=== PATIENT | female | born 1945 | race Caucasian/White ===

== ENCOUNTER 2020-03-05 13:18 | Inpatient (IN) | payer MEDICARE, OTHER ==
[~2020-03-05] VITALS: Ht 170.2 cm; Wt 129.7 kg
[~2020-03-05 13:18] MED LIST: ASPIR 8181 MG PO; CITALOPRAM HBR40 MG PO; JANUVIA100 MG PO; LEVOXYL75 MCG PO; LIPITOR80 MG PO; METOPROLOL TART25 MG PO; NITROFURANTOIN100 MG PO; OXYBUTYNIN CHLO15 MG PO; PRILOSEC20 MG PO; PRINIVIL5 MG PO
[2020-03-05] MEDS ORDERED: AZITHROMYCIN 500MG/NS 250 ML 250 ML IV ONE (14:00)
[2020-03-05] MEDS ORDERED: CEFEPIME 2 GM/NS 0.9% 100 ML 100 ML IV ONE (14:00)
--- OUTSIDE RECORDS SUMMARY | 2020-03-05 14:06 | XMS REPORT | Continuity of Care Document ---
Author Author [facility] Organization [facility] Address [facility] [place] [address] Phone Unavailable Care Team Providers Care Social Insurance Specialist Name Role Phone Simeon PONCE, Pearl Quinn PCP Eddie PONCE, Ted Romano Attphys Payers Payer Name Policy Type Policy Number Effective Date Expiration Date rohit [facility]// [id number] xxxxxxxxxxx 2008 00:00:00 Neto Menon Problems Condition Name Condition Details Condition Category Status Onset Date Resolution Date Last Treatment Date Treating Clinician Comments Source Ventricular tachycardia Ventricular tachycardia Disease Active 2017-10-15 00:00:[address] Severe sepsis Severe sepsis Disease Active 2016-12-07 00:00:00 Neto Menon Allergies, Adverse Reactions, Alerts Allergy Name Allergy Type Status Severity Reaction(s) Onset Date Inacti ve Date Treating Clinician Comments Source Penicillin G Propensity to adverse reactions to drug Active Hives 2016-12-07 00:00:00 Neto loving Sulfa (Sulfonamide Antibiotics) Propensity to adverse reactions to drug Active Hives, Swelling 2016-12-07 00:00:00 Neto Menon Social History Social Habit Start Date Stop Date Quantity Comments Source Sex Assigned At [place] [facility] Alcohol intake 2017-12-05 00:00:00 2017-12-05 00:00:00 Current non-drinker of alcohol (finding) Neto Menon Smoking Status Start Date Stop Date Source Never smoker Neto loving Medications Ordered Medication Name Filled Medication Name Start Date Stop Da te Current Medication? Ordering Clinician Indication Dosage Frequency Signature (SIG) Comments Components Source omeprazole (PriLOSEC) 20 MG capsule 2017-12-05 20:37:51 Yes 20mg QD Take 20 mg by mouth daily. Neto Menon aspirin (ECOTRIN) 81 MG enteric coated tablet 2017-12-05 20:37:5 1 Yes 81mg QD Take 81 mg by mouth nightly. Neto Menon amIODarone (PACERONE) 100 MG tablet 2017-12-05 20:37:51 Yes 100mg QD Take 100 mg by mouth daily. Neto bonilla rivaroxaban (XARELTO) 15 mg tablet 2017-12-05 20:37:51 Yes 15mg QD Take 15 mg by mouth daily. Neto Menon acetaminophen (TYLENOL) 325 MG tablet 2017-12-05 20:37:51 Y es 325mg Q6H Take 325 mg by mouth every 6 (six) hours as needed for fever. Neto Menon levothyroxine (SYNTHROID, LEVOXYL) 75 mcg tablet 2017-11-18 00:00:00 Yes 1{tbl} QD Take 1 tablet by mouth daily before breakfast. Neto Menon phenytoin (DILANTIN) 100 MG ER capsule 2017-11-17 00:00:00 Yes 2{capsule} Q.5D Take 2 capsules by mouth 2 (two) times a day. Neto Menon furosemide (LASIX) 20 mg tablet 2017-11-13 00:00:00 Yes 2{tbl} QD Take 2 tablets by mouth daily. Neto Bryant t potassium chloride (KLOR-CON) 10 MEQ CR tablet 2017-11-13 00:00: 00 Yes 1{tbl} QD Take 1 tablet by mouth nightly. Neto Menon metOLazone (ZAROXOLYN) 5 MG tablet 2017-09-18 00:00:00 Y es 1{tbl} Q.[id number] Take 1 tablet by mouth 3 (three) times a week. Saturdayday saturday Neto Menon atorvastatin (LIPITOR) 80 MG tablet 2017-08-26 00:00:00 Yes 1{tbl} QD Take 1 tablet by mouth nightly. Neto Menon metoprolol tartrate (LOPRESSOR) 25 mg tablet 2017-08-26 00:00:00 Yes 2{tbl} QD Take 2 tablets by mouth daily. Neto Menon losartan (COZAAR) 25 MG tablet 2017-03-26 00:00:00 Yes 25mg QD Take 25 mg by mouth daily. Neto Menon sitaGLIPtin (JANUVIA) 100 MG tablet 2017-02-27 00:00:00 Yes 100mg QD Take 100 mg by mouth daily. Neto bonilla multivitamin (THERAGRAN) tablet 2013-12-10 00:00:00 Yes 1{tbl} QD Take 1 tablet by mouth daily. Neto Menon Vital Signs Vital Name Observation Time Observation Value Comments Source Heart rate 2020-03-03 17:30:00 83 /min Neto Menon Respiratory rate 2020-03-03 17:30:00 24 /min Heber Menon Oxygen saturation in Arterial blood by Pulse oximetry 03-03 17:30:00 95 /min Neto Menon Body temperature 2020-03-03 16:40:00 37.17 Briana Heber Menon Systolic blood pressure 2020-03-03 15:00:00 124 mm[Hg] Neto Menon Diastolic blood pressure 2020-03-03 15:00:00 62 mm[Hg] Neto Menon Procedures Procedure Date / Time Performed Performing Clinician [facility] e US DUPLEX VENOUS UPPER EXTREMITY RIGHT 2020-03-03 15:40:00 Moni Grover CBC WITH PLATELET AND DIFFERENTIAL 2020-03-03 15:36:00 Moni Levi COMPREHENSIVE METABOLIC PANEL 2020-03-03 15:36:00 Moni Levi ESTIMATED GFR 2020-03-03 15:36:00 Moni Levi Met kaur MANUAL DIFFERENTIAL 2020-03-03 15:36:00 Moni Levi XR CHEST 1 VW PORTABLE 2020-03-03 15:34:13 Moni Levi ECG 12-LEAD 2020-03-03 15:07:03 Moni Levi Met kaur ECG ED PRELIMINARY INTERPRETATION 2020-03-03 15:01:44 Juan Levi Plan of Care Planned Activity Planned Date Details Comments Source Future Scheduled Test 2020-03-05 00:00:00 INFLUENZA VACCINE [code = INFLUENZA VACCINE] Neto Menon Future Scheduled Test 1993 00:00:00 COLONOSCOPY SCREEN ING [code = COLONOSCOPY SCREENING] Neto Menon Future Scheduled Test 1993 00:00:00 SHINGLES VACCINES (#1) [code = SHINGLES VACCINES (#1)] Neto Menon Future Scheduled Test 1953 00:00:00 DIABETIC FOOT EXAM [code = DIABETIC FOOT EXAM] Neto Menon Future Scheduled Test 1943 00:00:00 DIABETIC RETINAL E YE EXAM [code = DIABETIC RETINAL EYE EXAM] Neto Menon Encounters Start Date/Time End Date/Time Encounter Type Admission Type [facility] Care Department Encounter ID Source 2020-03-03 00:00:00 2020-03-03 00:00:00 Emergency EDDIE, MONI [facility] [id number] Neto Menon Results Test Description Test Time Test Comments Results Result Comments Source ECG 12 lead 2020-03-03 16:54:43 Test Item Ventricular rate (test code = 253) 78 Atrial rate (test code = 255) 78 CO interval (test code = 266) 164 QRSD interval (test code = 260) 90 QT interval (test code = 264) 448 QTC interval (test code = 265) 510 P axis 1 (test code = 267) 97 QRS axis 1 (test code = 268) 18 T wave axis (test code = 270) 10 EKG impression (test code = 273) Normal sinus rhythm-C annot rule out Anterior infarct , age undetermined-Prolonged QT-Abnormal ECG-In automated comparison with ECG of 05-DEC-2017 19:43,-Sinus rhythm has replaced Junctional rhythm-Nonsp ecific T wave abnormality, improved in Lateral leads-QT has lengthened- Neto MenonUs duplex venous upper [id number] 16:48:07 There is no evidence of DVT in the right upper extremity and left internal jugular vein. Neto MenonCBC with platelet and [id number] 16:44:52* Test Item Value Reference Range Interpretation Comments WBC (test code = 23506-0) 5.53 4.50- 11.00 k/uL RBC (test code = 40266-0) 3.81 m/uL 4.2-5.5 L HGB (test code = 718-7) 10.1 g/dL 12-16 L HCT (test code = 4544-3) 35.0 % 37-47 L MCV (test code = 787-2) 91.9 fL 82-100 MCH (test code = 785-6) 26.5 pg 27-34 L MCHC (test code = 786-4) 28.9 g/dL 31-37 L RDW - SD (test code = 97918-8) 102.2 fL 37-55 H MPV (test code = 76018-4) SEE COMMENT 8.8-13.2 No report Platelet count (test code = 94828-3) 150 150- 400 k/uL Nucleated RBC (test code = 19353-3) 0.00 /100 WBC Neutrophils (test code = 30881-7) 41.0 % 39-69 Lymphocytes (test code = 87448-3) 52.0 % 25-45 H Monocytes (test code = 34891-9) 2.0 % 0-10 Eosinophils (test code = 47607-9) 5.0 % 0-5 Basophils (test code = 48459-0) 0.0 % 0-1 Lab Interpretation (test code = 93789-3) Abnormal [place] [facility] [id number] 16:44:52* Test Item Value Reference Range Interpretation Comments Manual differential (test code = 74761-2) PERFORMED Neutrophils (test code = 11857-6) 41.0 % 39-69 Lymphocytes (test code = 61078-0) 52.0 % 25-45 H Monocytes (test code = 41305-9) 2.0 % 0-10 Eosinophils (test code = 64073-6) 5.0 % 0-5 Basophils (test code = 13438-2) 0.0 % 0-1 Metamyelocytes (test code = 740-1) 0 % Promyelocytes (test code = 783-1) 0 % Platelet slide review (test code = 28363-4) Abhijit adequate Anisocytosis (test code = 702-1) Moderate Tear drop cells (test code = 7791-7) Occasional Ovalocytes (test code = 774-0) occasional Elliptocytes (test code = 50530-2) Occasional Lab Interpretation (test code = 15059-5) Abnormal [place] [facility] [id number] 15:56:33* Test Item Value Reference Range Interpretation Comments Sodium (test code = 2951-2) 140 135- 148 mEq/L Potassium (test code = 2823-3) 3.1 3.5- 5.0 mEq/L L Chloride (test code = 5-0) 100 98- 112 mEq/L CO2 (test code = 2027-9) 34 24- 31 mEq/L H Anion gap (test code = 13186-4) 6@ANIO 7- 15 mEq/L L BUN (test code = 3094-0) 9 mg/dL 8-23 Creatinine (test code = 2160-0) 0.70 mg/dL 0.5-0.9 Glucose (test code = 2345-7) 121 mg/dL 65-99 H Calcium (test code = 23428-0) 8.2 mg/dL 8.8-10.2 L Protein (test code = 2885-2) 6.4 g/dL 6.3-8.3 -[place] 4.6- 7.0 g/dL1 week 4.4-7.6 g/dL7 months-1year 5.1-7.3 g/dL1-2 years 5.6-7.5 g/dL>3 years 6.0-8.0 g/oV43-033 6.3-8.3 g/dL Albumin (test code = 1751-7) 2.3 g/dL 3.5-5 L A/G ratio (test code = 1759-0) 0.6 0.7-3.8 L Alkaline phosphatase (test code = 6768-6) 108 U/L 35-104 H AST (test code = 1920-8) 45 U/L 10-35 H ALT (test code = 1742-6) 23 U/L 5-50 Total bilirubin (test code = 1974-) 0.9 mg/dL 0-1.2 Lab Interpretation (test code = 03124-7) Abnormal [place] [facility] [id number] 15:56:33* Test Item Value Reference Range Interpretation Comments Estimated GFR (test code = 5488) 84 mL/min/1.73 m2 Catergory Units InterpretationG1 >=90 Normal or highG2 60-89 Mildly otvpuxifpW7r 45-59 Mildly to moderately pujwytmmxA0t 30-44 Moderately to severely decreasedG4 15-29 Severely decreasedG5 <15 Kidney failureThe eGFR was calculated using the Chronic Kidney Disease Epidemiology Collaboration (CKD-EPI) equation. Interpretation is based on recommendations of the National Kidney Foundation-Kidney Disease Outcomes Quality Initiative (NKF-KDOQI) published in 2014. Neto MenonXR Chest 1 Vw [id number] 15:37:15Hm Interface, Radiology Results 03/03/2020 3:40 PM CDTEXAMINATION: XR CHEST 1 VW PORTABLECLINICAL HISTORY: reported low O2 sat by EMS but normalCOMPARISON: Prior chest radiographs, most recently dated 12/05/2018IMPRESSION:Technique: Single portable chest radiograph. Patient is partially rotated on the exam. Lines/tube: NoneCardiomediastinum: Postsurgical changes mediastinum. Unchanged b orderline cardiomegaly with aortic calcifications.Lungs: Patient is rotated on t his study. Subsegmental atelectatic changes are seen within the right lung base. No definitive consolidative airspace opacity on this portable technique. No liliam dence of pulmonary edema. No pleural effusion. No pneumothorax.Bones: Midline st ernotomy wires are present. The regional osseous structures appear stable. [facility] [place] [place] [id number] [facility] [place] [place] [facility] [place] Preliminary Interpretation - Not an Order 2020-03-03 15:01:44Moni Levi MD 03/03/2020 6:03 PME ED Preliminary Interpretation - Not an OrderPerformed by: Moni Levi MDAuthorized by: Moni Levi MD ECG reviewed by ED Physician in the absence of a highway maintenance worker: yes (read at 1507) Interpretation: Interpretation: normal Rate: ECG rate: 78 ECG rate assessment: normal Rhythm: Rhythm: sinus rhythm Ectopy: Ectopy: none QRS: QRS axis: Normal QRS intervals: NormalConduction: Conduction: normal ST segments: ST segments: NormalT waves: T waves: normal Other findings: Other findings: prolonged qTc interval Neto Menon
--- OUTSIDE RECORDS SUMMARY | 2020-03-05 14:06 | XMS REPORT | Clinical Summary ---
Author Author [facility] Organization [facility] Address Unknown Phone Unavailable Care Team Providers Care Cigar Sorter Name Role Phone Cheyenne Hendrix MD PCP Allergies Comments Active Allergy Reactions Severity Noted Date Penicillin G Hives Medium 12/07/2016 Sulfa (Sulfonamide Hives, High 12/07/2016 Antibiotics) Swelling Medications End Date Status Medication Sig Dispensed Refills Start Date Active atorvastatin (LIPITOR) 80 Take 1 tablet 0 /2 /201 MG tablet by mouth 8 nightly. Active furosemide (LASIX) 20 mg Take 2 0 11/13 tablet tablets by 8 mouth daily. Active levothyroxine (SYNTHROID, Take 1 tablet 0 11/03 LEVOXYL) 75 mcg tablet by mouth 8 daily before breakfast. Active losartan (COZAAR) 25 MG Take 25 mg by 0 tablet mouth daily. 7 Active metOLazone (ZAROXOLYN) 5 Take 1 tablet 0 09/18201 MG tablet by mouth 3 8 (three) times a week. Saturday Active metoprolol tartrate Take 2 0 (LOPRESSOR) 25 mg tablet tablets by 8 mouth daily. Active multivitamin (THERAGRAN) Take 1 tablet 0 12/10 tablet by mouth 4 daily. Active omeprazole (PriLOSEC) 20 Take 20 mg by 0 MG capsule mouth daily. Active phenytoin (DILANTIN) 100 Take 2 0 11/17 / MG ER capsule capsules by 8 mouth 2 (two) times a day. Active potassium chloride Take 1 tablet 0 (KLOR-CON) 10 MEQ CR by mouth 8 tablet nightly. Active sitaGLIPtin (JANUVIA) 100 Take 100 mg 0 / MG tablet by mouth 7 daily. Active aspirin (ECOTRIN) 81 MG Take 81 mg by 0 enteric coated tablet mouth nightly. Active amIODarone (PACERONE) 100 Take 100 mg 0 MG tablet by mouth daily. Active rivaroxaban (XARELTO) 15 Take 15 mg by 0 mg tablet mouth daily. Active acetaminophen (TYLENOL) Take 325 mg 0 325 MG tablet by mouth every 6 (six) hours as needed for fever. Active Problems Problem Noted Date Ventricular tachycardia 10/15/2017 Severe sepsis 12/07/2016 Encounters Care Team Description Date Type Specialty Juan Antonio Levi MD Swelling of right upper extremity (Prima ry Dx); Hypokalemia 03/03/2020 Emergency Emergency Medicine after 03/05/2019 Social History Date Tobacco Use Types Packs/Day Years Used Never Smoker Smokeless Tobacco: Never Used Drinks/Week oz/Week Comments Alcohol Use No Sex Assigned at Date Recorded Not on file Industry Job Start Date Occupation Not on file Not on file Not on file Travel End Travel History Travel Start No recent travel history available. Last Filed Vital Signs Reading Time Taken Comments Vital Sign 124/62 03/03/2020 3:00 PM CDT Blood Pressure 83 03/03/2020 5:30 PM CDT Pulse 37.2 C (98.9 F) 03/03/2020 4:40 PM CDT Temperature 24 03/03/2020 5:30 PM CDT Respiratory Rate 95% 03/03/2020 5:30 PM CDT Oxygen Saturation - - Inhaled Oxygen Concentration - - Weight - - Height - - Body Mass Index Plan of Treatment Health Maintenance Due Date Last Done Comments DIABETIC RETINAL EYE EXAM 1943 DIABETIC FOOT EXAM 1953 COLONOSCOPY SCREENING 1993 SHINGLES VACCINES (#1) 1993 INFLUENZA VACCINE 03/05/2020 03/26/2017, 06/08/2016, 04/19/2014, Additional history exists 65+ PNEUMOCOCCAL VACCINE Completed 06/14/2014, 04/05/2010, 08/05/2006 Procedures Comments Procedure Name Priority Date/Time Associated Diag nosis US DUPLEX VENOUS UPPER STAT 03/03/2020 EXTREMITY RIGHT 3:40 PM CDT MANUAL DIFFERENTIAL STAT 03/03/2020 3:36 PM CDT ESTIMATED GFR STAT 03/03/2020 3:36 PM CDT COMPREHENSIVE METABOLIC STAT 03/03/2020 PANEL 3:36 PM CDT CBC WITH PLATELET AND STAT 03/03/2020 DIFFERENTIAL 3:36 PM CDT XR CHEST 1 VW PORTABLE STAT 03/03/2020 3:34 PM CDT ECG 12-LEAD Routine 03/03/2020 3:07 PM CDT ECG ED PRELIMINARY Routine 03/03/2020 INTERPRETATION 3:01 PM CDT after 03/05/2019 Results * Us duplex venous upper extremity (03/03/2020 3:40 PM CDT) Specimen Narrative Performed At [facility] There is no evidence of DVT in the r ight upper extremity and left internal jugular vein. Performing Organization Address City/State/[facility] Cent[facility] Ph one Number [facility] [address] [place] [address], * Estimated GFR (03/03/2020 3:36 PM CDT) Pathologist [facility] Estimated GFR 84 mL/min/1.73 m2 [place] Comment: [facility] Interpretation G1 >=90 Normal or high G2 60-89 Mildly decreased G3a 45-59 Mildly to moderately decreased G3b 30-44 Moderately to severely decreased G4 15-29 Severely decreased G5 <15 Kidney failure The eGFR was calculated using the Chronic Kidney Disease Epidemiology Collaboration (CKD-EPI) equation. Interpretation is based on recommendations of the National Kidney Foundation-Kidney Disease Outcomes Quality Initiative (NKF-KDOQI) published in 2014. Specimen Performing Organization Address City/State/Zipcode [place] [address] [place], [place] [address] PATHOLOGY AND GENOMIC MEDICINE [facility] [address] [place] [address] [facility] * Manual differential (03/03/2020 3:36 PM CDT) Manual PERFORMED [place] differential [facility] Neutrophils 41.0 39.0 - 69.0 % [facility] Lymphocytes 52.0 (H) 25.0 - 45.0 % [facility] Monocytes 2.0 0.0 - 10.0 % [facility] Eosinophils 5.0 0.0 - 5.0 % [facility] Basophils 0.0 0.0 - 1.0 % [facility] Metamyelocytes 0 % [facility] Promyelocytes 0 % [facility] Platelet slide Abhijit adequate [place] review [facility] Anisocytosis Moderate [facility] Tear drop cells Occasional [facility] Ovalocytes occasional [facility] Elliptocytes Occasional [facility] Specimen Performing Organization Address City/State/Zipcode Ph one Number [facility] [place] [address] [place], [place] [address] PATHOLOGY AND GENOMIC MEDICINE [facility] [address] [place] [address] [facility] * CBC with platelet and differential (03/03/2020 3:36 PM CDT) WBC 5.53 4.50 - 11.00 k/uL [facility] RBC 3.81 (L) 4.20 - 5.50 m/uL [facility] HGB 10.1 (L) 12.0 - 16.0 g/dL [facility] HCT 35.0 (L) 37.0 - 47.0 % [facility] MCV 91.9 82.0 - 100.0 fL [facility] MCH 26.5 (L) 27.0 - 34.0 pg [facility] MCHC 28.9 (L) 31.0 - 37.0 g/dL [facility] RDW - SD 102.2 (H) 37.0 - 55.0 fL [facility] MPV SEE COMMENTComment: No report 8.8 - 13.2 fL [facility] Platelet count 150 150 - 400 k/uL [facility] Nucleated RBC 0.00 /100 WBC [facility] Neutrophils 41.0 39.0 - 69.0 % [facility] Lymphocytes 52.0 (H) 25.0 - 45.0 % [facility] Monocytes 2.0 0.0 - 10.0 % [facility] Eosinophils 5.0 0.0 - 5.0 % [facility] Basophils 0.0 0.0 - 1.0 % [facility] Specimen Blood Performing Organization Address City/State/[facility] Ph [place] [facility] [place] [address] [place] [address] PATHOLOGY AND GENOMIC MEDICINE [facility] [address] [place] [address] [facility] * Comprehensive metabolic panel (03/03/2020 3:36 PM CDT) Sodium 140 135 - 148 mEq/L [facility] Potassium 3.1 (L) 3.5 - 5.0 mEq/L [facility] Chloride 100 98 - 112 mEq/L [facility] CO2 34 (H) 24 - 31 mEq/L [facility] Anion gap 6@ANIO (L) 7 - 15 mEq/L [facility] BUN 9 8 - 23 mg/dL [facility] Creatinine 0.70 0.50 - 0.90 mg/dL [facility] Glucose 121 (H) 65 - 99 mg/dL [facility] Calcium 8.2 (L) 8.8 - 10.2 mg/dL [facility] Protein 6.4 6.3 - 8.3 g/dL [place] Comment: [facility] [place] 4.6-7.0 g/dL 1 week 4.4-7.6 g/dL 7 months-1year 5.1-7.3 g/dL 1-2 years 5.6-7.5 g/dL >3 years 6.0-8.0 g/dL 18-150 6.3-8.3 g/dL Albumin 2.3 (L) 3.5 - 5.0 g/dL [facility] A/G ratio 0.6 (L) 0.7 - 3.8 [facility] Alkaline 108 (H) 35 - 104 U/L [place] phosphatase [facility] AST 45 (H) 10 - 35 U/L [facility] ALT 23 5 - 50 U/L [facility] Total bilirubin 0.9 0.0 - 1.2 mg/dL [facility] Specimen Blood Performing Organization Address City/State/Zipcode [place] [address] [address] [place], [place] [address] PATHOLOGY AND GENOMIC MEDICINE [place] YAZDANISM CLEAR [address] [place] [address] [facility] * XR Chest 1 Vw Portable (03/03/2020 3:34 PM CDT) Specimen Narrative Performed At EXAMINATION: XR CHEST 1 VW PORTABLE [facility] CLINICAL HISTORY: reported low O2 sat by EMS but normal COMPARISON: Prior chest radiographs, mo st recently dated 12/05/2018 IMPRESSION: Technique: Single portable chest radiog raph. Patient is partially rotated on the exam. Lines/tube: None Cardiomediastinum: Postsurgical changes mediastinum. Unchanged borderline cardiomegaly with aortic calcifications . Lungs: Patient is rotated on this study . Subsegmental atelectatic changes are seen within the right lung base. No def initive consolidative airspace opacity on this portable technique. No evidence of pulmonary edema. No pleural effusion. No pneumothorax. Bones: Midline sternotomy wires are pre sent. The regional osseous structures appear stable. [facility]-[id number] Procedure Note Hm Interface, Radiology Results Incoming - 03/03/2020 3:40 PM CDT EXAMINATION: XR CHEST 1 VW PORTABLE CLINICAL HISTORY: reported low O2 sat by EMS but normal COMPARISON: Prior chest radiographs, most recently dated 12/05/2018 IMPRESSION: Technique: Single portable chest radiograph. Patient is partially rotated on the exam. Lines/tube: None Cardiomediastinum: Postsurgical changes mediastinum. Unchanged borderline cardiomegaly with aortic calcifications. Lungs: Patient is rotated on this study. Subsegmental atelectatic changes are seen within the right lung base. No definitive consolidative airspace opacity on this portable technique. No evidence of pulmonary edema. No pleural effusion. No pneumothorax. Bones: Midline sternotomy wires are present. The regional osseous structures appear stable. [id number] Performing Organization Address City/[facility]/Zipcode Ph one Number [facility] [address] [facility] [place] [address] * ECG 12 lead (03/03/2020 3:07 PM CDT) Ventricular 78 [facility] rate Atrial rate 78 [facility] [place] interval 164 [facility] QRSD interval 90 [facility] QT interval 448 [facility] QTC interval 510 [facility] P axis 1 97 [facility] QRS axis 1 18 [facility] T wave axis 10 [facility] EKG impression Normal sinus rhythm-Cannot [facility] rule out Anterior infarct , age undetermined-Prolonged QT-Abnormal ECG-In automated comparison with ECG of 05-DEC-2017 19:43,-Sinus rhythm has replaced Junctional rhythm-Nonspecific T wave abnormality, improved in Lateral leads-QT has lengthened- Specimen Narrative Performed At This result has an attachment that is n ot available. Performing Organization Address City/State/Zipcode Ph one Number [facility] [address] [place] [address] * ECG ED Preliminary Interpretation - Not an Order (03/03/2020 3:01 PM CDT) Narrative Performed At Juan Antonio Levi MD 03/03/2020 6:03 PM ECG ED Preliminary Interpretation - Not an Order Performed by: Juan Antonio Levi MD Authorized by: Juan Antonio Levi MD ECG reviewed by ED Physician in the abs ence of a supervisor building maintenance: yes (read at 1507) Interpretation: Interpretation: normal Rate: ECG rate: 78 ECG rate assessment: normal Rhythm: Rhythm: sinus rhythm Ectopy: Ectopy: none QRS: QRS axis: Normal QRS intervals: Normal Conduction: Conduction: normal ST segments: ST segments: Normal T waves: T waves: normal Other findings: Other findings: prolonged qTc interva l after 03/05/2019 Additional Health Concerns Resolved Time Infection Noted Time r/o Coronavirus COVID-19 (Suspected) 03/03/2020 2:5 4 PM CDT Insurance Type Payer Benefit Subscriber ID Effective Phone Address Plan / Dates Group O [employer] xxxxxxxxxxx 2008- P ADVANTAGE resent [facility] Advance Directives For more information, please contact: [phone] 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
[2020-03-05 14:12] LABS: BASOPHILS # (AUTO) 0.1 (0.0-0.1); BASOPHILS % 1.1 % (0.0-1.0); EOSINOPHILS # (AUTO) 0.1 (0.0-0.4); EOSINOPHILS % 2.1 % (0.0-6.0); HEMATOCRIT 33.4 % (34.2-44.1); HEMOGLOBIN 9.9 g/dL (12.0-16.0); LYMPHOCYTES # (AUTO) 2.2 (1.0-3.2); MEAN CORPUSCULAR HEMOGLOBIN 25.8 pg (28-32); MEAN CORPUSCULAR HGB CONC 29.6 g/dL (31-35); MEAN CORPUSCULAR VOLUME 87.2 fL (81-99); MONOCYTES # (AUTO) 0.4 (0.2-0.8); NEUTROPHILS # (AUTO) 2.4 (2.1-6.9); NEUTROPHILS % 46.6 % (38.7-80.0); PLATELET COUNT 200 x10e3/uL (140-360); RED BLOOD COUNT 3.83 x10e6/uL (3.6-5.1)
[2020-03-05 14:19] LABS: INR 1.31
[2020-03-05 14:20] LABS: CLARITY,URINE SL CLOUDY (CLEAR); COLOR,URINE YELLOW (YELLOW); PARTIAL THROMBOPLASTIN TIME 37.7 seconds (23.8-35.5)
[2020-03-05 14:21] LABS: BILIRUBIN,URINE SMALL (NEGATIVE); KETONES,URINE TRACE (NEGATIVE); LEUKOCYTE ESTERASE ,URINE TRACE (NEGATIVE); NITRITE,URINE NEGATIVE (NEGATIVE); PROTEIN,URINE DIPSTICK TRACE (NEGATIVE); URINE UROBILINOGEN 1 mg/dL (0.2 - 1)
--- NOTE | 2020-03-05 14:32 | NUR ---
SPOKE WITH DAUGHTER ON PHONE, OBTAINED MEDICAL HISTORY. SHE IS ON HER WAY WITH PHONE AN MED LIST
[2020-03-05 14:34] LABS: ALANINE AMINOTRANSFERASE 24 IU/L (0-55); ALBUMIN/GLOBULIN RATIO 0.5 (0.8-2.0); ALKALINE PHOSPHATASE 103 IU/L (40-150); ANION GAP 11.8 mmol/L (8-16); BLOOD UREA NITROGEN 8 mg/dL (7-26); BUN/CREATININE RATIO 12 (6-25); CALCIUM 7.6 mg/dL (8.4-10.2); CARBON DIOXIDE 31 mmol/L (22-29); CHLORIDE 101 mmol/L (98-107); CREATINE KINASE 12 IU/L (29-168); CREATININE, SERUM 0.68 mg/dL (0.57-1.11); EST GLOMERULAR FILTRATION RATE > 60 ML/MIN (60-); GLUCOSE 123 mg/dL (74-118); MAGNESIUM 1.4 MG/DL (1.3-2.1); POTASSIUM 3.8 mmol/L (3.5-5.1); SODIUM 140 mmol/L (136-145)
--- NOTE | 2020-03-05 14:38 | NUR ---
DAUGHTER DROPPED OFF HER MOMS PHONE AND MEDICATION LIST ANDER GALLEGOS [phone]
[2020-03-05 14:40] LABS: BACTERIA,URINE FEW /HPF; EPITHELIAL CELLS,URINE FEW /LPF; RBC,URINE 0-5 /HPF (0-5)
[2020-03-05] MEDS ORDERED: CEPHALEXIN500 MG PO (14:52)
[2020-03-05] MEDS ORDERED: JANUVIA100 MG PO (14:54)
[2020-03-05] MEDS ORDERED: LOSARTAN POTASS25 MG PO (14:58)
--- NOTE | 2020-03-05 15:16 | Diagnostic Imaging Report ---
EXAMINATION: CHEST SINGLE (PORTABLE) INDICATION: Shortness of breath and cough. COMPARISON: 02/09/2014. FINDINGS: TUBES and LINES: None. LUNGS: Low lung volumes with bronchovascular crowding. There is prominent interstitial lung markings and opacification of the right lung base. There is elevation of the right hemidiaphragm. PLEURA: There is probable small right pleural effusion. HEART AND MEDIASTINUM: The heart is mildly enlarged. The mediastinal contour is otherwise within normal limits with atherosclerotic calcification of the thoracic aorta. BONES AND SOFT TISSUES: No acute osseous lesion. Soft tissues are unremarkable. UPPER ABDOMEN: No free air under the diaphragm. IMPRESSION: Prominent interstitial lung markings which likely reflects interstitial pulmonary edema in the presence of cardiomegaly. Right basilar opacification which likely represent atelectasis and/or pneumonia in the proper clinical setting. Signed by: Tamara Abdalla MD on 03/05/2020 3:12 PM
[2020-03-05] MEDS ORDERED: PHENYTOIN SODI200 MG PO (15:21)
[2020-03-05] MEDS ORDERED: FUROSEMIDE INJ 10 MG/ML 4 ML VIAL IV ONE (15:30)
[2020-03-05] MEDS ORDERED: ONDANSETRON HCL INJ 2MG/ML 2ML 2 MG/ML VIAL IV PRN (15:30)
[2020-03-05] MEDS ORDERED: FAMOTIDINE 20 MG/2 ML VIAL IV SCH (15:30)
--- NOTE | 2020-03-05 15:39 | Emergency Department Note ---
History of Present Illnes History of Present Illness Chief Complaint: General Medicine Complaints History of Present Illness This is a 74 year old female with swelling all over, chronic but worse in last few days. PT HAS NO COMPLAINTS. DAUGHTER CALLED [phone] BECAUSE SHE STATED ON PHONE, "I WANT TO KNOW WHY HER ARMS ARE SWOLLEN ALL THE WAY DOWN TO HER FINGER TIPS AND IT'S MAKING HER HAVE A TIA." PT AAOX4. NO S/S OF CVA. VSS. PT WAS AT [facility] YESTERDAY AND LEFT AMA BECAUSE THEY WANTED HER TO TAKE OF A COVID TEST. 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 Any updates have been documented here. Past Medical History Recent Fever: No Clinical Suspicion of Infectio: No New/Unexplained Change in Ment: No Past Medical History: Hypertension, Diabetes, Hypothyroidism Other Medical History: BREAST CANCER X2 H/O SDH AND THEN SEIZURES BED-BOUND FOR OVER A YEAR, WEARS A DIAPER BUT ONLY GETS CHANGED ~1X/DAY Past Surgical History: Hysterectomy Other Surgery: BILATERAL SHOULDER SURGERY BYPASS Social History Smoking Cessation: Never Smoker Counseling Performed: No Alcohol Use: None Any Illegal Drug Use: No TB Exposure/Symptoms: No Physically hurt or threatened: No Family History Family history of heart diseas: No Other Last Tetanus: UNKNOWN Any Pre-Existing Lines (PICC,: No Review of Systems Review of Systems Constitutional: Reports as per HPI, Reports weakness EENTM: Reports no symptoms Cardiovascular: Reports edema Respiratory: Reports as per HPI, Reports cough Gastrointestinal: Reports no symptoms Genitourinary: Reports no symptoms Musculoskeletal: Reports no symptoms Integumentary: Reports no symptoms Neurological: Reports no symptoms Psychological: Reports no symptoms Endocrine: Reports no symptoms Hematological/Lymphatic: Reports no symptoms Physical Exam Related Data Allergies: Coded Allergies: Penicillins (Unverified Allergy, Severe, "SHORT OF BREATH, LIPS PURPLE AND SWELLING, RASH", 03/05/20) Sulfa (Sulfonamide Antibiotics) (Verified Allergy, Unknown, 03/05/20) Triage Vital Signs Vital Signs Date Time Temp Pulse Resp B/P (MAP) Pulse Ox O2 Delivery O2 Flow Rate FiO2 03/05/20 13:21 97.5 79 18 141/69 98 Nasal Cannula 2.0 Vital signs reviewed: Yes Physical Exam CONSTITUTIONAL Constitutional: Present morbidly obese HENT HENT: Present normocephalic, Present atraumatic, Present oropharynx clear/moist, Present nose normal HENT L/R: Present left ext ear normal, Present right ext ear normal EYES Eyes: Reports PERRL, Reports conjunctivae normal NECK Neck: Present ROM normal PULMONARY Pulmonary: Present effort normal, Present other (BIBASILAR RALES) CARDIOVASCULAR Cardiovascular: Present regular rhythm, Present heart sounds normal, Present LLE edema, Present RLE edema, Present other (ALSO WITH BILATERAL UPPER EXTREMITY EDEMA) GASTROINTESTINAL Abdominal: Present soft, Present nontender, Present bowel sounds normal GENITOURINARY Genitourinary: Present exam deferred SKIN Skin: Present other (EXTENSIVE MACERATION/DENUDED SKIN ON BILAT BUTTOCKS AND PRESSURE ULCER STAGE 3 ON SACRUM/COCCYX) MUSCULOSKELETAL Musculoskeletal: Present ROM normal NEUROLOGICAL Neurological: Present alert, Present oriented x 3, Present weakness (GENERALIZED 4/5) PSYCHOLOGICAL Psychological: Present mood/affect normal, Present judgement normal Results Laboratory Result Diagram: 03/05/20 1354 03/05/20 1354 Laboratory Laboratory Tests Test 03/05/20 13:54 White Blood Count 5.24 x10e3/uL (4.8-10.8) Red Blood Count 3.83 x10e6/uL (3.6-5.1) Hemoglobin 9.9 g/dL (12.0-16.0) Hematocrit 33.4 % (34.2-44.1) Mean Corpuscular Volume 87.2 fL (81-99) Mean Corpuscular Hemoglobin 25.8 pg (28-32) Mean Corpuscular Hemoglobin Concent 29.6 g/dL (31-35) Red Cell Distribution Width 31.0 % (11.7-14.4) Platelet Count 200 x10e3/uL (140-360) Neutrophils (%) (Auto) 46.6 % (38.7-80.0) Lymphocytes (%) (Auto) 42.0 % (18.0-39.1) Monocytes (%) (Auto) 8.0 % (4.4-11.3) Eosinophils (%) (Auto) 2.1 % (0.0-6.0) Basophils (%) (Auto) 1.1 % (0.0-1.0) Neutrophils # (Auto) 2.4 (2.1-6.9) Lymphocytes # (Auto) 2.2 (1.0-3.2) Monocytes # (Auto) 0.4 (0.2-0.8) Eosinophils # (Auto) 0.1 (0.0-0.4) Basophils # (Auto) 0.1 (0.0-0.1) Absolute Immature Granulocyte (auto 0.01 x10e3/uL (0-0.1) Prothrombin Time 17.0 seconds (11.9-14.5) Prothromb Time International Ratio 1.31 Activated Partial Thromboplast Time 37.7 seconds (23.8-35.5) Urine Color Yellow (YELLOW) Urine Clarity Sl cloudy (CLEAR) Urine pH 5.5 (5 - 7) Urine Specific [place] 1.025 (1.010-1.025) Urine Protein Trace (NEGATIVE) Urine Glucose (UA) Negative (NEGATIVE) Urine Ketones Trace (NEGATIVE) Urine Blood Trace (NEGATIVE) Urine Nitrite Negative (NEGATIVE) Urine Bilirubin Small (NEGATIVE) Urine Urobilinogen 1 mg/dL (0.2 - 1) Urine Leukocyte Esterase Trace (NEGATIVE) Urine RBC 0-5 /HPF (0-5) Urine WBC 11-20 /HPF (0-5) Urine Epithelial Cells Few /LPF (NONE) Urine Bacteria Few /HPF (NONE) Sodium Level 140 mmol/L (136-145) Potassium Level 3.8 mmol/L (3.5-5.1) Chloride Level 101 mmol/L (98-107) Carbon Dioxide Level 31 mmol/L (22-29) Anion Gap 11.8 mmol/L (8-16) Blood Urea Nitrogen 8 mg/dL (7-26) Creatinine 0.68 mg/dL (0.57-1.11) Estimat Glomerular Filtration Rate > 60 ML/MIN (60-) BUN/Creatinine Ratio 12 (6-25) Glucose Level 123 mg/dL (74-118) Calcium Level 7.6 mg/dL (8.4-10.2) Magnesium Level 1.4 MG/DL (1.3-2.1) Total Bilirubin 0.9 mg/dL (0.2-1.2) Aspartate Amino Transf (AST/SGOT) 47 IU/L (5-34) Alanine Aminotransferase (ALT/SGPT) 24 IU/L (0-55) Alkaline Phosphatase 103 IU/L (40-150) Creatine Kinase 12 IU/L (29-168) Creatine Kinase MB 0.30 ng/mL (0-5.0) Troponin I 0.007 ng/mL (0-0.300) B-Type Natriuretic Peptide 276.5 pg/mL (0-100) Total Protein 6.2 g/dL (6.5-8.1) Albumin 2.0 g/dL (3.5-5.0) Globulin 4.2 g/dL (2.3-3.5) Albumin/Globulin Ratio 0.5 (0.8-2.0) Lab results reviewed: Yes Imaging Impressions CXR (PORTABLE) IMPRESSION: Prominent interstitial lung markings which likely reflects interstitial pulmonary edema in the presence of cardiomegaly. Right basilar opacification which likely represent atelectasis and/or pneumonia in the proper clinical setting. Signed by: Tamara Abdalla MD on 03/05/2020 3:12 PM Procedures 12 Lead ECG Interpretation ECG Interpretation : ECG: ECG 1 Correctional Manager: Interpreted by ED physician Date: Mar 05, 2020 Time: 13:27 Rhythm: sinus rhythm Rate: normal (72) QRS axis: normal ST segments normal: Yes T waves normal: Yes Clinical Impression: abnormal ECG (POOR RWP) Critical Care Time Total Critical Care Time (min): 30 Critical care time exclusive o: separately billable procedures Critcal care necessary due to: cardiac failure Critcal care time spent by me: discussion w primary provider, evaluation patient response to tx, obtaining hx from patient/surrogate, order/perform tx or interventions, pulse oximetry, re-evaluation of patient condition Assessment & Plan Medical Decision Making MDM ANASARCA IN GENERALLY/CHRONICALLY-ILL APPEARING OBESE FEMALE - CHECK CBC, CHEM'S, ECG, CARDIACS, BNP, UA, BLOOD CX'S, CXR - R/O RENAL INSUFF, CHF, HYP OALBUMINEMIA, ELECTROLYTE ABNL, UTI Reassessment Reassessment ADMIT TO DR ANGEL (MELANIE PT) Assessment & Plan Final Impression: (1) Anasarca (2) CHF (congestive heart failure) (3) Hypoalbuminemia (4) UTI (urinary tract infection) (5) Decubitus skin ulcer Depart Disposition: ADMITTED Last Vital Signs Date Time Temp Pulse Resp B/P (MAP) Pulse Ox O2 Delivery O2 Flow Rate FiO2 03/05/20 15:00 62 18 116/61 97 Nasal Cannula 2.0 03/05/20 13:21 97.5 Home Meds Reported Medications Phenytoin Sodium Extended (PHENYTOIN SODIUM EXTENDED) 200 Mg Capsule, 200 MG PO BID 03/05/20 Losartan Potassium (LOSARTAN POTASSIUM) 25 Mg Tablet, 25 MG PO DAILY 03/05/20 Sitagliptin Phosphate (JANUVIA) 100 Mg Tablet, 100 MG PO DAILY, #30 TAB 03/05/20 Cephalexin (CEPHALEXIN) 500 Mg Capsule, 500 MG PO DAILY, CAP 03/05/20 Aspirin (ASPIR 81) 81 Mg Tablet.dr, 81 MG PO RDAILY 02/09/14 Metoprolol Tartrate (METOPROLOL TARTRATE) 25 Mg Tablet, 25 MG PO BID 02/09/14 Atorvastatin Calcium (LIPITOR) 80 Mg Tablet, 80 MG PO RDAILY 02/09/14 Omeprazole (PRILOSEC) 20 Mg Capsule.dr, 40 MG PO RDAILY 02/09/14 Levothyroxine Sodium (LEVOXYL) 75 Mcg Tablet, 75 MCG PO RDAILY 02/09/14 Discontinued Reported Medications Lisinopril (PRINIVIL) 5 Mg Tablet, 5 MG PO RDAILY 02/09/14 Nitrofurantoin Macrocrystal (NITROFURANTOIN) 100 Mg Capsule, 100 MG PO BID 02/09/14 Oxybutynin Chloride (OXYBUTYNIN CHLORIDE ER) 15 Mg Tab.er.24, 15 MG PO BID 02/09/14 Sitagliptin Phosphate (JANUVIA) 100 Mg Tablet, 100 MG PO RDAILY 02/09/14 Citalopram Hydrobromide (CITALOPRAM HBR) 40 Mg Tablet, 40 MG PO RDAILY 02/09/14 Medications in the ED Cefepime HCl 100 ml @ 200 mls/hr ONCE ONCE IV Last administered on 03/05/20at 15:16; Admin Dose 200 MLS/HR; Start 03/05/20 at 14:00; Stop 03/05/20 at 14:29; Status DC Azithromycin 250 ml @ 200 mls/hr NOW ONCE IV ; Start 03/05/20 at 14:00; Stop 03/05/20 at 15:14; Status DC Famotidine 20 mg Q12H IV ; Start 03/05/20 at 15:30; Stop 04/04/20 at 15:29 Ondansetron HCl 4 mg Q4H PRN IV NAUSEA AND VOMITING; Start 03/05/20 at 15:30; Stop 04/04/20 at 15:29; Status UNV Furosemide 40 mg ONCE ONCE IV ; Start 03/05/20 at 15:30; Stop 03/05/20 at 15:31 WENDY MAJOR MD Mar 05, 2020 15:39
--- OUTSIDE RECORDS SUMMARY | 2020-03-05 15:40 | XMS REPORT | Continuity of Care Document ---
Author Author [facility] t Organization [facility] Address [address] [place] [address] Phone Unavailable Care Team Providers Care Data Librarian Name Role Phone Simeon PONCE, Pearl Quinn PCP Juan MAJOR Attphys Unavailable Amita PONCE, Ted Romano Attphys Payers Payer Name Policy Type Policy Number Effective Date Expiration Date Desire rohit [facility]xxxxxxxxxxx1//[id number] xxxxxxxxxxx 2008 00:00:00 Neto Menon Problems Condition Name Condition Details Condition Category Status Onset Date Resolution Date Last Treatment Date Treating Clinician Comments Source Ventricular tachycardia Ventricular tachycardia Disease Active 2017-10-15 00:00:00 Neto soto Severe sepsis Severe sepsis Disease Active 2016-12-07 [...] MG tablet 2017-09-18 00:00:00 Y es 1{tbl} [id number] Take 1 tablet by mouth 3 (three) [...] Procedure Date / Time Performed Performing Clinician [facility] e US DUPLEX VENOUS UPPER EXTREMITY RIGHT 2020-03-03 15:40:00 Moni Grover CBC WITH PLATELET AND DIFFERENTIAL 2020-03-03 15:36:00 Moni Morgan COMPREHENSIVE METABOLIC PANEL 2020-03-03 15:36:00 Moni Morgan ESTIMATED GFR 2020-03-03 15:36:00 Moni Morgan Met kaur MANUAL DIFFERENTIAL 2020-03-03 15:36:00 Moni Morgan XR CHEST 1 VW PORTABLE 2020-03-03 15:34:13 Moni Morgan ECG 12-LEAD 2020-03-03 15:07:03 Moni Morgan Met kaur ECG ED PRELIMINARY INTERPRETATION 2020-03-03 15:01:44 Juan Morgan Plan of Care Planned Activity Planned Date Details Comments Source Future Scheduled Test 2020-03-05 00:00:00 INFLUENZA VACCINE [code = INFLUENZA VACCINE] Neto Menon Future Scheduled Test 1993 00:00:00 COLONOSCOPY SCREEN ING [code = COLONOSCOPY SCREENING] [place] Future Scheduled Test 1993 00:00:00 SHINGLES VACCINES (#1) [code = SHINGLES VACCINES (#1)] [place] Future Scheduled Test 1953 00:00:00 DIABETIC FOOT EXAM [code = DIABETIC FOOT EXAM] [place] Future Scheduled Test 1943 00:00:00 DIABETIC RETINAL E YE EXAM [code = DIABETIC RETINAL EYE EXAM] [place] Encounters Start Date/Time End Date/Time Encounter Type Admission Type Attendi [facility] Care Department Encounter ID Source 2020-03-03 00:00:00 2020-03-03 00:00:00 Emergency [facility] [id number] [place] Results Test Description Test Time Test Comments Results Result Comments Source CHEST SINGLE (PORTABLE) 2020-03-05 14:59:00 [place] [id number] Patient Name: CORDELL GRIMM MR #: [id number] : 1945 Age/Sex: 74/F Req #: [id number] Adm Physician: Ordered by: WENDY MAJOR MD Report #: [id number] Location: ER Room/Bed: Procedure: [id number] DX/CHEST SINGLE (PORTABLE) Exam Date: 03/05/20 Exam Time: 1420 REPORT STATUS: Signed EXAMINATION: CHEST SINGLE (PORTABLE) INDICATION: Shortness of breath and cough. COMPARISON: 02/09/2014. FINDINGS: TUBES and LINES: None. LUNGS: Low lung volumes with bronchovascular crowding. There is prominent interstitial l esteban markings and opacification of the right lung base. There is elevation of the right hemidiaphragm. PLEURA: There is probable small right pleural effusion. HEART AND MEDIASTINUM: The heart is mildly enlarged. The mediastinal contour is otherwise within normal limits with atherosclerotic calcification of the thoracic aorta. BONES AND SOFT TISSUES: No acute osseous lesion. Soft tissues are unremarkable. UPPER ABDOMEN: No free air under the diaphragm. IMPRESSION: Prominent interstitial lung markings which likely reflects interstitial pulmonary edema in the presence of cardiomegaly. Right basilar opacification which likely represent atelectasis and/or pneumonia in the proper clinical setting. Signed by: Arjun Roman MD on 03/05/2020 3:12 PM Dictated By: ARJUN ROMAN MD 11 Transcribed By: KEV on 03/05/201511 COPY TO: WENDY MAJOR MD ECG 12 lead 2020-03-03 16:54:43 Test Item Ventricular rate (test code = 253) 78 Atrial rate (test code = 255) 78 WA interval (test code = 266) 164 QRSD [...] improved in Lateral leads-QT has lengthened- Neto Levine duplex venous upper [id number] 16:48:07 There is no evidence of DVT in the right upper extremity and left internal jugular vein. Neto MenonCBC with platelet and [id number] 16:44:52* Test Item Value Reference Range Interpretation Comments WBC (test code = 43173-8) 5.53 4.50- 11.00 k/uL RBC (test code = 12761-6) 3.81 m/uL 4.2-5.5 L HGB (test code = 718-7) 10.1 g/dL 12-16 L HCT (test code = 4544-3) 35.0 % 37-47 L MCV (test code = 787-2) 91.9 fL 82-100 MCH (test code = 785-6) 26.5 pg 27-34 L MCHC (test code = 786-4) 28.9 g/dL 31-37 L RDW - SD (test code = 87498-6) 102.2 fL 37-55 H MPV (test code = 43320-9) SEE COMMENT 8.8-13.2 No report Platelet count (test code = 46156-2) 150 150- 400 k/uL Nucleated RBC (test code = 69714-5) 0.00 /100 WBC Neutrophils (test code = 13061-2) 41.0 % 39-69 Lymphocytes (test code = 01889-5) 52.0 % 25-45 H Monocytes (test code = 88988-1) 2.0 % 0-10 Eosinophils (test code = 14085-8) 5.0 % 0-5 Basophils (test code = 01642-1) 0.0 % 0-1 Lab Interpretation (test code = 52704-5) Abnormal [place] [facility] [id number] 16:44:52* Test Item Value Reference Range Interpretation Comments Manual differential (test code = 39205-1) PERFORMED Neutrophils (test code = 93043-5) 41.0 % 39-69 Lymphocytes (test code = 92702-6) 52.0 % 25-45 H Monocytes (test code = 35980-3) 2.0 % 0-10 Eosinophils (test code = 15482-0) 5.0 % 0-5 Basophils (test code = 71326-5) 0.0 % 0-1 Metamyelocytes (test code = 740-1) 0 % Promyelocytes (test code = 783-1) 0 % Platelet slide review (test code = 20998-3) Abhijit adequate Anisocytosis (test code = 702-1) Moderate Tear drop cells (test code = 7791-7) Occasional Ovalocytes (test code = 774-0) occasional Elliptocytes (test code = 55862-3) Occasional Lab Interpretation (test code = 06785-4) Abnormal [place] [facility] [id number] 15:56:33* Test Item Value Reference Range Interpretation Comments Sodium (test code = 2951-2) 140 135- 148 mEq/L Potassium (test code = 2823-3) 3.1 3.5- 5.0 mEq/L L Chloride (test code = 5-0) 100 98- 112 mEq/L CO2 (test code = 2027-9) 34 24- 31 mEq/L H Anion gap (test code = 68406-4) 6@ANIO 7- 15 mEq/L L BUN (test code = 3094-0) 9 mg/dL 8-23 Creatinine (test code = 2160-0) 0.70 mg/dL 0.5-0.9 Glucose (test code = 2345-7) 121 mg/dL 65-99 H Calcium (test code = 37640-9) 8.2 mg/dL 8.8-10.2 L Protein (test code = 2885-2) 6.4 g/dL 6.3-8.3 - 4.6- 7.0 g/dL1 week 4.4-7.6 g/dL7 months-1year 5.1-7.3 g/dL1-2 years 5.6-7.5 g/dL>3 years 6.0-8.0 g/hI86-031 6.3-8.3 g/dL Albumin (test code = 1751-7) 2.3 g/dL 3.5-5 L A/G ratio (test code = 1759-0) 0.6 0.7-3.8 L Alkaline phosphatase (test code = 6768-6) 108 U/L 35-104 H AST (test code = 1920-8) 45 U/L 10-35 H ALT (test code = 1742-6) 23 U/L 5-50 Total bilirubin (test code = 1974-) 0.9 mg/dL 0-1.2 Lab Interpretation (test code = 16300-2) Abnormal [place] [facility] [id number] 15:56:33* Test Item Value Reference Range Interpretation Comments Estimated GFR (test code = 5488) 84 mL/min/1.73 m2 Catergory Units InterpretationG1 >=90 Normal or highG2 60-89 Mildly hdtaaiiwcZ0p 45-59 Mildly to moderately akysucoyjU2t 30-44 Moderately to severely decreasedG4 15-29 Severely decreasedG5 <15 Kidney failureThe eGFR was calculated using the Chronic Kidney Disease Epidemiology Collaboration (CKD-EPI) equation. Interpretation is based on recommendations of the National Kidney Foundation-Kidney Disease Outcomes Quality Initiative (NKF-KDOQI) published in 2014. Neto MenonXR Chest 1 Vw [id number] 15:37:15Hm Interface, Radiology Results 03/03/2020 3:40 PM [...] present. The regional osseous structures appear stable. [facility] [id number] [facility] ED Preliminary Interpretation - Not an Order 2020-03-03 15:01:44Moni Morgan MD 03/03/2020 6:03 PME ED Preliminary Interpretation - Not an OrderPerformed by: Moni Morgan MDAuthorized by: Moni Morgan MD ECG reviewed by ED Physician in the absence of a passenger agent: yes (read at 1507) Interpretation: Interpretation: normal Rate: ECG rate: 78 ECG rate assessment: normal Rhythm: Rhythm: sinus rhythm Ectopy: Ectopy: none QRS: QRS axis: Normal QRS intervals: NormalConduction: Conduction: normal ST segments: ST segments: NormalT waves: T waves: normal Other findings: Other findings: prolonged qTc interval Neto Menon
--- OUTSIDE RECORDS SUMMARY | 2020-03-05 15:40 | XMS REPORT | Clinical Summary ---
Author Author [facility] Organization [facility] Address Unknown Phone Unavailable Care Team Providers Care Assistant Chief Train Dispatcher Name Role Phone Cheyenne Hendrix MD PCP [...] left internal jugular vein. Performing Organization Address City/State/[facility] [[email or web address] Ph one Number HM SYNGO [address] [place] [address], * Estimated GFR (03/03/2020 3:36 PM CDT) Pathologist [facility] Estimated GFR 84 mL/min/1.73 m2 [place] Comment: [facility] Interpretation G1 >=90 Normal or high G2 [...] City/State/Zipcode [place] [address] [place], [place] [address] PATHOLOGY AND GENOMIC MEDICINE [facility] [address] [place] [address] [facility] * Manual differential (03/03/2020 3:36 PM CDT) Manual PERFORMED [place] differential [facility] Neutrophils 41.0 39.0 - 69.0 % [facility] Lymphocytes 52.0 (H) 25.0 - 45.0 % [facility] Monocytes 2.0 0.0 - 10.0 % [facility] Eosinophils 5.0 0.0 - 5.0 % [facility] Basophils 0.0 0.0 - 1.0 % [facility] Metamyelocytes 0 % [facility] Promyelocytes 0 % [facility] Platelet slide Abhijit adequate [place] review [facility] Anisocytosis Moderate [facility] Tear drop cells Occasional [facility] Ovalocytes occasional [facility] Elliptocytes Occasional [facility] Specimen Performing Organization Address City/State/Zipcode Ph one Number [facility] [place] [address] [address] [place], [place] [address] PATHOLOGY AND GENOMIC MEDICINE [facility] [address] [place] [address] [facility] * CBC with platelet and differential (03/03/2020 3:36 PM CDT) WBC 5.53 4.50 - 11.00 k/uL [facility] RBC 3.81 (L) 4.20 - 5.50 m/uL [facility] HGB 10.1 (L) 12.0 - 16.0 g/dL [facility] HCT 35.0 (L) 37.0 - 47.0 % [facility] MCV 91.9 82.0 - 100.0 fL [facility] MCH 26.5 (L) 27.0 - 34.0 pg [facility] MCHC 28.9 (L) 31.0 - 37.0 g/dL [facility] RDW - SD 102.2 (H) 37.0 - 55.0 fL [facility] MPV SEE COMMENTComment: No report 8.8 - 13.2 fL [facility] Platelet count 150 150 - 400 k/uL [facility] Nucleated RBC 0.00 /100 WBC [facility] Neutrophils 41.0 39.0 - 69.0 % [facility] Lymphocytes 52.0 (H) 25.0 - 45.0 % [facility] Monocytes 2.0 0.0 - 10.0 % [facility] Eosinophils 5.0 0.0 - 5.0 % [facility] Basophils 0.0 0.0 - 1.0 % [facility] Specimen Blood Performing Organization Address City/State/[facility] [[email or web address] Number [place] [address] [place] [place], [place] [address] PATHOLOGY AND GENOMIC MEDICINE [facility] [address] [place] [address] [facility] * Comprehensive metabolic panel (03/03/2020 3:36 PM CDT) Sodium 140 135 - 148 mEq/L [facility] Potassium 3.1 (L) 3.5 - 5.0 mEq/L [facility] Chloride 100 98 - 112 mEq/L [facility] CO2 34 (H) 24 - 31 mEq/L [facility] Anion gap 6@ANIO (L) 7 - 15 mEq/L [facility] BUN 9 8 - 23 mg/dL [facility] Creatinine 0.70 0.50 - 0.90 mg/dL [facility] Glucose 121 (H) 65 - 99 mg/dL [facility] Calcium 8.2 (L) 8.8 - 10.2 mg/dL [facility] Protein 6.4 6.3 - 8.3 g/dL [place] Comment: [facility] [place] 4.6-7.0 g/dL 1 week 4.4-7.6 g/dL 7 months-1year 5.1-7.3 g/dL 1-2 years 5.6-7.5 g/dL >3 years 6.0-8.0 g/dL 18-150 6.3-8.3 g/dL Albumin 2.3 (L) 3.5 - 5.0 g/dL [facility] A/G ratio 0.6 (L) 0.7 - 3.8 [facility] Alkaline 108 (H) 35 - 104 U/L [place] phosphatase [facility] AST 45 (H) 10 - 35 U/L [facility] ALT 23 5 - 50 U/L [facility] Total bilirubin 0.9 0.0 - 1.2 mg/dL [facility] Specimen Blood Performing Organization Address City/State/Zipcode [place] [address] [address] [place], [place] [address] PATHOLOGY AND GENOMIC MEDICINE [place] [facility] [address] [place] [address] [facility] * XR Chest 1 Vw Portable (03/03/2020 [...] sent. The regional osseous structures appear stable. [facility]-[id number] Procedure Note Hm Interface, Radiology Results Incoming [...] present. The regional osseous structures appear stable. [facility][id number] Performing Organization Address City/[facility]/Zipcode Ph one Number [facility] [address] [facility] [place] [address] * ECG 12 lead (03/03/2020 3:07 PM CDT) Ventricular 78 [facility] rate Atrial rate 78 [facility] CA interval 164 [facility] QRSD interval 90 [facility] QT interval 448 [facility] QTC interval 510 [facility] P axis 1 97 [facility] MUSE QRS axis 1 18 [facility] MUSE T wave axis 10 [facility] MUSE EKG impression Normal sinus rhythm-Cannot [facility] MUSE rule out Anterior infarct , age undetermined-Prolonged QT-Abnormal ECG-In automated comparison with ECG of 05-DEC-2017 19:43,-Sinus rhythm has replaced Junctional rhythm-Nonspecific T wave abnormality, improved in Lateral leads-QT has lengthened- Specimen Narrative Performed At This result has an attachment that is n ot available. Performing Organization Address City/State/Zipcode Ph one Number [facility] MUSE [address] [place] [address] * ECG ED Preliminary Interpretation - Not an Order (03/03/2020 3:01 PM CDT) Narrative Performed At Juan Antonio Levi MD 03/03/2020 6:03 PM ECG ED Preliminary Interpretation - Not an Order Performed by: Juan Antonio Levi MD Authorized by: Juan Antonio Levi MD ECG reviewed by ED Physician in the abs ence of a metallurgical analyst: yes (read at 1507) Interpretation: Interpretation: normal [...] ADVANTAGE [employer] xxxxxxxxxxx 2008- P ADVANTAGE resent [facility] Advance Directives For more information, please contact: [phone] 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
--- NOTE | 2020-03-05 15:48 | NUR ---
PATIENT PLACED ON HOSPITAL BED
--- NOTE | 2020-03-05 16:13 | NUR ---
DR. ANGEL AT BEDSIDE EVALUATING PATIENT
[2020-03-05 16:24] LABS: MONOCYTES % (MANUAL) 9 % (3.4-9.0)
[2020-03-05 16:25] LABS: LYMPHOCYTES % (MANUAL) 40 % (19-48); NEUTROPHILS % (MANUAL) 49 % (40-74)
[2020-03-05 16:26] LABS: PLATELET ESTIMATE ADEQUATE; PLATELET MORPHOLOGY COMMENT NORMAL
[2020-03-05 16:51] VITALS: BP 126/49
--- NOTE | 2020-03-05 17:03 | NUR ---
received pt from er, pt in bed, pt given dinner tray.
[2020-03-05 17:45] VITALS: BP 126/49
[2020-03-05 17:47] VITALS: BP 126/49
--- NOTE | 2020-03-05 18:00 | NUR ---
heel protectors placed to pt bilateral heels
--- NOTE | 2020-03-05 20:13 | NUR ---
Nutrition Screen Note RD Recommendation for Physician: - Rec adding cardiac diet restriction Plan of Care: RD following, monitoring for tolerance and adequacy Nutrition reason for involvement: Nutrition risk trigger MST Primary Diagnose(s): anasarca, CHF PMH: HTN, DM, hypothyroidism, acid reflux Ht: 67in Wt: 284# BMI: 44.5kg/m2 IBW: 135lb +/- 10% RD Assessment: Chart reviewed. Labs and meds reviewed. 74yo obese female, who was admitted for anasarca and CHF. Visited pt in the room. 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 Pt is very picky with her foods. Discussed menu selection and will communicate food preferences with kitchen. No GI related complains. No chewing or swallowing difficulty reported. Pt has gained some weight from fluids retention. Pt lost her denture but refused diet texture modification. Will continue to follow. Current Diet: ADA 1800 Malnutrition Evaluation The patient does not meet criteria for a specified degree of malnutrition at this time. Will re-evaluate at follow-up as appropriate. Diet Education Needs Assessment: Diet education not indicated. Nutrition Care Level: low Signed: Elvia Rodgers, MS, RD, LD
--- NOTE | 2020-03-05 20:35 | NUR ---
SPOKE TO DR ANGEL ABOUT STAT ECHO. SAID IT WOULD BE OKAY TO DO IT IN THE MORNING. NOTIFIED STRESS ANALYST
[2020-03-05 20:50] VITALS: BP 100/45
[2020-03-05 20:51] VITALS: BP 100/45
[2020-03-06] VITALS (9 sets, daily range): BP systolic 102–117; BP diastolic 43–53
--- NOTE | 2020-03-06 00:31 | History and Physical ---
PRIMARY CARE DOCTOR: Dr. Cheyenne Hendrix CHIEF COMPLAINT: Arm swelling. HISTORY OF PRESENT ILLNESS: This is a 74-year-old woman, who is no longer ambulatory. Apparently, her hospital bed is broken at home, so the daughter could only change her diaper once a day. Last seen her primary care doctor last month via ambulance. Apparently 2 days ago, the patient was sent over to a different emergency room for right arm swelling and was told that she did not have a blood clot and was sent back home. Now, the patient is complaining of left arm swelling. Denies chest pain, shortness of breath. No nausea, vomiting. No diarrhea. No fever. No cough. PAST MEDICAL AND SURGICAL HISTORY: 1. Breast cancer. 2. Uterine cancer. 3. Coronary artery disease, status post CABG. 4. Craniotomy for subdural hematoma, now with seizure disorder. 5. Previous hysterectomy. 6. Diabetes. MEDICATIONS: Please see medication reconciliation form. ALLERGIES: TO PENICILLIN AND SULFA. SOCIAL HISTORY: Does not smoke. FAMILY HISTORY: No diabetes. REVIEW OF SYSTEMS: A 10-point review of systems obtained and nothing else is significant other than what is stated in the HPI. PHYSICAL EXAMINATION: VITAL SIGNS: Temperature 98.4, pulse 63, respiratory rate 20, blood pressure 100/45. GENERAL: No acute distress. SKIN: No rash. HEENT: Anicteric. Oropharynx is clear. LUNGS: Clear anteriorly. HEART: Regular rate and rhythm. Normal S1, S2. GI: Abdomen is soft, obese. NEUROLOGIC: Alert and oriented x3. Cranial nerves 2 through 12 grossly intact. PSYCHIATRIC: No hallucinations. MUSCULOSKELETAL: Unable to assess due to morbid obesity. LABORATORY DATA: Laboratory mccurdy, white count is 5, hemoglobin 10, platelet count 200. INR 1.3, PTT 38, creatinine 0.7, sugar 123. Albumin is 2.0. Urine shows trace protein. Chest x-ray, likely interstitial pulmonary edema. ASSESSMENT AND PLAN: 1. Anasarca, likely due to hypoalbuminemia. We will diurese with IV Lasix. We will rule out congestive heart failure with echocardiogram. 2. Morbid obesity. 3. Mildly elevated PT and PTT. We will repeat in the morning, given the fact that I am not suspecting any sepsis, possibly this could be due to nutritional deficits. 4. Diabetes. We will continue her Januvia and put her on sliding scale. 5. Seizure disorder. We will continue her Dilantin and check a level. 6. Hypothyroidism. We will check TSH and continue her levothyroxine. 7. Anemia. We will check iron studies. 8. Gastrointestinal deep venous thrombosis prophylaxis. We will consider Lovenox if her hemoglobin is stable, especially given morbid obesity. Yiching MD GELA Veras/RANULFO /[id number] cc: [facility]
[2020-03-06] MEDS: ACETAMINOPHEN 325 MG TAB PO PRN (04:32)
[2020-03-06] MEDS: LEVOTHYROXINE SODIUM 75 MCG TAB PO SCH (06:04)
[2020-03-06] MEDS: ATORVASTATIN 40 MG TAB PO SCH (06:04)
[2020-03-06] MEDS: OMEPRAZOLE 20 MG CAP PO SCH (06:04)
[2020-03-06] MEDS: ASPIRIN 81 MG CHEW TAB PO SCH (06:04)
[2020-03-06 06:28] LABS: BASOPHILS # (AUTO) 0.1 (0.0-0.1); BASOPHILS % 1.2 % (0.0-1.0); EOSINOPHILS # (AUTO) 0.2 (0.0-0.4); HEMATOCRIT 31.3 % (34.2-44.1); HEMOGLOBIN 9.3 g/dL (12.0-16.0); LYMPHOCYTES # (AUTO) 3.6 (1.0-3.2); LYMPHOCYTES % 52.6 % (18.0-39.1); MEAN CORPUSCULAR HEMOGLOBIN 25.7 pg (28-32); MEAN CORPUSCULAR HGB CONC 29.7 g/dL (31-35); MEAN CORPUSCULAR VOLUME 86.5 fL (81-99); MONOCYTES # (AUTO) 0.5 (0.2-0.8); MONOCYTES % 7.4 % (4.4-11.3); NEUTROPHILS # (AUTO) 2.4 (2.1-6.9); NEUTROPHILS % 35.4 % (38.7-80.0); RED BLOOD COUNT 3.62 x10e6/uL (3.6-5.1); RED CELL DISTRIBUTION WIDTH 31.1 % (11.7-14.4)
[2020-03-06 06:55] LABS: ALANINE AMINOTRANSFERASE 21 IU/L (0-55); ALBUMIN 1.8 g/dL (3.5-5.0); ALBUMIN/GLOBULIN RATIO 0.5 (0.8-2.0); ALKALINE PHOSPHATASE 91 IU/L (40-150); ANION GAP 9.4 mmol/L (8-16); BLOOD UREA NITROGEN 9 mg/dL (7-26); BUN/CREATININE RATIO 13 (6-25); CALCIUM 7.4 mg/dL (8.4-10.2); CARBON DIOXIDE 31 mmol/L (22-29); CHLORIDE 101 mmol/L (98-107); CHOL/HDL RATIO 2.8 (3.0-3.6); CHOLESTEROL 67 MD/DL (0-199); CREATININE, SERUM 0.72 mg/dL (0.57-1.11); EST GLOMERULAR FILTRATION RATE > 60 ML/MIN (60-); GLUCOSE 100 mg/dL (74-118); HDL CHOLESTEROL 24 MG/DL (40-60); LDL CHOLESTEROL 30 MG/DL (60-130); POTASSIUM 3.4 mmol/L (3.5-5.1); SODIUM 138 mmol/L (136-145); TRIGLYCERIDES 66 MG/DL (0-149)
[2020-03-06 06:56] LABS: INR 1.3; PARTIAL THROMBOPLASTIN TIME 36.8 seconds (23.8-35.5); PROTHROMBIN TIME 16.9 seconds (11.9-14.5)
[2020-03-06 07:13] LABS: MAGNESIUM 1.4 MG/DL (1.3-2.1)
[2020-03-06] MEDS: INSULIN LISPRO 100 UNIT/1 ML 3ML VIAL SQ SCH ×4 (07:30→20:15)
[2020-03-06 07:35] LABS: CREATINE KINASE MB 0.4 ng/mL (0-5.0)
[2020-03-06 07:43] LABS: PHENYTOIN (DILANTIN) 3.18 ug/mL (10-20); THYROID STIMULATING HORMONE 6.324 uIU/mL (0.350-4.940)
[2020-03-06] MEDS: PHENYTOIN SODIUM EXT REL 100 MG CAP PO SCH ×2 (07:58→16:38)
[2020-03-06] MEDS ORDERED: SITAGLIPTIN 100 MG TAB PO SCH (09:00)
[2020-03-06] MEDS ORDERED: LOSARTAN POTASSIUM 25 MG TAB PO SCH (09:00)
[2020-03-06] MEDS ORDERED: METOPROLOL TARTRATE 25 MG TAB PO SCH (09:00)
[2020-03-06] MEDS ORDERED: FUROSEMIDE INJ 10 MG/ML 4 ML VIAL IV SCH (09:00)
[2020-03-06 09:34] LABS: PLATELET COUNT 114 x10e3/uL (140-360)
[2020-03-06] MEDS ORDERED: POTASSIUM CHLORIDE 20 MEQ TAB CR PO STA (10:54)
[2020-03-06] MEDS ORDERED: MAGNESIUM SULFATE 2GM/50ML 50 ML IV ONE (11:00)
[2020-03-06] MEDS ORDERED: PHYTONADIONE 10 MG/ML AMP PO ONE (11:30)
[2020-03-06] MEDS ORDERED: SODIUM CHLORIDE 0.9% 250ML 250 ML ONE (11:50)
[2020-03-06] MEDS ORDERED: PHYTONADIONE 10 MG/ML AMP SC ONE (13:00)
--- NOTE | 2020-03-06 18:50 | NUR ---
Report given to oncoming nurse of patient's status. Resting in bed. No s/s of acute distress noted. Side rails upx2, call light within reach, bed alarm on.
--- NOTE | 2020-03-06 19:00 | NUR ---
Resumed care of patient. Patient awake and sitting up in bed, respirations even and unlabored on room air, no s/s of distress at this time. Bed locked and in lowest position, side rails upx3, alarm on, call light placed within reach. Patient instructed to call for assistance if needed, verbalized understanding. All safety measures in place. Addendum: 03/07/20 at 0546 by Jaelyn Justice RN Correction: Patient has been on 2L NC, not room air.
[2020-03-06] MEDS: FUROSEMIDE INJ 10 MG/ML 4 ML VIAL IV SCH (21:21)
--- NOTE | 2020-03-06 22:45 | Progress Note ---
DATE: 03/06/2020 SUBJECTIVE: Still complaining on swelling. OBJECTIVE: VITAL SIGNS: Temperature 98.4, pulse 73, respiratory rate 20, blood pressure 108/47. GENERAL: No acute distress. SKIN: Dry. LUNGS: Clear. HEART: Regular rate and rhythm. Normal S1, S2. GI: Abdomen is soft, obese. NEUROLOGIC: Alert and oriented x3. PSYCHIATRIC: No hallucination. LABORATORY: White count 6.77, hemoglobin 9.3, platelet count 114, creatinine 0.7. ASSESSMENT/PLAN: 1. Anasarca, likely due to hypoalbuminemia. We will increase IV Lasix to 40 mg twice a day. Echocardiogram is pending. We will need to consider liver disease. 2. Morbid obesity. 3. Mildly elevated PT and PTT. This possibly could be due to nutritional deficits. We will give a dose of oral vitamin K, then repeat in the morning. 4. Thrombocytopenia. We will monitor. 5. Diabetes. We will decrease her Januvia and continue sliding scale. 6. Seizure disorder. Continue her Dilantin. Dilantin level is on the low side. 7. Hypothyroidism. We will continue her on levothyroxine. TSH is acceptable. 8. Chronic anemia. 9. GI and DVT prophylaxes. No chemical DVT prophylaxis due to thrombocytopenia. MD GELA Bob/AGUSTINL /[id number]
[2020-03-07] VITALS (7 sets, daily range): BP systolic 97–122; BP diastolic 43–54
[2020-03-07 06:14] LABS: PARTIAL THROMBOPLASTIN TIME 37.7 seconds (23.8-35.5)
[2020-03-07 06:15] LABS: BASOPHILS # (AUTO) 0.1 (0.0-0.1); BASOPHILS % 1.4 % (0.0-1.0); EOSINOPHILS # (AUTO) 0.3 (0.0-0.4); EOSINOPHILS % 4.1 % (0.0-6.0); HEMATOCRIT 32.8 % (34.2-44.1); HEMOGLOBIN 9.8 g/dL (12.0-16.0); LYMPHOCYTES # (AUTO) 3.4 (1.0-3.2); LYMPHOCYTES % 51.1 % (18.0-39.1); MEAN CORPUSCULAR HEMOGLOBIN 25.8 pg (28-32); MEAN CORPUSCULAR HGB CONC 29.9 g/dL (31-35); MEAN CORPUSCULAR VOLUME 86.3 fL (81-99); MONOCYTES # (AUTO) 0.5 (0.2-0.8); MONOCYTES % 7.8 % (4.4-11.3); NEUTROPHILS # (AUTO) 2.3 (2.1-6.9); NEUTROPHILS % 35.4 % (38.7-80.0); PLATELET COUNT 116 x10e3/uL (140-360); RED CELL DISTRIBUTION WIDTH 30.7 % (11.7-14.4)
[2020-03-07] MEDS: OMEPRAZOLE 20 MG CAP PO SCH (06:15)
[2020-03-07] MEDS: ASPIRIN 81 MG CHEW TAB PO SCH (06:15)
[2020-03-07] MEDS: LEVOTHYROXINE SODIUM 75 MCG TAB PO SCH (06:15)
[2020-03-07] MEDS: ATORVASTATIN 40 MG TAB PO SCH (06:15)
--- NOTE | 2020-03-07 06:16 | NUR ---
Patient awake and sitting up in bed, no s/s of distress at this time. All safety measures in place.
[2020-03-07 06:24] LABS: ANION GAP 10.4 mmol/L (8-16); BLOOD UREA NITROGEN 10 mg/dL (7-26); BUN/CREATININE RATIO 14 (6-25); CALCIUM 7.5 mg/dL (8.4-10.2); CARBON DIOXIDE 33 mmol/L (22-29); CHLORIDE 99 mmol/L (98-107); CREATININE, SERUM 0.73 mg/dL (0.57-1.11); EST GLOMERULAR FILTRATION RATE > 60 ML/MIN (60-); GLUCOSE 87 mg/dL (74-118); MAGNESIUM 1.5 MG/DL (1.3-2.1); POTASSIUM 3.4 mmol/L (3.5-5.1); SODIUM 139 mmol/L (136-145)
--- NOTE | 2020-03-07 07:00 | NUR ---
BEDSIDE SHIFT REPORT RECEIVED FROM THE TAPE COATER RN. EDUCATED PT ABOUT FALL PRECAUTIONS. PT VERBALIZED UNDERSTANDING. BED IS LOW AND LOCKED. SIDE RAILS X2. CALL LIGHT WITH IN EASY REACH. BED ALARM IS ON. ALL SAFETY MEASURES IN PLACE. PT DENIES NEEDS AT THIS TIME.
[2020-03-07 07:10] LABS: INR 1.22; PROTHROMBIN TIME 16.1 seconds (11.9-14.5)
[2020-03-07] MEDS: INSULIN LISPRO 100 UNIT/1 ML 3ML VIAL SQ SCH ×4 (07:23→20:50)
[2020-03-07] MEDS: FUROSEMIDE INJ 10 MG/ML 4 ML VIAL IV SCH ×2 (08:50→08:53)
[2020-03-07] MEDS: SITAGLIPTIN 100 MG TAB PO SCH (08:53)
[2020-03-07] MEDS: PHENYTOIN SODIUM EXT REL 100 MG CAP PO SCH ×2 (08:53→16:59)
--- NOTE | 2020-03-07 09:25 | NUR ---
PAGED DR. ANGEL AND REPORTED THE K LEVEL 3.4.
[2020-03-07] MEDS ORDERED: POTASSIUM CHLORIDE 10MEQ EA PO ONE (10:20)
[2020-03-07] MEDS ORDERED: MAGNESIUM SULFATE 2GM/50ML 50 ML IV ONE (11:30)
[2020-03-07 11:43] LABS: ANISOCYTOSIS MARKED; EOSINOPHILS % (MANUAL) 4 % (0-7); HYPOCHROMASIA MODERATE; LYMPHOCYTES % (MANUAL) 30 % (19-48); MONOCYTES % (MANUAL) 8 % (3.4-9.0); NEUTROPHILS % (MANUAL) 58 % (40-74)
[2020-03-07 11:44] LABS: ELLIPTOCYTE, RBC SLIGHT; MICROCYTOSIS SLIGHT; OVALOCYTES FEW; TEAR DROP CELLS FEW
[2020-03-07 11:45] LABS: PLATELET ESTIMATE SLIGHTLY DECREASED; PLATELET MORPHOLOGY COMMENT FEW LARGE; RBC MORPHOLOGY COMMENT ABNORMAL
[2020-03-07] MEDS ORDERED: SODIUM CHLORIDE 0.9% 250ML 0 ML ONE (11:48)
--- NOTE | 2020-03-07 11:48 | NUR ---
SPOKE WITH DAUGHTER ADRIEL, GOT HER CORRECT ADDRESS, SHE STATES WOULD LIKE FOR HER TO GO TO [facility] IF ABLE, WAITING ON WOUND CARE AND PHYSICAL THERAPY TO SEE PT TO BE ABLE TO START SNF REFERRAL WILL COMPLETE PASRR AND RTF TO PUT WITH PACKET AND FAX WHEN GT UPDATED NOTES TO BE ABLE TO SEND.
--- NOTE | 2020-03-07 14:05 | NUR ---
WOUND CARE CONSULT FOR 74 YO FEMALE HX OF ANASARCA,CHF,DECUBITUS JOHN 14 ON MODERATE PUP STATUS AND INTERVENTIONS AND ALTERNATING PRESSURE MATTRESS LABS: WBC-6.55 HGB_3.80 GLUCOSE-87 SKIN ASSESSMENT COMPLETE PATIENT PRESENTS WITH BILATERAL GLUTEAL MOISTURE IRRITATION WHICH PREDISPOSED PT TO PRESSURE INSULT BILATERAL GLUTEAL AREAS RED MEASURES 4CM X18CM X0.1CM LEFT HEEL HAS HEALING STAGE 2 ULCERATION 1CM X1CM X0.1CM RECOMMENDATIONS: NURSING TO CONTINUE TO MAINTAIN MODERATE PUP STATUS AND INTERVENTIONS AND ALTERNATING PRESSURE MATTRESS NURSING TO CONTINUE TO ASSIST PATIENT OUT OF BED FOR MEALS AND MUCH TOLERATED NURSING TO CONTINUE TO ASSIST PATIENT NEEDED WITH MEALS AND NUTRITIONAL SUPPLEMENTS TO ENSURE PROPER REQUIREMENTS FOR HEALING NURSING TO CONTINUE TO OFFLOAD FEET AND HEELS NEEDED WITH PILLOW SUSPENSION WHEN IN BED NURSING TO CLEAN BILATERAL GLUTEAL AREAS WITH SALINE DAILY AND AND APPLY VENELEX OINTMENT AND ALLEVYN FOAM DRESSING Addendum: 03/07/20 at 1412 by Tre Wilkinson RN Amended: Links added.
[2020-03-07] MEDS: ACETAMINOPHEN 325 MG TAB PO PRN (15:20)
--- NOTE | 2020-03-07 19:00 | NUR ---
BEDSIDE SHIFT REPORT GIVEN TO THE ELEVATOR CONSTRUCTOR RN. PT DENIED FURTHER NEEDS.
--- NOTE | 2020-03-07 20:07 | NUR ---
Spoke with Dr. Newell regarding blood pressure 97/49, pwe Dr. Newell OK to go ahead and give scheduled IV Lasix.
--- NOTE | 2020-03-07 22:44 | Progress Note ---
DATE: 03/07/2020 SUBJECTIVE: Arm swelling better. OBJECTIVE: VITAL SIGNS: Temperature 98.0, pulse 78, respiratory rate 18, and blood pressure 108/51. GENERAL: No acute distress. SKIN: No rash. LUNGS: Clear anteriorly. HEART: Regular rate and rhythm. Normal S1 and S2. GI: Abdomen is soft and obese. NEUROLOGIC: Alert and oriented x3. PSYCHIATRIC: No hallucinations. LABORATORY DATA: Laboratory mccurdy, white count 6.6, hemoglobin 9.8, and platelet count 116. Creatinine 0.7, potassium 3.4, magnesium 1.5. ASSESSMENT AND PLAN: 1. Anasarca, likely due to hypoalbuminemia. We will continue IV Lasix 40 mg twice a day. Echocardiogram shows normal EF. Her arm swelling is better. 2. Morbid obesity. 3. Mildly elevated PT and PTT. This is likely due to nutritional deficits. It is better after she has received vitamin K. 4. Mild thrombocytopenia, stable. 5. Seizure disorder. Continue Dilantin. 6. Hypokalemia. We will replete. 7. Chronic anemia. 8. Gastrointestinal and deep venous thrombosis prophylaxis. No chemical deep venous thrombosis prophylaxis due to thrombocytopenia. 9. Disposition. We will try to see if the insurance will approve for SNF for both wound care and also physical therapy. If we do not do so, continue her current home care. Her wound will continue to get worse. Hopefully, if we can achieve some bed transfer or bed mobility. This will also help with her little. I have updated her daughter, Lucero over the phone in details. MD GELA Bob/RANULFO /[id number]
[2020-03-08] VITALS (8 sets, daily range): BP systolic 98–109; BP diastolic 42–66
[2020-03-08 05:23] LABS: BASOPHILS % 0.6 % (0.0-1.0); EOSINOPHILS # (AUTO) 0.2 (0.0-0.4); EOSINOPHILS % 3.3 % (0.0-6.0); HEMATOCRIT 31.6 % (34.2-44.1); HEMOGLOBIN 9.5 g/dL (12.0-16.0); LYMPHOCYTES # (AUTO) 3.6 (1.0-3.2); LYMPHOCYTES % 57.1 % (18.0-39.1); MEAN CORPUSCULAR HEMOGLOBIN 25.7 pg (28-32); MEAN CORPUSCULAR HGB CONC 30.1 g/dL (31-35); MEAN CORPUSCULAR VOLUME 85.6 fL (81-99); MONOCYTES # (AUTO) 0.4 (0.2-0.8); MONOCYTES % 6.9 % (4.4-11.3); NEUTROPHILS # (AUTO) 2.1 (2.1-6.9); NEUTROPHILS % 32.1 % (38.7-80.0); PLATELET COUNT 159 x10e3/uL (140-360); RED BLOOD COUNT 3.69 x10e6/uL (3.6-5.1)
[2020-03-08] MEDS: LEVOTHYROXINE SODIUM 75 MCG TAB PO SCH (05:34)
[2020-03-08] MEDS: ATORVASTATIN 40 MG TAB PO SCH (05:34)
[2020-03-08] MEDS: OMEPRAZOLE 20 MG CAP PO SCH (05:34)
[2020-03-08] MEDS: ASPIRIN 81 MG CHEW TAB PO SCH (05:34)
[2020-03-08 05:59] LABS: ANION GAP 9.4 mmol/L (8-16); BLOOD UREA NITROGEN 9 mg/dL (7-26); BUN/CREATININE RATIO 13 (6-25); CALCIUM 7.1 mg/dL (8.4-10.2); CARBON DIOXIDE 35 mmol/L (22-29); CHLORIDE 98 mmol/L (98-107); CREATININE, SERUM 0.67 mg/dL (0.57-1.11); EST GLOMERULAR FILTRATION RATE > 60 ML/MIN (60-); GLUCOSE 105 mg/dL (74-118); MAGNESIUM 1.6 MG/DL (1.3-2.1); POTASSIUM 3.4 mmol/L (3.5-5.1); SODIUM 139 mmol/L (136-145)
--- NOTE | 2020-03-08 07:00 | NUR ---
RECEIVED BEDSIDE SHIFT REPORT FROM BRI ORDOÑEZ. PT DENIES NEEDS AT THIS TIME.
[2020-03-08 07:09] LABS: EOSINOPHILS % (MANUAL) 5 % (0-7); LYMPHOCYTES % (MANUAL) 47 % (19-48); MONOCYTES % (MANUAL) 4 % (3.4-9.0); NEUTROPHILS % (MANUAL) 44 % (40-74); RBC MORPHOLOGY COMMENT ABNORMAL
[2020-03-08 07:10] LABS: HYPOCHROMASIA MODERATE; MICROCYTOSIS SLIGHT; OVALOCYTES FEW
[2020-03-08 07:11] LABS: ANISOCYTOSIS MODERATE; ELLIPTOCYTE, RBC SLIGHT
[2020-03-08 07:12] LABS: PLATELET ESTIMATE ADEQUATE; PLATELET MORPHOLOGY COMMENT NORMAL; TEAR DROP CELLS FEW
[2020-03-08] MEDS: INSULIN LISPRO 100 UNIT/1 ML 3ML VIAL SQ SCH ×4 (07:30→20:50)
--- NOTE | 2020-03-08 09:08 | NUR ---
FAXED PT AND WOUND CARE PRIOR TO LEAVING LAST NIGHT, AND FAXING MD NOTE TODAY TO SEE IF CAN GET APPROVAL FOR SNF.
[2020-03-08] MEDS: FUROSEMIDE INJ 10 MG/ML 4 ML VIAL IV SCH ×2 (09:13→21:00)
[2020-03-08] MEDS: PHENYTOIN SODIUM EXT REL 100 MG CAP PO SCH ×2 (09:13→17:23)
[2020-03-08] MEDS: SITAGLIPTIN 100 MG TAB PO SCH (09:14)
[2020-03-08] MEDS: BALSAM PERU/CASTOR OIL 60 GM OINT...G. TP SCH (09:14)
[2020-03-08] MEDS ORDERED: POTASSIUM CHLORIDE 20 MEQ TAB CR PO ONE (10:30)
[2020-03-08] MEDS ORDERED: VANCOMYCIN 1GM/NS 250 ML 250 ML IV ONE (10:30)
[2020-03-08] MEDS ORDERED: MAGNESIUM SULFATE 2GM/50ML 50 ML IV ONE (10:30)
--- NOTE | 2020-03-08 19:25 | NUR ---
BEDSIDE SHIFT REPORT RECEIVED FROM DAY RN. O2 AT 2L PER N/C ON. PT HAD SMALL NOSE BLEED. PT TAKING O2 ON AND OFF BUT O2 SAT WNL. RESPIRATIONS ARE EVEN AND UNLABORED. ISLAS TO GRAVITY DRAINING CLEAR [place] URINE. TELE ON. EJ RT NECK RT PIV PATENT WITH HEALTHY SITE. PT C/O OF HEADACHE TYLENOL GIVEN ORDERED. CALL LIGHT WITHIN REACH. BED LOCKED AND IN LOW POSITION.
--- NOTE | 2020-03-08 20:24 | Progress Note ---
DATE: 03/08/2020 SUBJECTIVE: Arm swelling much better. OBJECTIVE: VITAL SIGNS: Temperature 98.6, pulse 88, respiratory rate 18, and blood pressure 106/50. GENERAL: No acute distress. SKIN: No rash. LUNGS: Clear. HEART: Regular rate and rhythm. Normal S1 and S2. GI: Abdomen is soft and obese. NEUROLOGIC: Alert and oriented x3. PSYCHIATRIC: No hallucination. LABORATORY DATA: Laboratory mccurdy, white count 6, hemoglobin 9.5, and platelet count 159. Creatinine 0.67. ASSESSMENT AND PLAN: 1. Anasarca, likely due to hypoalbuminemia. We will continue to diurese with IV Lasix every 12 hours. Her swelling is getting better. 2. Morbid obesity. 3. Likely Enterococcal urinary tract infection. We will start IV vancomycin. 4. Mild thrombocytopenia, resolved. 5. Seizure disorder. Continue Dilantin. 6. Gastrointestinal and deep venous thrombosis prophylaxis. We will start Lovenox since thrombocytopenia has improved. 7. Disposition. Hopefully SNF in the morning if approved by the insurance company. MD GELA Bob/RANULFO /[id number]
[2020-03-08] MEDS: ENOXAPARIN SOD INJ 40 MG/0.4 ML SYR SC SCH (20:52)
[2020-03-08] MEDS: ACETAMINOPHEN 325 MG TAB PO PRN (20:58)
[2020-03-08] MEDS: VANCOMYCIN 1GM/NS 250 ML 250 ML IV SCH (23:45)
[2020-03-09] VITALS (7 sets, daily range): BP systolic 100–127; BP diastolic 37–56
[2020-03-09] MEDS: LEVOTHYROXINE SODIUM 75 MCG TAB PO SCH (05:20)
[2020-03-09] MEDS: ASPIRIN 81 MG CHEW TAB PO SCH (06:11)
[2020-03-09] MEDS: OMEPRAZOLE 20 MG CAP PO SCH (06:11)
[2020-03-09] MEDS: ATORVASTATIN 40 MG TAB PO SCH (06:11)
--- NOTE | 2020-03-09 07:01 | NUR ---
WALKING ROUNDS COMPLETED WITH PM NURSE. RECEIVED CHANGE OF SHIFT REPORT. PT IN STABLE CONDITION.
[2020-03-09] MEDS: INSULIN LISPRO 100 UNIT/1 ML 3ML VIAL SQ SCH ×4 (07:30→21:25)
[2020-03-09] MEDS: PHENYTOIN SODIUM EXT REL 100 MG CAP PO SCH ×2 (09:41→18:08)
[2020-03-09] MEDS: SITAGLIPTIN 100 MG TAB PO SCH (09:42)
[2020-03-09] MEDS: FUROSEMIDE INJ 10 MG/ML 4 ML VIAL IV SCH (09:44)
[2020-03-09] MEDS: BALSAM PERU/CASTOR OIL 60 GM OINT...G. TP SCH (12:05)
[2020-03-09] MEDS: VANCOMYCIN 1GM/NS 250 ML 250 ML IV SCH ×2 (12:05→23:17)
--- NOTE | 2020-03-09 12:30 | NUR ---
skein bleacher visited the pt and initiated relationship of support . pt expressed minesh and accptence , skein bleacher provided pastoral conversation , hope building through scripture and prayer chaplain Randy
[2020-03-09] MEDS: ENOXAPARIN SOD INJ 40 MG/0.4 ML SYR SC SCH (18:08)
--- NOTE | 2020-03-09 20:23 | NUR ---
SPOKE VIA PHONE TO Brett CARRIZALES / URSZULA WITH [facility]. PATIENT WILL DC TOMORROW. URSZULA SAID DR ANGEL WAS INFORMED THAT PATIENT WOULD NOT DC UNTIL TOMORROW 03/10/20. THERE WAS A PAPER WORK ISSUE AT THE TRANSFERRING FACILITY.
--- NOTE | 2020-03-09 20:24 | NUR ---
NOTIFIED PRICING MANAGER THAT THERE'S NO BED AVAILABLE AT [facility] PER MD ORDER. PRICING MANAGER SPOKE TO COMPUTER FORENSICS EXAMINER. MD AWARE PATIENT WILL STAY UNTIL BED IS AVAILABLE FOR TRANSFERRING
--- NOTE | 2020-03-09 23:00 | Progress Note ---
DATE: 03/09/2020 SUBJECTIVE: No new complaints. Sitting up in a chair. OBJECTIVE: VITAL SIGNS: Temperature 98.7, pulse 86, respiratory rate 16, and blood pressure 100/38. GENERAL: No acute distress. SKIN: No rash. LUNGS: Clear. HEART: Regular rate and rhythm. Normal S1 and S2. GI: Abdomen is soft and obese. NEUROLOGIC: Alert and oriented x3. PSYCHIATRIC: No hallucination. LABORATORY DATA: Laboratory mccurdy, no new labs today. ASSESSMENT AND PLAN: 1. Anasarca, likely due to hypoalbuminemia. The patient diuresed well. We will change IV Lasix to p.o. Lasix. 2. Morbid obesity. 3. Likely Enterococcal urinary tract infection. We will continue IV vancomycin. 4. Seizure disorder. We will continue Dilantin. 5. Gastrointestinal and deep venous thrombosis prophylaxis. Continue Lovenox. 6. Disposition, still waiting for SNF approval. MD GELA Bob/RANULFO /[id number]
[2020-03-10] VITALS: BP 107/47
[2020-03-10 04:00] VITALS: BP 108/45
[2020-03-10] MEDS: ATORVASTATIN 40 MG TAB PO SCH (06:29)
[2020-03-10] MEDS: ASPIRIN 81 MG CHEW TAB PO SCH (06:29)
[2020-03-10] MEDS: LEVOTHYROXINE SODIUM 75 MCG TAB PO SCH (06:29)
[2020-03-10] MEDS: OMEPRAZOLE 20 MG CAP PO SCH (06:29)
--- NOTE | 2020-03-10 07:05 | NUR ---
BEDSIDE SHIFT REPORT RECEIVED FROM PM NURSE. PT IN STABLE CONDITION.
[2020-03-10] MEDS: INSULIN LISPRO 100 UNIT/1 ML 3ML VIAL SQ SCH ×3 (07:30→16:30)
[2020-03-10 08:06] VITALS: BP 108/45
[2020-03-10 08:08] VITALS: BP 130/50
[2020-03-10] MEDS ORDERED: FUROSEMIDE 40 MG TAB PO SCH (09:00)
--- NOTE | 2020-03-10 11:26 | NUR ---
RETIREMENT FACILITY DISCHARGE INFORMATION PATIENT HAS BEEN ACCEPTED TO: NAME: [facility] [id number] ACCEPTING BINGO WORKER:FROILAN [facility] ACCEPTING MD: JIMENEZ ROOM: 134 NURSE CALL REPORT TO: [phone] IMM SIGNED AND OBTAINED (if applicable): IMM THE FOLLOWING DOCUMENTS MUST ACCOMPANY PATIENT FOR TRANSFER: COPIED CHART: PACKET
--- NOTE | 2020-03-10 11:29 | NUR ---
EDUCATED ABOUT IMM, SIGNED, FILED IN CHART, WITH COPY LEFT WITH FAMILY AT BEDSIDE
[2020-03-10 12:02] VITALS: BP 119/50
[2020-03-10] MEDS: SITAGLIPTIN 100 MG TAB PO SCH (12:06)
[2020-03-10] MEDS: PHENYTOIN SODIUM EXT REL 100 MG CAP PO SCH (12:06)
[2020-03-10] MEDS: VANCOMYCIN 1GM/NS 250 ML 250 ML IV SCH (12:06)
[2020-03-10] MEDS: BALSAM PERU/CASTOR OIL 60 GM OINT...G. TP SCH (12:06)
[2020-03-10 16:19] VITALS: BP 95/51
--- NOTE | 2020-03-10 17:06 | NUR ---
EMS AT BEDSIDE TRANSPORTING PT TO SNF. PT IN STABLE CONDITION.
--- NOTE | 2020-03-10 22:42 | Discharge Summary ---
PRIMARY CARE PHYSICIAN: Dr. Cheyenne Hendrix at [facility]. FINAL DISCHARGE DIAGNOSES: 1. Anasarca, likely due to hypoalbuminemia. 2. Morbid obesity. 3. Enterococcus urinary tract infection. 4. Seizure disorder. 5. Diabetes. 6. Coronary artery disease. 7. Uterine and breast cancer. CONSULTANTS: None. PROCEDURES: None. HISTORY: Per HPI. HOSPITAL COURSE: This is a 74-year-old female, who presented to the ER with generalized edema. She was started on aggressive IV Lasix. Echocardiogram ruled out congestive heart failure. She was debilitated and had been bedbound for a while. She was on aggressive IV Lasix diuresis, she was then switched to p.o. Lasix. Urine showed Enterococcal UTI. She was started on IV vancomycin per sensitivity. She is now afebrile, vital signs stable, will discharge to [facility] for physical therapy and to complete her IV antibiotics. PHYSICAL EXAMINATION: VITAL SIGNS: Temperature 98.2, pulse is 91, respirations 20, blood pressure 119/50, and pulse ox is 94% on room air. GENERAL: No acute distress. HEENT: Normocephalic and atraumatic. CARDIOVASCULAR: Regular rate and rhythm. LUNGS: Clear to auscultation. GI: Soft and nontender, obese. NEUROLOGIC: Alert, awake, and oriented x3. PSYCH: Calm. CONDITION AT DISCHARGE: Improved and stable. DISCHARGE MEDICATIONS: Please see medication reconciliation list. FOLLOWUP: Follow up with PCP in 1 to 2 weeks. Total discharge time is 31 minutes. Dictated by REBECCA Salomon Max Newell MD MY/MODL /[id number]
== END 2020-03-10 17:06 | DRG 843 ==
LOC: ER 14:03 → ERHOLD 15:18 → MED/SURG3 16:42 → MED/SURG2 03-06 13:11
PROVIDERS: ADMIT Internal Medicine; ATTEND Internal Medicine
DX: E88.09 Other disorders of plasma-protein metabolism, not elsewhere classified (principal); L89.153 Pressure ulcer of sacral region, stage 3; N39.0 Urinary tract infection, site not specified; Z68.41 Body mass index [BMI] 40.0-44.9, adult; E66.01 Morbid (severe) obesity due to excess calories; E11.9 Type 2 diabetes mellitus without complications; G40.909 Epilepsy, unspecified, not intractable, without status epilepticus; E03.9 Hypothyroidism, unspecified; D64.9 Anemia, unspecified; Z85.3 Personal history of malignant neoplasm of breast; Z85.42 Personal history of malignant neoplasm of other parts of uterus; I25.10 Atherosclerotic heart disease of native coronary artery without angina pectoris; Z95.1 Presence of aortocoronary bypass graft; Z88.0 Allergy status to penicillin; Z88.2 Allergy status to sulfonamides; D69.6 Thrombocytopenia, unspecified; B95.2 Enterococcus as the cause of diseases classified elsewhere; I10 Essential (primary) hypertension; R53.81 Other malaise; Z74.01 Bed confinement status; Z79.82 Long term (current) use of aspirin; Z79.84 Long term (current) use of oral hypoglycemic drugs; Z11.59 Encounter for screening for other viral diseases
CPT/HCPCS: 36415; 51700; 71045; 80048; 80053; 80061; 80185; 81001; 82550; 82553; 82948; 83036; 83540; 83735; 83880; 84443; 84466; 84484; 85025; 85610; 85730; 87040; 87086; 87186; 93005; 93306; 96372; 97139; 99284; J0456; J1650; J1940; J3370; J3430; J3475; J7050; U0002

== ENCOUNTER 2020-04-15 17:37 | Inpatient (IN) | payer MEDICARE, OTHER ==
[~2020-04-15] VITALS: Ht 170.2 cm; Wt 127.3 kg
[~2020-04-15 17:37] MED LIST changes: +CEPHALEXIN500 MG PO; +LOSARTAN POTASS25 MG PO; +PHENYTOIN SODI200 MG PO
--- OUTSIDE RECORDS SUMMARY | 2020-04-15 19:37 | XMS REPORT | Continuity of Care Document ---
Author Author [facility] t Organization [facility] Address [address] [place] [address] Phone Unavailable Care Team Providers Care Decorator Inspector Name Role Phone NONSTAFF PCP Unavailable Juan MAJOR Attphys Unavailable Amita PONCE, Ted Romano Attphys Payers Payer Name Policy Type Policy Number Effective Date Expiration Date [facility] [id number] 2008 00:0 0:00 [facility] [id number] xxxxxxxxxxx 2008 00:00:00 Neto Menon Problems Condition Name Condition Details Condition Category Status Onset Date Resolution Date Last Treatment Date Treating Clinician Comments Source Ventricular tachycardia Ventricular tachycardia Disease Active 2017-10-15 00:00:[address] Severe sepsis Severe sepsis Disease Active 2016-12-07 00:00:00 [place] [facility] Generalized edema Problem Active [facility] Congestive heart failure Problem Active [facility] Hypoalbuminemia Problem Active [facility] Urinary tract infection Problem Active [facility] Pressure injury of skin Problem Active [facility] Allergies, Adverse Reactions, Alerts Allergy Name Allergy Type Status Severity Reaction(s) Onset Date Inacti ve Date Treating Clinician Comments Source Penicillin Allergy to substance Active Severe "SHORT OF BREATH, LIPS PURPLE AND SWELLING, RASH" 2020-03-05 00:00:00 [facility] Sulfa (Sulfonamide Antibiotics) Allergy to substance Active 2020-03-05 00:00:00 [facility] Penicillin G Propensity to adverse reactions to drug Active Hives 2016-12-07 00:00:00 Neto loving Sulfa (Sulfonamide Antibiotics) Propensity to adverse reactions to drug Active Hives, Swelling 2016-12-07 00:00:00 Neto Menon Social History Social Habit Start Date Stop Date Quantity Comments Source Sex Assigned [place] [facility] Alcohol intake 2017-12-05 00:00:00 2017-12-05 00:00:00 Current [...] Take 2 tablets by mouth daily. Neto loving potassium chloride (KLOR-CON) 10 MEQ CR tablet 2017-11-13 00:00: 00 Yes 1{tbl} QD Take 1 tablet by mouth nightly. Neto Menon metOLazone (ZAROXOLYN) 5 MG tablet 2017-09-18 00:00:00 Y es 1{tbl} [id number] Take 1 tablet by mouth 3 (three) times a week. Saturday Neto Menon atorvastatin (LIPITOR) 80 MG tablet [...] 1 tablet by mouth daily. Neto Menon Aspirin (Aspir 81) 81 Mg TABLET. Aspirin (Aspir 81) 81 Mg TABLET. Yes 81 Rt Daily [facility] Atorvastatin Calcium (Lipitor) 80 Mg TABLET Atorvastat in Calcium (Lipitor) 80 Mg TABLET Yes 80 Rt Daily [facility] Cephalexin Cephalexin Yes 500 Daily [facility] Levothyroxine Sodium (Levoxyl) 75 Mcg TABLET Levothyro xine Sodium (Levoxyl) 75 Mcg TABLET Yes 75 Rt Daily [facility] Losartan Potassium Losartan Potassium Yes 25 Da becca [facility] Metoprolol Tartrate Metoprolol Tartrate Yes 25 Twice A Day [facility] Omeprazole (Prilosec) 20 Mg CAPSULE. Omeprazole (Prilosec) 20 Mg CAPSULE. Yes 40 Rt Daily [facility] Phenytoin Sodium Extended Phenytoin Sodium Extended Yes 200 Twice A Day [facility] Sitagliptin Phosphate (Januvia) 100 Mg TABLET Sitaglip tin Phosphate (Januvia) 100 Mg TABLET Yes 100 Daily [facility] Citalopram Hydrobromide (Citalopram Hbr) 40 Mg TABLET Citalopram Hydrobromide (Citalopram Hbr) 40 Mg TABLET 2020-03-05 00:00:00 No 40 Rt Daily [facility] Lisinopril (Prinivil) 5 Mg TABLET Lisinopril (Prinivil) 5 Mg TAB LET 2020-03-05 00:00:00 No 5 Rt Daily [facility] Nitrofurantoin Macrocrystal (Nitrofurantoin) 100 Mg CA PSULE Nitrofurantoin Macrocrystal (Nitrofurantoin) 100 Mg CAPSULE 2020-03-05 00:00:00 No 100 Twice A Day [facility] Oxybutynin Chloride (Oxybutynin Chloride Er) 15 Mg TAB .ER.24 Oxybutynin Chloride (Oxybutynin Chloride Er) 15 Mg TAB.ER.24 2020-03-05 00:00:00 No 15 Twice A Day [facility] Sitagliptin Phosphate (Januvia) 100 Mg TABLET Sitaglip tin Phosphate (Januvia) 100 Mg TABLET 2020-03-05 00:00:00 No 100 Rt Daily [facility] Vital Signs Vital Name Observation Time Observation Value Comments Source Body Temperature 2020-03-10 16:19:00 98.1 [degF] [facility] Weight 2020-03-10 00:26:00 286.01 [lb_av] [facility] BMI (Body Mass Index) 2020-03-10 00:26:00 44.8 kg/m2 [facility] Heart rate 2020-03-03 17:30:00 83 /min Neto Menon Respiratory rate 2020-03-03 17:30:00 24 /min Heber Menon Oxygen saturation in Arterial blood by Pulse oximetry 03-03 17:30:00 95 /min Neto Menon Body temperature 2020-03-03 16:40:00 37.17 Briana Hous celeste Menon Systolic blood pressure 2020-03-03 15:00:00 124 mm[Hg] Neto Menon Diastolic blood pressure 2020-03-03 15:00:00 62 mm[Hg] Neto Menon Procedures Procedure Date / Time Performed Performing Clinician Sourprudence e US DUPLEX VENOUS UPPER EXTREMITY RIGHT [...] Date Details Comments Source Future Scheduled Test 2020-05-05 00:00:00 INFLUENZA VACCINE [code = INFLUENZA VACCINE] [...] End Date/Time Encounter Type Admission Type Attendi [facility] Care Department Encounter ID Source 2020-03-05 15:18:00 2020-03-05 14:03:00 Admitted Inpatient [address] [facility] [place] [place] [id number] [facility] 2020-03-03 00:00:00 2020-03-03 00:00:00 Emergency [facility] Richard [id number] [place] [employer] Results Test Description Test Time Test Comments Results Result Comments Source Capillary blood glucose measurement by glucometer (mas s/volume) 2020-03-10 11:45:00 Test Item Bedside Glucose (test code = 80555-7) 116 70-120 Meter ID: [id number] CenterBlood leukocytes automated count (number/volume)2020-03-08 05:14:00* Test Item Value Reference Range Interpretation Comments White Blood Count (test code = 6690-2) 6.38 4.8-10.8 [facility] erythrocytes automated count (number/volume)2020-03-08 05:14:00* Test Item Value Reference Range Interpretation Comments Red Blood Count (test code = 789-8) 3.69 3.6-5.1 [facility] hemoglobin measurement (moles/volume)2020-03-08 05:14:00* Test Item Value Reference Range Interpretation Comments Hemoglobin (test code = 60418-9) 9.5 12.0-16.0 [facility] CenterAutomated blood hematocrit (volume fraction)2020-03-08 05:14:00* Test Item Value Reference Range Interpretation Comments Hematocrit (test code = 4544-3) 31.6 34.2-44.1 [facility] CenterAutom[facility] erythrocyte mean corpuscular xukkun5679-92-63 05:14:00* Test Item Value Reference Range Interpretation Comments Mean Corpuscular Volume (test code = 787-2) 85.6 81-99 [facility] CenterAutom[facility] erythrocyte mean corpuscular hemoglobin (mass per erythrocyte)2020-03-08 05:14:00* Test Item Value Reference Range Interpretation Comments Mean Corpuscular Hemoglobin (test code = 785-6) 25.7 28-32 [facility] CenterAutom[facility] erythrocyte mean corpuscular hemoglobin concentration measurement (mass/volume)2020-03-08 05:14:00* Test Item Value Reference Range Interpretation Comments Mean Corpuscular Hemoglobin Concent (test code = 786-4) 30.1 31-35 [facility] CenterRDW YqwYl-Mou6056-01-04 05:14:00* Test Item Value Reference Range Interpretation Comments Red Cell Distribution Width (test code = 26434-2) 31.0 11.7 -14.4 [facility] CenterAutom[facility] blood platelet count (count/volume)2020-03-08 05:14:00* Test Item Value Reference Range Interpretation Comments Platelet Count (test code = 777-3) 159 140-360 [facility] CenterAutom[facility] blood segmented neutrophil count as percentage of total wlbegyvqqk0291-22-71 05:14:00* Test Item Value Reference Range Interpretation Comments Neutrophils (%) (Auto) (test code = 78573-0) 32.1 38.7-80.0 [facility] CenterAutom[facility] blood lymphocyte count as percentage ot total gazocxfdqz7590-08-22 05:14:00* Test Item Value Reference Range Interpretation Comments Lymphocytes (%) (Auto) (test code = 736-9) 57.1 18.0-39.1 [facility] CenterAutom[facility] blood monocyte count as percentage of total hrogvggyzh1176-90-25 05:14:00* Test Item Value Reference Range Interpretation Comments Monocytes (%) (Auto) (test code = 5905-5) 6.9 4.4-11.3 [facility] CenterAutom[facility] blood eosinophil count as percentage of total rutrdwtzcm7350-47-03 05:14:00* Test Item Value Reference Range Interpretation Comments Eosinophils (%) (Auto) (test code = 713-8) 3.3 0.0-6.0 [facility] CenterAutom[facility] blood basophil count as percentage of total gnuzxgdlgw3338-57-39 05:14:00* Test Item Value Reference Range Interpretation Comments Basophils (%) (Auto) (test code = 706-2) 0.6 0.0-1.0 [facility] CenterFluoroscopic procedure less than one hour hnjawkks4703-94-04 05:14:00* Test Item Value Reference Range Interpretation Comments IM GRANULOCYTES % (test code = IM GRANULOCYTES %) 0.0 0.0- 1.0 [facility] CenterAutom[facility] blood neutrophil count 2020-03-08 05:14:00* Test Item Value Reference Range Interpretation Comments Neutrophils # (Auto) (test code = 751-8) 2.1 2.1-6.9 [facility] lymphocytes count (number/volume) 2020-03-08 05:14:00* Test Item Value Reference Range Interpretation Comments Lymphocytes # (Auto) (test code = 89660-2) 3.6 1.0-3.2 [facility] monocytes automated count (number/volume)2020-03-08 05:14:00* Test Item Value Reference Range Interpretation Comments Monocytes # (Auto) (test code = 742-7) 0.4 0.2-0.8 [facility] CenterAut[facility]ed blood eosinophil count 2020-03-08 05:14:00* Test Item Value Reference Range Interpretation Comments Eosinophils # (Auto) (test code = 711-2) 0.2 0.0-0.4 [facility] CenterAutat[facility] health [facility]villeed blood basophil count (count/volume)2020-03-08 05:14:00* Test Item Value Reference Range Interpretation Comments Basophils # (Auto) (test code = 704-7) 0.0 0.0-0.1 [facility] CenterFluoroscopic procedure less than one hour keytiapi9340-28-52 05:14:00* Test Item Value Reference Range Interpretation Comments Absolute Immature Granulocyte (auto (louis t code = Absolute Immature Granulocyte (auto) 0 0-0.1 [facility] CenterFluoroscopic procedure less than one hour hoowxcfe6471-71-24 05:14:00* Test Item Value Reference Range Interpretation Comments Differential Total Cells Counted (test code = Differen tial Total Cells Counted) 100 [facility] blood neutrophils/100 leukocytes 2020-03-08 05:14:00* Test Item Value Reference Range Interpretation Comments Neutrophils % (Manual) (test code = 82274-1) 44 40-74 [facility] blood lymphocytes/100 leukocytes 2020-03-08 05:14:00* Test Item Value Reference Range Interpretation Comments Lymphocytes % (Manual) (test code = 737-7) 47 19-48 [facility] monocytes[facility]100 leukocytes 2020-03-08 05:14:00* Test Item Value Reference Range Interpretation Comments Monocytes % (Manual) (test code = 744-3) 4 3.4-9.0 [facility] blood eosinophil count as percentage of total ucelzvedzn0474-35-79 05:14:00* Test Item Value Reference Range Interpretation Comments Eosinophils % (Manual) (test code = 714-6) 5 0-7 [facility] count by estimate (number/volume)2020-03-08 05:14:00* Test Item Value Reference Range Interpretation Comments Platelet Estimate (test code = 08977-7) ADEQUATE [facility] CenterPlatelet jmpittjlpo7122-65-41 05:14:00* Test Item Value Reference Range Interpretation Comments Platelet Morphology Comment (test code = 60964-2) NORMAL [facility] hypochromia detection by light moswwksmqs1342-44-87 05:14:00* Test Item Value Reference Range Interpretation Comments Hypochromasia (test code = 728-6) MODERATE [facility] anisocytosis detection by light owjcdhxfey7609-65-02 05:14:00* Test Item Value Reference Range Interpretation Comments Anisocytosis (test code = 702-1) MODERATE [facility] microcytes detection by light bojniuadxx1958-05-89 05:14:00* Test Item Value Reference Range Interpretation Comments Microcytosis (test code = 741-9) SLIGHT [facility] dacrocytes detection by light akeloqcqrk1295-63-25 05:14:00* Test Item Value Reference Range Interpretation Comments Tear Drop Cells (test code = 7791-7) FEW [facility] ovalocytes detection by light atmzaptnbw0898-99-40 05:14:00* Test Item Value Reference Range Interpretation Comments Ovalocytes (test code = 774-0) FEW [facility] CenterElliptocyte kdeubsjkm5896-14-20 05:14:00 * Test Item Value Reference Range Interpretation Comments Elliptocytes (test code = 21520-5) SLIGHT [facility] CenterRBC odxibdpzwj7515-95-18 05:14:00* Test Item Value Reference Range Interpretation Comments Red Cell Morphology Comment (test code = 6742-1) ABNORMAL [facility] sodium measurement (moles/volume)2020-03-08 05:14:00* Test Item Value Reference Range Interpretation Comments Sodium Level (test code = 2951-2) 139 136-145 [facility] or plasma potassium measurement (moles/volume)2020-03-08 05:14:00* Test Item Value Reference Range Interpretation Comments Potassium Level (test code = 2823-3) 3.4 3.5-5.1 [facility] or plasma chloride measurement (moles/volume)2020-03-08 05:14:00* Test Item Value Reference Range Interpretation Comments Chloride Level (test code = 2075-0) 98 98-107 [facility]rum or plasma carbon dioxide, total measurement (moles/volume)2020-03-08 05:14:00* Test Item Value Reference Range Interpretation Comments Carbon Dioxide Level (test code = 2028-9) 35 22-29 [facility]rum or plasma anion nrs0646-36-20 05:14:00* Test Item Value Reference Range Interpretation Comments Anion Gap (test code = 39742-2) 9.4 8-16 [facility] or plasma urea nitrogen measurement (mass/volume)2020-03-08 05:14:00* Test Item Value Reference Range Interpretation Comments Blood Urea Nitrogen (test code = 3094-0) 9 7-26 [facility] or plasma creatinine measurement (mass/volume)2020-03-08 05:14:00* Test Item Value Reference Range Interpretation Comments Creatinine (test code = 2160-0) 0.67 0.57-1.11 [facility] or plasma urea nitrogen/creatinine mass qndvd6615-49-57 05:14:00* Test Item Value Reference Range Interpretation Comments BUN/Creatinine Ratio (test code = 3097-3) 13 6-25 [facility] CenterEstimated glomerular filtration rate (GFR) jsvquqmbqjmsq2668-33-09 05:14:00* Test Item Value Reference Range Interpretation Comments Estimat Glomerular Filtration Rate (test code = 499438724) > 60 >60 Ranges were taken from the National Kidney Disease Education Program and the [facility] literature.Reference ranges:60 or greater: Lpsunf17-56 ( for 3 consecutive months): Chronic kidney disease 15 or less: Kidney failureKnapp Medical CenterGlucose ewrezkiyvox6542-42-16 05:14:00* Test Item Value Reference Range Interpretation Comments Glucose Level (test code = CUP1992) 105 74-118 [facility]ere[facility] or plasma calcium measurement (mass/volume)2020-03-08 05:14:00* Test Item Value Reference Range Interpretation Comments Calcium Level (test code = 04299-0) 7.1 8.4-10.2 [facility] or plasma magnesium measurement (mass/volume)2020-03-08 05:14:00* Test Item Value Reference Range Interpretation Comments Magnesium Level (test code = 92514-3) 1.6 1.3-2.1 [facility] CenterProthrombin time (PT) in platelet poor plasma by coagulation pwnlc9125-45-32 05:20:00* Test Item Value Reference Range Interpretation Comments Prothrombin Time (test code = 5902-2) 16.1 11.9-14.5 [facility] CenterINR in Platelet poor plasma by Coagulation uprdz1387-23-29 05:20:00* Test Item Value Reference Range Interpretation Comments Prothromb Time International Ratio (test code = 6301-6) 1.22 Oral Anticoagulant Therapy INR Values:1. Low Intensity Therapy 1.5 - 2.02 . Moderate Intensity Therapy 2.0 - 3.03. High Intensity Therapy(1) 2.5 - 3. 54. High Intensity Therapy(2) 3.0 - 4.05. Panic Value INR > 5.0 [facility] CenterActivated partial thromboplastin time (aPTT) in platelet poor plasma by coagulation ksets4340-92-79 05:20:00* Test Item Value Reference Range Interpretation Comments Activated Partial Thromboplast Time (test code = 04112-9) 37.7 23.8-35.5 [facility] CenterFluoroscopic procedure less than one hour bqckcchb9890-48-64 05:40:00* Test Item Value Reference Range Interpretation Comments Hemoglobin A1c Percent (test code = Hemoglobin A1c Percent) 4.9 4.0-7.0 [facility] or plasma iron measurement (mass/volume)2020-03-06 05:40:00* Test Item Value Reference Range Interpretation Comments Iron Level (test code = 2498-4) 150 50-170 [facility] Centererum or plasma iron binding capacity measurement (mass/volume)2020-03-06 05:40:00* Test Item Value Reference Range Interpretation Comments Total Iron Binding Capacity (test code = 2500-7) 155 261-4 78 [facility] Centererum or plasma iron saturation measurement (mass fraction)2020-03-06 05:40:00* Test Item Value Reference Range Interpretation Comments Percent Iron Saturation (test code = 2502-3) 97 15-50 [facility] Cent[facility]rum or plasma transferrin measurement (mass/volume)2020-03-06 05:40:00* Test Item Value Reference Range Interpretation Comments Transferrin (test code = 3034-6) 111 180-382 [facility] Cent[facility] or plasma total bilirubin measurement (mass/volume)2020-03-06 05:40:00* Test Item Value Reference Range Interpretation Comments Total Bilirubin (test code = 1975-2) 0.9 0.2-1.2 [facility] CenterFluoroscopic procedure less than one hour ojgohlqh0753-67-98 05:40:00* Test Item Value Reference Range Interpretation Comments Aspartate Amino Transf (AST/SGOT) (test code = Aspartate Amino Transf (AST/SGOT)) 43 5-34 [facility] Cent[facility]rum or plasma alanine aminotransferase measurement (enzymatic activity/volume)2020-03-06 05:40:00* Test Item Value Reference Range Interpretation Comments Alanine Aminotransferase (ALT/SGPT) (test code = 1742-6) 21 0-55 [facility] Cent[facility] or plasma protein measurement (mass/volume)2020-03-06 05:40:00* Test Item Value Reference Range Interpretation Comments Total Protein (test code = 2885-2) 5.6 6.5-8.1 [facility] or plasma albumin measurement (mass/volume)2020-03-06 05:40:00* Test Item Value Reference Range Interpretation Comments Albumin (test code = 1751-7) 1.8 3.5-5.0 [facility] CenterPlasma globulin measurement (mass/volume) 2020-03-06 05:40:00* Test Item Value Reference Range Interpretation Comments Globulin (test code = 07641-9) 3.8 2.3-3.5 [facility] or plasma albumin/globulin mass cdvov9342-74-92 05:40:00* Test Item Value Reference Range Interpretation Comments Albumin/Globulin Ratio (test code = 1759-0) 0.5 0.8-2.0 [facility] Cent[facility] or plasma alkaline phosphatase measurement (enzymatic activity/volume)2020-03-06 05:40:00* Test Item Value Reference Range Interpretation Comments Alkaline Phosphatase (test code = 6768-6) 91 40-150 [facility] Centererum or plasma triglyceride measurement (mass/volume)2020-03-06 05:40:00* Test Item Value Reference Range Interpretation Comments Triglycerides Level (test code = 2571-8) 66 0-149 [facility] Centere[facility] or plasma cholesterol measurement (mass/volume)2020-03-06 05:40:00* Test Item Value Reference Range Interpretation Comments Cholesterol Level (test code = 2093-3) 67 0-199 Less than 200 mg/dL Low Ogrw412 - 239 mg/dL Borderline Oujk396 m g/dl and greater High Risk [facility]rum or plasma cholesterol in LDL measurement (mass/volume) 2020-03-06 05:40:00* Test Item Value Reference Range Interpretation Comments LDL Cholesterol (test code = 2089-1) 30 60-130 [facility] Cent[facility]rum or plasma cholesterol in HDL measurement (mass/volume)2020-03-06 05:40:00* Test Item Value Reference Range Interpretation Comments HDL Cholesterol (test code = 2085-9) 24 40-60 [facility] Centererum or plasma total cholesterol/cholesterol in HDL mass uaocs2794-37-07 05:40:00* Test Item Value Reference Range Interpretation Comments Cholesterol/HDL Ratio (test code = 9830-1) 2.8 3.0-3.6 [facility] or plasma creatine kinase measurement (enzymatic activity/volume)2020-03-06 05:40:00* Test Item Value Reference Range Interpretation Comments Creatine Kinase (test code = 2157-6) 12 29-168 [facility] Centere[facility] or plasma creatine kinase MB measurement (mass/volume)2020-03-06 05:40:00* Test Item Value Reference Range Interpretation Comments Creatine Kinase MB (test code = 44906-9) 0.40 0-5.0 [facility] CenterTroponin I measurement by highly sensitive enzyme ywrslaxadrr5368-80-05 05:40:00* Test Item Value Reference Range Interpretation Comments Troponin I (test code = 64820-5) 0.014 0-0.300 [facility] Cent[facility] or plasma thyrotropin measurement by detection limit <= 0.005 miu/l (units/volume)2020-03-06 05:40:00* Test Item Value Reference Range Interpretation Comments Thyroid Stimulating Hormone (TSH) (test code = 63961-5) 6.324 0.350-4.940 [facility] Centererum or plasma phenytoin measurement (mass/volume)2020-03-06 05:40:00* Test Item Value Reference Range Interpretation Comments Phenytoin (Dilantin) Level (test code = 3968-5) 3.18 10-20 [facility] CenterCHEST SINGLE (PORTABLE)2020-03-05 14:59:00 [facility] [address] [place] [address] Patient Name: CORDELL GRIMM MR #: [id number] : 1945 Age/Sex: 74/F Req #: [id number] Adm Physician: Ordered by: WENDY MAJOR MD Report #: [id number] Location: ER Room/Bed: Procedure: [id number] DX/CHEST SINGLE (PORTABLE) Exam Date: 03/05/20 Exam Time: 1420 REPORT STATUS: Signed EXAMINATION: CHEST SINGLE (PORTABLE) INDICATION: Shortness of breath and cough. COMPARISON: 02/09/2014. FINDINGS: TUBES and LINES: None. LUNGS: Low lung volumes with bronchovascular crowding. There is prominent in terstitial lung markings and opacification of the right lung base. There is el evation of the right hemidiaphragm. PLEURA: There is probable small right pleural effusion. HEART AND MEDIASTINUM: The heart is mildly enlarged. The mediastinal contour is otherwise within normal limits with atherosclerotic jamari cification of the thoracic aorta. BONES AND SOFT TISSUES: No acute osseo us lesion. Soft tissues are unremarkable. UPPER ABDOMEN: No free air und er the diaphragm. IMPRESSION: Prominent interstitial lung marking s which likely reflects interstitial pulmonary edema in the presence of cardio megaly. Right basilar opacification which likely represent atelectasis and/or pneumonia in the proper clinical setting. Signed by: Arjun Roman MD on 03/05/2020 3:12 PM Dictated By: ARJUN ROMAN MD 1512 Transcribed By: KEV on 03/05/20 1512 COPY TO: WENDY MAJOR MD Blood lymphocytes variant count (number/volume)2020-03-05 13:54:00* Test Item Value Reference Range Interpretation Comments Reactive Lymphocytes (test code = 90307-2) 2 [facility] CenterUrine color tzfffkpxxcikb5507-57-65 13:54:00* Test Item Value Reference Range Interpretation Comments Urine Color (test code = 5778-6) YELLOW YELLOW [facility] CenterUrine [id number] 13:54:00* Test Item Value Reference Range Interpretation Comments Urine Clarity (test code = 40633-8) SL CLOUDY CLEAR [facility] Urine by Test strip 2020-03-05 13:54:00* Test Item Value Reference Range Interpretation Comments Urine Specific Paradox (test code = 5811-5) 1.025 1.010-1.02 5 [facility] by automated test [id number] 13:54:00* Test Item Value Reference Range Interpretation Comments Urine pH (test code = 97558-4) 5.5 5-7 [facility] leukocyte esterase detection by gylydant4467-03-04 13:54:00* Test Item Value Reference Range Interpretation Comments Urine Leukocyte Esterase (test code = 5799-2) TRACE NEGATIVE [facility] nitrite llemnhbxh9124-40-17 13:54:00* Test Item Value Reference Range Interpretation Comments Urine Nitrite (test code = 62444-1) NEGATIVE NEGATIVE [facility] protein measurement by test strip (mass/volume)2020-03-05 13:54:00* Test Item Value Reference Range Interpretation Comments Urine Protein (test code = 5804-0) TRACE NEGATIVE [facility] glucose gndbdqrsl3738-35-04 13:54:00* Test Item Value Reference Range Interpretation Comments Urine Glucose (UA) (test code = 2349-9) NEGATIVE NEGATIVE [facility] ketones detection by automated test vuwjn8748-88-24 13:54:00* Test Item Value Reference Range Interpretation Comments Urine Ketones (test code = 51744-9) TRACE NEGATIVE [facility] urobilinogen measurement by test strip (mass/volume)2020-03-05 13:54:00* Test Item Value Reference Range Interpretation Comments Urine Urobilinogen (test code = 18307-6) 1 0.2-1 [facility] total bilirubin measurement (mass/volume)2020-03-05 13:54:00* Test Item Value Reference Range Interpretation Comments Urine Bilirubin (test code = 1978-6) SMALL NEGATIVE [facility] erythrocytes zewvjpwkb0222-83-93 13:54:00* Test Item Value Reference Range Interpretation Comments Urine Blood (test code = 31010-3) TRACE NEGATIVE [facility] CenterAutomated urine sediment leukocyte count by microscopy (number/high power field)2020-03-05 13:54:00* Test Item Value Reference Range Interpretation Comments Urine WBC (test code = 5821-4) 11-20 0-5 [facility] CenterErythrocytes detection in urine sediment by light zfyfsqaksc0671-03-51 13:54:00* Test Item Value Reference Range Interpretation Comments Urine RBC (test code = 21961-8) 0-5 0-5 [facility] CenterBacteria detection in urine sediment by light dwljxoyikr4720-04-47 13:54:00* Test Item Value Reference Range Interpretation Comments Urine Bacteria (test code = 49754-8) FEW NONE [facility] CenterEpithelial cells detection in urine sediment by light oyndbbpcqd5507-94-90 13:54:00* Test Item Value Reference Range Interpretation Comments Urine Epithelial Cells (test code = 64086-4) FEW NONE [facility] CenterBNP Hcp-eGhd9558-22-01 13:54:00* Test Item Value Reference Range Interpretation Comments B-Type Natriuretic Peptide (test code = 55024-6) 276.5 0-100 [facility] CenterFluoroscopic procedure less than one hour hdwwrfsk6657-18-30 13:54:00* Test Item Value Reference Range Interpretation Comments Coronavirus (PCR) (test code = Coronavirus (PCR)) NOT DETECTED NOTD ETECTED SARS-COV2/RT-PCRNegative results do not preclude SARS-CoV-2 infection and should not be used as the sole basis for patient management decisions. Negative results must be combined with clinical observations, patient history, and epidemiologi jamari information. A false negative result may occur if a specimen is improperly c ollected, transported or handled.The limit of detection for this assay is 250 co pies/mLThe SARS-CoV-2 test is a rapid, real-time RT-PCR test intended for the qu alitative detection of nucleic acid from SARS-CoV-2 in nasopharyngeal swab speci men collected from individuals suspected of COVID-19 by their healthcare provide r. This test has not been Food and Drug Administration (FDA) cleared or approved and has been authorized by FDA under an Emergency Use Authorization (EUA). This EUA will be effective until the declaration that circumstances exist justifying the authorization of the emergency use of in vitro diagnostic test for detection and or diagnosis of COVID-19 is terminated under section 564(b) of the Act, or the the EUA is revoked under 564(g) of the ACT.Testing performed by [facility], [place] [address]ARRKn[facility] Medical CenterBlood fnfebuj5900-21-51 13:54:00* Test Item Value Reference Range Interpretation Comments Blood Culture (test code = 89245187) NO GROWTH AFTER 5 DAYS, FINAL REPORT [facility] CenterBacterial urine oznapih4901-49-46 13:54:00* Test Item Value Reference Range Interpretation Comments Urine Culture (test code = 630-4) ENTEROCOCCUS FAECIUM [facility] CenterECG 12 fhvy4858-88-14 16:54:43* Test Item Value Reference Range Interpretation Comments Ventricular rate (test code = 253) 78 Atrial rate (test code = 255) 78 [place] interval (test code = 266) 164 QRSD [...] has lengthened- Neto Levine duplex venous upper vwsclahhn6470-93-43 16:48:07 There is no evidence of DVT in the right upper extremity and left internal jugular vein. Neto MethodnathalyCBC with platelet and prnhylkcphur8309-23-88 16:44:52* Test Item Value Reference Range Interpretation Comments WBC (test code = 49467-3) 5.53 4.50- 11.00 k/uL RBC (test code = 99205-6) 3.81 m/uL 4.2-5.5 L HGB (test code = 718-7) 10.1 g/dL 12-16 L HCT (test code = 4544-3) 35.0 % 37-47 L MCV (test code = 787-2) 91.9 fL 82-100 MCH (test code = 785-6) 26.5 pg 27-34 L MCHC (test code = 786-4) 28.9 g/dL 31-37 L RDW - SD (test code = 31855-4) 102.2 fL 37-55 H MPV (test code = 73746-4) SEE COMMENT 8.8-13.2 No report Platelet count (test code = 61987-8) 150 150- 400 k/uL Nucleated RBC (test code = 94531-7) 0.00 /100 WBC Neutrophils (test code = 84417-6) 41.0 % 39-69 Lymphocytes (test code = 40097-6) 52.0 % 25-45 H Monocytes (test code = 10676-7) 2.0 % 0-10 Eosinophils (test code = 81235-8) 5.0 % 0-5 Basophils (test code = 82018-5) 0.0 % 0-1 Lab Interpretation (test code = 05936-5) Abnormal [facility] MethodistManual jdedqaqicqcq2872-64-98 16:44:52* Test Item Value Reference Range Interpretation Comments Manual differential (test code = 89726-2) PERFORMED Neutrophils (test code = 31774-7) 41.0 % 39-69 Lymphocytes (test code = 53458-1) 52.0 % 25-45 H Monocytes (test code = 60656-3) 2.0 % 0-10 Eosinophils (test code = 10094-1) 5.0 % 0-5 Basophils (test code = 77491-8) 0.0 % 0-1 Metamyelocytes (test code = 740-1) 0 % Promyelocytes (test code = 783-1) 0 % Platelet slide review (test code = 79768-7) Abhijit adequate Anisocytosis (test code = 702-1) Moderate Tear drop cells (test code = 7791-7) Occasional Ovalocytes (test code = 774-0) occasional Elliptocytes (test code = 68990-7) Occasional Lab Interpretation (test code = 84407-8) Abnormal [facility] MethodistComprehensive metabolic qlzdt7608-54-14 15:56:33* Test Item Value Reference Range Interpretation Comments Sodium (test code = 2951-2) 140 135- 148 mEq/L Potassium (test code = 2823-3) 3.1 3.5- 5.0 mEq/L L Chloride (test code = 2075-0) 100 98- 112 mEq/L CO2 (test code = 2027-9) 34 24- 31 mEq/L H Anion gap (test code = 47117-5) 6@ANIO 7- 15 mEq/L L BUN (test code = 3094-0) 9 mg/dL 8-23 Creatinine (test code = 2160-0) 0.70 mg/dL 0.5-0.9 Glucose (test code = 2345-7) 121 mg/dL 65-99 H Calcium (test code = 09290-9) 8.2 mg/dL 8.8-10.2 L Protein (test code = 2885-2) 6.4 g/dL 6.3-8.3 -[place] 4.6- 7.0 g/dL1 week 4.4-7.6 g/dL7 months-1year 5.1-7.3 g/dL1-2 years 5.6-7.5 g/dL>3 years 6.0-8.0 g/bQ08-442 6.3-8.3 g/dL Albumin (test code = 1751-7) 2.3 g/dL 3.5-5 L A/G ratio (test code = 1759-0) 0.6 0.7-3.8 L Alkaline phosphatase (test code = 6768-6) 108 U/L 35-104 H AST (test code = 1920-8) 45 U/L 10-35 H ALT (test code = 1742-6) 23 U/L 5-50 Total bilirubin (test code = 1974-2) 0.9 mg/dL 0-1.2 Lab Interpretation (test code = 04475-4) Abnormal [facility] MethodistEstimated TFR0567-80-03 15:56:33* Test Item Value Reference Range Interpretation Comments Estimated GFR (test code = 5488) 84 mL/min/1.73 m2 Catergory Units InterpretationG1 >=90 Normal or highG2 60-89 Mildly bhuawgdisV9h 45-59 Mildly to moderately kibhigydxR6f 30-44 Moderately to severely decreasedG4 15-29 Severely decreasedG5 <15 Kidney failureThe eGFR was calculated using the Chronic Kidney Disease Epidemiology Collaboration (CKD-EPI) equation. Interpretation is based on recommendations of the National Kidney Foundation-Kidney Disease Outcomes Quality Initiative (NKF-KDOQI) published in 2014. Neto MenonXR Chest 1 Vw Hsyghvjd6108-33-40 15:37:15Hm Interface, Radiology Results 03/03/2020 3:40 PM [...] present. The regional osseous structures appear stable. [facility]- [id number] [facility]OK[facility] Preliminary Interpretation - Not an Order 2020-03-03 15:01:44Moni Morgan MD 03/03/2020 6:03 [facility] ED Preliminary Interpretation - Not an OrderPerformed by: Moni Morgan MDAuthorized by: Moni Morgan MD ECG reviewed by ED Physician in the absence of a repairer art objects: yes (read at 1507) Interpretation: Interpretation: normal Rate: ECG rate: 78 ECG rate assessment: normal Rhythm: Rhythm: sinus rhythm Ectopy: Ectopy: none QRS: QRS axis: Normal QRS intervals: NormalConduction: Conduction: normal ST segments: ST segments: NormalT waves: T waves: normal Other findings: Other findings: prolonged qTc interval Neto Menon
--- OUTSIDE RECORDS SUMMARY | 2020-04-15 19:37 | XMS REPORT | Clinical Summary ---
Author Author [facility] Address Unknown Phone Unavailable Care Team Providers Care Dance Professor Name Role Phone Cheyenne Hendrix MD PCP [...] Dx); Hypokalemia 03/03/2020 Emergency Emergency Medicine after 04/15/2019 Social History Date Tobacco Use Types Packs/Day [...] 1993 SHINGLES VACCINES (#1) 1993 INFLUENZA VACCINE 05/05/2020 03/26/2017, 06/08/2016, 04/19/2014, Additional history exists 65+ [...] Routine 03/03/2020 INTERPRETATION 3:01 PM CDT after 04/15/2019 Results * Us duplex venous upper extremity (03/03/2020 3:40 PM CDT) Specimen Narrative Performed At [facility] There is no evidence of DVT in the r ight upper extremity and left internal jugular vein. Performing Organization Address City/State/[facility] Mexicocode Ph one Number [facility] [address] [place] [address], * Estimated GFR (03/03/2020 3:36 PM CDT) Pathologist [facility] Estimated GFR 84 mL/min/1.73 m2 [place] Comment: [facility] Interpretation G1 >=90 Normal or high G2 [...] City/State/[place]code [place] [address] [address] [place], [place] [address] PATHOLOGY AND GENOMIC MEDICINE [facility] [address] [place] [address] [facility] * Manual differential (03/03/2020 3:36 PM CDT) Manual PERFORMED [place] differential [facility] Neutrophils 41.0 39.0 - 69.0 % [facility] Lymphocytes 52.0 (H) 25.0 - 45.0 % [facility] Monocytes 2.0 0.0 - 10.0 % [facility] Eosinophils 5.0 0.0 - 5.0 % [facility] Basophils 0.0 0.0 - 1.0 % [facility] Metamyelocytes 0 % [facility] Promyelocytes 0 % [facility] Platelet slide Abhijit adequate [place] review [facility] Anisocytosis Moderate [facility] Tear drop cells Occasional [facility] Ovalocytes occasional [facility] Elliptocytes Occasional [facility] Specimen Performing Organization Address City/State/Zipcode Ph one Number [facility] [place] [address] [address] [place], [place] [address] PATHOLOGY AND GENOMIC MEDICINE [facility] [address] [place] [address] [facility] * CBC with platelet and differential (03/03/2020 3:36 PM CDT) WBC 5.53 4.50 - 11.00 k/uL [facility] RBC 3.81 (L) 4.20 - 5.50 m/uL [facility] HGB 10.1 (L) 12.0 - 16.0 g/dL [facility] HCT 35.0 (L) 37.0 - 47.0 % [facility] MCV 91.9 82.0 - 100.0 fL [facility] MCH 26.5 (L) 27.0 - 34.0 pg [facility] MCHC 28.9 (L) 31.0 - 37.0 g/dL [facility] RDW - SD 102.2 (H) 37.0 - 55.0 fL [facility] MPV SEE COMMENTComment: No report 8.8 - 13.2 fL [facility] Platelet count 150 150 - 400 k/uL [facility] Nucleated RBC 0.00 /100 WBC [facility] Neutrophils 41.0 39.0 - 69.0 % [facility] Lymphocytes 52.0 (H) 25.0 - 45.0 % [facility] Monocytes 2.0 0.0 - 10.0 % [facility] Eosinophils 5.0 0.0 - 5.0 % [facility] Basophils 0.0 0.0 - 1.0 % [facility] Specimen Blood Performing Organization Address City/State/[facility] Mexicocosc [place] [address] [place] [address] PATHOLOGY AND GENOMIC MEDICINE [facility] [address] [place] [address] [facility] * Comprehensive metabolic panel (03/03/2020 3:36 PM CDT) Sodium 140 135 - 148 mEq/L [facility] Potassium 3.1 (L) 3.5 - 5.0 mEq/L [facility] Chloride 100 98 - 112 mEq/L [facility] CO2 34 (H) 24 - 31 mEq/L [facility] Anion gap 6@ANIO (L) 7 - 15 mEq/L [facility] BUN 9 8 - 23 mg/dL [facility] Creatinine 0.70 0.50 - 0.90 mg/dL [facility] Glucose 121 (H) 65 - 99 mg/dL [facility] Calcium 8.2 (L) 8.8 - 10.2 mg/dL [facility] Protein 6.4 6.3 - 8.3 g/dL [place] Comment: [facility] [place] 4.6-7.0 g/dL 1 week 4.4-7.6 g/dL 7 months-1year 5.1-7.3 g/dL 1-2 years 5.6-7.5 g/dL >3 years 6.0-8.0 g/dL 18-150 6.3-8.3 g/dL Albumin 2.3 (L) 3.5 - 5.0 g/dL [facility] A/G ratio 0.6 (L) 0.7 - 3.8 [facility] Alkaline 108 (H) 35 - 104 U/L [place] phosphatase [facility] AST 45 (H) 10 - 35 U/L [facility] ALT 23 5 - 50 U/L [facility] Total bilirubin 0.9 0.0 - 1.2 mg/dL [facility] Specimen Blood Performing Organization Address City/State/[place]code [place] [address] [address] [place], [place] [address] PATHOLOGY AND GENOMIC MEDICINE [place] [address] [place] [address] [facility] * XR Chest 1 Vw Portable [...] sent. The regional osseous structures appear stable. [id number] Procedure Note Hm Interface, Radiology Results Incoming [...] present. The regional osseous structures appear stable. [id number] Performing Organization Address City/[facility]/Zipcode Ph one Number [facility] [address] [facility] [place] [address] * ECG 12 lead (03/03/2020 3:07 PM CDT) Ventricular 78 [facility] rate Atrial rate 78 [facility] HI interval 164 [facility] QRSD interval 90 [facility] QT interval 448 [facility] QTC interval 510 [facility] P axis 1 97 [facility] QRS axis 1 18 [facility] T wave axis 10 [facility] EKG impression Normal sinus rhythm-Cannot [facility] rule out Anterior infarct , age undetermined-Prolonged QT-Abnormal ECG-In automated comparison with ECG of 05-DEC-2017 19:43,-Sinus rhythm has replaced Junctional rhythm-Nonspecific T wave abnormality, improved in Lateral leads-QT has lengthened- Specimen Narrative Performed At This result has an attachment that is n ot available. Performing Organization Address City/State/Zipcode Ph one Number [facility] [address] [place] [address] * ECG ED Preliminary Interpretation - Not an Order (03/03/2020 3:01 PM CDT) Narrative Performed At Juan Antonio Levi MD 03/03/2020 6:03 PM ECG ED Preliminary Interpretation - Not an Order Performed by: Juan Antonio Levi MD Authorized by: Juan Antonio Levi MD ECG reviewed by ED Physician in the abs ence of a electric freight car operator: yes (read at 1507) Interpretation: Interpretation: normal Rate: ECG rate: 78 ECG rate assessment: normal Rhythm: Rhythm: sinus rhythm Ectopy: Ectopy: none QRS: QRS axis: Normal QRS intervals: Normal Conduction: Conduction: normal ST segments: ST segments: Normal T waves: T waves: normal Other findings: Other findings: prolonged qTc interva l after 04/15/2019 Insurance Type Payer Benefit Subscriber ID Effective Phone Address Plan / Dates Group [facility] ADVANTAGE [facility] xxxxxxxxxxx 2008- P [facility] Direct[facility] For more information, please contact: [phone] 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
--- NOTE | 2020-04-15 19:38 | Emergency Department Note ---
History of Present Illnes History of Present Illness Chief Complaint: Genitourinary History of Present Illness This is a 74 year old female Chief Complaint Comment 74 y/o female presents to ED via EMS for c/o needing more treatment after being discharged from the [facility]. Per Nurse at [facility] pt was treated and given medication for UTI. Pt reports she refused to go home b/c she said that she is concerned that the trmt for UTI was not enough. Pt reports multiple wounds to her buttocks and pain. Pt noted to have orange urine with sediment, and is currently on o2@ 2L/NC. Pt reports she has hospital bed, nebulizer and WC at home. 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 Any updates have been documented here. Past Medical History Recent Fever: No (unknown) Clinical Suspicion of Infectio: Yes New/Unexplained Change in Ment: No Past Medical History: Hypertension, Diabetes, CHF, Hypothyroidism, Seizure Disorder Other Medical History: breast ca, subdural hematoma, decubitus ulcers Past Surgical History: Hysterectomy, CABG Other Surgery: BILATERAL SHOULDER SURGERY BYPASS Social History Physically hurt or threatened: No Other Last Tetanus: UNKNOWN Review of Systems Review of Systems Constitutional: Reports no symptoms EENTM: Reports no symptoms Cardiovascular: Reports no symptoms Respiratory: Reports as per HPI Gastrointestinal: Reports no symptoms Genitourinary: Reports no symptoms Musculoskeletal: Reports no symptoms Integumentary: Reports no symptoms Neurological: Reports no symptoms Psychological: Reports no symptoms Endocrine: Reports no symptoms Hematological/Lymphatic: Reports no symptoms Physical Exam Related Data Allergies: Coded Allergies: Penicillins (Unverified Allergy, Severe, "SHORT OF BREATH, LIPS PURPLE AND SWELLING, RASH", 03/05/20) Sulfa (Sulfonamide Antibiotics) (Verified Allergy, Unknown, 03/05/20) Triage Vital Signs Vital Signs Date Time Temp Pulse Resp B/P (MAP) Pulse Ox O2 Delivery O2 Flow Rate FiO2 04/15/20 18:00 98.4 57 18 109/83 97 Nasal Cannula 2.0 Vital signs reviewed: Yes Physical Exam CONSTITUTIONAL Constitutional: Present well-developed, Present well-nourished HENT HENT: Present normocephalic, Present atraumatic, Present oropharynx clear/moist, Present nose normal HENT L/R: Present left ext ear normal, Present right ext ear normal EYES Eyes: Reports PERRL, Reports conjunctivae normal NECK Neck: Present ROM normal PULMONARY Pulmonary: Present effort normal, Present breath sounds normal CARDIOVASCULAR Cardiovascular: Present regular rhythm, Present heart sounds normal, Present capillary refill normal, Present normal rate GASTROINTESTINAL Abdominal: Present soft, Present nontender, Present bowel sounds normal GENITOURINARY Genitourinary: Present exam deferred, Present other (Catheter in place) SKIN Skin: Present warm, Present dry MUSCULOSKELETAL Musculoskeletal: Present ROM normal NEUROLOGICAL Neurological: Present alert, Present oriented x 3, Present no gross motor or sensory deficits PSYCHOLOGICAL Psychological: Present mood/affect normal, Present judgement normal Assessment & Plan Medical Decision Making MDM 74 year old female presents for complaints that she needs further treatment for going home. She reportedly refused to go home from her rehabilitation facility. She is on Cipro for a urinary tract infection which just started today. She is concerned that she has coated but has had multiple tests the past which were negative. Examination shows a presumably baseline, nontoxic, [id number] female in no acute distress. Vital signs stable, within next limits. Workup is largely unremarkable but does show a urinary tract infection for which she is already being treated. CXR shows worsening fluid collections but clinically no PNA. At this time there is no admission criteria and she'll be discharged home. Doubt emergent process at this time. I discussed results patient as well as expected disease time course and management. They will follow up with their primary care provider or return to the emergency department for new or worsening symptoms. Patient's appropriate for discharge. Part of this note was dictated with [place] and is subject to recognition errors. Reassessment Reassessment time: 19:37 Reassessment NAD Assessment & Plan Final Impression: (1) UTI (urinary tract infection) Depart Disposition: HOME, SELF-CARE Last Vital Signs Date Time Temp Pulse Resp B/P (MAP) Pulse Ox O2 Delivery O2 Flow Rate FiO2 04/15/20 18:00 98.4 57 18 109/83 97 Nasal Cannula 2.0 Home Meds Reported Medications Phenytoin Sodium Extended (PHENYTOIN SODIUM EXTENDED) 200 Mg Capsule, 200 MG PO BID 03/05/20 Losartan Potassium (LOSARTAN POTASSIUM) 25 Mg Tablet, 25 MG PO DAILY 03/05/20 Sitagliptin Phosphate (JANUVIA) 100 Mg Tablet, 100 MG PO DAILY, #30 TAB 03/05/20 Cephalexin (CEPHALEXIN) 500 Mg Capsule, 500 MG PO DAILY, CAP 03/05/20 Aspirin (ASPIR 81) 81 Mg Tablet.dr, 81 MG PO RDAILY 02/09/14 Metoprolol Tartrate (METOPROLOL TARTRATE) 25 Mg Tablet, 25 MG PO BID 02/09/14 Atorvastatin Calcium (LIPITOR) 80 Mg Tablet, 80 MG PO RDAILY 02/09/14 Omeprazole (PRILOSEC) 20 Mg Capsule.dr, 40 MG PO RDAILY 02/09/14 Levothyroxine Sodium (LEVOXYL) 75 Mcg Tablet, 75 MCG PO RDAILY 02/09/14 MARGAUX LAU MD Apr 15, 2020 19:37
[2020-04-15 20:01] LABS: BASOPHILS # (AUTO) 0.1 (0.0-0.1); BASOPHILS % 0.7 % (0.0-1.0); EOSINOPHILS # (AUTO) 0.2 (0.0-0.4); HEMATOCRIT 25.4 % (34.2-44.1); HEMOGLOBIN 7.9 g/dL (12.0-16.0); LYMPHOCYTES # (AUTO) 3.3 (1.0-3.2); MEAN CORPUSCULAR HEMOGLOBIN 27.3 pg (28-32); MEAN CORPUSCULAR HGB CONC 31.1 g/dL (31-35); MEAN CORPUSCULAR VOLUME 87.9 fL (81-99); MONOCYTES # (AUTO) 0.8 (0.2-0.8); MONOCYTES % 9.2 % (4.4-11.3); NEUTROPHILS # (AUTO) 3.8 (2.1-6.9); NEUTROPHILS % 46.9 % (38.7-80.0); PLATELET COUNT 254 x10e3/uL (140-360); RED BLOOD COUNT 2.89 x10e6/uL (3.6-5.1); RED CELL DISTRIBUTION WIDTH 32.7 % (11.7-14.4)
[2020-04-15 20:26] LABS: ALANINE AMINOTRANSFERASE 16 IU/L (0-55); ALBUMIN 2.5 g/dL (3.5-5.0); ALBUMIN/GLOBULIN RATIO 0.6 (0.8-2.0); ALKALINE PHOSPHATASE 115 IU/L (40-150); ANION GAP 14.6 mmol/L (8-16); BLOOD UREA NITROGEN 9 mg/dL (7-26); BUN/CREATININE RATIO 13 (6-25); CALCIUM 7.4 mg/dL (8.4-10.2); CARBON DIOXIDE 28 mmol/L (22-29); CHLORIDE 98 mmol/L (98-107); EST GLOMERULAR FILTRATION RATE > 60 ML/MIN (60-); GLUCOSE 109 mg/dL (74-118); POTASSIUM 4.6 mmol/L (3.5-5.1); SODIUM 136 mmol/L (136-145)
[2020-04-15 20:27] LABS: CLARITY,URINE TURBID (CLEAR); COLOR,URINE YELLOW (YELLOW); LEUKOCYTE ESTERASE ,URINE LARGE (NEGATIVE); NITRITE,URINE POSITIVE (NEGATIVE); PROTEIN,URINE DIPSTICK 2+ (NEGATIVE)
[2020-04-15 20:28] LABS: BILIRUBIN,URINE SMALL (NEGATIVE); KETONES,URINE TRACE (NEGATIVE); URINE UROBILINOGEN 1 mg/dL (0.2 - 1)
--- NOTE | 2020-04-15 20:32 | Diagnostic Imaging Report ---
EXAMINATION: CHEST SINGLE (PORTABLE) INDICATION: Shortness of breath. COMPARISON: Multiple prior chest x-rays including most recent on 03/05/2020 FINDINGS: TUBES and LINES: None. LUNGS: Low lung volumes with bronchovascular crowding. There is redemonstration of prominent interstitial lung markings and opacification of the right lung base, slightly worsened since prior examination. There is now left basilar atelectasis There is elevation of the right hemidiaphragm. PLEURA: There is probable small bilateral pleural effusion. No pneumothorax. HEART AND MEDIASTINUM: The heart is mildly enlarged as before. The mediastinal contour is otherwise within normal limits with atherosclerotic calcification of the thoracic aorta. BONES AND SOFT TISSUES: No acute osseous lesion. Soft tissues are unremarkable. UPPER ABDOMEN: No free air under the diaphragm. IMPRESSION: Cardiomegaly with worsening pulmonary edema and bibasilar atelectasis. Superimposed multifocal pneumonia cannot be excluded. Signed by: Tamara Abdalla MD on 04/15/2020 8:29 PM
[2020-04-15 20:35] LABS: BACTERIA,URINE MANY /HPF; EPITHELIAL CELLS,URINE FEW /LPF
[2020-04-15 21:07] LABS: LYMPHOCYTES % (MANUAL) 21 % (19-48); MONOCYTES % (MANUAL) 6 % (3.4-9.0); NEUTROPHILS % (MANUAL) 60 % (40-74)
[2020-04-15 21:08] LABS: ANISOCYTOSIS SLIGHT; PLATELET ESTIMATE ADEQUATE; PLATELET MORPHOLOGY COMMENT FEW GIANT; RBC MORPHOLOGY COMMENT NORMAL
--- NOTE | 2020-04-15 22:03 | NUR ---
[facility] called at this time. ETA 1 hour.
--- NOTE | 2020-04-15 22:30 | NUR ---
Patient noted to have heart rate at 170 after turning her to apply new bried. Stat EKG performed. ER MD to bedside. Defibrillator paddles applied.
[2020-04-15] MEDS ORDERED: ADENOSINE 6 MG/2 ML VIAL IV ONE ×2 (22:47→22:48)
[2020-04-15] MEDS ORDERED: ADENOSINE 6MG/2ML 3 ML ONE (22:49)
[2020-04-15] MEDS ORDERED: SODIUM CHLORIDE 0.9% 1000ML 1,000 ML ONE (22:53)
--- NOTE | 2020-04-15 22:56 | NUR ---
Nonrebreather applied at 15L at this time
--- NOTE | 2020-04-15 22:56 | NUR ---
Patient converted after administration of 10mg metoprolol IV. EKG performed. ER MD remains at bedside. Will continue to monitor closely.
[2020-04-15] MEDS ORDERED: ADENOSINE 6MG/2ML 1 ML ONE (22:57)
[2020-04-15] MEDS ORDERED: ETOMIDATE 40 MG/ 20ML VIAL IV ONE (22:58)
[2020-04-15] MEDS ORDERED: METOPROLOL TARTRATE INJ 1 MG/ML VIAL ONE (23:00)
--- OUTSIDE RECORDS SUMMARY | 2020-04-15 23:12 | XMS REPORT | Clinical Summary ---
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 Performing Organization Address City/State[facility] Ph one Number [facility] [address] [place] [address], * Estimated GFR (03/03/2020 3:36 PM CDT) Pathologist [facility] Estimated GFR 84 mL/min/1.73 m2 [place] Comment: [facility] Interpretation G1 >=90 Normal or high G2 [...] City/State/Zipcode [place] [address] [address] [place], [place] [address] PATHOLOGY AND GENOMIC MEDICINE [facility] [address] [place] [address] [facility] * Manual differential (03/03/2020 3:36 PM CDT) Manual PERFORMED [place] differential [facility] Neutrophils 41.0 39.0 - 69.0 % Lymphocytes 52.0 (H) 25.0 - 45.0 % Monocytes 2.0 0.0 - 10.0 % Eosinophils 5.0 0.0 - 5.0 % Basophils 0.0 0.0 - 1.0 % Metamyelocytes 0 % Promyelocytes 0 % Platelet slide Abhijit adequate [place] review [facility] Anisocytosis Moderate Tear drop cells Occasional Ovalocytes occasional Elliptocytes Occasional Specimen Performing Organization Address City/State/Zipcode Ph one Number [facility] [place] [address] [address] [place], [place] [address] PATHOLOGY AND GENOMIC MEDICINE [facility] [address] [place] [address] [facility] * CBC with platelet and differential (03/03/2020 3:36 PM CDT) WBC 5.53 4.50 - 11.00 k/uL RBC 3.81 (L) 4.20 - 5.50 m/uL HGB 10.1 (L) 12.0 - 16.0 g/dL HCT 35.0 (L) 37.0 - 47.0 % MCV 91.9 82.0 - 100.0 fL MCH 26.5 (L) 27.0 - 34.0 pg MCHC 28.9 (L) 31.0 - 37.0 g/dL RDW - SD 102.2 (H) 37.0 - 55.0 fL MPV SEE COMMENTComment: No report 8.8 - 13.2 fL Platelet count 150 150 - 400 k/uL Nucleated RBC 0.00 /100 WBC Neutrophils 41.0 39.0 - 69.0 % Lymphocytes 52.0 (H) 25.0 - 45.0 % Monocytes 2.0 0.0 - 10.0 % Eosinophils 5.0 0.0 - 5.0 % Basophils 0.0 0.0 - 1.0 % Specimen Blood Performing Organization Address City/State/[facility] [place] [address] [address] [place] [address] PATHOLOGY AND GENOMIC MEDICINE [facility] [address] [place] [address] [facility] * Comprehensive metabolic panel (03/03/2020 3:36 PM CDT) Sodium 140 135 - 148 mEq/L Potassium 3.1 (L) 3.5 - 5.0 mEq/L Chloride 100 98 - 112 mEq/L CO2 34 (H) 24 - 31 mEq/L Anion gap 6@ANIO (L) 7 - 15 mEq/L BUN 9 8 - 23 mg/dL Creatinine 0.70 0.50 - 0.90 mg/dL Glucose 121 (H) 65 - 99 mg/dL Calcium 8.2 (L) 8.8 - 10.2 mg/dL Protein 6.4 6.3 - 8.3 g/dL [place] Comment: [facility] [place] 4.6-7.0 g/dL 1 week 4.4-7.6 g/dL 7 months-1year 5.1-7.3 g/dL 1-2 years 5.6-7.5 g/dL >3 years 6.0-8.0 g/dL 18-150 6.3-8.3 g/dL Albumin 2.3 (L) 3.5 - 5.0 g/dL A/G ratio 0.6 (L) 0.7 - 3.8 Alkaline 108 (H) 35 - 104 U/L [place] phosphatase [facility] AST 45 (H) 10 - 35 U/L ALT 23 5 - 50 U/L Total bilirubin 0.9 0.0 - 1.2 mg/dL Specimen Blood Performing Organization Address City/State/Zipcode [place] [address] [address] [place], [place] [address] PATHOLOGY AND GENOMIC MEDICINE [place] [employer] [address] [place] [address] [facility] * XR Chest 1 Vw Portable [...] sent. The regional osseous structures appear stable. [facility]-[id number] Procedure Note Hm Interface, Radiology Results Incoming [...] present. The regional osseous structures appear stable. [facility]-[id number] Performing Organization Address City/[facility]/Zipcode Ph one Number [facility] [address] [facility] [place] [address] * ECG 12 lead (03/03/2020 3:07 PM CDT) Ventricular 78 [facility] rate Atrial rate 78 [facility] [place] interval 164 [facility] QRSD interval 90 [facility] QT interval 448 [facility] QTC interval 510 [facility] P axis 1 97 [facility] MUSE QRS axis 1 18 [facility] MUSE T wave axis 10 [facility] MUSE EKG impression Normal sinus rhythm-Cannot [facility] MUSE rule out Anterior infarct , age undetermined-Prolonged QT-Abnormal ECG-In automated comparison with ECG of 05-DEC-2017 19:43,-Sinus rhythm has replaced Junctional rhythm-Nonspecific T wave abnormality, improved in Lateral leads-QT has lengthened- Specimen Narrative Performed At This result has an attachment that is n ot available. Performing Organization Address City/State/Zipcode Ph one Number [facility] MUSE [address] [place] [address] * ECG ED Preliminary Interpretation - Not an Order (03/03/2020 3:01 PM CDT) Narrative Performed At Juan Antonio Levi MD 03/03/2020 6:03 PM ECG ED Preliminary Interpretation - Not an Order Performed by: Juan Antonio Levi MD Authorized by: Juan Antonio Levi MD ECG reviewed by ED Physician in the abs ence of a production leader: yes (read at 1507) Interpretation: Interpretation: normal [...] Effective Phone Address Plan / Dates Group [facility] [employer] [facility] x[employer] 2008- P [facility] Directives For more information, please contact: [phone] Patient Aprn Explanation Type Date Recorded Advance Directives, 12/07/2016 1:22 PM Living Will and Medical Power of Laborer [place] [facility] Date Inactivated Comments Code Status Date Activated 10/24/2017 9:31 PM Full Code 10/15/2017 2:30 AM Code Status decision reached by: Patient
--- OUTSIDE RECORDS SUMMARY | 2020-04-15 23:13 | XMS REPORT | Continuity of Care Document ---
Author Author [facility] t Organization [facility] Address [address] [place] [address] Phone Unavailable Care Team Providers Care Forder Operator Name Role Phone NONSTAFF PCP Unavailable Misael Foreman Attphys Unavailable Juan MAJOR Attphys Unavailable Ted Morgan MD Attphys Payers Payer Name Policy Type Policy Number Effective Date [facility]piration Date [facility] Ad[facility] [id number] 2008 00:0 0:00 [facility] [id number] xxxxxxxxxxx 2008 00:00:00 [place] [employer] Problems Condition Name Condition Details Condition Category Status Onset Date Resolution Date Last Treatment Date Treating Clinician Comments Source Ventricular tachycardia Ventricular tachycardia Disease Active 2017-10-15 00:00:[address] Severe sepsis Severe sepsis Disease Active 2016-12-07 00:00:00 [place] [employer] Generalized edema Problem Active [facility] Congestive heart failure Problem Active [facility] Hypoalbuminemia Problem Active [facility] Urinary tract infection Problem Active [facility] Pressure injury of skin Problem Active [facility] Allergies, Adverse Reactions, Alerts Allergy Name Allergy Type Status Severity Reaction(s) Onset Date Inacti ve Date Treating Clinician Comments Source Penicillin Allergy to substance Active Severe "SHORT OF BREATH, LIPS PURPLE AND SWELLING, RASH" 2020-03-05 00:00:00 [facility] Sulfa (Sulfonamide Antibiotics) Allergy to substance Active 2020-03-05 00:00:00 DANAE Ortez [facility] Penicillin G Propensity to adverse reactions to drug Active Hives 2016-12-07 00:00:00 Neto loving Sulfa (Sulfonamide Antibiotics) Propensity to adverse reactions to drug Active Hives, Swelling 2016-12-07 00:00:00 Neto Menon Social History Social Habit Start Date Stop Date Quantity Comments Source Sex Assigned [place] [employer] Alcohol intake 2017-12-05 00:00:00 2017-12-05 00:00:00 Current [...] MG tablet 2017-09-18 00:00:00 Y es 1{tbl} Q.[id number] Take 1 tablet by mouth 3 (three) [...] 81 Mg TABLET. Yes 81 Rt Daily [facility] Atorvastatin Calcium (Lipitor) 80 Mg TABLET Atorvastat in Calcium (Lipitor) 80 Mg TABLET Yes 80 Rt Daily [facility] Cephalexin Cephalexin Yes 500 Daily [facility] Levothyroxine Sodium (Levoxyl) 75 Mcg TABLET Levothyro xine Sodium (Levoxyl) 75 Mcg TABLET Yes 75 Rt Daily [facility] Losartan Potassium Losartan Potassium Yes 25 Da becca [facility] Metoprolol Tartrate Metoprolol Tartrate Yes 25 Twice A Day [facility] Omeprazole (Prilosec) 20 Mg CAPSULE. Omeprazole (Prilosec) 20 Mg CAPSULE. Yes 40 Rt Daily [facility] Phenytoin Sodium Extended Phenytoin Sodium Extended Yes 200 Twice A Day [facility] Sitagliptin Phosphate (Januvia) 100 Mg TABLET Sitaglip tin Phosphate (Januvia) 100 Mg TABLET Yes 100 Daily [facility] Citalopram Hydrobromide (Citalopram Hbr) 40 Mg TABLET Citalopram Hydrobromide (Citalopram Hbr) 40 Mg TABLET 2020-03-05 00:00:00 No 40 Rt Daily [facility] Lisinopril (Prinivil) 5 Mg TABLET Lisinopril (Prinivil) 5 Mg TAB LET 2020-03-05 00:00:00 No 5 Rt Daily [facility] Nitrofurantoin Macrocrystal (Nitrofurantoin) 100 Mg CA PSULE Nitrofurantoin Macrocrystal (Nitrofurantoin) 100 Mg CAPSULE 2020-03-05 00:00:00 No 100 Twice A Day [facility] Oxybutynin Chloride (Oxybutynin Chloride Er) 15 Mg TAB .ER.24 Oxybutynin Chloride (Oxybutynin Chloride Er) 15 Mg TAB.ER.24 2020-03-05 00:00:00 No 15 Twice A Day [facility] Sitagliptin Phosphate (Januvia) 100 Mg TABLET Sitaglip tin Phosphate (Januvia) 100 Mg TABLET 2020-03-05 00:00:00 No 100 Rt Daily [facility] Vital Signs Vital Name Observation Time Observation Value Comments Source Body Temperature 2020-03-10 16:19:00 98.1 [degF] [facility] Weight 2020-03-10 00:26:00 286.01 [lb_av] [facility] BMI (Body Mass Index) 2020-03-10 00:26:00 44.8 kg/m2 [facility] Heart rate 2020-03-03 17:30:00 83 /min Neto Menon Respiratory rate 2020-03-03 17:30:00 24 /min [facility] celeste Menon Oxygen saturation in Arterial blood by Pulse oximetry 03-03 17:30:00 95 /min Neto Menon Body temperature 2020-03-03 16:40:00 37.17 [place] [employer] Systolic blood pressure 2020-03-03 15:00:00 124 mm[Hg] Neto Menon Diastolic blood pressure 2020-03-03 15:00:00 62 mm[Hg] Neto Menon Procedures Procedure Date / Time Performed Performing Clinician [facility] e US DUPLEX VENOUS UPPER EXTREMITY RIGHT 2020-03-03 15:40:00 Moni Grover CBC WITH PLATELET AND DIFFERENTIAL 2020-03-03 15:36:00 Moni Morgan COMPREHENSIVE METABOLIC PANEL 2020-03-03 15:36:00 Moni Morgan ESTIMATED GFR 2020-03-03 15:36:00 Moni Morgan Met hodist MANUAL DIFFERENTIAL 2020-03-03 15:36:00 Moni Morgan XR CHEST 1 VW PORTABLE 2020-03-03 15:34:13 Moni Morgan ECG 12-LEAD 2020-03-03 15:07:03 Moni Morgan Met hodnathaly ECG ED PRELIMINARY INTERPRETATION 2020-03-03 15:01:44 Juan Morgan Plan of Care Planned Activity Planned Date Details Comments Source Future Scheduled Test 2020-05-05 00:00:00 INFLUENZA VACCINE [code = INFLUENZA VACCINE] [facility] Future Scheduled Test 1993 00:00:00 COLONOSCOPY SCREEN ING [code = COLONOSCOPY SCREENING] [facility] Future Scheduled Test 1993 00:00:00 SHINGLES VACCINES (#1) [code = SHINGLES VACCINES (#1)] Neto Menon Future Scheduled Test 1953 00:00:00 DIABETIC FOOT EXAM [code = DIABETIC FOOT EXAM] [facility] Future Scheduled Test 1943 00:00:00 DIABETIC RETINAL E YE EXAM [code = DIABETIC RETINAL EYE EXAM] Neto Menon Encounters Start Date/Time End Date/Time [facility] ID Source 2020-03-05 15:18:00 2020-03-05 14:03:00 Admitted Inpatient 1 WENDY MAJOR [facility] [id number] [facility] 2020-03-03 00:00:00 2020-03-03 00:00:00 Emergency [facility] Richard [id number] [place] [employer] Results Test Description Test Time Test Comments Results Result Comments Source CHEST SINGLE (PORTABLE) 2020-04-15 20:23:00 [facility] [address], [place] [address] Patient Name: CORDELL GRIMM MR #: [id number] : 1945 Age/Sex: 74/F Req #: [id number] Adm Physician: Ordered by: Margaux Foreman MD Report #: [id number] Location: ER Room/Bed: Procedure: [id number] DX/CHEST SINGLE (PORTABLE) Exam Date: 04/15/20 Exam Time: 185 REPORT STATUS: Signed EXAMINATION: CHEST SINGLE (PORTABLE) INDICATION: Shortness of breath. COMPARISON: Multiple prior chest x-rays including most recent on 03/05/2020 FINDINGS: TUBES and LINES: None. LUNGS: Low lung volumes with bronchovascular crowding. There is redemonstration of prominent interstitial lung markings and opacification of the right lung base, slightly worsened since prior examination. There is now left basilar atelectasis There is elevation of the right hemidiaphragm. PLEURA: There is probable small bilateral pleural effusion. No pneumothorax. HEART AND MEDIASTINUM: The heart is mildly enlarged as before. The mediastinal contour is otherwise within normal limits with atherosclerotic calcification of the thoracic aorta. BONES AND SOFT TISSUES: No acute osseous lesion. Soft tissues are unremarkable. UPPER ABDOMEN: No free air under the diaphragm. IMPRESSION: Cardiomegaly with worsening pulmonary edema and bibasilar atelectasis. Superimposed multifocal pneumonia cannot be excluded. Signed by: Arjun Roman MD on 04/15/2020 8:29 PM Dictated By: ARJUN ROMAN MD 28 Transcribed By: KEV on 04/15/202028 COPY TO: MARGAUX FOREMAN MD Capillary blood glucose measurement by glucometer (mas s/volume) 2020-03-10 11:45:00 Test Item Bedside Glucose (test code = 90627-1) 116 70-120 Meter ID: [id number] Medical CenterBlood leukocytes automated count (number/volume)2020-03-08 05:14:00* Test Item Value Reference Range Interpretation Comments White Blood Count (test code = 6690-2) 6.38 4.8-10.8 [facility] erythrocytes automated count (number/volume)2020-03-08 05:14:00* Test Item Value Reference Range Interpretation Comments Red Blood Count (test code = 789-8) 3.69 3.6-5.1 [facility] Center[facility] hemoglobin measurement (moles/volume)2020-03-08 05:14:00* Test Item Value Reference Range Interpretation Comments Hemoglobin (test code = 50505-0) 9.5 12.0-16.0 [facility] CenterAutomated blood hematocrit (volume fraction)2020-03-08 05:14:00* Test Item Value Reference Range Interpretation Comments Hematocrit (test code = 4544-3) 31.6 34.2-44.1 [facility] CenterAutomated erythrocyte mean corpuscular bkpsmp7344-61-93 05:14:00* Test Item Value Reference Range Interpretation Comments Mean Corpuscular Volume (test code = 787-2) 85.6 81-99 [facility] CenterAutomated erythrocyte mean corpuscular hemoglobin (mass per erythrocyte)2020-03-08 05:14:00* Test Item Value Reference Range Interpretation Comments Mean Corpuscular Hemoglobin (test code = 785-6) 25.7 28-32 [facility] CenterAutomated erythrocyte mean corpuscular hemoglobin concentration measurement (mass/volume)2020-03-08 05:14:00* Test Item Value Reference Range Interpretation Comments Mean Corpuscular Hemoglobin Concent (test code = 786-4) 30.1 31-35 [facility] CenterRDW TwxRm-Zoh5704-31-04 05:14:00* Test Item Value Reference Range Interpretation Comments Red Cell Distribution Width (test code = 33455-3) 31.0 11.7 -14.4 [facility] CenterAutomated blood platelet count (count/volume)2020-03-08 05:14:00* Test Item Value Reference Range Interpretation Comments Platelet Count (test code = 777-3) 159 140-360 [facility] CenterAutomated blood segmented neutrophil count as percentage of total zjtcenoypj7243-09-65 05:14:00* Test Item Value Reference Range Interpretation Comments Neutrophils (%) (Auto) (test code = 20157-1) 32.1 38.7-80.0 [facility] CenterAutomated blood lymphocyte count as percentage ot total hmxqvwbwsp0530-53-42 05:14:00* Test Item Value Reference Range Interpretation Comments Lymphocytes (%) (Auto) (test code = 736-9) 57.1 18.0-39.1 [facility] CenterAutomated blood monocyte count as percentage of total xjbsxzrlqa3074-71-40 05:14:00* Test Item Value Reference Range Interpretation Comments Monocytes (%) (Auto) (test code = 5905-5) 6.9 4.4-11.3 [facility] CenterAutomated blood eosinophil count as percentage of total quedrwhpke4179-46-36 05:14:00* Test Item Value Reference Range Interpretation Comments Eosinophils (%) (Auto) (test code = 713-8) 3.3 0.0-6.0 [facility] CenterAutomated blood basophil count as percentage of total awdkdjyrxn4480-05-39 05:14:00* Test Item Value Reference Range Interpretation Comments Basophils (%) (Auto) (test code = 706-2) 0.6 0.0-1.0 [facility] CenterFluoroscopic procedure less than one hour wjpxqwxy4531-50-76 05:14:00* Test Item Value Reference Range Interpretation Comments IM GRANULOCYTES % (test code = IM GRANULOCYTES %) 0.0 0.0- 1.0 [facility] CenterAutomated blood neutrophil count 2020-03-08 05:14:00* Test Item Value Reference Range Interpretation Comments Neutrophils # (Auto) (test code = 751-8) 2.1 2.1-6.9 [facility] CenterBlood lymphocytes count (number/volume) 2020-03-08 05:14:00* Test Item Value Reference Range Interpretation Comments Lymphocytes # (Auto) (test code = 83394-4) 3.6 1.0-3.2 [facility] monocytes automated count (number/volume)2020-03-08 05:14:00* Test Item Value Reference Range Interpretation Comments Monocytes # (Auto) (test code = 742-7) 0.4 0.2-0.8 [facility] CenterAutecu health duplin hospitaled blood eosinophil count 2020-03-08 05:14:00* Test Item Value Reference Range Interpretation Comments Eosinophils # (Auto) (test code = 711-2) 0.2 0.0-0.4 [facility] CenterAutecu health duplin hospitaled blood basophil count (count/volume)2020-03-08 05:14:00* Test Item Value Reference Range Interpretation Comments Basophils # (Auto) (test code = 704-7) 0.0 0.0-0.1 [facility] CenterFluoroscopic procedure less than one hour pycsgzkq8881-38-84 05:14:00* Test Item Value Reference Range Interpretation Comments Absolute Immature Granulocyte (auto (louis t code = Absolute Immature Granulocyte (auto) 0 0-0.1 [facility] CenterFluoroscopic procedure less than one hour xpkmwuyz8615-71-03 05:14:00* Test Item Value Reference Range Interpretation Comments Differential Total Cells Counted (test code = Differen tial Total Cells Counted) 100 [facility] blood neutrophils/100 leukocytes 2020-03-08 05:14:00* Test Item Value Reference Range Interpretation Comments Neutrophils % (Manual) (test code = 66854-7) 44 40-74 [facility] blood lymphocytes/100 leukocytes 2020-03-08 05:14:00* Test Item Value Reference Range Interpretation Comments Lymphocytes % (Manual) (test code = 737-7) 47 19-48 [facility] blood monocytes/100 leukocytes 2020-03-08 05:14:00* Test Item Value Reference Range Interpretation Comments Monocytes % (Manual) (test code = 744-3) 4 3.4-9.0 [facility] blood eosinophil count as percentage of total zowvpwaotr2346-62-79 05:14:00* Test Item Value Reference Range Interpretation Comments Eosinophils % (Manual) (test code = 714-6) 5 0-7 [facility] count by estimate (number/volume)2020-03-08 05:14:00* Test Item Value Reference Range Interpretation Comments Platelet Estimate (test code = 86109-1) ADEQUATE [facility] CenterPlatelet crgimudjwq2197-07-53 05:14:00* Test Item Value Reference Range Interpretation Comments Platelet Morphology Comment (test code = 37704-5) NORMAL [facility] hypochromia detection by light zfireeilok5837-58-24 05:14:00* Test Item Value Reference Range Interpretation Comments Hypochromasia (test code = 728-6) MODERATE [facility] anisocytosis detection by light yxvaaelrhu7999-26-56 05:14:00* Test Item Value Reference Range Interpretation Comments Anisocytosis (test code = 702-1) MODERATE [facility] microcytes detection by light jkomqnwxib8256-35-33 05:14:00* Test Item Value Reference Range Interpretation Comments Microcytosis (test code = 741-9) SLIGHT [facility] dacrocytes detection by light nvdmwmgynn5569-02-98 05:14:00* Test Item Value Reference Range Interpretation Comments Tear Drop Cells (test code = 7791-7) FEW [facility] ovalocytes detection by light pqlhagedcd3904-51-56 05:14:00* Test Item Value Reference Range Interpretation Comments Ovalocytes (test code = 774-0) FEW [facility] CenterElliptocyte pynrmphxl3629-54-95 05:14:00 * Test Item Value Reference Range Interpretation Comments Elliptocytes (test code = 49443-6) SLIGHT [facility] CenterRBC pvfccwvdyt4136-12-54 05:14:00* Test Item Value Reference Range Interpretation Comments Red Cell Morphology Comment (test code = 6742-1) ABNORMAL [facility] sodium measurement (moles/volume)2020-03-08 05:14:00* Test Item Value Reference Range Interpretation Comments Sodium Level (test code = 2951-2) 139 136-145 [facility] potassium measurement (moles/volume)2020-03-08 05:14:00* Test Item Value Reference Range Interpretation Comments Potassium Level (test code = 2823-3) 3.4 3.5-5.1 [facility] chloride measurement (moles/volume)2020-03-08 05:14:00* Test Item Value Reference Range Interpretation Comments Chloride Level (test code = 2075-0) 98 98-107 [facility] carbon dioxide, total measurement (moles/volume)2020-03-08 05:14:00* Test Item Value Reference Range Interpretation Comments Carbon Dioxide Level (test code = 2028-9) 35 22-29 [facility] anion gsl2755-13-54 05:14:00* Test Item Value Reference Range Interpretation Comments Anion Gap (test code = 28508-5) 9.4 8-16 [facility] urea nitrogen measurement (mass/volume)2020-03-08 05:14:00* Test Item Value Reference Range Interpretation Comments Blood Urea Nitrogen (test code = 3094-0) 9 7-26 [facility] creatinine measurement (mass/volume)2020-03-08 05:14:00* Test Item Value Reference Range Interpretation Comments Creatinine (test code = 2160-0) 0.67 0.57-1.11 [facility] plasma urea nitrogen/creatinine mass bznwo6757-55-82 05:14:00* Test Item Value Reference Range Interpretation Comments BUN/Creatinine Ratio (test code = 3097-3) 13 6-25 [facility] CenterEstimated glomerular filtration rate (GFR) ldmxsmluyftha3525-46-66 05:14:00* Test Item Value Reference Range Interpretation Comments Estimat Glomerular Filtration Rate (test code = 168618889) > 60 >60 Ranges were taken from the National Kidney Disease Education Program and the [facility] Kid[facility] Foundation literature.Reference ranges:60 or greater: Csujpx63-85 ( for 3 consecutive months): Chronic kidney disease 15 or less: Kidney failureMethodist Midlothian Medical CenterGlucose lorrdfxkajd3579-13-36 05:14:00* Test Item Value Reference Range Interpretation Comments Glucose Level (test code = FGR6974) 105 74-118 [facility] calcium measurement (mass/volume)2020-03-08 05:14:00* Test Item Value Reference Range Interpretation Comments Calcium Level (test code = 36858-8) 7.1 8.4-10.2 [facility] magnesium measurement (mass/volume)2020-03-08 05:14:00* Test Item Value Reference Range Interpretation Comments Magnesium Level (test code = 15942-6) 1.6 1.3-2.1 [facility] CenterProthrombin time (PT) in platelet poor plasma by coagulation vmbrw5440-47-23 05:20:00* Test Item Value Reference Range Interpretation Comments Prothrombin Time (test code = 5902-2) 16.1 11.9-14.5 [facility] CenterINR in Platelet poor plasma by Coagulation jeevo9983-85-59 05:20:00* Test Item Value Reference Range Interpretation Comments Prothromb Time International Ratio (test code = 6301-6) 1.22 Oral Anticoagulant Therapy INR Values:1. Low Intensity Therapy 1.5 - 2.02 . Moderate Intensity Therapy 2.0 - 3.03. High Intensity Therapy(1) 2.5 - 3. 54. High Intensity Therapy(2) 3.0 - 4.05. Panic Value INR > 5.0 [facility] CenterActivated partial thromboplastin time (aPTT) in platelet poor plasma by coagulation oidbq2356-62-25 05:20:00* Test Item Value Reference Range Interpretation Comments Activated Partial Thromboplast Time (test code = 42536-5) 37.7 23.8-35.5 [facility] CenterFluoroscopic procedure less than one hour trawqvxw3820-93-02 05:40:00* Test Item Value Reference Range Interpretation Comments Hemoglobin A1c Percent (test code = Hemoglobin A1c Percent) 4.9 4.0-7.0 [facility] iron measurement (mass/volume)2020-03-06 05:40:00* Test Item Value Reference Range Interpretation Comments Iron Level (test code = 2498-4) 150 50-170 [facility] iron binding capacity measurement (mass/volume)2020-03-06 05:40:00* Test Item Value Reference Range Interpretation Comments Total Iron Binding Capacity (test code = 2500-7) 155 261-4 78 [facility] iron saturation measurement (mass fraction)2020-03-06 05:40:00* Test Item Value Reference Range Interpretation Comments Percent Iron Saturation (test code = 2502-3) 97 15-50 [facility] plasma transferrin measurement (mass/volume)2020-03-06 05:40:00* Test Item Value Reference Range Interpretation Comments Transferrin (test code = 3034-6) 111 180-382 [facility] total bilirubin measurement (mass/volume)2020-03-06 05:40:00* Test Item Value Reference Range Interpretation Comments Total Bilirubin (test code = 1975-2) 0.9 0.2-1.2 [facility] CenterFluoroscopic procedure less than one hour dnhoncxk4249-70-65 05:40:00* Test Item Value Reference Range Interpretation Comments Aspartate Amino Transf (AST/SGOT) (test code = Aspartate Amino Transf (AST/SGOT)) 43 5-34 [facility] alanine aminotransferase measurement (enzymatic activity/volume)2020-03-06 05:40:00* Test Item Value Reference Range Interpretation Comments Alanine Aminotransferase (ALT/SGPT) (test code = 1742-6) 21 0-55 [facility] protein measurement (mass/volume)2020-03-06 05:40:00* Test Item Value Reference Range Interpretation Comments Total Protein (test code = 2885-2) 5.6 6.5-8.1 [facility] albumin measurement (mass/volume)2020-03-06 05:40:00* Test Item Value Reference Range Interpretation Comments Albumin (test code = 1751-7) 1.8 3.5-5.0 [facility] CenterPlasma globulin measurement (mass/volume) 2020-03-06 05:40:00* Test Item Value Reference Range Interpretation Comments Globulin (test code = 41605-4) 3.8 2.3-3.5 [facility] albumin/globulin mass jliuq9311-20-05 05:40:00* Test Item Value Reference Range Interpretation Comments Albumin/Globulin Ratio (test code = 1759-0) 0.5 0.8-2.0 [facility] alkaline phosphatase measurement (enzymatic activity/volume)2020-03-06 05:40:00* Test Item Value Reference Range Interpretation Comments Alkaline Phosphatase (test code = 6768-6) 91 40-150 [facility] triglyceride measurement (mass/volume)2020-03-06 05:40:00* Test Item Value Reference Range Interpretation Comments Triglycerides Level (test code = 2571-8) 66 0-149 [facility] cholesterol measurement (mass/volume)2020-03-06 05:40:00* Test Item Value Reference Range Interpretation Comments Cholesterol Level (test code = 2093-3) 67 0-199 Less than 200 mg/dL Low Vgmg163 - 239 mg/dL Borderline Zjxr345 m g/dl and greater High Risk [facility] cholesterol in LDL measurement (mass/volume) 2020-03-06 05:40:00* Test Item Value Reference Range Interpretation Comments LDL Cholesterol (test code = 2089-1) 30 60-130 [facility] cholesterol in HDL measurement (mass/volume)2020-03-06 05:40:00* Test Item Value Reference Range Interpretation Comments HDL Cholesterol (test code = 2085-9) 24 40-60 [facility] total cholesterol/cholesterol in HDL mass ufitx1284-98-43 05:40:00* Test Item Value Reference Range Interpretation Comments Cholesterol/HDL Ratio (test code = 9830-1) 2.8 3.0-3.6 [facility] creatine kinase measurement (enzymatic activity/volume)2020-03-06 05:40:00* Test Item Value Reference Range Interpretation Comments Creatine Kinase (test code = 2157-6) 12 29-168 [facility] creatine kinase MB measurement (mass/volume)2020-03-06 05:40:00* Test Item Value Reference Range Interpretation Comments Creatine Kinase MB (test code = 84356-9) 0.40 0-5.0 [facility] CenterTroponin I measurement by highly sensitive enzyme philuywmjnv6206-91-26 05:40:00* Test Item Value Reference Range Interpretation Comments Troponin I (test code = 63807-9) 0.014 0-0.300 [facility] plasma thyrotropin measurement by detection limit <= 0.005 miu/l (units/volume)2020-03-06 05:40:00* Test Item Value Reference Range Interpretation Comments Thyroid Stimulating Hormone (TSH) (test code = 79467-4) 6.324 0.350-4.940 [facility] or plasma phenytoin measurement (mass/volume)2020-03-06 05:40:00* Test Item Value Reference Range Interpretation Comments Phenytoin (Dilantin) Level (test code = 3968-5) 3.18 10-20 [facility]2020-03-05 14:59:00 [place] [address] Patient Name: CORDELL GRIMM MR #: [id number] : 1945 Age/Sex: 74/F Req #: [id number] Adm Physician: Ordered by: WENDY MAJOR MD Report #: [id number] Location: ER Room/Bed: Procedure: [id number] DX/CHEST SINGLE (PORTABLE) Exam Date: 03/05/20 Exam [...] Interpretation Comments Reactive Lymphocytes (test code = 70456-6) 2 [facility] color mcebevviocopj9551-31-00 13:54:00* Test Item Value Reference Range Interpretation Comments Urine Color (test code = 5778-6) YELLOW YELLOW [facility] [id number] 13:54:00* Test Item Value Reference Range Interpretation Comments Urine Clarity (test code = 09879-2) SL CLOUDY CLEAR [facility] gravity of Urine by Test strip 2020-03-05 13:54:00* Test Item Value Reference Range Interpretation Comments Urine Specific Garr[place] (test code = 5811-5) 1.025 1.010-1.02 5 [facility] pH measurement by automated test [id number] 13:54:00* Test Item Value Reference Range Interpretation Comments Urine pH (test code = 23941-3) 5.5 5-7 [facility] leukocyte esterase detection by pfhhrmdb4843-85-91 13:54:00* Test Item Value Reference Range Interpretation Comments Urine Leukocyte Esterase (test code = 5799-2) TRACE NEGATIVE [facility] nitrite rchowyhze2738-43-45 13:54:00* Test Item Value Reference Range Interpretation Comments Urine Nitrite (test code = 42398-3) NEGATIVE NEGATIVE [facility] protein measurement by test strip (mass/volume)2020-03-05 13:54:00* Test Item Value Reference Range Interpretation Comments Urine Protein (test code = 5804-0) TRACE NEGATIVE [facility] glucose qlbfhvqlz9046-82-66 13:54:00* Test Item Value Reference Range Interpretation Comments Urine Glucose (UA) (test code = 2349-9) NEGATIVE NEGATIVE [facility] ketones detection by automated test [id number] 13:54:00* Test Item Value Reference Range Interpretation Comments Urine Ketones (test code = 85306-4) TRACE NEGATIVE [facility] urobilinogen measurement by test strip (mass/volume)2020-03-05 13:54:00* Test Item Value Reference Range Interpretation Comments Urine Urobilinogen (test code = 02074-5) 1 0.2-1 [facility] total bilirubin measurement (mass/volume)2020-03-05 13:54:00* Test Item Value Reference Range Interpretation Comments Urine Bilirubin (test code = 1978-6) SMALL NEGATIVE [facility] erythrocytes brfwmqzus8270-96-35 13:54:00* Test Item Value Reference Range Interpretation Comments Urine Blood (test code = 64263-1) TRACE NEGATIVE [facility] CenterAutomated urine sediment leukocyte count by microscopy (number/high power field)2020-03-05 13:54:00* Test Item Value Reference Range Interpretation Comments Urine WBC (test code = 5821-4) 11-20 0-5 [facility] CenterErythrocytes detection in urine sediment by light [id number] 13:54:00* Test Item Value Reference Range Interpretation Comments Urine RBC (test code = 62338-1) 0-5 0-5 [facility] CenterBacteria detection in urine sediment by light mvuimpkhfi6310-36-61 13:54:00* Test Item Value Reference Range Interpretation Comments Urine Bacteria (test code = 29014-8) FEW NONE [facility] CenterEpithelial cells detection in urine sediment by light rfubrmwwiu0528-98-13 13:54:00* Test Item Value Reference Range Interpretation Comments Urine Epithelial Cells (test code = 93960-7) FEW NONE [facility] CenterBNP Axx-eWvp8212-36-01 13:54:00* Test Item Value Reference Range Interpretation Comments B-Type Natriuretic Peptide (test code = 42092-5) 276.5 0-100 [facility] CenterFluoroscopic procedure less than one hour scghbjwq8785-01-43 13:54:00* Test Item Value Reference Range Interpretation [...] under 564(g) of the ACT.Testing performed by [facility] [place], [place] [address]JRRMethodist [facility] Medical CenterBlood bwdydnx3656-89-53 13:54:00* Test Item Value Reference Range Interpretation Comments Blood Culture (test code = 01645954) NO GROWTH AFTER 5 DAYS, FINAL REPORT [facility] CenterBacterial urine zlkbtth8801-00-98 13:54:00* Test Item Value Reference Range Interpretation Comments Urine Culture (test code = 630-4) ENTEROCOCCUS FAECIUM [facility] CenterECG 12 [id number] 16:54:43* Test Item Value Reference Range Interpretation Comments Ventricular rate (test code = 253) 78 Atrial rate (test code = 255) 78 TN interval (test code = 266) 164 QRSD [...] has lengthened- Neto Levine duplex venous upper ylfizvnex1370-81-92 16:48:07 There is no evidence of DVT in the right upper extremity and left internal jugular vein. Neto MenonCBC with platelet and tnwijslrkghr2236-66-58 16:44:52* Test Item Value Reference Range Interpretation Comments WBC (test code = 95223-0) 5.53 4.50- 11.00 k/uL RBC (test code = 88724-7) 3.81 m/uL 4.2-5.5 L HGB (test code = 718-7) 10.1 g/dL 12-16 L HCT (test code = 4544-3) 35.0 % 37-47 L MCV (test code = 787-2) 91.9 fL 82-100 MCH (test code = 785-6) 26.5 pg 27-34 L MCHC (test code = 786-4) 28.9 g/dL 31-37 L RDW - SD (test code = 76344-9) 102.2 fL 37-55 H MPV (test code = 81371-9) SEE COMMENT 8.8-13.2 No report Platelet count (test code = 64430-7) 150 150- 400 k/uL Nucleated RBC (test code = 78732-7) 0.00 /100 WBC Neutrophils (test code = 33751-8) 41.0 % 39-69 Lymphocytes (test code = 41726-7) 52.0 % 25-45 H Monocytes (test code = 40041-6) 2.0 % 0-10 Eosinophils (test code = 48875-4) 5.0 % 0-5 Basophils (test code = 43282-2) 0.0 % 0-1 Lab Interpretation (test code = 70587-0) Abnormal [place] MethodistManual mtcnfxihuqma3008-16-48 16:44:52* Test Item Value Reference Range Interpretation Comments Manual differential (test code = 67581-1) PERFORMED Neutrophils (test code = 03132-5) 41.0 % 39-69 Lymphocytes (test code = 98153-9) 52.0 % 25-45 H Monocytes (test code = 21257-0) 2.0 % 0-10 Eosinophils (test code = 40015-5) 5.0 % 0-5 Basophils (test code = 90244-8) 0.0 % 0-1 Metamyelocytes (test code = 740-1) 0 % Promyelocytes (test code = 783-1) 0 % Platelet slide review (test code = 00608-7) Abhijit adequate Anisocytosis (test code = 702-1) Moderate Tear drop cells (test code = 7791-7) Occasional Ovalocytes (test code = 774-0) occasional Elliptocytes (test code = 57344-9) Occasional Lab Interpretation (test code = 95170-4) Abnormal [place] MethodistComprehensive metabolic hsqiq6368-36-55 15:56:33* Test Item Value Reference Range Interpretation Comments Sodium (test code = 2951-2) 140 135- 148 mEq/L Potassium (test code = 2823-3) 3.1 3.5- 5.0 mEq/L L Chloride (test code = 2075-0) 100 98- 112 mEq/L CO2 (test code = 2027-9) 34 24- 31 mEq/L H Anion gap (test code = 10626-6) 6@ANIO 7- 15 mEq/L L BUN (test code = 3094-0) 9 mg/dL 8-23 Creatinine (test code = 2160-0) 0.70 mg/dL 0.5-0.9 Glucose (test code = 2345-7) 121 mg/dL 65-99 H Calcium (test code = 99075-7) 8.2 mg/dL 8.8-10.2 L Protein (test code = 2885-2) 6.4 g/dL 6.3-8.3 - 4.6- 7.0 g/dL1 week 4.4-7.6 g/dL7 months-1year 5.1-7.3 g/dL1-2 years 5.6-7.5 g/dL>3 years 6.0-8.0 g/oL04-379 6.3-8.3 g/dL Albumin (test code = 1751-7) 2.3 g/dL 3.5-5 L A/G ratio (test code = 1759-0) 0.6 0.7-3.8 L Alkaline phosphatase (test code = 6768-6) 108 U/L 35-104 H AST (test code = 1920-8) 45 U/L 10-35 H ALT (test code = 1742-6) 23 U/L 5-50 Total bilirubin (test code = 1974-2) 0.9 mg/dL 0-1.2 Lab Interpretation (test code = 45099-9) Abnormal [place] MethodistEstimated [id number] 15:56:33* Test Item Value Reference Range Interpretation Comments Estimated GFR (test code = 5488) 84 mL/min/1.73 m2 Catergory Units InterpretationG1 >=90 Normal or highG2 60-89 Mildly tqrbviykwQ0v 45-59 Mildly to moderately xiqohyrcuG1j 30-44 Moderately to severely decreasedG4 15-29 Severely decreasedG5 <15 Kidney failureThe eGFR was calculated using the Chronic Kidney Disease Epidemiology Collaboration (CKD-EPI) equation. Interpretation is based on recommendations of the National Kidney Foundation-Kidney Disease Outcomes Quality Initiative (NKF-KDOQI) published in 2014. Neto MenonXR Chest 1 Vw Vcyknuhs3245-83-26 15:37:15Hm Interface, Radiology Results 03/03/2020 3:40 PM [...] osseous structures appear stable. [facility] [id number] [facility] Preliminary Interpretation - Not an Order 2020-03-03 15:01:44Moni Morgan MD 03/03/2020 6:03 [facility] [place] [facility] Preliminary Interpretation - Not an OrderPerformed by: Moni Morgan MDAuthorized by: Moni Morgan MD ECG reviewed by ED Physician in the absence of a felt coverer: yes (read at 1507) Interpretation: Interpretation: normal Rate: ECG rate: 78 ECG rate assessment: normal Rhythm: Rhythm: sinus rhythm Ectopy: Ectopy: none QRS: QRS axis: Normal QRS intervals: NormalConduction: Conduction: normal ST segments: ST segments: NormalT waves: T waves: normal Other findings: Other findings: prolonged qTc interval Neto Menon
[2020-04-15] MEDS ORDERED: METOPROLOL TARTRATE INJ 1 MG/ML VIAL IV ONE (23:15)
--- NOTE | 2020-04-15 23:19 | NUR ---
Patient states she is feeling ok at this time. No distress noted. Patient remains on school bus monitor without distress.
[2020-04-16] VITALS (10 sets, daily range): BP systolic 102–127; BP diastolic 43–73
--- NOTE | 2020-04-16 00:21 | NUR ---
Received patient from ER via stretcher in stable condition. Tele showing SR in 80s. Respirations even and unlabored on 4L NC. Vital signs stable. Gonzales catheter present on admission, patent and draining cloudy dark yellow urine to gravity. Patient oriented to room and hospital policy, educated on plan of care. List of home meds obtained from patient, copy placed on chart. Bed locked and in lowest position, side rails up x3, alarm on, call light placed within reach. Patient instructed to call for assistance if needed, verbalized understanding. All safety measures in place.
[2020-04-16] MEDS ORDERED: FUROSEMIDE20 MG PO (01:55)
[2020-04-16] MEDS ORDERED: LEVOTHYROXINE75 MCG PO (01:59)
[2020-04-16 06:05] LABS: BASOPHILS # (AUTO) 0.1 (0.0-0.1); BASOPHILS % 1.2 % (0.0-1.0); EOSINOPHILS # (AUTO) 0.1 (0.0-0.4); EOSINOPHILS % 1.3 % (0.0-6.0); HEMATOCRIT 24.3 % (34.2-44.1); HEMOGLOBIN 7.6 g/dL (12.0-16.0); LYMPHOCYTES # (AUTO) 2.5 (1.0-3.2); LYMPHOCYTES % 32.8 % (18.0-39.1); MEAN CORPUSCULAR HEMOGLOBIN 27.3 pg (28-32); MEAN CORPUSCULAR HGB CONC 31.3 g/dL (31-35); MEAN CORPUSCULAR VOLUME 87.4 fL (81-99); MONOCYTES # (AUTO) 0.7 (0.2-0.8); NEUTROPHILS # (AUTO) 4.3 (2.1-6.9); NEUTROPHILS % 55.4 % (38.7-80.0); PLATELET COUNT 239 x10e3/uL (140-360); RED BLOOD COUNT 2.78 x10e6/uL (3.6-5.1); RED CELL DISTRIBUTION WIDTH 33.2 % (11.7-14.4)
[2020-04-16 06:26] LABS: ANION GAP 15.3 mmol/L (8-16); BLOOD UREA NITROGEN 10 mg/dL (7-26); BUN/CREATININE RATIO 15 (6-25); CALCIUM 7.3 mg/dL (8.4-10.2); CARBON DIOXIDE 28 mmol/L (22-29); CHLORIDE 98 mmol/L (98-107); CREATININE, SERUM 0.68 mg/dL (0.57-1.11); EST GLOMERULAR FILTRATION RATE > 60 ML/MIN (60-); GLUCOSE 118 mg/dL (74-118); POTASSIUM 4.3 mmol/L (3.5-5.1); SODIUM 137 mmol/L (136-145)
--- NOTE | 2020-04-16 06:26 | NUR ---
Routine consult called to Dr. Garcia.
[2020-04-16] MEDS ORDERED: METOPROLOL TARTRATE INJ 1 MG/ML VIAL IV PRN (14:00)
[2020-04-16] MEDS ORDERED: LORAZEPAM INJ 2 MG/ML VIAL IV PRN (15:30)
[2020-04-16] MEDS ORDERED: ALBUTEROL/IPRATROPIUM 3 ML NEB NEB PRN (15:45)
[2020-04-16] MEDS ORDERED: DEXTROSE 50% SYRINGE 50 ML IV PRN (15:45)
[2020-04-16] MEDS: ENOXAPARIN SOD INJ 40 MG/0.4 ML SYR SC SCH (15:47)
[2020-04-16] MEDS ORDERED: ADENOSINE 6 MG/2 ML VIAL IV ONE (16:00)
[2020-04-16] MEDS: INSULIN REGULAR, HUMAN 100 UNIT/1 ML 3ML VIAL SQ SCH ×2 (16:03→21:00)
[2020-04-16] MEDS ORDERED: FUROSEMIDE INJ 10 MG/ML 4 ML VIAL IV ONE (16:30)
[2020-04-16] MEDS ORDERED: METOPROLOL TARTRATE 25 MG TAB PO SCH (17:00)
[2020-04-16] MEDS: ASPIRIN 81 MG CHEW TAB PO SCH (17:46)
[2020-04-16] MEDS: METOPROLOL TARTRATE 25 MG TAB PO SCH ×2 (17:46→21:00)
[2020-04-16] MEDS: PHENYTOIN SODIUM EXT REL 100 MG CAP PO SCH (17:46)
--- NOTE | 2020-04-16 18:00 | NUR ---
SBAR REPORT RECEIVED FROM FRIDA GREGORY. PT TRANSFERRED FROM 284 TO 212. MAGAN, MONITOR ROOM, MADE AWARE. PATIENT IS CURRENTLY SINUS RHYTHM 85. PT RECEIVED BY BED IN NO ACUTE DISTRESS. PT IS AAOX4 AND ABLE TO MAKE NEEDS KNOWN. PT WAS ORIENTED TO UNIT, CALL LIGHT. BELONGINGS PLACED NEARBY. PT WAS EDUCATED ON FALL RISK PRECAUTIONS AND VERBALIZED UNDERSTANDING. WILL CONTINUE TO MONITOR.
[2020-04-16] MEDS ORDERED: ADENOSINE 6 MG/2 ML VIAL IV PRN (18:15)
[2020-04-16 18:19] LABS: FERRITIN 352.29 ng/mL (4.63-204.00)
--- NOTE | 2020-04-16 19:17 | NUR ---
walking rounds complete , report given to oncoming nurse.
--- NOTE | 2020-04-16 19:33 | NUR ---
pt resting comfortably in bed no signs of distress pt states no complaints at this time
[2020-04-16] MEDS: ATORVASTATIN 40 MG TAB PO SCH (21:00)
[2020-04-16] MEDS: CEFTRIAXONE SOD 1 GM/NS 50 ML 50 ML IV SCH (22:06)
[2020-04-17] VITALS (8 sets, daily range): BP systolic 90–111; BP diastolic 45–55
--- NOTE | 2020-04-17 00:38 | Consultation ---
DATE OF CONSULTATION: 04/16/2020 Cardiology Consultation REASON FOR CONSULTATION: Arrhythmia. HISTORY OF PRESENT ILLNESS: A 74-year-old woman with history of aortocoronary bypass in 2010, hypertension, hypothyroidism, [place] [facility] resident. The patient with urinary tract infection, recurrent with dysuria and abdominal discomfort. Foul smelling urine per the patient report. She was observed to have episodes of wide-complex tachycardia as well as episodes of AFib with RVR documented on EKG strips. Currently in sinus rhythm. Pratima reports intermittent episodes of palpitations and when having palpitations had noted associated lightheadedness and chest discomfort. She denies any dyspnea or chest discomfort when not observing palpitations. She currently has no symptoms. REVIEW OF SYSTEMS: A 12-system review negative except for as noted above. PAST MEDICAL HISTORY: Remarkable for CAD, hypertension, dyslipidemia, hypothyroidism, prior urine tract infection. SOCIAL HISTORY: Denies smoking, alcohol, or drugs. She is a [place] [facility] resident. Talked with daughter today regarding Ms. Anderson's health. FAMILY HISTORY: Noncontributory. PHYSICAL EXAMINATION: VITAL SIGNS: Temperature 98.5, heart rate 85, blood pressure 102/65, respiratory rate 21, O2 saturation 99%. BMI 43. GENERAL: In no acute distress. Alert. NECK: No JVD. CHEST: Clear to auscultation. CARDIOVASCULAR: Regular rate and rhythm. Normal S1, S2. No S3 or S4. Systolic ejection murmur. ABDOMEN: Soft. Bowel sounds positive. EXTREMITIES: With 1+ edema and thickened skin to lower extremities. CARDIOVASCULAR MEDICATIONS: Reviewed. 1. Furosemide 20 mg daily. 2. Metoprolol tartrate 25 mg b.i.d. 3. Losartan 25 mg daily. 4. Atorvastatin 80 mg at bedtime. STUDIES: Reviewed. Sodium 137, potassium 4.3, chloride 98, bicarbonate 28, BUN 10, creatinine 0.6, glucose 118. White blood cell 7.7, hemoglobin 7.6, platelets 239. AST 36, ALT 16, total bilirubin 0.6, alkaline phosphatase 115. Troponin I 0.02, then 0.025. BNP is 186. COVID-19 PCR negative. Urinalysis is turbid with 2+ protein, rbc's 11 to 20, white blood cells 6-10. ASSESSMENT: A 74-year-old woman presents with infection, noted to have wide- complex tachycardia as well as episodes of paroxysmal atrial fibrillation with rapid ventricular response in the setting of coronary artery disease with history of aortocoronary bypass, hypertension, dyslipidemia, deconditioning, hypothyroidism, anemia. RECOMMEND: 1. Up titrate metoprolol to 25 mg t.i.d., decrease losartan to 12.5 mg daily. 2. Add aspirin 81 mg daily. Fecal occult blood test, ferritin, TIBC, iron percent sats are ordered for anemia workup. If no evidence of gross bleeding and not iron deficient anemia, we will consider anticoagulation. Otherwise, for now, DVT prophylaxis dosing as well as aspirin for CAD. 3. Add statin therapy. 4. Echocardiogram has been ordered and pending. Keep on telemetry. MD SPENCER Kohli/RANULFO /[id number] MTDD
[2020-04-17] MEDS: LEVOTHYROXINE SODIUM 75 MCG TAB PO SCH (05:46)
[2020-04-17 06:26] LABS: BASOPHILS # (AUTO) 0.1 (0.0-0.1); BASOPHILS % 1.1 % (0.0-1.0); EOSINOPHILS # (AUTO) 0.3 (0.0-0.4); EOSINOPHILS % 4.3 % (0.0-6.0); HEMATOCRIT 23.9 % (34.2-44.1); HEMOGLOBIN 7.4 g/dL (12.0-16.0); LYMPHOCYTES # (AUTO) 3.1 (1.0-3.2); LYMPHOCYTES % 40.7 % (18.0-39.1); MEAN CORPUSCULAR HEMOGLOBIN 27.3 pg (28-32); MEAN CORPUSCULAR VOLUME 88.2 fL (81-99); MONOCYTES # (AUTO) 0.8 (0.2-0.8); MONOCYTES % 10.8 % (4.4-11.3); NEUTROPHILS # (AUTO) 3.3 (2.1-6.9); PLATELET COUNT 216 x10e3/uL (140-360); RED BLOOD COUNT 2.71 x10e6/uL (3.6-5.1)
[2020-04-17 07:03] LABS: ANION GAP 13.6 mmol/L (8-16); BLOOD UREA NITROGEN 10 mg/dL (7-26); BUN/CREATININE RATIO 14 (6-25); CALCIUM 7.4 mg/dL (8.4-10.2); CARBON DIOXIDE 29 mmol/L (22-29); CHLORIDE 99 mmol/L (98-107); CREATININE, SERUM 0.73 mg/dL (0.57-1.11); EST GLOMERULAR FILTRATION RATE > 60 ML/MIN (60-); GLUCOSE 97 mg/dL (74-118); POTASSIUM 4.6 mmol/L (3.5-5.1); SODIUM 137 mmol/L (136-145)
[2020-04-17] MEDS: INSULIN REGULAR, HUMAN 100 UNIT/1 ML 3ML VIAL SQ SCH ×4 (07:30→21:14)
[2020-04-17] MEDS: ASPIRIN 81 MG CHEW TAB PO SCH (08:37)
[2020-04-17] MEDS: FUROSEMIDE 20 MG TAB PO SCH (08:38)
[2020-04-17] MEDS: LOSARTAN POTASSIUM 25 MG TAB PO SCH (08:38)
[2020-04-17] MEDS: METOPROLOL TARTRATE 25 MG TAB PO SCH ×3 (08:39→20:52)
[2020-04-17] MEDS: PHENYTOIN SODIUM EXT REL 100 MG CAP PO SCH ×2 (08:40→16:34)
[2020-04-17] MEDS: OMEPRAZOLE 20 MG CAP PO SCH (08:42)
[2020-04-17 08:56] LABS: ANISOCYTOSIS MODERATE; EOSINOPHILS % (MANUAL) 6 % (0-7); LYMPHOCYTES % (MANUAL) 32 % (19-48); MONOCYTES % (MANUAL) 5 % (3.4-9.0); NEUTROPHILS % (MANUAL) 56 % (40-74); PLATELET ESTIMATE ADEQUATE; RBC MORPHOLOGY COMMENT ABNORMAL
[2020-04-17 08:57] LABS: ELLIPTOCYTE, RBC SLIGHT; HYPOCHROMASIA SLIGHT; OVALOCYTES FEW; TEAR DROP CELLS FEW
[2020-04-17 08:58] LABS: SCHISTOCYTES FEW
[2020-04-17 08:59] LABS: PLATELET MORPHOLOGY COMMENT RARE EDTA CLUMPING
[2020-04-17] MEDS ORDERED: LOSARTAN POTASSIUM 25 MG TAB PO SCH (09:00)
--- NOTE | 2020-04-17 12:30 | History and Physical ---
PRIMARY CARE PHYSICIAN: Dr. Hendrix at [facility] CHIEF COMPLAINT: UTI and chest pain. HISTORY OF PRESENT ILLNESS: This is a 74-year-old female with past medical history of hypertension, high cholesterol, CHF, diabetes, hypothyroidism, seizure disorder, breast cancer, subdural hematoma, and questionable atrial fibrillation, presented from [facility] for complaint as UTI. She reports is incontinent and her PCP had her on daily antibiotics, which she did get while she was in the [place] [facility] in a [facility]-way facility, so started having dysuria and when they checked, she did have UTI. She was brought in for further evaluation to make sure she is not septic. In the ER, she was noted to have SVT with heart rate in the 150s. She was given adenosine 6 mg, then 12 mg with no resolution and 10 mg of Lopressor, which helped convert her back to normal sinus rhythm. She was admitted for further evaluation of the SVT. Currently, she denies any chest pain. She is visibly short of breath, but reports this is usually her baseline. She denies any fever, chills, nausea, vomiting, dizziness, or feelings of passing out. In the ER, chest x-ray showed cardiomegaly with worsening pulmonary edema and basilar atelectasis. Superimposed multifocal pneumonia cannot be excluded. PAST MEDICAL HISTORY: 1. Hypertension. 2. High cholesterol. 3. CHF. 4. Diabetes type 2. 5. Seizure disorder. 6. Hypothyroidism. 7. Breast cancer. PAST SURGICAL HISTORY: 1. She reports bypass double. 2. Hysterectomy. 3. Shoulder surgery. FAMILY MEDICAL HISTORY: She does not know. SOCIAL HISTORY: She denies any tobacco, alcohol, or illicit drug use. ALLERGIES: SHE IS ALLERGIC TO PENICILLIN AND SULFA DRUGS. REVIEW OF SYSTEMS: 10 system reviewed and negative, except as reported up in HPI. PHYSICAL EXAMINATION: VITAL SIGNS: Temperature 98.5, pulse is 85, respirations 21, blood pressure 102/65, pulse ox is 99% on 2 L of nasal cannula. GENERAL: Fatigue. HEENT: Normocephalic, atraumatic. NECK: Supple. LUNGS: Decreased breath sounds with some wheezing in the bilateral lower lobes. CARDIOVASCULAR: Regular rate and rhythm. GI: Soft and nontender, obese. NEUROLOGIC: Alert, awake, oriented x3. MUSCULOSKELETAL: Bilateral lower extremity edema with a history of lymphedema. SKIN: Dry and intact. PSYCH: Calm. LABORATORY DATA: WBC 7.75, hemoglobin 7.6, hematocrit 24.3, platelets 239. Sodium 137, potassium 4.3, creatinine 0.68. Estimated GFR greater than 60. Blood glucose 247. Iron 142. TIBC 164, saturation 87, transferrin 117, ferritin 252. AST 36, ALT 16. BNP 196. Troponin 0.025 and 0.020. Penicillin level pending. Urine, UA with 2+ protein, positive for nitrates, large leukocyte esterase. WBCs 6 to 10, a few epithelial cells, and many bacteria. Coronavirus PCR is not detected. Urine culture is pending. IMAGING: Chest x-ray with cardiomegaly, worsening pulmonary edema, and bibasilar atelectasis. Superimposed multifocal pneumonia cannot be excluded. IMPRESSION: 1. Urinary tract infection. Urine culture is pending. We will continue with Rocephin. 2. Acute respiratory distress due to pulmonary edema. Given Lasix 40 mg IV x1. We will continue p.o. daily. 3. Supraventricular tachycardia. Was given adenosine and metoprolol IV. Currently in sinus rhythm. Monitor on tele. Echo has been ordered, Cardiology has been consulted. We will continue on beta-silva. 4. Hypertension. Stable on beta-blockers and losartan. 5. High cholesterol, on Lipitor. 6. Diabetes type 2. Sliding scale insulin as needed. 7. Seizure disorders. We will check Dilantin level and resume Dilantin 200 b.i.d. we will add Ativan p.r.n. 8. Hypothyroidism. We will check TSH. Continue levothyroxine 75 mcg daily. 9. History of congestive heart failure, unspecified type. We will check echo. Resume Lasix, beta-blockers. 10. History of breast cancer. Aware. 11. Deep venous thrombosis prophylaxis, on Lovenox 40 mg. 12. Questionable history of atrial fibrillation. Currently sinus rhythm, resume beta-blockers. 13. Anemia. Hemoglobin is 7.6. We will check iron. Dictated by Karolyn Mcfarland, REBECCA Nayaching Jamey Newell MD MY/MODL /[id number] MTDD
--- NOTE | 2020-04-17 16:00 | Progress Note ---
DATE: 04/17/2020 SUBJECTIVE: The patient is in bed with mild shortness of breath. She denies any chest pain, fever, chills, nausea, or vomiting. OBJECTIVE: VITAL SIGNS: Temperature 98.1, pulse is 84, respirations 20, blood pressure 100/52, pulse ox is 100% on 2 L of nasal cannula. GENERAL: No acute distress. HEENT: Normocephalic and atraumatic. NECK: Supple. LUNGS: Decreased breath sounds. Mild wheezing in the bilateral lower lobes. CARDIOVASCULAR: Regular rate and rhythm. GI: Soft and nontender, obese. NEUROLOGIC: Alert, awake, oriented x3. MUSCULOSKELETAL: Moves all extremities with history of lymphedema. SKIN: Dry. Has pressure sores on the sacrum. PSYCH: Calm. LABORATORY DATA: WBC 7.59, hemoglobin 7.4, hematocrit 23.9, platelets 216. Sodium 137, potassium 4.6, BUN 10, creatinine 0.73, estimated GFR is 60, calcium is 7.4. Iron 142, TIBC 164. TSH 7.770. COVID PCR negative. Urine culture gram-negative bacillus, pending sensitivity. IMPRESSION: 1. Urinary tract infection with gram-negative bacillus. We will continue with Rocephin, pending final sensitivity. 2. Acute respiratory distress due to pulmonary edema. We will continue with p.o. Lasix daily. 3. SVT in the ER, currently sinus rhythm. We will continue on beta blockers t.i.d. per Cardiology and pending echocardiogram. 4. Hypertension, stable on beta blockers and losartan. 5. High cholesterol, on statin. 6. Diabetes type 2, sliding scale insulin as needed. 7. Seizure disorder, Dilantin level within normal limits. We will resume Dilantin 200 b.i.d. 8. Hypothyroidism, TSH is 7.7, we will continue on levothyroxine 75 mcg daily for now and have it repeated in four weeks. 9. History of congestive heart failure. Pending echo, we will continue with Lasix and beta-silva as per Cardiology. 10. History of breast cancer. 11. Questionable history of atrial fibrillation. Currently sinus rhythm, on beta blockers for rate control. No CELE due to anemia. 12. Anemia, hemoglobin is 7.4. We will continue to monitor closely. 13. Deep vein thrombosis prophylaxis, on Lovenox. PLAN: Continue current treatment, await on sensitivity of urine culture. We will consult social media marketing analyst for placement. Dictated by Karolyn Mcfarland, ANP MD KATE Bob/MODL /[id number] MTDD
[2020-04-17] MEDS: ENOXAPARIN SOD INJ 40 MG/0.4 ML SYR SC SCH (16:34)
--- NOTE | 2020-04-17 19:30 | NUR ---
pt resting in bed no signs of distress pt verbalized no complaints at this time
[2020-04-17] MEDS: ATORVASTATIN 40 MG TAB PO SCH (21:13)
[2020-04-17] MEDS: CEFTRIAXONE SOD 1 GM/NS 50 ML 50 ML IV SCH (21:13)
[2020-04-18] VITALS: BP 107/57
[2020-04-18 04:00] VITALS: BP 105/47
[2020-04-18] MEDS: LEVOTHYROXINE SODIUM 75 MCG TAB PO SCH (05:36)
--- NOTE | 2020-04-18 06:48 | NUR ---
RECEIVED BEDSIDE SHIFT REPORT FROM OFF GOING NURSE. PATIENT IS RESTING IN BED, NO ACUTE DISTRESS NOTED. CALL LIGHT WITHIN REACH, BED IN THE LOWEST POSITION.
[2020-04-18] MEDS: INSULIN REGULAR, HUMAN 100 UNIT/1 ML 3ML VIAL SQ SCH ×3 (07:30→15:50)
[2020-04-18 08:01] VITALS: BP 103/52
[2020-04-18] MEDS: FUROSEMIDE 20 MG TAB PO SCH (08:41)
[2020-04-18] MEDS: LOSARTAN POTASSIUM 25 MG TAB PO SCH (08:41)
[2020-04-18] MEDS: ASPIRIN 81 MG CHEW TAB PO SCH (08:41)
[2020-04-18] MEDS: OMEPRAZOLE 20 MG CAP PO SCH (08:41)
[2020-04-18] MEDS: PHENYTOIN SODIUM EXT REL 100 MG CAP PO SCH ×2 (08:41→16:15)
[2020-04-18 08:42] VITALS: BP 103/52
[2020-04-18] MEDS: METOPROLOL TARTRATE 25 MG TAB PO SCH ×2 (08:42→15:51)
[2020-04-18] MEDS ORDERED: SODIUM CHLORIDE 0.9% 250ML 250 ML IV ONE (09:00)
[2020-04-18 11:52] VITALS: BP 107/60
--- NOTE | 2020-04-18 12:03 | Progress Note ---
DATE: 04/18/2020 Cardiology Progress note SUBJECTIVE: Ms. Anderson reports no complaints on followup today other than mild lightheadedness. OBJECTIVE: VITAL SIGNS: Temperature 98.1, heart rate 85, blood pressure 103/52, respiratory rate 20, and O2 saturation 100%. GENERAL: In no acute distress. NECK: No JVD. CHEST: Clear to auscultation bilaterally. CARDIOVASCULAR: Regular rate and rhythm. Normal S1, S2. ABDOMEN: Soft. Bowel sounds positive. EXTREMITIES: 1+ edema. CARDIOVASCULAR MEDICATIONS: Reviewed. Aspirin 81 mg daily, metoprolol tartrate 12.5 mg q.6 hours p.r.n. and IV and 25 mg p.o. t.i.d. with holding parameters, atenolol 80 mg at bedtime, losartan 12.5 mg daily, adenosine 6 mg p.r.n. SVT, and Lovenox 40 mg subcu daily. STUDIES: Reviewed. Sodium 137, potassium 4.6, chloride 99, bicarbonate 29, BUN 10, creatinine 0.7, and glucose 97. White blood cell 7.5, hemoglobin 7.4, and platelets 216. AST 36, ALT 16, alkaline phosphatase 150, and total bilirubin 0.6. ASSESSMENT AND PLAN: A 74-year-old woman with wide-complex tachycardia, paroxysmal atrial fibrillation, coronary artery disease status post aortocoronary bypass, anemia, urinary tract infection, hypertension, and diabetes. RECOMMEND: Monitor blood pressure. Continue to place holding parameters for antihypertensives, beta-silva held this a.m. as systolic blood pressure is 103. Fluid bolus challenge advised to assess if lightheadedness related to blood pressure reads. Discussed plan of care with nursing staff. Kapil Archer MD AFV/MODL /[id number]
--- NOTE | 2020-04-18 12:45 | NUR ---
SPOKE WITH A PT AND SHE DEFERRED ME TO HER DAUGHTER ADRIEL. CALLED ADRIEL [phone], SHE STATES THIS PT WAS HERE AND DISCHARGED Mar TO [facility]. SHE STATES THE STAFF OVER THERE STARTED SAYING SHE HAD COVID, SHE STATES IF SHE HAS TO CONTINUE WITH IV ABX THEN TO GO TO [place], BUT SHE REALLY PREFERS TO TAKE HER MOTHER HOME AND HAVE TRANSITIONS HOME HEALTH. LET CM KNOW WHAT UPDATE FROM FAMILY REPORTS.
--- NOTE | 2020-04-18 14:29 | Progress Note ---
DATE: 04/17/2020 Cardiology Progress Note SUBJECTIVE: Denies chest pain or shortness of breath. Feels better today. OBJECTIVE: VITAL SIGNS: Temperature 98.2, heart rate 85, blood pressure 90/48, respiratory rate 18, and O2 saturation 100%. GENERAL: In no acute distress. Alert. NECK: No JVD. CHEST: Clear to auscultation. CARDIOVASCULAR: Regular rate and rhythm. Normal S1 and S2. ABDOMEN: Soft. Bowel sounds positive. EXTREMITIES: 1+ edema. CARDIOVASCULAR MEDICATIONS: Reviewed. Metoprolol 25 mg every 8 hours, aspirin 81 mg daily, atorvastatin 80 mg at bedtime, losartan 12.5 mg daily, Lovenox 40 mg subcutaneous daily, and adenosine p.r.n. 6 mg. STUDIES: Reviewed. Creatinine 0.7 and glucose 97. Hemoglobin 7.4 and platelets 216. ASSESSMENT AND PLAN: A 74-year-old woman with paroxysmal atrial fibrillation, paroxysmal wide-complex tachycardia, coronary artery disease with history of aortocoronary bypass, presenting with urinary tract infection and deconditioning. RECOMMEND: On telemetry in sinus rhythm, improvement following resumption of metoprolol and adjustment of dose upwards. Holding parameters for antihypertensives. Discussed with nursing staff. Continue rest of cardiovascular medications. MD SPENCER Kohli/RANULFO /[id number]
[2020-04-18] MEDS ORDERED: KEFLEX500 MG PO (14:46)
--- NOTE | 2020-04-18 15:12 | NUR ---
URSZULA called and spoke to pt's daughter Lucero Ross [phone] and informed her pt will be discharging home today. She states she wants to use [facility]. IMM letter discussed. Ms. Ross states she already knows about the letter and verbalized understanding of rights. Signed copy placed in chart. Copy given to RN to give to pt. Choice letter placed in chart. Referral for home health faxed to [facility] at [phone] / . URSZULA called and spoke with Ericka with intake and informed of referral and that pt will be discharging home today.
[2020-04-18] MEDS ORDERED: CEPHALEXIN 500 MG CAP PO SCH (15:30)
[2020-04-18 15:36] VITALS: BP 117/63
--- NOTE | 2020-04-18 15:46 | NUR ---
WOUND CARE CONSULT 74 YO FEMALE HX OF SVT, UTI JOHN 14 0N MODERATE PUP STATUS AND INTERVENTIONS VISCO MATTRESS LABS: WBC- 7.59 HGB- 7.4 GLUCOSE-PEND SKIN ASSESSMENT COMPLETE PATIENT PRESENTS WITH STAGE 2 ULCERATION TO LEFT BUTTOCKS MEASURES 4CM X4CM X0.1CM SURROUNDED BY DARK SLOW BLANCHING MARY AREA PATIENT REFUSES TO TURN OR STAY IN OFFLOADING POSITIONS ALSO BECAME VERY UP SET AND REFUSED PILLOW SUSPENSION OF HEELS SURFACE I RECOMMEND ALTERNATING PRESSURE FOR SOME AMOUNT OF PROTECTION R/T POOR COMPLIANCE RECOMMENDATIONS: NURSING TO CONTINUE TO MONITOR PATIENT AND KEEP SKIN CLEAN AND FREE FROM LOOSE STOOL OR IRRITATING MOISTURE AND CONTINUE TO FOLLOW MODERATE PUP INTERVENTIONS NURSING TO CONTINUE TO GET PATIENT OUT OF BED FOR MEALS AND MUCH TOLERATED NURSING TO CLEAN LEFT BUTTOCKS STAGE 2 ULCERATION WITH NORMAL SALINE DAILY AND APPLY VENELEX OINTMENT AND COVER WITH ALLEVYN FOAM DRESSING Addendum: 04/18/20 at 1553 by Tre Wilkinson RN Amended: Links added.
--- NOTE | 2020-04-18 16:10 | NUR ---
NOTIFIED ZAINA PEMBERTON OF [facility] OF 406 AND SLIDING SCALE TO GIVE 14 UNITS AND CALLING MD. PER INFORMATION MANAGEMENT SPECIALIST, GIVE 10 MORE UNITS.
[2020-04-18] MEDS ORDERED: INSULIN REGULAR, HUMAN 100 UNIT/1 ML 3ML VIAL SQ ONE (16:15)
[2020-04-18] MEDS: ENOXAPARIN SOD INJ 40 MG/0.4 ML SYR SC SCH (16:15)
--- NOTE | 2020-04-18 16:24 | NUR ---
ASKED ZAINA PEMBERTON IF PATIENT IS TO BE DISCHARGED WITH [facility]. PER LEAN FACILITATOR, PATIENT IS TO BE DISCHARGE WITH [facility] SINCE SHE CAME WITH IT.
--- NOTE | 2020-04-18 19:01 | NUR ---
Pt was discharged home, transported by EMS. Discharge papers were given to EMS. Pt daughter Lucero was called and given discharge instructions.
--- NOTE | 2020-04-18 22:38 | Discharge Summary ---
PRIMARY CARE PHYSICIAN: Dr. Hendrix at [facility]. FINAL DISCHARGE DIAGNOSES: 1. Klebsiella pneumonia urinary tract infection. 2. Acute respiratory distress due to pulmonary edema. 3. Supraventricular tachycardia. 4. Hypertension. 5. High cholesterol. 6. Diabetes type 2. 7. Seizure disorder. 8. Hypothyroidism. 9. History of congestive heart failure. 10. History of breast cancer. 11. Atrial fibrillation. 12. Anemia, chronic. CONSULTANTS: Dr. Garcia with Cardiology. PROCEDURES: None. HISTORY: Per HPI. HOSPITAL COURSE: This is a 74-year-old female, who presented to [facility] with reported dysuria and UTI symptoms. She has a chronic indwelling catheter, but was noted to have SVT while in the ER, so was admitted for further evaluation. Cardiology was consulted and was given pressors, adenosine in the ER, which converted her back to normal sinus rhythm. During her stay, she has been monitored on tele with no further tachycardia or arrhythmias. She was started on metoprolol per Cardiology at 25 mg t.i.d. and restarted on all of her medications. She was started on Rocephin for UTI, urine culture was positive for Klebsiella pneumonia. We will convert it to Keflex 500 b.i.d. per sensitivity. She had completed her shelter facility days. Case Management is consulted and has spoken to daughter who lives with the patient reports has all equipments and would like to return home with home health. She is afebrile, shortness of breath is at baseline, vital signs are stable. We will discharge her home on current medications. PHYSICAL EXAMINATION: VITAL SIGNS: Temperature 98.0, pulse is 87, respirations 20, blood pressure 117/63, pulse ox is 100% on 3 L. GENERAL: No acute distress. HEENT: Normocephalic and atraumatic. NECK: Supple. LUNGS: Decreased breath sounds. CARDIOVASCULAR: Regular rate and rhythm. GI: Soft and nontender. Obese. NEUROLOGIC: Alert, awake, and oriented x3. MUSCULOSKELETAL: Moves all extremities with history of lymphedema. SKIN: Dry, has pressure ulcers on her sacrum. : Gonzales in place. CONDITION AT DISCHARGE: Improved and stable. DISCHARGE MEDICATIONS: Please see medication reconciliation list. FOLLOWUP: Follow up with PCP and Cardiology in 1 to 2 weeks. TIME SPENT: Total discharge time is 31 minutes. Dictated by Karolyn Mcfarland, ANP MD KATE Bob/AGUSTINL /[id number] cc: [facility]
[2020-04-19] MEDS ORDERED: ASPIRIN 81 MG CHEW TAB PO SCH (09:00)
[2020-04-19] MEDS ORDERED: BALSAM PERU/CASTOR OIL 60 GM OINT...G. TP SCH (09:00)
== END 2020-04-18 19:01 | disposition home or self-care (01) | DRG 699 ==
LOC: ER 18:15 → ERHOLD 23:06 → MED/SURG3 04-16 01:05 → MED/SURG2 04-16 17:58 → OBSVTOIN 04-17 12:35
PROVIDERS: ADMIT Internal Medicine; ATTEND Internal Medicine
DX: T83.511A Infection and inflammatory reaction due to indwelling urethral catheter, initial encounter (principal); I47.1 Supraventricular tachycardia; I50.32 Chronic diastolic (congestive) heart failure; I11.0 Hypertensive heart disease with heart failure; E11.9 Type 2 diabetes mellitus without complications; E03.9 Hypothyroidism, unspecified; G40.909 Epilepsy, unspecified, not intractable, without status epilepticus; Z88.0 Allergy status to penicillin; Z88.2 Allergy status to sulfonamides; Z85.3 Personal history of malignant neoplasm of breast; R06.03 Acute respiratory distress; E78.00 Pure hypercholesterolemia, unspecified; D64.9 Anemia, unspecified; Z95.1 Presence of aortocoronary bypass graft; I25.10 Atherosclerotic heart disease of native coronary artery without angina pectoris; I48.0 Paroxysmal atrial fibrillation; B96.1 Klebsiella pneumoniae [K. pneumoniae] as the cause of diseases classified elsewhere; L89.152 Pressure ulcer of sacral region, stage 2
CPT/HCPCS: 36415; 71045; 80048; 80053; 80185; 81001; 82728; 82948; 83540; 83605; 83880; 84443; 84466; 84484; 85025; 87086; 87186; 93306; 99251; 99284; G0378; J0153; J0696; J1650; J1817; J7030; J7050; U0002

== ENCOUNTER 2020-04-21 11:50 | Emergency (ER) | payer MEDICARE, OTHER ==
[~2020-04-21] VITALS: Ht 322.6 cm; Wt 127.0 kg
[~2020-04-21 11:50] MED LIST changes: +FUROSEMIDE20 MG PO; +KEFLEX500 MG PO; +LEVOTHYROXINE75 MCG PO
[2020-04-21] MEDS ORDERED: ASPIRIN 81 MG CHEW TAB PO ONE (12:15)
--- NOTE | 2020-04-21 12:53 | NUR ---
Stage 2 pressure ulcer noted to sacrum and buttocks. Pt repeatedly stating she can't breathe, O2 is @ 100%.
[2020-04-21 12:56] LABS: BASOPHILS # (AUTO) 0.1 (0.0-0.1); BASOPHILS % 0.8 % (0.0-1.0); EOSINOPHILS # (AUTO) 0.2 (0.0-0.4); HEMATOCRIT 24.3 % (34.2-44.1); HEMOGLOBIN 7.5 g/dL (12.0-16.0); LYMPHOCYTES # (AUTO) 1.9 (1.0-3.2); LYMPHOCYTES % 32.2 % (18.0-39.1); MEAN CORPUSCULAR HEMOGLOBIN 27.6 pg (28-32); MEAN CORPUSCULAR HGB CONC 30.9 g/dL (31-35); MEAN CORPUSCULAR VOLUME 89.3 fL (81-99); MONOCYTES # (AUTO) 0.5 (0.2-0.8); MONOCYTES % 7.7 % (4.4-11.3); NEUTROPHILS # (AUTO) 3.3 (2.1-6.9); NEUTROPHILS % 56.1 % (38.7-80.0); PLATELET COUNT 250 x10e3/uL (140-360); RED BLOOD COUNT 2.72 x10e6/uL (3.6-5.1); RED CELL DISTRIBUTION WIDTH 31.9 % (11.7-14.4)
[2020-04-21 13:13] LABS: ALANINE AMINOTRANSFERASE 18 IU/L (0-55); ALBUMIN 2.5 g/dL (3.5-5.0); ALBUMIN/GLOBULIN RATIO 0.6 (0.8-2.0); ALKALINE PHOSPHATASE 121 IU/L (40-150); ANION GAP 13.3 mmol/L (8-16); BLOOD UREA NITROGEN 12 mg/dL (7-26); BUN/CREATININE RATIO 18 (6-25); CALCIUM 7.7 mg/dL (8.4-10.2); CARBON DIOXIDE 30 mmol/L (22-29); CHLORIDE 99 mmol/L (98-107); CREATINE KINASE 61 IU/L (29-168); CREATININE, SERUM 0.67 mg/dL (0.57-1.11); EST GLOMERULAR FILTRATION RATE > 60 ML/MIN (60-); GLUCOSE 91 mg/dL (74-118); POTASSIUM 4.3 mmol/L (3.5-5.1); SODIUM 138 mmol/L (136-145)
--- NOTE | 2020-04-21 13:31 | Diagnostic Imaging Report ---
EXAMINATION: CHEST SINGLE (PORTABLE) INDICATION: Chest pain COMPARISON: Chest radiograph 04/15/2020 FINDINGS: LINES/TUBES:EKG leads overlie the chest. LUNGS:The lungs are moderately inflated. Again seen are multifocal bilateral lower lung predominant airspace opacities. There is perihilar fullness and indistinctness of the pulmonary vasculature. PLEURA:Likely small bilateral pleural effusions. No pneumothorax. MEDIASTINUM:The cardiomediastinal silhouette appears unchanged in size and shape. Atherosclerotic calcifications of the thoracic aorta. BONES/SOFT TISSUES:No acute osseous injury. Sternotomy wires in place. ABDOMEN:No free air under the diaphragm. IMPRESSION: Pulmonary interstitial edema. Bibasilar airspace opacities may represent airspace edema however atelectasis or superimposed aspiration or pneumonia could have a similar appearance. Signed by: Amarilys Andino MD on 04/21/2020 1:28 PM
[2020-04-21] MEDS ORDERED: SODIUM CHLORIDE 0.9% 50ML 0 ML ONE (13:48)
[2020-04-21] MEDS ORDERED: IOPAMIDOL 370 MG/ML 200 ML INFUS..BTL INJ ONE (13:50)
--- NOTE | 2020-04-21 14:41 | NUR ---
Pt refused abdominal CT scan, spoke with patient in CT. She reports she is very claustrophobic
[2020-04-21] MEDS ORDERED: FUROSEMIDE INJ 10 MG/ML 4 ML VIAL IV ONE (15:00)
[2020-04-21 15:53] VITALS: BP 124/58
--- NOTE | 2020-04-21 16:41 | NUR ---
EMS arrived and pt refusing to leave ER, screaming so loudly that this RN can hear her throught the weir into the next room.
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
--- OUTSIDE RECORDS SUMMARY | 2020-04-22 10:23 | XMS REPORT | Continuity of Care Document ---
Author Author [facility] t Organization [facility] Address [address] [place] [address] Phone Unavailable Care Team Providers Care Project Scientist Name Role Phone NONSTAFF PCP Unavailable Desire MORATAYA Attphys Unavailable Misael Foreman Attphys Unavailable Juan MAJOR LAIFRACISCO Attphys Unavailable EDDIE, MONI Attphys Unavailable Payers Payer Name Policy Type Policy Number Effective Date Expiration Date Desire Morrisonsey Care Medicare Advantage [id number] 2008 00:0 0:00 [facility] Cdc Review [id number] [facility] Problems Condition Name Condition Details Condition Category Status Onset Date Resolution Date Last Treatment Date Treating Clinician Comments Source Generalized edema Problem Active [facility] Congestive heart failure Problem Active [facility] Hypoalbuminemia Problem Active [facility] Urinary tract infection Problem Active [facility] Pressure injury of skin Problem Active [facility] Supraventricular tachycardia Problem Active [facility] Allergies, Adverse Reactions, Alerts Allergy Name Allergy Type Status Severity Reaction(s) Onset Date Inacti ve Date Treating Clinician Comments Source Penicillin Allergy to substance Active Severe "SHORT OF BREATH, LIPS PURPLE AND SWELLING, RASH" 2020-03-05 00:00:00 [facility] Sulfa (Sulfonamide Antibiotics) Allergy to substance Active 2020-03-05 00:00:00 [facility] Social History Social Habit Start Date Stop Date Quantity Comments Source Sex Assigned At 1945 00:00:00 1945 00:00:[address] [facility] Medications Ordered Medication Name Filled Medication Name Start Date Stop Da te Current Medication? Ordering Clinician Indication Dosage Frequency Signature (SIG) Comments Components Source Cephalexin Monohydrate (Keflex) 500 Mg CAPSULE Cephale jannet Monohydrate (Keflex) 500 Mg CAPSULE 2020-04-18 14:46:00 Yes 500 Every 8 H ours [facility] Aspirin (Aspir 81) 81 Mg TABLET. Aspirin (Aspir 81) 81 Mg TABLET. Yes 81 Daily [facility] Atorvastatin Calcium (Lipitor) 80 Mg TABLET Atorvastat in Calcium (Lipitor) 80 Mg TABLET Yes 80 Bedtime [facility] Furosemide Furosemide Yes 20 Daily I [facility] Levothyroxine Sodium Levothyroxine Sodium Yes 75 Daily [facility] Metoprolol Tartrate Metoprolol Tartrate Yes 25 Twice A Day [facility] Omeprazole (Prilosec) 20 Mg CAPSULE. Omeprazole (Prilosec) 20 Mg CAPSULE. Yes 20 Daily [facility] Phenytoin Sodium Extended Phenytoin Sodium Extended Yes 200 Twice A Day [facility] Sitagliptin Phosphate (Januvia) 100 Mg TABLET Sitaglip tin Phosphate (Januvia) 100 Mg TABLET Yes 100 Daily [facility] Cephalexin Cephalexin 2020-04-18 00:00:00 No 500 Nusrat ly [facility] Losartan Potassium Losartan Potassium 2020-04-18 00:00:00 No 25 Daily [facility] Levothyroxine Sodium (Levoxyl) 75 Mcg TABLET Levothyro xine Sodium (Levoxyl) 75 Mcg TABLET 2020-04-16 00:00:00 No 75 Daily [facility] Citalopram Hydrobromide (Citalopram Hbr) 40 Mg TABLET Citalopram Hydrobromide (Citalopram Hbr) 40 Mg TABLET 2020-03-05 00:00:00 No 40 Rt Daily [facility] Lisinopril (Prinivil) 5 Mg TABLET Lisinopril (Prinivil) 5 Mg TAB LET 2020-03-05 00:00:00 No 5 Rt Daily [facility] Nitrofurantoin Macrocrystal (Nitrofurantoin) 100 Mg CA PSULE Nitrofurantoin Macrocrystal (Nitrofurantoin) 100 Mg CAPSULE 2020-03-05 00:00:00 No 100 Twice A Day [facility] Oxybutynin Chloride (Oxybutynin Chloride Er) 15 Mg TAB .ER.24 Oxybutynin Chloride (Oxybutynin Chloride Er) 15 Mg TAB.ER.24 2020-03-05 00:00:00 No 15 Twice A Day [facility] Sitagliptin Phosphate (Januvia) 100 Mg TABLET Sitaglip tin Phosphate (Januvia) 100 Mg TABLET 2020-03-05 00:00:00 No 100 Rt Daily [facility] Vital Signs Vital Name Observation Time Observation Value Comments Source Body Temperature 2020-04-21 15:53:00 98.4 [degF] [facility] Weight 2020-04-21 12:17:00 280 [lb_av] [facility] BMI (Body Mass Index) 2020-04-21 12:17:00 12.2 kg/m2 [facility] Body Temperature 2020-04-18 15:36:00 98.0 [degF] [facility] Weight 2020-04-16 01:14:00 280.60 [lb_av] [facility] BMI (Body Mass Index) 2020-04-16 01:14:00 43.9 kg/m2 [facility] Body Temperature 2020-03-10 16:19:00 98.1 [degF] [facility] Weight 2020-03-10 00:26:00 286.01 [lb_av] [facility] BMI (Body Mass Index) 2020-03-10 00:26:00 44.8 kg/m2 [facility] Procedures This patient has no known procedures. Plan of Care Planned Activity Planned Date Details Comments Source Instructions Chest Pain - Chest Wall [facility] Encounters Start Date/Time End Date/Time Encounter Type Admission Type Attendi ng Clinicians Care Facility Care Department Encounter ID Source 2020-04-21 12:50:00 2020-04-21 16:48:00 Departed Emergency Room ANDREW MORATAYA [facility] [id number] [facility] 2020-04-17 12:35:00 2020-04-18 19:01:00 Discharged Inpatient 1 Margaux Foreman [facility] [id number] [facility] 2020-03-05 15:18:00 2020-03-10 17:06:00 Discharged Inpatient 1 WENDY MAJOR [facility] [id number] [facility] 2020-03-03 00:00:00 2020-03-03 00:00:00 Emergency [address] [place] [address] [id number] Ulysses Jain Results Test Description Test Time Test Comments Results Result Comments Source CHEST SINGLE (PORTABLE) 2020-04-21 13:26:00 [facility] [address] [address] Patient Name: CORDELL GRIMM MR #: [id number] : 1945 Age/Sex: 74/F Req #: [id number] Adm Physician: Ordered by: ANDREW MORATAYA DO Report #: [id number] Location: ER Room/Bed: Procedure: [id number] DX/CHEST SINGLE (PORTABLE) Exam Date: 04/21/20 Exam Time: 1250 REPORT STATUS: Signed EXAMINATION: CHEST SINGLE (PORTABLE) INDICATION: Chest pain COMPARISON: Chest radiograph 04/15/2020 FINDINGS: LINES/TUBES:EKG leads overlie the chest. LUNGS:The lungs are moderately inflated. Again seen are multifocal bilateral lower lung predominant airspace opacities. There is perihilar fullness and indistinctness of the pulmonary vasculature. PLEURA:Likely small bilateral pleural effusions. No pneumothorax. MEDIASTINUM:The cardiomediastinal silhouette appears unchanged in size and shape. Atherosclerotic calcifications of the thoracic aorta. BONES/SOFT TISSUES:No acute osseous injury. Sternotomy wires in place. ABDOMEN:No free air under the diaphragm. IMPRESSION: Pulmonary interstitial edema. Bibasilar airspace opacities may represent airspace edema however atelectasis or superimposed aspiration or pneumonia could have a similar appearance. Signed by: Emir Nesbitt MD on 04/21/2020 1:28 PM Dictated By: EMIR NESBITT MD 1328 Transcribed By: KEV on 04/21/20 1328 COPY TO: ANDREW MORATAYA, DO Blood leukocytes automated count (number/volume) 2020-04-21 12:38:00 Test Item White Blood Count (test code = 6690-2) 5.94 4.8-10.8 [facility] automated count (number/volume)2020-04-21 12:38:00* Test Item Value Reference Range Interpretation Comments Red Blood Count (test code = 789-8) 2.72 3.6-5.1 [facility] hemoglobin measurement (moles/volume)2020-04-21 12:38:00* Test Item Value Reference Range Interpretation Comments Hemoglobin (test code = 91661-3) 7.5 12.0-16.0 [facility] HospitalAutomated blood hematocrit (volume fraction)2020-04-21 12:38:00* Test Item Value Reference Range Interpretation Comments Hematocrit (test code = 4544-3) 24.3 34.2-44.1 [facility] HospitalAutomated erythrocyte mean corpuscular qtmnln2607-04-49 12:38:00* Test Item Value Reference Range Interpretation Comments Mean Corpuscular Volume (test code = 787-2) 89.3 81-99 [facility] HospitalAutomated erythrocyte mean corpuscular hemoglobin (mass per erythrocyte)2020-04-21 12:38:00* Test Item Value Reference Range Interpretation Comments Mean Corpuscular Hemoglobin (test code = 785-6) 27.6 28-32 [facility] HospitalAutomated erythrocyte mean corpuscular hemoglobin concentration measurement (mass/volume)2020-04-21 12:38:00* Test Item Value Reference Range Interpretation Comments Mean Corpuscular Hemoglobin Concent (test code = 786-4) 30.9 31-35 [facility] HospitalRDW BoeVi-Ezx1436-01-17 12:38:00* Test Item Value Reference Range Interpretation Comments Red Cell Distribution Width (test code = 19362-8) 31.9 11.7 -14.4 [facility] HospitalAutunc healthed blood platelet count (count/volume)2020-04-21 12:38:00* Test Item Value Reference Range Interpretation Comments Platelet Count (test code = 777-3) 250 140-360 [facility] HospitalAutunc healthed blood segmented neutrophil count as percentage of total wmqotyyrlp3693-44-77 12:38:00* Test Item Value Reference Range Interpretation Comments Neutrophils (%) (Auto) (test code = 54726-8) 56.1 38.7-80.0 [facility] HospitalAutunc healthed blood lymphocyte count as percentage ot total uwplvxxqgf5251-03-57 12:38:00* Test Item Value Reference Range Interpretation Comments Lymphocytes (%) (Auto) (test code = 736-9) 32.2 18.0-39.1 [facility] HospitalAutomated blood monocyte count as percentage of total vdhbybcnya4614-25-69 12:38:00* Test Item Value Reference Range Interpretation Comments Monocytes (%) (Auto) (test code = 5905-5) 7.7 4.4-11.3 [facility] HospitalAutunc healthed blood eosinophil count as percentage of total aioksiizwo5454-84-86 12:38:00* Test Item Value Reference Range Interpretation Comments Eosinophils (%) (Auto) (test code = 713-8) 3.0 0.0-6.[address] [facility] basophil count as percentage of total ppqxcjpfox0429-79-10 12:38:00* Test Item Value Reference Range Interpretation Comments Basophils (%) (Auto) (test code = 706-2) 0.8 0.0-1.0 [facility] HospitalFluoroscopic procedure less than one hour mbbkhqhh6268-49-07 12:38:00* Test Item Value Reference Range Interpretation Comments IM GRANULOCYTES % (test code = IM GRANULOCYTES %) 0.2 0.0- 1.0 [facility] HospitalAutomated blood neutrophil count 2020-04-21 12:38:00* Test Item Value Reference Range Interpretation Comments Neutrophils # (Auto) (test code = 751-8) 3.3 2.1-6.9 [facility] HospitalBlood lymphocytes count (number/volume) 2020-04-21 12:38:00* Test Item Value Reference Range Interpretation Comments Lymphocytes # (Auto) (test code = 31233-9) 1.9 1.0-3.2 [facility] HospitalBlood monocytes automated count (number/volume)2020-04-21 12:38:00* Test Item Value Reference Range Interpretation Comments Monocytes # (Auto) (test code = 742-7) 0.5 0.2-0.8 [facility] HospitalAutomated blood eosinophil count 2020-04-21 12:38:00* Test Item Value Reference Range Interpretation Comments Eosinophils # (Auto) (test code = 711-2) 0.2 0.0-0.4 [facility] HospitalAutomated blood basophil count (count/volume)2020-04-21 12:38:00* Test Item Value Reference Range Interpretation Comments Basophils # (Auto) (test code = 704-7) 0.1 0.0-0.1 [facility] HospitalFluoroscopic procedure less than one hour zogjpzzg2048-37-28 12:38:00* Test Item Value Reference Range Interpretation Comments Absolute Immature Granulocyte (auto (louis t code = Absolute Immature Granulocyte (auto) 0.01 0-0.[address] [facility] [place] plasma sodium measurement (moles/volume)2020-04-21 12:38:00* Test Item Value Reference Range Interpretation Comments Sodium Level (test code = 2951-2) 138 136-[address] [facility], [place]erum or plasma potassium measurement (moles/volume)2020-04-21 12:38:00* Test Item Value Reference Range Interpretation Comments Potassium Level (test code = 2823-3) 4.3 3.5-5.[address] [facility], [place]erum or plasma chloride measurement (moles/volume)2020-04-21 12:38:00* Test Item Value Reference Range Interpretation Comments Chloride Level (test code = 2075-0) 99 98-[address] [facility], [place]erum or plasma carbon dioxide, total measurement (moles/volume)2020-04-21 12:38:00* Test Item Value Reference Range Interpretation Comments Carbon Dioxide Level (test code = 2028-9) 30 22-[address] [facility], TXerum or plasma anion [id number] 12:38:00* Test Item Value Reference Range Interpretation Comments Anion Gap (test code = 19889-5) 13.3 8-[address] [facility], [place]erum or plasma urea nitrogen measurement (mass/volume)2020-04-21 12:38:00* Test Item Value Reference Range Interpretation Comments Blood Urea Nitrogen (test code = 3094-0) 12 7-[address] [facility], [place]erum or plasma creatinine measurement (mass/volume)2020-04-21 12:38:00* Test Item Value Reference Range Interpretation Comments Creatinine (test code = 2160-0) 0.67 0.57-1.[address] [facility], [place]erum or plasma urea nitrogen/creatinine mass idrvb6975-62-19 12:38:00* Test Item Value Reference Range Interpretation Comments BUN/Creatinine Ratio (test code = 3097-3) 18 6-25 [facility] HospitalEstimated glomerular filtration rate (GFR) dznzlcybfzyvu7389-67-00 12:38:00* Test Item Value Reference Range Interpretation Comments Estimat Glomerular Filtration Rate (test code = 453184360) > 60 >60 Ranges were taken from the National Kidney Disease Education Program and the [facility] Foundation literature.Reference ranges:60 or greater: Kqqyil80-93 ( for 3 consecutive months): Chronic kidney disease 15 or less: Kidney failureTexas Children's HospitalGlucose yjgsybkvsqx7342-39-03 12:38:00* Test Item Value Reference Range Interpretation Comments Glucose Level (test code = ISM8275) 91 74-[address] [facility], [place]erum or plasma calcium measurement (mass/volume)2020-04-21 12:38:00* Test Item Value Reference Range Interpretation Comments Calcium Level (test code = 34252-1) 7.7 8.4-10.[address] [facility], [place]erum or plasma total bilirubin measurement (mass/volume)2020-04-21 12:38:00* Test Item Value Reference Range Interpretation Comments Total Bilirubin (test code = 1975-2) 0.6 0.2-1.2 [facility] HospitalFluoroscopic procedure less than one hour okauajew5715-05-35 12:38:00* Test Item Value Reference Range Interpretation Comments Aspartate Amino Transf (AST/SGOT) (test code = Aspartate Amino Transf (AST/SGOT)) 45 5-[address] [facility], TXerum or plasma alanine aminotransferase measurement (enzymatic activity/volume)2020-04-21 12:38:00* Test Item Value Reference Range Interpretation Comments Alanine Aminotransferase (ALT/SGPT) (test code = 1742-6) 18 0-[address] [facility], [place]erum or plasma protein measurement (mass/volume)2020-04-21 12:38:00* Test Item Value Reference Range Interpretation Comments Total Protein (test code = 2885-2) 6.4 6.5-8.[address] [facility], TXerum or plasma albumin measurement (mass/volume)2020-04-21 12:38:00* Test Item Value Reference Range Interpretation Comments Albumin (test code = 1751-7) 2.5 3.5-5.0 [facility] HospitalPlasma globulin measurement (mass/volume) 2020-04-21 12:38:00* Test Item Value Reference Range Interpretation Comments Globulin (test code = 89895-0) 3.9 2.3-3.[address] [facility], TXerum or plasma albumin/globulin mass knwdp9425-87-81 12:38:00* Test Item Value Reference Range Interpretation Comments Albumin/Globulin Ratio (test code = 1759-0) 0.6 0.8-2.[address] [facility], TXerum or plasma alkaline phosphatase measurement (enzymatic activity/volume)2020-04-21 12:38:00* Test Item Value Reference Range Interpretation Comments Alkaline Phosphatase (test code = 6768-6) 121 40-150 [facility] HospitalBNP Tih-nVvj1080-06-17 12:38:00* Test Item Value Reference Range Interpretation Comments B-Type Natriuretic Peptide (test code = 49760-3) 355.8 0-[address] [facility], TXerum or plasma creatine kinase measurement (enzymatic activity/volume)2020-04-21 12:38:00* Test Item Value Reference Range Interpretation Comments Creatine Kinase (test code = 2157-6) 61 29-[address] [facility], TXerum or plasma creatine kinase MB measurement (mass/volume)2020-04-21 12:38:00* Test Item Value Reference Range Interpretation Comments Creatine Kinase MB (test code = 65233-7) 1.10 0-5.0 [facility] HospitalTroponin I measurement by highly sensitive enzyme kcahfpftzzn4016-30-45 12:38:00* Test Item Value Reference Range Interpretation Comments Troponin I (test code = 29705-4) 0.017 0-0.300 [facility] HospitalCapillary blood glucose measurement by glucometer (mass/volume)2020-04-18 15:19:00* Test Item Value Reference Range Interpretation Comments Bedside Glucose (test code = 01439-7) 406 70-120 Meter ID: [id number] Children's HospitalCapillary blood glucose measurement by glucometer (mass/volume)2020-04-18 15:19:00* Test Item Value Reference Range Interpretation Comments Bedside Glucose (test code = 06422-9) 406 70-120 Meter ID: [id number] Children's HospitalBlood leukocytes automated count (number/volume)2020-04-17 05:50:00* Test Item Value Reference Range Interpretation Comments White Blood Count (test code = 6690-2) 7.59 4.8-10.8 [facility] HospitalBlkittson memorial hospital erythrocytes automated count (number/volume)2020-04-17 05:50:00* Test Item Value Reference Range Interpretation Comments Red Blood Count (test code = 789-8) 2.71 3.6-5.1 [facility] hemoglobin measurement (moles/volume)2020-04-17 05:50:00* Test Item Value Reference Range Interpretation Comments Hemoglobin (test code = 71368-8) 7.4 12.0-16.0 [facility] HospitalAutomated blood hematocrit (volume fraction)2020-04-17 05:50:00* Test Item Value Reference Range Interpretation Comments Hematocrit (test code = 4544-3) 23.9 34.2-44.1 [facility] HospitalAutomated erythrocyte mean corpuscular uwgsvb8424-29-77 05:50:00* Test Item Value Reference Range Interpretation Comments Mean Corpuscular Volume (test code = 787-2) 88.2 81-99 [facility] HospitalAutomated erythrocyte mean corpuscular hemoglobin (mass per erythrocyte)2020-04-17 05:50:00* Test Item Value Reference Range Interpretation Comments Mean Corpuscular Hemoglobin (test code = 785-6) 27.3 28-32 [facility] HospitalAutcape [facility] erythrocyte mean corpuscular hemoglobin concentration measurement (mass/volume)2020-04-17 05:50:00* Test Item Value Reference Range Interpretation Comments Mean Corpuscular Hemoglobin Concent (test code = 786-4) 31.0 31-35 [facility] HospitalRDW MnjDy-Mta8470-46-13 05:50:00* Test Item Value Reference Range Interpretation Comments Red Cell Distribution Width (test code = 20224-1) 33.0 11.7 -14.4 [facility] HospitalAutomated blood platelet count (count/volume)2020-04-17 05:50:00* Test Item Value Reference Range Interpretation Comments Platelet Count (test code = 777-3) 216 140-360 [facility] segmented neutrophil count as percentage of total zfjneexjbb2110-96-90 05:50:00* Test Item Value Reference Range Interpretation Comments Neutrophils (%) (Auto) (test code = 65875-4) 43.0 38.7-80.0 [facility] HospitalAutomated blood lymphocyte count as percentage ot total caorldiuse1375-22-52 05:50:00* Test Item Value Reference Range Interpretation Comments Lymphocytes (%) (Auto) (test code = 736-9) 40.7 18.0-39.1 [facility] HospitalAutomated blood monocyte count as percentage of total qcakavzomk0758-07-04 05:50:00* Test Item Value Reference Range Interpretation Comments Monocytes (%) (Auto) (test code = 5905-5) 10.8 4.4-11.3 [facility] HospitalAutomated blood eosinophil count as percentage of total nmnacpflvk8566-33-57 05:50:00* Test Item Value Reference Range Interpretation Comments Eosinophils (%) (Auto) (test code = 713-8) 4.3 0.0-6.0 [facility] HospitalAutomated blood basophil count as percentage of total zeyivhkotk6550-41-75 05:50:00* Test Item Value Reference Range Interpretation Comments Basophils (%) (Auto) (test code = 706-2) 1.1 0.0-1.0 [facility] HospitalFluoroscopic procedure less than one hour snhggrqn1828-49-11 05:50:00* Test Item Value Reference Range Interpretation Comments IM GRANULOCYTES % (test code = IM GRANULOCYTES %) 0.1 0.0- 1.0 [facility] HospitalAutomated blood neutrophil count 2020-04-17 05:50:00* Test Item Value Reference Range Interpretation Comments Neutrophils # (Auto) (test code = 751-8) 3.3 2.1-6.9 [facility] HospitalBlood lymphocytes count (number/volume) 2020-04-17 05:50:00* Test Item Value Reference Range Interpretation Comments Lymphocytes # (Auto) (test code = 01681-7) 3.1 1.0-3.2 [facility] HospitalBlkittson memorial hospital monocytes automated count (number/volume)2020-04-17 05:50:00* Test Item Value Reference Range Interpretation Comments Monocytes # (Auto) (test code = 742-7) 0.8 0.2-0.8 [facility] HospitalAutomated blood eosinophil count 2020-04-17 05:50:00* Test Item Value Reference Range Interpretation Comments Eosinophils # (Auto) (test code = 711-2) 0.3 0.0-0.4 [facility] blood basophil count (count/volume)2020-04-17 05:50:00* Test Item Value Reference Range Interpretation Comments Basophils # (Auto) (test code = 704-7) 0.1 0.0-0.1 [facility] HospitalFluoroscopic procedure less than one hour umtvgrvq9462-54-07 05:50:00* Test Item Value Reference Range Interpretation Comments Absolute Immature Granulocyte (auto (louis t code = Absolute Immature Granulocyte (auto) 0.01 0-0.1 [facility] HospitalFluoroscopic procedure less than one hour ffcvkbjf6231-41-82 05:50:00* Test Item Value Reference Range Interpretation Comments Differential Total Cells Counted (test code = Differami tial Total Cells Counted) 100 [facility] blood neutrophils/100 leukocytes 2020-04-17 05:50:00* Test Item Value Reference Range Interpretation Comments Neutrophils % (Manual) (test code = 58293-9) 56 40-74 [facility] blood lymphocytes/100 leukocytes 2020-04-17 05:50:00* Test Item Value Reference Range Interpretation Comments Lymphocytes % (Manual) (test code = 737-7) 32 19-48 [facility] blood monocytes/100 leukocytes 2020-04-17 05:50:00* Test Item Value Reference Range Interpretation Comments Monocytes % (Manual) (test code = 744-3) 5 3.4-9.0 [facility] blood eosinophil count as percentage of total unlkznkkrw6394-10-45 05:50:00* Test Item Value Reference Range Interpretation Comments Eosinophils % (Manual) (test code = 714-6) 6 0-7 [facility]ophil rrywstttuf9922-79-89 05:50:00* Test Item Value Reference Range Interpretation Comments Basophils % (Manual) (test code = 67860-1) 1 0-1.5 [facility] platelets count by estimate (number/volume)2020-04-17 05:50:00* Test Item Value Reference Range Interpretation Comments Platelet Estimate (test code = 83928-8) ADEQUATE [facility] HospitalPlatelet dunzxzcccp6936-96-32 05:50:00* Test Item Value Reference Range Interpretation Comments Platelet Morphology Comment (test code = 88434-1) RARE EDTA CLUMPIN G [facility] hypochromia detection by light pscwvcaqkk0341-08-42 05:50:00* Test Item Value Reference Range Interpretation Comments Hypochromasia (test code = 728-6) SLIGHT [facility] anisocytosis detection by light bkuovddbpt9241-07-50 05:50:00* Test Item Value Reference Range Interpretation Comments Anisocytosis (test code = 702-1) MODERATE [facility] macrocytes detection by light uycpmcnner1593-45-24 05:50:00* Test Item Value Reference Range Interpretation Comments Macrocytosis (test code = 738-5) SLIGHT [facility] dacrocytes detection by light kpgibgqqus1227-18-35 05:50:00* Test Item Value Reference Range Interpretation Comments Tear Drop Cells (test code = 7791-7) FEW [facility] ovalocytes detection by light jgsxbjwnjb3930-55-36 05:50:00* Test Item Value Reference Range Interpretation Comments Ovalocytes (test code = 774-0) [facility]W [facility] gyaqejgii6496-44-10 05:50:00 * Test Item Value Reference Range Interpretation Comments Elliptocytes (test code = 82759-1) SLIGHT [facility] schistocytes detection by light gaeuvztlwf3711-21-66 05:50:00* Test Item Value Reference Range Interpretation Comments Schistocytes (test code = 800-3) FEW [facility] fviloztujc5240-29-43 05:50:00* Test Item Value Reference Range Interpretation Comments Red Cell Morphology Comment (test code = 6742-1) ABNORMAL [facility] [place], [place]erum or plasma sodium measurement (moles/volume)2020-04-17 05:50:00* Test Item Value Reference Range Interpretation Comments Sodium Level (test code = 2951-2) 137 136-[address] [facility] [place], [place]erum or plasma potassium measurement (moles/volume)2020-04-17 05:50:00* Test Item Value Reference Range Interpretation Comments Potassium Level (test code = 2823-3) 4.6 3.5-5.[address] [facility] [place], [place]erum or plasma chloride measurement (moles/volume)2020-04-17 05:50:00* Test Item Value Reference Range Interpretation Comments Chloride Level (test code = 2075-0) 99 98-[address] [facility] [place], [place]erum or plasma carbon dioxide, total measurement (moles/volume)2020-04-17 05:50:00* Test Item Value Reference Range Interpretation Comments Carbon Dioxide Level (test code = 2028-9) 29 22-[address] [facility] [place], TXerum or plasma anion kau8674-16-67 05:50:00* Test Item Value Reference Range Interpretation Comments Anion Gap (test code = 90273-4) 13.6 8-[address] [facility] [place], [place]erum or plasma urea nitrogen measurement (mass/volume)2020-04-17 05:50:00* Test Item Value Reference Range Interpretation Comments Blood Urea Nitrogen (test code = 3094-0) 10 7-[address] [facility] [place], [place]erum or plasma creatinine measurement (mass/volume)2020-04-17 05:50:00* Test Item Value Reference Range Interpretation Comments Creatinine (test code = 2160-0) 0.73 0.57-1.[address] [facility] [place] [place]erum or plasma urea nitrogen/creatinine mass wlgfa9851-23-28 05:50:00* Test Item Value Reference Range Interpretation Comments BUN/Creatinine Ratio (test code = 3097-3) 14 6-25 [facility] HospitalEstimated glomerular filtration rate (GFR) msmdtngffjajh4563-23-17 05:50:00* Test Item Value Reference Range Interpretation Comments Estimat Glomerular Filtration Rate (test code = 746070804) > 60 >60 Ranges were taken from the National Kidney Disease Education Program and the [facility] literature.Reference ranges:60 or greater: Mjspsn42-25 ( for 3 consecutive months): Chronic kidney disease 15 or less: Kidney failureTexas Children's HospitalGlucose qqsheadxwlb1795-45-38 05:50:00* Test Item Value Reference Range Interpretation Comments Glucose Level (test code = ANM8878) 97 74-[address] [facility] [place], [place]erum or plasma calcium measurement (mass/volume)2020-04-17 05:50:00* Test Item Value Reference Range Interpretation Comments Calcium Level (test code = 79405-0) 7.4 8.4-10.2 [facility] HospitalFluoroscopic procedure less than one hour aqtgdlue9405-10-07 05:50:00* Test Item Value Reference Range Interpretation Comments Differential Total Cells Counted (test code = Differami tial Total Cells Counted) 100 [facility] blood neutrophils/100 leukocytes 2020-04-17 05:50:00* Test Item Value Reference Range Interpretation Comments Neutrophils % (Manual) (test code = 07266-6) 56 40-74 [facility] blood lymphocytes/100 leukocytes 2020-04-17 05:50:00* Test Item Value Reference Range Interpretation Comments Lymphocytes % (Manual) (test code = 737-7) 32 19-48 [facility] blood monocytes/100 leukocytes 2020-04-17 05:50:00* Test Item Value Reference Range Interpretation Comments Monocytes % (Manual) (test code = 744-3) 5 3.4-9.0 [facility] blood eosinophil count as percentage of total gisnvrhpek0958-30-05 05:50:00* Test Item Value Reference Range Interpretation Comments Eosinophils % (Manual) (test code = 714-6) 6 0-7 [facility] Hospital[facility]ual basophil pluyvzvuvv2760-53-25 05:50:00* Test Item Value Reference Range Interpretation Comments Basophils % (Manual) (test code = 26435-4) 1 0-1.5 [facility] HospitalBlood platelets count by estimate (number/volume)2020-04-17 05:50:00* Test Item Value Reference Range Interpretation Comments Platelet Estimate (test code = 45072-1) ADEQUATE [facility] HospitalPlatelet omjtojivpu2750-04-06 05:50:00* Test Item Value Reference Range Interpretation Comments Platelet Morphology Comment (test code = 81422-5) RARE EDTA CLUMPIN G [facility] hypochromia detection by light yoqlfoaakw9319-79-69 05:50:00* Test Item Value Reference Range Interpretation Comments Hypochromasia (test code = 728-6) [facility] yjegoxkkio8142-00-41 05:50:00* Test Item Value Reference Range Interpretation Comments Anisocytosis (test code = 702-1) MODERATE [facility] macrocytes detection by light qlophedlzx5708-83-16 05:50:00* Test Item Value Reference Range Interpretation Comments Macrocytosis (test code = 738-5) SLIGHT [facility] dacrocytes detection by light yzhvldllkk2621-38-44 05:50:00* Test Item Value Reference Range Interpretation Comments Tear Drop Cells (test code = 7791-7) FEW [facility] ovalocytes detection by light wthetvijmo1400-28-32 05:50:00* Test Item Value Reference Range Interpretation Comments Ovalocytes (test code = 774-0) FEW [facility] HospitalElliptocyte hggqjqlvt3370-35-03 05:50:00 * Test Item Value Reference Range Interpretation Comments Elliptocytes (test code = 57089-0) SLIGHT [facility] schistocytes detection by light bkjaxqbgwm1287-49-10 05:50:00* Test Item Value Reference Range Interpretation Comments Schistocytes (test code = 800-3) FEW [facility] HospitalRBC gozbxkfcmc0322-74-79 05:50:00* Test Item Value Reference Range Interpretation Comments Red Cell Morphology Comment (test code = 6742-1) ABNORMAL [facility] [place], TXerum or plasma iron measurement (mass/volume)2020-04-16 17:30:00* Test Item Value Reference Range Interpretation Comments Iron Level (test code = 2498-4) 142 50-[address] [facility] [place], TXerum or plasma iron binding capacity measurement (mass/volume)2020-04-16 17:30:00* Test Item Value Reference Range Interpretation Comments Total Iron Binding Capacity (test code = 2500-7) 164 261-[address] [facility] [place], TXerum or plasma iron saturation measurement (mass fraction)2020-04-16 17:30:00* Test Item Value Reference Range Interpretation Comments Percent Iron Saturation (test code = 2502-3) 87 15-[address] [facility] [place], [place]erum or plasma transferrin measurement (mass/volume)2020-04-16 17:30:00* Test Item Value Reference Range Interpretation Comments Transferrin (test code = 3034-6) 117 180-[address] [facility] [place], [place]erum or plasma ferritin measurement (mass/volume)2020-04-16 17:30:00* Test Item Value Reference Range Interpretation Comments Ferritin (test code = 2276-4) 352.29 4.63-204.[address] [facility] [place], TXerum or plasma thyrotropin measurement by detection limit <= 0.005 miu/l (units/volume)2020-04-16 17:30:00* Test Item Value Reference Range Interpretation Comments Thyroid Stimulating Hormone (TSH) (test code = 02347-5) 7.770 0.350-4.[address] [facility] [place], TXerum or plasma iron measurement (mass/volume)2020-04-16 17:30:00* Test Item Value Reference Range Interpretation Comments Iron Level (test code = 2498-4) 142 50-[address] [facility] [place], TXerum or plasma iron binding capacity measurement (mass/volume)2020-04-16 17:30:00* Test Item Value Reference Range Interpretation Comments Total Iron Binding Capacity (test code = 2500-7) 164 261-[address] [facility] [place], TXerum or plasma iron saturation measurement (mass fraction)2020-04-16 17:30:00* Test Item Value Reference Range Interpretation Comments Percent Iron Saturation (test code = 2502-3) 87 15-[address] [facility] [place], TXerum or plasma transferrin measurement (mass/volume)2020-04-16 17:30:00* Test Item Value Reference Range Interpretation Comments Transferrin (test code = 3034-6) 117 180-[address] [facility] [place], TXerum or plasma ferritin measurement (mass/volume)2020-04-16 17:30:00* Test Item Value Reference Range Interpretation Comments Ferritin (test code = 2276-4) 352.29 4.63-204.[address] [facility] [place], TXerum or plasma thyrotropin measurement by detection limit <= 0.005 miu/l (units/volume)2020-04-16 17:30:00* Test Item Value Reference Range Interpretation Comments Thyroid Stimulating Hormone (TSH) (test code = 71216-0) 7.770 0.350-4.940 [facility] HospitalTroponin I measurement by highly sensitive enzyme wrhlxsgidax2924-43-01 05:30:00* Test Item Value Reference Range Interpretation Comments Troponin I (test code = 78580-1) 0.020 0-0.[address] [facility] [place], TXerum or plasma phenytoin measurement (mass/volume)2020-04-16 05:00:00* Test Item Value Reference Range Interpretation Comments Phenytoin (Dilantin) Level (test code = 3968-5) 14.18 10-[address] [facility] [place], TXerum or plasma phenytoin measurement (mass/volume)2020-04-16 05:00:00* Test Item Value Reference Range Interpretation Comments Phenytoin (Dilantin) Level (test code = 3968-5) 14.18 10-20 [facility] HospitalBNP Iqa-cSzt2629-14-11 22:42:00* Test Item Value Reference Range Interpretation Comments B-Type Natriuretic Peptide (test code = 21158-0) 196.3 0-100 [facility] HospitalCHE[facility]INGLE (PORTABLE)2020-04-15 20:23:00 [place] [address] Patient Name: CORDELL GRIMM MR #: [id number] : 1945 Age/Sex: 74/F Req #: [id number] Adm Physician: Ordered by: Margaux Foreman MD Report #: [id number] Location: Room/Bed: Procedure: [id number] DX/CHEST S ANJALI (PORTABLE) Exam Date: 04/15/20 Exam Time: 1853 REPORT STATUS: Signed EXAMINATI ON: CHEST SINGLE (PORTABLE) INDICATION: Shortness of breath. COM PARISON: Multiple prior chest x-rays including most recent on 03/05/2020 FINDINGS: TUBES and LINES: None. LUNGS: Low lung volumes with b ronchovascular crowding. There is redemonstration of prominent interstitial mariel ng markings and opacification of the right lung base, slightly worsened since prior examination. There is now left basilar atelectasis There is elevation of the right hemidiaphragm. PLEURA: There is probable small bilateral pleura l effusion. No pneumothorax. HEART AND MEDIASTINUM: The heart is mildly enl arged as before. The mediastinal contour is otherwise within normal limits wit h atherosclerotic calcification of the thoracic aorta. BONES AND SOFT TIS SUES: No acute osseous lesion. Soft tissues are unremarkable. UPPER ABD OMEN: No free air under the diaphragm. IMPRESSION: Cardiomegaly with worsening pulmonary edema and bibasilar atelectasis. Superimposed multifocal pneumonia cannot be excluded. Signed by: Arjun Roman MD on 04/15/2020 8:29 PM Dictated By: ARJUN ROMAN MD 28 Transcribed By: KEV on 04/15/202028 COPY TO: MARGAUX FOREMAN MD Urine color qsnievijigpkz0466-92-09 19:50:00* Test Item Value Reference Range Interpretation Comments Urine Color (test code = 5778-6) YELLOW [facility]LLOW [facility] xuwkdmr3503-99-43 19:50:00* Test Item Value Reference Range Interpretation Comments Urine Clarity (test code = 94461-1) TURBID CLEAR [facility] [place], TXpecific gravity of Urine by Test strip 2020-04-15 19:50:00* Test Item Value Reference Range Interpretation Comments Urine Specific Earling (test code = 5811-5) 1.025 1.010-1.02 5 [facility] HospitalU[facility] pH measurement by automated test kczek8882-66-30 19:50:00* Test Item Value Reference Range Interpretation Comments Urine pH (test code = 03273-9) 5.5 5-7 [facility] HospitalU[facility] leukocyte esterase detection by vebkqahs6609-90-00 19:50:00* Test Item Value Reference Range Interpretation Comments Urine Leukocyte Esterase (test code = 5799-2) LARGE NEGATIVE [facility] HospitalU[facility] nitrite loupqpfuk5586-19-13 19:50:00* Test Item Value Reference Range Interpretation Comments Urine Nitrite (test code = 05147-0) POSITIVE NEGATIVE [facility] HospitalU[facility] protein measurement by test strip (mass/volume)2020-04-15 19:50:00* Test Item Value Reference Range Interpretation Comments Urine Protein (test code = 5804-0) 2+ NEGATIVE [facility] HospitalUrine glucose fagipnvsp1703-75-68 19:50:00* Test Item Value Reference Range Interpretation Comments Urine Glucose (UA) (test code = 2349-9) NEGATIVE NEGATIVE [facility] HospitalUrine ketones detection by automated test rympp9078-97-80 19:50:00* Test Item Value Reference Range Interpretation Comments Urine Ketones (test code = 82896-6) TRACE NEGATIVE [facility] HospitalUrine urobilinogen measurement by test strip (mass/volume)2020-04-15 19:50:00* Test Item Value Reference Range Interpretation Comments Urine Urobilinogen (test code = 33004-1) 1 0.2-1 [facility] Hospital[facility] total bilirubin measurement (mass/volume)2020-04-15 19:50:00* Test Item Value Reference Range Interpretation Comments Urine Bilirubin (test code = 1978-6) SMALL NEGATIVE [facility] HospitalU[facility] erythrocytes krcfgrhlp5282-24-96 19:50:00* Test Item Value Reference Range Interpretation Comments Urine Blood (test code = 86564-2) MODERATE NEGATIVE [facility] HospitalAutomated urine sediment leukocyte count by microscopy (number/high power field)2020-04-15 19:50:00* Test Item Value Reference Range Interpretation Comments Urine WBC (test code = 5821-4) 6-10 0-5 [facility] HospitalErythrocytes detection in urine sediment by light dyfosynlfl2345-23-17 19:50:00* Test Item Value Reference Range Interpretation Comments Urine RBC (test code = 31498-0) 11-20 0-5 [facility] HospitalBacteria detection in urine sediment by light pobehrxgtc5666-55-78 19:50:00* Test Item Value Reference Range Interpretation Comments Urine Bacteria (test code = 94302-8) MANY NONE [facility] HospitalEpithelial cells detection in urine sediment by light qyszzqbhrv1704-78-84 19:50:00* Test Item Value Reference Range Interpretation Comments Urine Epithelial Cells (test code = 06582-4) FEW NONE [facility] HospitalBacterial urine kpgfolg1072-85-56 19:50:00* Test Item Value Reference Range Interpretation Comments Urine Culture (test code = 630-4) KLEBSIELLA PNEUMONIAE [facility] HospitalUrine color lkyeijvwikbxj3392-42-32 19:50:00* Test Item Value Reference Range Interpretation Comments Urine Color (test code = 5778-6) YELLOW YELLOW [facility] HospitalUrine aqzjxms6601-32-68 19:50:00* Test Item Value Reference Range Interpretation Comments Urine Clarity (test code = 48619-7) TURBID CLEAR [facility] [place], [place]pecific gravity of Urine by Test strip 2020-04-15 19:50:00* Test Item Value Reference Range Interpretation Comments Urine Specific Earling (test code = 5811-5) 1.025 1.010-1.02 5 [facility] HospitalU[facility] pH measurement by automated test xqyig5157-29-34 19:50:00* Test Item Value Reference Range Interpretation Comments Urine pH (test code = 97904-1) 5.5 5-7 [facility] HospitalU[facility] leukocyte esterase detection by sjcekgyl8808-03-33 19:50:00* Test Item Value Reference Range Interpretation Comments Urine Leukocyte Esterase (test code = 5799-2) LARGE NEGATIVE [facility] HospitalUrine nitrite kgzmzgtcb4809-09-77 19:50:00* Test Item Value Reference Range Interpretation Comments Urine Nitrite (test code = 82067-6) POSITIVE NEGATIVE [facility] HospitalU[facility] protein measurement by test strip (mass/volume)2020-04-15 19:50:00* Test Item Value Reference Range Interpretation Comments Urine Protein (test code = 5804-0) 2+ NEGATIVE [facility] HospitalU[facility] glucose lzgorgbxd2466-22-30 19:50:00* Test Item Value Reference Range Interpretation Comments Urine Glucose (UA) (test code = 2349-9) NEGATIVE NEGATIVE [facility] HospitalUrine ketones detection by automated test fccbi4316-75-82 19:50:00* Test Item Value Reference Range Interpretation Comments Urine Ketones (test code = 32110-1) TRACE NEGATIVE [facility] HospitalUrine urobilinogen measurement by test strip (mass/volume)2020-04-15 19:50:00* Test Item Value Reference Range Interpretation Comments Urine Urobilinogen (test code = 56545-3) 1 0.2-1 [facility] HospitalU[facility] total bilirubin measurement (mass/volume)2020-04-15 19:50:00* Test Item Value Reference Range Interpretation Comments Urine Bilirubin (test code = 1978-6) SMALL NEGATIVE [facility] HospitalUrine erythrocytes sqetsrvkq8121-31-71 19:50:00* Test Item Value Reference Range Interpretation Comments Urine Blood (test code = 75816-4) MODERATE NEGATIVE [facility] HospitalAutomated urine sediment leukocyte count by microscopy (number/high power field)2020-04-15 19:50:00* Test Item Value Reference Range Interpretation Comments Urine WBC (test code = 5821-4) 6-10 0-5 [facility] HospitalErythrocytes detection in urine sediment by light bbwyfqdilh8207-73-07 19:50:00* Test Item Value Reference Range Interpretation Comments Urine RBC (test code = 19759-7) 11-20 0-5 [facility] HospitalBacteria detection in urine sediment by light spsotirkua4999-20-36 19:50:00* Test Item Value Reference Range Interpretation Comments Urine Bacteria (test code = 95614-7) MANY NONE [facility] HospitalEpithelial cells detection in urine sediment by light vjmdwdcflc7970-86-83 19:50:00* Test Item Value Reference Range Interpretation Comments Urine Epithelial Cells (test code = 71628-0) FEW NONE [facility] HospitalBacterial urine dhmaubm7110-94-57 19:50:00* Test Item Value Reference Range Interpretation Comments Urine Culture (test code = 630-4) KLEBSIELLA PNEUMONIAE [facility] HospitalFluoroscopic procedure less than one hour zangpzer3436-72-07 19:45:00* Test Item Value Reference Range Interpretation Comments Coronavirus (PCR) (test code = Coronavirus (PCR)) NOT DETECTED NOTD ETECTED SARS-COV2/RT-PCR CEPHEIDResults are for the detection of SARS-COV-2 RNA. The WILTON S-COV-2 RNA is generally detectable in nasopharyngeal swab specimens during the acute phase of infection. Positive results are indicitive of active infection wi th SARS-COV-2; clinical correlation with patient history and other diagnostic in formation is necessary to determine patient infection status. Positive results d o not rule out bacterial infection or co-infection with other viruses. The agent detected may not be the definite cause of the disease.TEST PERFORMED AT [facility] The limit of detection for this assay is 250 copies/mLThe SARS-CoV-2 test is a r apid, real-time RT-PCR test intended for the qualitative detection of nucleic ac id from SARS-CoV-2 in nasopharyngeal swab specimen collected from individuals barbosa spected of COVID-19 by their healthcare provider. This test has not been Food an d Drug Administration (FDA) cleared or approved and has been authorized by FDA u nder an Emergency Use Authorization (EUA). This EUA will be effective until the declaration that circumstances exist justifying the authorization of the emergen cy use of in vitro diagnostic test for detection and or diagnosis of COVID-19 is terminated under section 564(b) of the Act, or the the EUA is revoked under 564 (g) of the ACT.[facility] HospitalFluoroscopic procedure less than one hour cqfkrjdx4133-41-24 19:45:00* Test Item Value Reference Range Interpretation Comments Coronavirus (PCR) (test code = Coronavirus (PCR)) NOT DETECTED NOTD ETECTED SARS-COV2/RT-PCR CEPHEIDResults are for the detection of SARS-COV-2 RNA. The WILTON S-COV-2 RNA is generally detectable in nasopharyngeal swab specimens during the acute phase of infection. Positive results are indicitive of active infection wi th SARS-COV-2; clinical correlation with patient history and other diagnostic in formation is necessary to determine patient infection status. Positive results d o not rule out bacterial infection or co-infection with other viruses. The agent detected may not be the definite cause of the disease.TEST PERFORMED AT [facility] The limit of detection for this assay is 250 copies/mLThe SARS-CoV-2 test is a r apid, real-time RT-PCR test intended for the qualitative detection of nucleic ac id from SARS-CoV-2 in nasopharyngeal swab specimen collected from individuals barbosa spected of COVID-19 by their healthcare provider. This test has not been Food an d Drug Administration (FDA) cleared or approved and has been authorized by FDA u nder an Emergency Use Authorization (EUA). This EUA will be effective until the declaration that circumstances exist justifying the authorization of the emergen cy use of in vitro diagnostic test for detection and or diagnosis of COVID-19 is terminated under section 564(b) of the Act, or the the EUA is revoked under 564 (g) of the ACT.[facility] HospitalBlood lymphocytes variant count (number/volume)2020-04-15 19:37:00* Test Item Value Reference Range Interpretation Comments Reactive Lymphocytes (test code = 48584-1) 13 [facility] HospitalFluoroscopic procedure less than one hour jewqnspe6539-61-68 19:37:00* Test Item Value Reference Range Interpretation Comments Lactic Acid Level (test code = Lactic Acid Level) 1.3 0.5- 2.[address] [facility] [place], TXerum or plasma total bilirubin measurement (mass/volume)2020-04-15 19:37:00* Test Item Value Reference Range Interpretation Comments Total Bilirubin (test code = 1975-2) 0.6 0.2-1.2 [facility] HospitalFluoroscopic procedure less than one hour zcwqqynm1179-01-97 19:37:00* Test Item Value Reference Range Interpretation Comments Aspartate Amino Transf (AST/SGOT) (test code = Aspartate Amino Transf (AST/SGOT)) 36 5-[address] [facility] [place], TXerum or plasma alanine aminotransferase measurement (enzymatic activity/volume)2020-04-15 19:37:00* Test Item Value Reference Range Interpretation Comments Alanine Aminotransferase (ALT/SGPT) (test code = 1742-6) 16 0-[address] [facility] [place], [place]erum or plasma protein measurement (mass/volume)2020-04-15 19:37:00* Test Item Value Reference Range Interpretation Comments Total Protein (test code = 2885-2) 6.6 6.5-8.[address] [facility] [place], TXerum or plasma albumin measurement (mass/volume)2020-04-15 19:37:00* Test Item Value Reference Range Interpretation Comments Albumin (test code = 1751-7) 2.5 3.5-5.0 [facility] HospitalPlasma globulin measurement (mass/volume) 2020-04-15 19:37:00* Test Item Value Reference Range Interpretation Comments Globulin (test code = 48078-9) 4.1 2.3-3.[address] [facility] [place], [place]erum or plasma albumin/globulin mass nulcr0098-72-34 19:37:00* Test Item Value Reference Range Interpretation Comments Albumin/Globulin Ratio (test code = 1759-0) 0.6 0.8-2.[address] [facility] [place], [place]um [place] plasma alkaline phosphatase measurement (enzymatic activity/volume)2020-04-15 19:37:00* Test Item Value Reference Range Interpretation Comments Alkaline Phosphatase (test code = 6768-6) 115 40-150 [facility] variant count (number/volume)2020-04-15 19:37:00* Test Item Value Reference Range Interpretation Comments Reactive Lymphocytes (test code = 48896-0) 13 [facility] HospitalFluoroscopic procedure less than one hour gxjwjnqr2455-43-19 19:37:00* Test Item Value Reference Range Interpretation Comments Lactic Acid Level (test code = Lactic Acid Level) 1.3 0.5- 2.0 [facility] HospitalCapillary blood glucose measurement by glucometer (mass/volume)2020-03-10 11:45:00* Test Item Value Reference Range Interpretation Comments Bedside Glucose (test code = 78448-2) 116 70-120 Meter ID: [id number] leukocytes automated count (number/volume)2020-03-08 05:14:00* Test Item Value Reference Range Interpretation Comments White Blood Count (test code = 6690-2) 6.38 4.8-10.8 [facility] erythrocytes automated count (number/volume)2020-03-08 05:14:00* Test Item Value Reference Range Interpretation Comments Red Blood Count (test code = 789-8) 3.69 3.6-5.1 [facility] hemoglobin measurement (moles/volume)2020-03-08 05:14:00* Test Item Value Reference Range Interpretation Comments Hemoglobin (test code = 56965-7) 9.5 12.0-16.0 [facility] HospitalAutomated blood hematocrit (volume fraction)2020-03-08 05:14:00* Test Item Value Reference Range Interpretation Comments Hematocrit (test code = 4544-3) 31.6 34.2-44.1 [facility] HospitalAutomated erythrocyte mean corpuscular amrmzz0480-90-94 05:14:00* Test Item Value Reference Range Interpretation Comments Mean Corpuscular Volume (test code = 787-2) 85.6 81-99 [facility] HospitalAutomated erythrocyte mean corpuscular hemoglobin (mass per erythrocyte)2020-03-08 05:14:00* Test Item Value Reference Range Interpretation Comments Mean Corpuscular Hemoglobin (test code = 785-6) 25.7 28-32 [facility] HospitalAutomated erythrocyte mean corpuscular hemoglobin concentration measurement (mass/volume)2020-03-08 05:14:00* Test Item Value Reference Range Interpretation Comments Mean Corpuscular Hemoglobin Concent (test code = 786-4) 30.1 31-35 [facility] HospitalRDW PklDg-Yhr8651-00-04 05:14:00* Test Item Value Reference Range Interpretation Comments Red Cell Distribution Width (test code = 21204-3) 31.0 11.7 -14.4 [facility] HospitalAutomated blood platelet count (count/volume)2020-03-08 05:14:00* Test Item Value Reference Range Interpretation Comments Platelet Count (test code = 777-3) 159 140-360 [facility] HospitalAutomated blood segmented neutrophil count as percentage of total txylljfsgl3796-69-61 05:14:00* Test Item Value Reference Range Interpretation Comments Neutrophils (%) (Auto) (test code = 51800-4) 32.1 38.7-80.0 [facility] HospitalAutomated blood lymphocyte count as percentage ot total eiikvtufdd6705-72-09 05:14:00* Test Item Value Reference Range Interpretation Comments Lymphocytes (%) (Auto) (test code = 736-9) 57.1 18.0-39.1 [facility] HospitalAutomated blood monocyte count as percentage of total iuuqnlbpci5067-53-61 05:14:00* Test Item Value Reference Range Interpretation Comments Monocytes (%) (Auto) (test code = 5905-5) 6.9 4.4-11.3 [facility] HospitalAutunc healthed blood eosinophil count as percentage of total ypwedgvdqo0519-10-98 05:14:00* Test Item Value Reference Range Interpretation Comments Eosinophils (%) (Auto) (test code = 713-8) 3.3 0.0-6.0 [facility] HospitalAutomated blood basophil count as percentage of total jvsntvjjxr9749-44-75 05:14:00* Test Item Value Reference Range Interpretation Comments Basophils (%) (Auto) (test code = 706-2) 0.6 0.0-1.0 [facility] HospitalFluoroscopic procedure less than one hour ylvspyqi1993-04-78 05:14:00* Test Item Value Reference Range Interpretation Comments IM GRANULOCYTES % (test code = IM GRANULOCYTES %) 0.0 0.0- 1.0 [facility] HospitalAutomated blood neutrophil count 2020-03-08 05:14:00* Test Item Value Reference Range Interpretation Comments Neutrophils # (Auto) (test code = 751-8) 2.1 2.1-6.9 [facility] HospitalBlood lymphocytes count (number/volume) 2020-03-08 05:14:00* Test Item Value Reference Range Interpretation Comments Lymphocytes # (Auto) (test code = 39180-1) 3.6 1.0-3.2 [facility] HospitalBlk[facility] monocytes automated count (number/volume)2020-03-08 05:14:00* Test Item Value Reference Range Interpretation Comments Monocytes # (Auto) (test code = 742-7) 0.4 0.2-0.8 [facility] HospitalAutomated blood eosinophil count 2020-03-08 05:14:00* Test Item Value Reference Range Interpretation Comments Eosinophils # (Auto) (test code = 711-2) 0.2 0.0-0.4 [facility] HospitalAutunc healthed blood basophil count (count/volume)2020-03-08 05:14:00* Test Item Value Reference Range Interpretation Comments Basophils # (Auto) (test code = 704-7) 0.0 0.0-0.1 [facility] HospitalFluoroscopic procedure less than one hour fxjybjjk0623-66-00 05:14:00* Test Item Value Reference Range Interpretation Comments Absolute Immature Granulocyte (auto (louis t code = Absolute Immature Granulocyte (auto) 0 0-0.1 [facility] HospitalFluoroscopic procedure less than one hour zwzklstw6016-15-86 05:14:00* Test Item Value Reference Range Interpretation Comments Differential Total Cells Counted (test code = Differen tial Total Cells Counted) 100 [facility] blood neutrophils/100 leukocytes 2020-03-08 05:14:00* Test Item Value Reference Range Interpretation Comments Neutrophils % (Manual) (test code = 06161-2) 44 40-74 [facility] blood lymphocytes/100 leukocytes 2020-03-08 05:14:00* Test Item Value Reference Range Interpretation Comments Lymphocytes % (Manual) (test code = 737-7) 47 19-48 [facility] blood monocytes/100 leukocytes 2020-03-08 05:14:00* Test Item Value Reference Range Interpretation Comments Monocytes % (Manual) (test code = 744-3) 4 3.4-9.0 [facility] HospitalManual blood eosinophil count as percentage of total mzpbhzlngx3339-31-11 05:14:00* Test Item Value Reference Range Interpretation Comments Eosinophils % (Manual) (test code = 714-6) 5 0-7 [facility] platelets count by estimate (number/volume)2020-03-08 05:14:00* Test Item Value Reference Range Interpretation Comments Platelet Estimate (test code = 10015-3) ADEQUATE [facility] HospitalPlatelet uqhegzsoxg2941-30-24 05:14:00* Test Item Value Reference Range Interpretation Comments Platelet Morphology Comment (test code = 11878-3) NORMAL [facility] hypochromia detection by light hbkwmirhzp7712-05-57 05:14:00* Test Item Value Reference Range Interpretation Comments Hypochromasia (test code = 728-6) MODERATE [facility] anisocytosis detection by light xnifvceinr3107-20-57 05:14:00* Test Item Value Reference Range Interpretation Comments Anisocytosis (test code = 702-1) MODERATE [facility] microcytes detection by light vkcgqwhbwf7544-57-62 05:14:00* Test Item Value Reference Range Interpretation Comments Microcytosis (test code = 741-9) SLIGHT [facility] dacrocytes detection by light nkkrfrowmn1911-02-98 05:14:00* Test Item Value Reference Range Interpretation Comments Tear Drop Cells (test code = 7791-7) FEW [facility] ovalocytes detection by light vjnqsxnwsy4835-89-29 05:14:00* Test Item Value Reference Range Interpretation Comments Ovalocytes (test code = 774-0) FEW [facility] HospitalElliptocyte ggfiozvga0517-07-28 05:14:00 * Test Item Value Reference Range Interpretation Comments Elliptocytes (test code = 60826-6) SLIGHT [facility] HospitalRBC aujwqdoxyc7674-59-08 05:14:00* Test Item Value Reference Range Interpretation Comments Red Cell Morphology Comment (test code = 6742-1) ABNORMAL [facility] [place], [place]erum or plasma sodium measurement (moles/volume)2020-03-08 05:14:00* Test Item Value Reference Range Interpretation Comments Sodium Level (test code = 2951-2) 139 136-[address] [facility] [place], [place]erum or plasma potassium measurement (moles/volume)2020-03-08 05:14:00* Test Item Value Reference Range Interpretation Comments Potassium Level (test code = 2823-3) 3.4 3.5-5.[address] [facility] [place], [place]erum or plasma chloride measurement (moles/volume)2020-03-08 05:14:00* Test Item Value Reference Range Interpretation Comments Chloride Level (test code = 2075-0) 98 98-[address] [facility] [place], [place]erum or plasma carbon dioxide, total measurement (moles/volume)2020-03-08 05:14:00* Test Item Value Reference Range Interpretation Comments Carbon Dioxide Level (test code = 2028-9) 35 22-[address] [facility] [place], [place]erum or plasma anion juk0168-67-99 05:14:00* Test Item Value Reference Range Interpretation Comments Anion Gap (test code = 01008-4) 9.4 8-[address] [facility] [place], [place]erum or plasma urea nitrogen measurement (mass/volume)2020-03-08 05:14:00* Test Item Value Reference Range Interpretation Comments Blood Urea Nitrogen (test code = 3094-0) 9 7-[address] [facility] [place], [place]erum or plasma creatinine measurement (mass/volume)2020-03-08 05:14:00* Test Item Value Reference Range Interpretation Comments Creatinine (test code = 2160-0) 0.67 0.57-1.[address] [facility] [place], [place]erum or plasma urea nitrogen/creatinine mass ykatu2226-25-63 05:14:00* Test Item Value Reference Range Interpretation Comments BUN/Creatinine Ratio (test code = 3097-3) 13 6-25 [facility] HospitalEstimated glomerular filtration rate (GFR) cpwpoozhjgyvw5952-64-27 05:14:00* Test Item Value Reference Range Interpretation Comments Estimat Glomerular Filtration Rate (test code = 655121645) > 60 >60 Ranges were taken from the National Kidney Disease Education Program and the [facility] literature.Reference ranges:60 or greater: Bzapha78-12 ( for 3 consecutive months): Chronic kidney disease 15 or less: Kidney failureTexas Children's HospitalGlucose bgesbnpfkzn9033-47-45 05:14:00* Test Item Value Reference Range Interpretation Comments Glucose Level (test code = CGW2437) 105 74-[address] [facility] [place], [place]erum or plasma calcium measurement (mass/volume)2020-03-08 05:14:00* Test Item Value Reference Range Interpretation Comments Calcium Level (test code = 97893-3) 7.1 8.4-10.[address] [facility] [place], [place]erum or plasma magnesium measurement (mass/volume)2020-03-08 05:14:00* Test Item Value Reference Range Interpretation Comments Magnesium Level (test code = 38459-9) 1.6 1.3-2.1 [facility] HospitalBlood microcytes detection by light whgtojrece7531-78-08 05:14:00* Test Item Value Reference Range Interpretation Comments Microcytosis (test code = 741-9) SLIGHT [facility] [place], [place]erum or plasma magnesium measurement (mass/volume)2020-03-08 05:14:00* Test Item Value Reference Range Interpretation Comments Magnesium Level (test code = 15016-1) 1.6 1.3-2.1 [facility] HospitalBlood microcytes detection by light njmaqzyoru7961-69-47 05:14:00* Test Item Value Reference Range Interpretation Comments Microcytosis (test code = 741-9) SLIGHT [facility] [place], [place]erum or plasma magnesium measurement (mass/volume)2020-03-08 05:14:00* Test Item Value Reference Range Interpretation Comments Magnesium Level (test code = 54861-5) 1.6 1.3-2.1 [facility] HospitalProthrombin time (PT) in platelet poor plasma by coagulation gewft7677-48-90 05:20:00* Test Item Value Reference Range Interpretation Comments Prothrombin Time (test code = 5902-2) 16.1 11.9-14.5 [facility] HospitalINR in Platelet poor plasma by Coagulation gxsxk7085-35-82 05:20:00* Test Item Value Reference Range Interpretation Comments Prothromb Time International Ratio (test code = 6301-6) 1.22 Oral Anticoagulant Therapy INR Values:1. Low Intensity Therapy 1.5 - 2.02 . Moderate Intensity Therapy 2.0 - 3.03. High Intensity Therapy(1) 2.5 - 3. 54. High Intensity Therapy(2) 3.0 - 4.05. Panic Value INR > 5.0 [facility] HospitalActivated partial thromboplastin time (aPTT) in platelet poor plasma by coagulation iktcl5031-91-75 05:20:00* Test Item Value Reference Range Interpretation Comments Activated Partial Thromboplast Time (test code = 07018-7) 37.7 23.8-35.5 [facility] HospitalProthrombin time (PT) in platelet poor plasma by coagulation swaoj4496-46-04 05:20:00* Test Item Value Reference Range Interpretation Comments Prothrombin Time (test code = 5902-2) 16.1 11.9-14.5 [facility] HospitalINR in Platelet poor plasma by Coagulation dqzrv3606-19-04 05:20:00* Test Item Value Reference Range Interpretation Comments Prothromb Time International Ratio (test code = 6301-6) 1.22 Oral Anticoagulant Therapy INR Values:1. Low Intensity Therapy 1.5 - 2.02 . Moderate Intensity Therapy 2.0 - 3.03. High Intensity Therapy(1) 2.5 - 3. 54. High Intensity Therapy(2) 3.0 - 4.05. Panic Value INR > 5.0 [facility] HospitalActivated partial thromboplastin time (aPTT) in platelet poor plasma by coagulation aylti2259-78-05 05:20:00* Test Item Value Reference Range Interpretation Comments Activated Partial Thromboplast Time (test code = 77415-9) 37.7 23.8-35.5 [facility] HospitalProthrombin time (PT) in platelet poor plasma by coagulation exqml8721-69-05 05:20:00* Test Item Value Reference Range Interpretation Comments Prothrombin Time (test code = 5902-2) 16.1 11.9-14.5 [facility] HospitalINR in Platelet poor plasma by Coagulation iurdv2043-77-37 05:20:00* Test Item Value Reference Range Interpretation Comments Prothromb Time International Ratio (test code = 6301-6) 1.22 Oral Anticoagulant Therapy INR Values:1. Low Intensity Therapy 1.5 - 2.02 . Moderate Intensity Therapy 2.0 - 3.03. High Intensity Therapy(1) 2.5 - 3. 54. High Intensity Therapy(2) 3.0 - 4.05. Panic Value INR > 5.0 [facility] HospitalActivated partial thromboplastin time (aPTT) in platelet poor plasma by coagulation tyfso6241-62-66 05:20:00* Test Item Value Reference Range Interpretation Comments Activated Partial Thromboplast Time (test code = 49971-3) 37.7 23.8-35.5 [facility] HospitalFluoroscopic procedure less than one hour ozgpexff8277-85-54 05:40:00* Test Item Value Reference Range Interpretation Comments Hemoglobin A1c Percent (test code = Hemoglobin A1c Percent) 4.9 4.0-7.[address] [facility] [place], [place]erum or plasma iron measurement (mass/volume)2020-03-06 05:40:00* Test Item Value Reference Range Interpretation Comments Iron Level (test code = 2498-4) 150 50-[address] [facility] [place], [place]erum or plasma iron binding capacity measurement (mass/volume)2020-03-06 05:40:00* Test Item Value Reference Range Interpretation Comments Total Iron Binding Capacity (test code = 2500-7) 155 261-[address] [facility] [place], [place]erum or plasma iron saturation measurement (mass fraction)2020-03-06 05:40:00* Test Item Value Reference Range Interpretation Comments Percent Iron Saturation (test code = 2502-3) 97 15-[address] [facility] [place], [place]erum or plasma transferrin measurement (mass/volume)2020-03-06 05:40:00* Test Item Value Reference Range Interpretation Comments Transferrin (test code = 3034-6) 111 180-[address] [facility] [place], [place]erum or plasma total bilirubin measurement (mass/volume)2020-03-06 05:40:00* Test Item Value Reference Range Interpretation Comments Total Bilirubin (test code = 1975-2) 0.9 0.2-1.2 [facility] HospitalFluoroscopic procedure less than one hour wufotxia4999-24-86 05:40:00* Test Item Value Reference Range Interpretation Comments Aspartate Amino Transf (AST/SGOT) (test code = Aspartate Amino Transf (AST/SGOT)) 43 5-[address] [facility] [place], [place]erum or plasma alanine aminotransferase measurement (enzymatic activity/volume)2020-03-06 05:40:00* Test Item Value Reference Range Interpretation Comments Alanine Aminotransferase (ALT/SGPT) (test code = 1742-6) 21 0-[address] [facility] [place], [place]erum or plasma protein measurement (mass/volume)2020-03-06 05:40:00* Test Item Value Reference Range Interpretation Comments Total Protein (test code = 2885-2) 5.6 6.5-8.[address] [facility] [place], [place]erum or plasma albumin measurement (mass/volume)2020-03-06 05:40:00* Test Item Value Reference Range Interpretation Comments Albumin (test code = 1751-7) 1.8 3.5-5.0 [place] [facility] HospitalPlasma globulin measurement (mass/volume) 2020-03-06 05:40:00* Test Item Value Reference Range Interpretation Comments Globulin (test code = 47576-7) 3.8 2.3-3.[address] [facility] [place], TXerum or plasma albumin/globulin mass weppv5147-72-78 05:40:00* Test Item Value Reference Range Interpretation Comments Albumin/Globulin Ratio (test code = 1759-0) 0.5 0.8-2.[address] [facility] [place], [place]erum or plasma alkaline phosphatase measurement (enzymatic activity/volume)2020-03-06 05:40:00* Test Item Value Reference Range Interpretation Comments Alkaline Phosphatase (test code = 6768-6) 91 40-[address] [facility] [place], [place]erum or plasma triglyceride measurement (mass/volume)2020-03-06 05:40:00* Test Item Value Reference Range Interpretation Comments Triglycerides Level (test code = 2571-8) 66 0-[address] [facility] [place], [place]erum or plasma cholesterol measurement (mass/volume)2020-03-06 05:40:00* Test Item Value Reference Range Interpretation Comments Cholesterol Level (test code = 2093-3) 67 0-199 Less than 200 mg/dL Low Hbyq705 - 239 mg/dL Borderline Sava413 m g/dl and greater High Risk [facility] [place], [place]erum or plasma cholesterol in LDL measurement (mass/volume) 2020-03-06 05:40:00* Test Item Value Reference Range Interpretation Comments LDL Cholesterol (test code = 2089-1) 30 60-[address] [facility] [place], [place]erum or plasma cholesterol in HDL measurement (mass/volume)2020-03-06 05:40:00* Test Item Value Reference Range Interpretation Comments HDL Cholesterol (test code = 2085-9) 24 40-[address] [facility] [place], [place]erum or plasma total cholesterol/cholesterol in HDL mass qruji3346-27-62 05:40:00* Test Item Value Reference Range Interpretation Comments Cholesterol/HDL Ratio (test code = 9830-1) 2.8 3.0-3.[address] [facility] [place], [place]erum or plasma creatine kinase measurement (enzymatic activity/volume)2020-03-06 05:40:00* Test Item Value Reference Range Interpretation Comments Creatine Kinase (test code = 2157-6) 12 29-[address] [facility] [place], [place]erum or plasma creatine kinase MB measurement (mass/volume)2020-03-06 05:40:00* Test Item Value Reference Range Interpretation Comments Creatine Kinase MB (test code = 17775-8) 0.40 0-5.0 [place] [facility] HospitalTroponin I measurement by highly sensitive enzyme hfizmujhgmb7618-59-43 05:40:00* Test Item Value Reference Range Interpretation Comments Troponin I (test code = 63407-3) 0.014 0-0.[address] [facility] [place], [place]erum or plasma thyrotropin measurement by detection limit <= 0.005 miu/l (units/volume)2020-03-06 05:40:00* Test Item Value Reference Range Interpretation Comments Thyroid Stimulating Hormone (TSH) (test code = 42965-4) 6.324 0.350-4.[address] [facility] [place], [place]erum or plasma phenytoin measurement (mass/volume)2020-03-06 05:40:00* Test Item Value Reference Range Interpretation Comments Phenytoin (Dilantin) Level (test code = 3968-5) 3.18 10-20 [facility] HospitalFluoroscopic procedure less than one hour krknpzhb5742-07-30 05:40:00* Test Item Value Reference Range Interpretation Comments Hemoglobin A1c Percent (test code = Hemoglobin A1c Percent) 4.9 4.0-7.[address] [facility] [place], [place]erum or plasma triglyceride measurement (mass/volume)2020-03-06 05:40:00* Test Item Value Reference Range Interpretation Comments Triglycerides Level (test code = 2571-8) 66 0-[address] [facility] [place], [place]erum or plasma cholesterol measurement (mass/volume)2020-03-06 05:40:00* Test Item Value Reference Range Interpretation Comments Cholesterol Level (test code = 2093-3) 67 0-199 Less than 200 mg/dL Low Wwyp034 - 239 mg/dL Borderline Jgsn323 m g/dl and greater High Risk [facility] [place], TXerum or plasma cholesterol in LDL measurement (mass/volume) 2020-03-06 05:40:00* Test Item Value Reference Range Interpretation Comments LDL Cholesterol (test code = 2089-1) 30 60-[address] [facility] [place], [place]erum or plasma cholesterol in HDL measurement (mass/volume)2020-03-06 05:40:00* Test Item Value Reference Range Interpretation Comments HDL Cholesterol (test code = 2085-9) 24 40-[address] [facility] [place], [place]erum or plasma total cholesterol/cholesterol in HDL mass wswyx3579-46-81 05:40:00* Test Item Value Reference Range Interpretation Comments Cholesterol/HDL Ratio (test code = 9830-1) 2.8 3.0-3.[address] [facility] [place], [place]erum or plasma creatine kinase measurement (enzymatic activity/volume)2020-03-06 05:40:00* Test Item Value Reference Range Interpretation Comments Creatine Kinase (test code = 2157-6) 12 29-[address] [facility] [place], [place]erum or plasma creatine kinase MB measurement (mass/volume)2020-03-06 05:40:00* Test Item Value Reference Range Interpretation Comments Creatine Kinase MB (test code = 32476-9) 0.40 0-5.0 [facility] HospitalFluoroscopic procedure less than one hour qoxaothk5286-78-10 05:40:00* Test Item Value Reference Range Interpretation Comments Hemoglobin A1c Percent (test code = Hemoglobin A1c Percent) 4.9 4.0-7.[address] [facility] [place], [place]erum or plasma triglyceride measurement (mass/volume)2020-03-06 05:40:00* Test Item Value Reference Range Interpretation Comments Triglycerides Level (test code = 2571-8) 66 0-[address] [facility] [place], TXerum or plasma cholesterol measurement (mass/volume)2020-03-06 05:40:00* Test Item Value Reference Range Interpretation Comments Cholesterol Level (test code = 2093-3) 67 0-199 Less than 200 mg/dL Low Sncy762 - 239 mg/dL Borderline Jefe825 m g/dl and greater High Risk [facility] [place], TXerum or plasma cholesterol in LDL measurement (mass/volume) 2020-03-06 05:40:00* Test Item Value Reference Range Interpretation Comments LDL Cholesterol (test code = 2089-1) 30 60-[address] [facility] [place], TXerum or plasma cholesterol in HDL measurement (mass/volume)2020-03-06 05:40:00* Test Item Value Reference Range Interpretation Comments HDL Cholesterol (test code = 2085-9) 24 40-[address] [facility] [place], TXerum or plasma total cholesterol/cholesterol in HDL mass kvukt0458-56-17 05:40:00* Test Item Value Reference Range Interpretation Comments Cholesterol/HDL Ratio (test code = 9830-1) 2.8 3.0-3.6 [facility]2020-03-05 14:59:00 [facility] [address] [place] [address] Patient Name: CORDELL GRIMM MR #: [id number] : 1945 Age/Sex: 74/F Req #: [id number] Adm Physician: Ordered by: WENDY MAJOR MD Report #: [id number] Location: ER Room/Bed: Procedure: [id number] DX/CHEST SINGLE (PORTABLE) Exam Date: 03/05/20 Exam [...] MD 1512 Transcribed By: KEV on 03/05/20 151 2 COPY TO: WENDY MAJOR MD Blood lymphocytes variant count (number/volume)2020-03-05 13:54:00* Test Item Value Reference Range Interpretation Comments Reactive Lymphocytes (test code = 10297-6) 2 [facility] color qsiamjjeurzpw6510-05-17 13:54:00* Test Item Value Reference Range Interpretation Comments Urine Color (test code = 5778-6) YELLOW YELLOW [facility] [id number] 13:54:00* Test Item Value Reference Range Interpretation Comments Urine Clarity (test code = 44920-2) SL CLOUDY CLEAR [facility] [place] [place] gravity of Urine by Test strip 2020-03-05 13:54:00* Test Item Value Reference Range Interpretation Comments Urine Specific Earling (test code = 5811-5) 1.025 1.010-1.02 5 [facility] pH measurement by automated test [id number] 13:54:00* Test Item Value Reference Range Interpretation Comments Urine pH (test code = 66006-5) 5.5 5-7 [facility] leukocyte esterase detection by [id number] 13:54:00* Test Item Value Reference Range Interpretation Comments Urine Leukocyte Esterase (test code = 5799-2) TRACE NEGATIVE [facility] nitrite [id number] 13:54:00* Test Item Value Reference Range Interpretation Comments Urine Nitrite (test code = 67569-5) NEGATIVE NEGATIVE [facility] protein measurement by test strip (mass/volume)2020-03-05 13:54:00* Test Item Value Reference Range Interpretation Comments Urine Protein (test code = 5804-0) TRACE NEGATIVE [facility] glucose iefstocnx0173-47-17 13:54:00* Test Item Value Reference Range Interpretation Comments Urine Glucose (UA) (test code = 2349-9) NEGATIVE NEGATIVE [facility] ketones detection by automated test qfsjb3694-26-21 13:54:00* Test Item Value Reference Range Interpretation Comments Urine Ketones (test code = 85184-8) TRACE NEGATIVE [facility] urobilinogen measurement by test strip (mass/volume)2020-03-05 13:54:00* Test Item Value Reference Range Interpretation Comments Urine Urobilinogen (test code = 08356-2) 1 0.2-1 [facility] total bilirubin measurement (mass/volume)2020-03-05 13:54:00* Test Item Value Reference Range Interpretation Comments Urine Bilirubin (test code = 1978-6) SMALL NEGATIVE [facility] erythrocytes senhlwuux4573-77-61 13:54:00* Test Item Value Reference Range Interpretation Comments Urine Blood (test code = 50757-4) TRACE NEGATIVE [facility] HospitalAutomated urine sediment leukocyte count by microscopy (number/high power field)2020-03-05 13:54:00* Test Item Value Reference Range Interpretation Comments Urine WBC (test code = 5821-4) 11-20 0-5 [facility] HospitalErythrocytes detection in urine sediment by light pwrqffaihr9227-99-01 13:54:00* Test Item Value Reference Range Interpretation Comments Urine RBC (test code = 09694-6) 0-5 0-5 [facility] HospitalBacteria detection in urine sediment by light rbjynrmwcz0249-46-83 13:54:00* Test Item Value Reference Range Interpretation Comments Urine Bacteria (test code = 22661-3) FEW NONE [facility] HospitalEpithelial cells detection in urine sediment by light [id number] 13:54:00* Test Item Value Reference Range Interpretation Comments Urine Epithelial Cells (test code = 48569-5) FEW NONE [facility] HospitalBNP Vbs-[id number] 13:54:00* Test Item Value Reference Range Interpretation Comments B-Type Natriuretic Peptide (test code = 12262-6) 276.5 0-100 [facility] HospitalFluoroscopic procedure less than one hour kblhcnen6497-10-88 13:54:00* Test Item Value Reference Range Interpretation Comments Coronavirus (PCR) (test code = Coronavirus (PCR)) NOT DETECTED NOTD ETECTED SARS-COV2/RT-PCRNegative results do not preclude SARS-CoV-2 infection and should not be used as the sole basis for patient management decisions. Negative result s must be combined with clinical observations, patient [...] use of in vitro diagnostic test for detectio n and or diagnosis of COVID-19 is terminated under section 564(b) of the Act, or the the EUA is revoked under 564(g) of the ACT.Testing performed by [address] [address]BRYTexas Children's HospitalBlood sbybdky4243-00-26 13:54:00* Test Item Value Reference Range Interpretation Comments Blood Culture (test code = 82435782) NO GROWTH AFTER 5 DAYS, FINAL REPORT [facility] HospitalBacterial urine tszbljl9356-46-74 13:54:00* Test Item Value Reference Range Interpretation Comments Urine Culture (test code = 630-4) ENTEROCOCCUS FAECIUM [facility] mmkvgit1232-35-42 13:54:00* Test Item Value Reference Range Interpretation Comments Blood Culture (test code = 43455244) NO GROWTH AFTER 5 DAYS, [facility]AL REPORT [facility] gmwnxmk5495-50-49 13:54:00* Test Item Value Reference Range Interpretation Comments Blood Culture (test code = 45580811) NO GROWTH AFTER 5 DAYS, FINAL REPORT [facility]
== END 2020-04-21 16:48 | disposition home or self-care (01) ==
LOC: ER 12:50
DX: I50.9 Heart failure, unspecified (principal); R10.13 Epigastric pain; I10 Essential (primary) hypertension; E11.9 Type 2 diabetes mellitus without complications; E03.9 Hypothyroidism, unspecified; E78.5 Hyperlipidemia, unspecified; G40.909 Epilepsy, unspecified, not intractable, without status epilepticus; Z95.1 Presence of aortocoronary bypass graft
CPT/HCPCS: 36415; 71045; 80053; 82550; 82553; 83880; 84484; 85025; 93005; 99285; J1940; Q9967

== ENCOUNTER 2020-05-17 13:27 | Inpatient (IN) | payer MEDICARE, OTHER ==
[~2020-05-17] VITALS: Ht 170.2 cm; Wt 123.4 kg
--- OUTSIDE RECORDS SUMMARY | 2020-05-17 14:17 | XMS REPORT | Clinical Summary ---
Author Author DANAE [facility] Address Unknown Phone Unavailable Care Team Providers Care Professional Volleyball Player Name Role Phone Latanya Frias PCP Unavailable Allergies Comments Active Allergy Reactions Severity Noted Date Penicillins 02/10/2014 Sulfa (Sulfonamide 02/10/2014 Antibiotics) Medications End Date Status Medication Sig Dispensed Refills Start Date Active oxybutynin (DITROPAN XL) Take 15 mg by 0 15 MG 24 hr tablet mouth 2 (two) times daily. Active atorvastatin (LIPITOR) 80 Take 1 tablet 30 tablet 3 MG tablet (80 mg total) 4 by mouth daily. Active levothyroxine (SYNTHROID, Take 1 tablet 30 tablet 4 LEVOTHROID) 75 MCG tablet (75 mcg 4 total) by mouth daily. Active lisinopril Take 1 tablet 30 tablet 3 (PRINIVIL,ZESTRIL) 5 MG (5 mg total) 4 tablet by mouth daily. Active metoprolol (LOPRESSOR) 25 Take 1 tablet 60 tablet 3 MG tablet (25 mg total) 4 by mouth 2 (two) times daily. Active omeprazole (PRILOSEC) 40 Take 1 30 capsule 3 0 MG capsule capsule (40 4 mg total) by mouth daily. Active Problems No known active problems Family History Medical History Relation Name Comments Stroke Father Coronary artery disease Mother Diabetes type II Mother Hypertension Mother Pancreatic cancer Mother Relation Name Status Comments Father Mother Social History Date Tobacco Use Types Packs/Day Years Used Never Smoker Smokeless Tobacco: Never Used Drinks/Week oz/Week Comments Alcohol Use No Sex Assigned at Date Recorded Not on file Last Filed Vital Signs Not on file Plan of Treatment Not on file Implants Device Identifier Shelf Expiration Date Model / Serial / L ot Implanted Type Area Manufactur er 04/04/2015 [id number] / / [id number] Sealant,Floseal Hemostatic Matrix Cement/Glenn Left: Brain FRANCO 10ml - [id number] ler/Adhesi BIOSCIENCE Implanted: Qty: 2 on 02/11/2014 by Rosalie Coyne MD at [facility] [id number] / / Cover,Bur Hole Low Prof 14mm W/Tab Fracture/F Left: Crani um WERNER - [id number] ixation CRANIOMAXI Implanted: Qty: 1 on 02/11/2014 by Rosalie Alcazar MD at [facility] [id number] / / Screw,Self-Drill 1.5 Univ Cross-Pin Fracture/F Left: Cran ium WERNER 4mm - [id number] ixation CRANIOMAXI Implanted: Qty: 7 on 02/11/2014 by Rosalie Alcazar MD at [facility] [id number] / / Plate,Low Prof 2 Hole 16mm Bar - Fracture/F Left: Cranium WERNER [id number] ixation CRANIOMAXI Implanted: Qty: 2 on 02/11/2014 by Rosalie Alcazar MD at [facility] 10/02/2016 [id number] / / [id number] Graft,Duragen Dural Matrix 2x2" - Tissue Left: Brain INTEGRA [id number] Graft/Subs NEUROCARE/ Implanted: Qty: 1 on 02/11/2014 by Rosalie Valiente MD at [facility] Results Not on fileafter 05/17/2019 Insurance Type Payer Benefit Subscriber ID Effective Phone Address Plan / Dates Group [facility] [id number] 2008-P MEDICARE resent ADV Advance Directives For more information, please contact: [phone] Date Inactivated Comments Code Status Date Activated 02/24/2014 6:30 PM Full Code 02/21/2014 1:45 PM This code status was determined by: Patient 02/16/2014 11:09 PM Full Code 02/10/2014 2:43 AM This code status was determined by: Patient
--- OUTSIDE RECORDS SUMMARY | 2020-05-17 14:17 | XMS REPORT | Clinical Summary ---
Author Author [facility] Organization [facility] Address Unknown Phone Unavailable Care Team Providers Care Building Carpenter Name Role Phone Cheyenne Hendrix MD PCP [...] Dx); Hypokalemia 03/03/2020 Emergency Emergency Medicine after 05/17/2019 Surgical History Surgery Date Site/Laterality Comments CORONARY ARTERY BYPASS GRAFT CATARACT EXTRACTION HYSTERECTOMY Medical History Medical History Date Comments Hypertension Diabetes mellitus (HCC) Disease of thyroid gland Seizures (HCC) Cancer (HCC) UTERINE AND BREAST Coronary artery disease Arrhythmia Atrial fibrillation (HCC) Social History Date Tobacco Use Types Packs/Day Years Used Never Smoker Smokeless Tobacco: Never Used Drinks/Week oz/Week Comments Alcohol Use No Sex Assigned at Date Recorded Not on file Last Filed Vital Signs Reading Time Taken [...] Routine 03/03/2020 INTERPRETATION 3:01 PM CDT after 05/17/2019 Results * Us duplex venous upper extremity (03/03/2020 3:40 PM CDT) Specimen Narrative Performed At [facility] There is no evidence of DVT in the r ight upper extremity and left internal jugular vein. Performing Organization Address City/State/ZIP Code P brittany Number [facility] [address] [place] [address], * Estimated GFR (03/03/2020 3:36 PM CDT) Pathologist [facility] Estimated GFR 84 mL/min/1.73 m2 [place] Comment: [facility] Interpretation G1 >=90 Normal or high G2 [...] published in 2014. Specimen Performing Organization Address City/State/ZIP Code [place] [address] [address] [place], [place] [address] PATHOLOGY AND GENOMIC MEDICINE [facility] [address] [address] [place] [address] [facility] * Manual differential (03/03/2020 3:36 PM CDT) Manual PERFORMED [place] differential [facility] Neutrophils 41.0 39.0 - 69.0 % [facility] Lymphocytes 52.0 (H) 25.0 - 45.0 % [facility] Monocytes 2.0 0.0 - 10.0 % [facility] Eosinophils 5.0 0.0 - 5.0 % [facility] Basophils 0.0 0.0 - 1.0 % [facility] Metamyelocytes 0 % [facility] Promyelocytes 0 % [facility] Platelet slide Abhijit adequate [place] review [facility] Anisocytosis Moderate [facility] Tear drop cells Occasional [facility] Ovalocytes occasional [facility] Elliptocytes Occasional [facility] Specimen Performing Organization Address City/State/ZIP Code [place] [address] [address] [place], [place] [address] PATHOLOGY AND GENOMIC MEDICINE [facility] [address] [address] [place] [address] [facility] * CBC with platelet and differential (03/03/2020 3:36 PM CDT) WBC 5.53 4.50 - 11.00 k/uL [facility] RBC 3.81 (L) 4.20 - 5.50 m/uL [facility] HGB 10.1 (L) 12.0 - 16.0 g/dL [facility] HCT 35.0 (L) 37.0 - 47.0 % [facility] MCV 91.9 82.0 - 100.0 fL [facility] MCH 26.5 (L) 27.0 - 34.0 pg [facility] MCHC 28.9 (L) 31.0 - 37.0 g/dL [facility] RDW - SD 102.2 (H) 37.0 - 55.0 fL [facility] MPV SEE COMMENTComment: No report 8.8 - 13.2 fL [facility] Platelet count 150 150 - 400 k/uL [facility] Nucleated RBC 0.00 /100 WBC [facility] Neutrophils 41.0 39.0 - 69.0 % [facility] Lymphocytes 52.0 (H) 25.0 - 45.0 % [facility] Monocytes 2.0 0.0 - 10.0 % [facility] Eosinophils 5.0 0.0 - 5.0 % [facility] Basophils 0.0 0.0 - 1.0 % [facility] Specimen Blood Performing Organization Address City/State/ZIP Code [place] [address] [address] [place], [place] [address] PATHOLOGY AND GENOMIC MEDICINE [facility] [address] [place] [address] [facility] * Comprehensive metabolic panel (03/03/2020 3:36 PM CDT) Sodium 140 135 - 148 mEq/L [facility] Potassium 3.1 (L) 3.5 - 5.0 mEq/L [facility] Chloride 100 98 - 112 mEq/L [facility] CO2 34 (H) 24 - 31 mEq/L [facility] Anion gap 6@ANIO (L) 7 - 15 mEq/L [facility] BUN 9 8 - 23 mg/dL [facility] Creatinine 0.70 0.50 - 0.90 mg/dL [facility] Glucose 121 (H) 65 - 99 mg/dL [facility] Calcium 8.2 (L) 8.8 - 10.2 mg/dL [facility] Protein 6.4 6.3 - 8.3 g/dL [place] Comment: [facility] Arabi 4.6-7.0 g/dL 1 week 4.4-7.6 g/dL 7 months-1year 5.1-7.3 g/dL 1-2 years 5.6-7.5 g/dL >3 years 6.0-8.0 g/dL 18-150 6.3-8.3 g/dL Albumin 2.3 (L) 3.5 - 5.0 g/dL [facility] A/G ratio 0.6 (L) 0.7 - 3.8 [facility] Alkaline 108 (H) 35 - 104 U/L [place] phosphatase [facility] AST 45 (H) 10 - 35 U/L [facility] ALT 23 5 - 50 U/L [facility] Total bilirubin 0.9 0.0 - 1.2 mg/dL [facility] Specimen Blood Performing Organization Address City/State/ZIP Code [place] [address] [address] [place] [address] PATHOLOGY AND GENOMIC MEDICINE [facility] [address] [place] [address] [facility] * XR Chest 1 Vw Portable (03/03/2020 [...] sent. The regional osseous structures appear stable. [id number] Procedure Note Hm Interface, Radiology Results Incoming [...] present. The regional osseous structures appear stable. [facility]-[id number] Performing Organization Address City/State/ZIP Code P brittany Number [facility] [address] [place] [address] * ECG 12 lead (03/03/2020 3:07 PM CDT) Ventricular 78 [facility] rate Atrial rate 78 [facility] ID interval 164 [facility] QRSD interval 90 [facility] QT interval 448 [facility] QTC interval 510 [facility] P axis 1 97 [facility] QRS axis 1 18 [facility] T wave axis 10 [facility] EKG impression Normal sinus rhythm-Cannot [facility] rule out Anterior infarct , age undetermined-Prolonged QT-Abnormal ECG-In automated comparison with ECG of 05-DEC-2017 19:43,-Sinus rhythm has replaced Junctional rhythm-Nonspecific T wave abnormality, improved in Lateral leads-QT has lengthened- Specimen Narrative Performed At This result has an attachment that is n ot available. Performing Organization Address City/State/ZIP Code P brittany Number [facility] [address] [place] [address] * ECG ED Preliminary Interpretation - Not an Order (03/03/2020 3:01 PM CDT) Narrative Performed At Juan Antonio Levi MD 03/03/2020 6:03 PM ECG ED Preliminary Interpretation - Not an Order Performed by: Juan Antonio Levi MD Authorized by: Juan Antonio Levi MD ECG reviewed by ED Physician in the abs ence of a parts administrator: yes (read at 1507) Interpretation: Interpretation: normal Rate: ECG rate: 78 ECG rate assessment: normal Rhythm: Rhythm: sinus rhythm Ectopy: Ectopy: none QRS: QRS axis: Normal QRS intervals: Normal Conduction: Conduction: normal ST segments: ST segments: Normal T waves: T waves: normal Other findings: Other findings: prolonged qTc interva l after 05/17/2019 Insurance Type Payer Benefit Subscriber ID Effective Phone Address Plan / Dates Group [facility] [id number] 2008- P ADVANTAGE resent [facility] Advance Directives For more information, please contact: [phone] 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
--- OUTSIDE RECORDS SUMMARY | 2020-05-17 14:18 | XMS REPORT | Continuity of Care Document ---
Author Author [facility] t Organization [facility] Address [address] [place] [address] Phone Unavailable Care Team Providers Care Paying Teller Name Role Phone NONSTAFF PCP Unavailable Desire MORATAYA Attphys Unavailable Misael Foreman Attphys Unavailable Juan MAJOR Attphys Unavailable Amita PONCE, Ted Romano Attphys Payers Payer Name Policy Type Policy Number Effective Date Expiration Date [facility] Medicare Advantage [id number] 2008 00:0 0:00 [facility] Cdc Review Covid19 [id number] [facility] ADVANTAGE [id number] [id number] 2008 00:00:00 Neto Menon Problems Condition Name Condition Details Condition Category Status Onset Date Resolution Date Last Treatment Date Treating Clinician Comments Source Ventricular tachycardia Ventricular tachycardia Disease Active 2017-10-15 00:00:00 Neto soto Severe sepsis Severe sepsis Disease Active 2016-12-07 00:00:00 Neto Menon Generalized edema Problem Active [facility] Congestive heart failure Problem Active [facility] Hypoalbuminemia Problem Active [facility] Urinary tract infection Problem Active [facility] Pressure injury of skin Problem Active [facility] Supraventricular tachycardia Problem Active [facility] Allergies, Adverse Reactions, Alerts Allergy Name Allergy Type Status Severity Reaction(s) Onset Date Inacti ve Date Treating Clinician Comments Source Penicillin Allergy to substance Active Severe "SHORT OF BREATH, LIPS PURPLE AND SWELLING, RASH" 2020-03-05 00:00:[address] [facility] Sulfa (Sulfonamide Antibiotics) Allergy to substance Active 2020-03-05 00:00:00 [facility] Penicillin G Propensity to adverse reactions to drug Active Hives 2016-12-07 00:00:00 Neto loving Sulfa (Sulfonamide Antibiotics) Propensity to adverse reactions to drug Active Hives, Swelling 2016-12-07 00:00:00 Neto Menon Penicillins Propensity to adverse reactions Active 2013 00:00:00 [facility] Sulfa (Sulfonamide Antibiotics) Propensity to adverse reactions Activ e 2014-02-10 00:00:00 [facility] Family History Family Member Diagnosis Comments Start Date Stop Date Source Natural father Stroke [facility] Natural mother Coronary artery disease [facility] Natural mother Diabetes type II [facility] Natural mother Hypertension [facility] Natural mother Pancreatic cancer [facility] Social History Social Habit Start Date Stop Date Quantity Comments Source Sex Assigned [place] [facility] Tobacco use and exposure 2017-12-05 00:00:00 2017-12-05 00:00:00 Chente rollins used Neto Menon Alcohol intake 2017-12-05 00:00:00 2017-12-05 00:00:00 Current [...] 14:46:00 Yes 500 Every 8 H ours [facility] omeprazole (PriLOSEC) 20 MG capsule 2017-12-05 20:37:51 [...] MG tablet 2017-09-18 00:00:00 Y es 1{tbl} [id number] Take 1 tablet by mouth 3 (three) [...] 100 mg by mouth daily. Neto bonilla oxybutynin (DITROPAN XL) 15 MG 24 hr tablet 2014-02-26 18:00:15 Yes 15mg Q.5D Take 15 mg by mouth 2 (two) times daily. [facility] atorvastatin (LIPITOR) 80 MG tablet 2014-02-24 00:00:00 Yes 80mg QD Take 1 tablet (80 mg total) by mouth daily. Maya [facility] levothyroxine (SYNTHROID, LEVOTHROID) 75 MCG tablet 02-24 00:00:00 Yes 75ug QD Take 1 tablet (75 mcg total) by mouth da becca. [facility] lisinopril (PRINIVIL,ZESTRIL) 5 MG tablet 2014-02-24 00:00:00 Yes 5mg QD Take 1 tablet (5 mg total) by mouth daily. [facility] metoprolol (LOPRESSOR) 25 MG tablet 2014-02-24 00:00:00 Yes 25mg Q.5D Take 1 tablet (25 mg total) by mouth 2 (two) times daily. [facility] omeprazole (PRILOSEC) 40 MG capsule 2014-02-24 00:00:00 Yes 40mg QD Take 1 capsule (40 mg total) by mouth daily. [facility] multivitamin (THERAGRAN) tablet 2013-12-10 00:00:00 Yes 1{tbl} QD Take 1 tablet by mouth daily. Neto Menon Aspirin (Aspir 81) 81 Mg TABLET. Aspirin (Aspir 81) 81 Mg TABLET. Yes 81 Daily [facility] Atorvastatin Calcium (Lipitor) 80 Mg TABLET Atorvastat in Calcium (Lipitor) 80 Mg TABLET Yes [address] [facility] Furosemide Furosemide Yes 20 Daily [facility] Levothyroxine Sodium Levothyroxine Sodium Yes 75 Daily [facility] Metoprolol Tartrate Metoprolol Tartrate Yes 25 Twice A Day [facility] Omeprazole (Prilosec) 20 Mg CAPSULE. Omeprazole (Prilosec) 20 Mg CAPSULE. Yes 20 Daily [facility] Phenytoin Sodium Extended Phenytoin Sodium Extended Yes 200 Twice A Day [facility] Sitagliptin Phosphate (Januvia) 100 Mg TABLET Sitaglip tin Phosphate (Januvia) 100 Mg TABLET Yes 100 Daily [facility] Cephalexin Cephalexin 2020-04-18 00:00:00 No 500 Nusrat ly [facility] Losartan Potassium Losartan Potassium 2020-04-18 00:00:00 No 25 Daily [facility] Levothyroxine Sodium (Levoxyl) 75 Mcg TABLET Levothyro xine Sodium (Levoxyl) 75 Mcg TABLET 2020-04-16 00:00:00 No 75 Daily [facility] Citalopram Hydrobromide (Citalopram Hbr) 40 Mg TABLET Citalopram Hydrobromide (Citalopram Hbr) 40 Mg TABLET 2020-03-05 00:00:00 No 40 Rt Daily [facility] Lisinopril (Prinivil) 5 Mg TABLET Lisinopril (Prinivil) 5 Mg TAB LET 2020-03-05 00:00:00 No 5 Rt Daily [facility] Nitrofurantoin Macrocrystal (Nitrofurantoin) 100 Mg CA PSULE Nitrofurantoin Macrocrystal (Nitrofurantoin) 100 Mg CAPSULE 2020-03-05 00:00:00 No 100 Twice A Day [facility] Oxybutynin Chloride (Oxybutynin Chloride Er) 15 Mg TAB .ER.24 Oxybutynin Chloride (Oxybutynin Chloride Er) 15 Mg TAB.ER.24 2020-03-05 00:00:00 No 15 Twice A Day [facility] Sitagliptin Phosphate (Januvia) 100 Mg TABLET Sitaglip tin Phosphate (Januvia) 100 Mg TABLET 2020-03-05 00:00:00 No 100 Rt Daily [facility] Vital Signs Vital Name Observation Time Observation Value Comments Source Body Temperature 2020-04-21 15:53:00 98.4 [degF] [facility] Weight 2020-04-21 12:17:00 280 [lb_av] [facility] BMI (Body Mass Index) 2020-04-21 12:17:00 12.2 kg/m2 [facility] Body Temperature 2020-04-18 15:36:00 98.0 [degF] [facility] Weight 2020-04-16 01:14:00 280.60 [lb_av] [facility] BMI (Body Mass Index) 2020-04-16 01:14:00 43.9 kg/m2 [facility] Body Temperature 2020-03-10 16:19:00 98.1 [degF] [facility] Weight 2020-03-10 00:26:00 286.01 [lb_av] [facility] BMI (Body Mass Index) 2020-03-10 00:26:00 44.8 kg/m2 [facility] Heart rate 2020-03-03 17:30:00 83 /min Neto [...] Time Performed Performing Clinician [facility] US DUPLEX VENOUS UPPER EXTREMITY RIGHT 2020-03-03 15:40:00 Moni Grover CBC WITH PLATELET AND DIFFERENTIAL 2020-03-03 15:36:00 Moni Morgan COMPREHENSIVE METABOLIC PANEL 2020-03-03 15:36:00 Moni Morgan ESTIMATED GFR 2020-03-03 15:36:00 Moni Morgan hodist MANUAL DIFFERENTIAL 2020-03-03 15:36:00 Moni Morgan XR CHEST 1 VW PORTABLE 2020-03-03 15:34:13 Moni Morgan ECG 12-LEAD 2020-03-03 15:07:03 [facility] PRELIMINARY INTERPRETATION 2020-03-03 15:01:44 Juan Morgan Plan of Care Planned Activity Planned Date Details Comments Source Future Scheduled Test 2020-03-05 00:00:00 INFLUENZA VACCINE [code = INFLUENZA VACCINE] [facility] Future Scheduled Test 1993 00:00:00 COLONOSCOPY SCREEN ING [code = COLONOSCOPY SCREENING] [facility] Future Scheduled Test 1993 00:00:00 SHINGLES VACCINES (#1) [code = SHINGLES VACCINES (#1)] [facility] Future Scheduled Test 1953 00:00:00 DIABETIC FOOT EXAM [code = DIABETIC FOOT EXAM] [facility] Future Scheduled Test 1943 00:00:00 DIABETIC RETINAL E YE EXAM [code = DIABETIC RETINAL EYE EXAM] Neto Menon Instructions Chest Pain - Chest Wall [facility] Encounters Start Date/Time End Date/Time Encounter Type Admission Type [facility] Care Department Encounter ID Source 2020-04-21 12:50:00 2020-04-21 16:48:00 Departed Emergency Room ANDREW MORATAYA [facility] [id number] [facility] 2020-04-17 12:35:00 2020-04-18 19:01:00 Discharged Inpatient 1 Margaux Foreman [facility] [id number] [facility] 2020-03-05 15:18:00 2020-03-10 17:06:00 Discharged Inpatient 1 WENDY MAJOR [facility] [id number] [facility] 2020-03-03 00:00:00 2020-03-03 00:00:00 Emergency MONI MORGAN [facility] [id number] Neto Menon Results Test Description Test Time Test Comments Results Result Comments Source CHEST SINGLE (PORTABLE) 2020-04-21 13:26:00 [facility] [address] [id number] Patient Name: CORDELL GRIMM MR #: [id number] : 1945 Age/Sex: 74/F Req #: [id number] [facility] Physician: Ordered by: ANDREW MORATAYA DO Report #: [id number] Location: ER Room/Bed: Procedure: [id number] DX/CHEST SINGLE (PORTABLE) Exam Date: 04/21/20 Exam [...] KEV on 04/21/20 1328 COPY TO: ANDREW MORATAYA DO Blood leukocytes automated count (number/volume) 2020-04-21 12:38:00 Test Item White Blood Count (test code = 6690-2) 5.94 4.8-10.8 [facility] count (number/volume)2020-04-21 12:38:00* Test Item Value Reference Range Interpretation Comments Red Blood Count (test code = 789-8) 2.72 3.6-5.1 [facility] hemoglobin measurement (moles/volume)2020-04-21 12:38:00* Test Item Value Reference Range Interpretation Comments Hemoglobin (test code = 71487-3) 7.5 12.0-16.0 [facility] HospitalAutom[facility] blood hematocrit (volume fraction)2020-04-21 12:38:00* Test Item Value Reference Range Interpretation Comments Hematocrit (test code = 4544-3) 24.3 34.2-44.1 [facility] HospitalAutom[facility] erythrocyte mean corpuscular dffqgw0375-02-10 12:38:00* Test Item Value Reference Range Interpretation Comments Mean Corpuscular Volume (test code = 787-2) 89.3 81-99 [facility] HospitalAutom[facility] erythrocyte mean corpuscular hemoglobin (mass per erythrocyte)2020-04-21 12:38:00* Test Item Value Reference Range Interpretation Comments Mean Corpuscular Hemoglobin (test code = 785-6) 27.6 28-32 [facility] HospitalAutom[facility] erythrocyte mean corpuscular hemoglobin concentration measurement (mass/volume)2020-04-21 12:38:00* Test Item Value Reference Range Interpretation Comments Mean Corpuscular Hemoglobin Concent (test code = 786-4) 30.9 31-35 [facility] HospitalRDW IhiDw-Mab9874-08-17 12:38:00* Test Item Value Reference Range Interpretation Comments Red Cell Distribution Width (test code = 71614-9) 31.9 11.7 -14.4 [facility] platelet count (count/volume)2020-04-21 12:38:00* Test Item Value Reference Range Interpretation Comments Platelet Count (test code = 777-3) 250 140-360 [facility] blood segmented neutrophil count as percentage of total xjbcmhhhby6466-74-62 12:38:00* Test Item Value Reference Range Interpretation Comments Neutrophils (%) (Auto) (test code = 93213-1) 56.1 38.7-80.0 [facility] HospitalAutomated blood lymphocyte count as percentage ot total rknrirrlua9183-23-92 12:38:00* Test Item Value Reference Range Interpretation Comments Lymphocytes (%) (Auto) (test code = 736-9) 32.2 18.0-39.1 [facility] HospitalAutomated blood monocyte count as percentage of total toqlcorpet7481-60-37 12:38:00* Test Item Value Reference Range Interpretation Comments Monocytes (%) (Auto) (test code = 5905-5) 7.7 4.4-11.3 [facility] HospitalAutom[facility] blood eosinophil count as percentage of total sobvhqntzs6528-22-60 12:38:00* Test Item Value Reference Range Interpretation Comments Eosinophils (%) (Auto) (test code = 713-8) 3.0 0.0-6.0 [facility] HospitalAutom[facility] blood basophil count as percentage of total hwpkfbhwvg3444-06-06 12:38:00* Test Item Value Reference Range Interpretation Comments Basophils (%) (Auto) (test code = 706-2) 0.8 0.0-1.0 [facility] HospitalFluoroscopic procedure less than one hour wyibneai5820-66-84 12:38:00* Test Item Value Reference Range Interpretation Comments IM GRANULOCYTES % (test code = IM GRANULOCYTES %) 0.2 0.0- 1.0 [facility] HospitalAutom[facility] blood neutrophil count 2020-04-21 12:38:00* Test Item Value Reference Range Interpretation Comments Neutrophils # (Auto) (test code = 751-8) 3.3 2.1-6.9 [facility] HospitalBlood lymphocytes count (number/volume) 2020-04-21 12:38:00* Test Item Value Reference Range Interpretation Comments Lymphocytes # (Auto) (test code = 56126-9) 1.9 1.0-3.2 [facility] HospitalBlood monocytes automated count (number/volume)2020-04-21 12:38:00* Test Item Value Reference Range Interpretation Comments Monocytes # (Auto) (test code = 742-7) 0.5 0.2-0.8 [facility] HospitalAutomated blood eosinophil count 2020-04-21 12:38:00* Test Item Value Reference Range Interpretation Comments Eosinophils # (Auto) (test code = 711-2) 0.2 0.0-0.4 [facility] HospitalAutomated blood basophil count (count/volume)2020-04-21 12:38:00* Test Item Value Reference Range Interpretation Comments Basophils # (Auto) (test code = 704-7) 0.1 0.0-0.1 [facility] HospitalFluoroscopic procedure less than one hour wvvnvcaw1396-52-74 12:38:00* Test Item Value Reference Range Interpretation Comments Absolute Immature Granulocyte (auto (louis t code = Absolute Immature Granulocyte (auto) 0.01 0-0.1 [facility] sodium measurement (moles/volume)2020-04-21 12:38:00* Test Item Value Reference Range Interpretation Comments Sodium Level (test code = 2951-2) 138 136-145 [facility] potassium measurement (moles/volume)2020-04-21 12:38:00* Test Item Value Reference Range Interpretation Comments Potassium Level (test code = 2823-3) 4.3 3.5-5.1 [facility] chloride measurement (moles/volume)2020-04-21 12:38:00* Test Item Value Reference Range Interpretation Comments Chloride Level (test code = 2075-0) 99 98-107 [facility] carbon dioxide, total measurement (moles/volume)2020-04-21 12:38:00* Test Item Value Reference Range Interpretation Comments Carbon Dioxide Level (test code = 2028-9) 30 22-29 [facility] anion pfu3285-26-72 12:38:00* Test Item Value Reference Range Interpretation Comments Anion Gap (test code = 95985-9) 13.3 8-16 [facility] urea nitrogen measurement (mass/volume)2020-04-21 12:38:00* Test Item Value Reference Range Interpretation Comments Blood Urea Nitrogen (test code = 3094-0) 12 02-27 [facility] creatinine measurement (mass/volume)2020-04-21 12:38:00* Test Item Value Reference Range Interpretation Comments Creatinine (test code = 2160-0) 0.67 0.57-1.11 [facility] urea nitrogen/creatinine mass affsy4366-89-28 12:38:00* Test Item Value Reference Range Interpretation Comments BUN/Creatinine Ratio (test code = 3097-3) 18 6- [facility] HospitalEstimated glomerular filtration rate (GFR) pdoglxwrfeiqn8419-80-89 12:38:00* Test Item Value Reference Range Interpretation Comments Estimat Glomerular Filtration Rate (test code = 259115868) > 60 >60 Ranges were taken from the National Kidney Disease Education Program and the [facility] [employer] [employer] literature.Reference ranges:60 or greater: Lscepv48-11 ( for 3 consecutive months): Chronic kidney disease 15 or less: Kidney failureHuntsville Memorial HospitalGlucose sbihjnzypbh3542-51-84 12:38:00* Test Item Value Reference Range Interpretation Comments Glucose Level (test code = EZA9975) 91 74-118 [facility] calcium measurement (mass/volume)2020-04-21 12:38:00* Test Item Value Reference Range Interpretation Comments Calcium Level (test code = 91034-4) 7.7 8.4-10.2 [facility] total bilirubin measurement (mass/volume)2020-04-21 12:38:00* Test Item Value Reference Range Interpretation Comments Total Bilirubin (test code = 1975-2) 0.6 0.2-1.2 [facility] HospitalFluoroscopic procedure less than one hour smvifokz1850-33-47 12:38:00* Test Item Value Reference Range Interpretation Comments Aspartate Amino Transf (AST/SGOT) (test code = Aspartate Amino Transf (AST/SGOT)) 45 5-34 [facility] alanine aminotransferase measurement (enzymatic activity/volume)2020-04-21 12:38:00* Test Item Value Reference Range Interpretation Comments Alanine Aminotransferase (ALT/SGPT) (test code = 1742-6) 18 0-55 [facility] protein measurement (mass/volume)2020-04-21 12:38:00* Test Item Value Reference Range Interpretation Comments Total Protein (test code = 2885-2) 6.4 6.5-8.1 [facility] albumin measurement (mass/volume)2020-04-21 12:38:00* Test Item Value Reference Range Interpretation Comments Albumin (test code = 1751-7) 2.5 3.5-5.0 [facility] HospitalPlasma globulin measurement (mass/volume) 2020-04-21 12:38:00* Test Item Value Reference Range Interpretation Comments Globulin (test code = 54444-8) 3.9 2.3-3.5 [facility] albumin/globulin mass xznau5309-69-28 12:38:00* Test Item Value Reference Range Interpretation Comments Albumin/Globulin Ratio (test code = 1759-0) 0.6 0.8-2.0 [facility] alkaline phosphatase measurement (enzymatic activity/volume)2020-04-21 12:38:00* Test Item Value Reference Range Interpretation Comments Alkaline Phosphatase (test code = 6768-6) 121 40-150 [facility] HospitalBNP Llk-nGxq0365-74-17 12:38:00* Test Item Value Reference Range Interpretation Comments B-Type Natriuretic Peptide (test code = 53225-5) 355.8 0-100 [facility] creatine kinase measurement (enzymatic activity/volume)2020-04-21 12:38:00* Test Item Value Reference Range Interpretation Comments Creatine Kinase (test code = 2157-6) 61 29-168 [facility] creatine kinase MB measurement (mass/volume)2020-04-21 12:38:00* Test Item Value Reference Range Interpretation Comments Creatine Kinase MB (test code = 99012-0) 1.10 0-5.0 [facility] HospitalTroponin I measurement by highly sensitive enzyme rkzuzkmuctg3663-67-79 12:38:00* Test Item Value Reference Range Interpretation Comments Troponin I (test code = 79230-5) 0.017 0-0.300 [facility] blood glucose measurement by glucometer (mass/volume)2020-04-18 15:19:00* Test Item Value Reference Range Interpretation Comments Bedside Glucose (test code = 58441-4) 406 70-120 Meter ID: [id number] Memorial HospitalCapillary blood glucose measurement by glucometer (mass/volume)2020-04-18 15:19:00* Test Item Value Reference Range Interpretation Comments Bedside Glucose (test code = 14126-2) 406 70-120 Meter ID: [id number] Memorial HospitalBlchildren[facility] [place] leukocytes automated count (number/volume)2020-04-17 05:50:00* Test Item Value Reference Range Interpretation Comments White Blood Count (test code = 6690-2) 7.59 4.8-10.8 [facility] erythrocytes automated count (number/volume)2020-04-17 05:50:00* Test Item Value Reference Range Interpretation Comments Red Blood Count (test code = 789-8) 2.71 3.6-5.1 [facility] (moles/volume)2020-04-17 05:50:00* Test Item Value Reference Range Interpretation Comments Hemoglobin (test code = 48436-6) 7.4 12.0-16.0 [facility] HospitalAutomated blood hematocrit (volume fraction)2020-04-17 05:50:00* Test Item Value Reference Range Interpretation Comments Hematocrit (test code = 4544-3) 23.9 34.2-44.1 [facility] HospitalAutomated erythrocyte mean corpuscular teohuk9442-58-64 05:50:00* Test Item Value Reference Range Interpretation Comments Mean Corpuscular Volume (test code = 787-2) 88.2 81-99 [facility] HospitalAutomated erythrocyte mean corpuscular hemoglobin (mass per erythrocyte)2020-04-17 05:50:00* Test Item Value Reference Range Interpretation Comments Mean Corpuscular Hemoglobin (test code = 785-6) 27.3 28-32 [facility] HospitalAutomated erythrocyte mean corpuscular hemoglobin concentration measurement (mass/volume)2020-04-17 05:50:00* Test Item Value Reference Range Interpretation Comments Mean Corpuscular Hemoglobin Concent (test code = 786-4) 31.0 31-35 [facility] HospitalRDW UnhSk-Yhc5396-51-13 05:50:00* Test Item Value Reference Range Interpretation Comments Red Cell Distribution Width (test code = 68595-6) 33.0 11.7 -14.4 [facility] HospitalAutomated blood platelet count (count/volume)2020-04-17 05:50:00* Test Item Value Reference Range Interpretation Comments Platelet Count (test code = 777-3) 216 140-360 [facility] HospitalAutomated blood segmented neutrophil count as percentage of total wbtqdarofk3881-85-14 05:50:00* Test Item Value Reference Range Interpretation Comments Neutrophils (%) (Auto) (test code = 89037-0) 43.0 38.7-80.0 [facility] HospitalAutomated blood lymphocyte count as percentage ot total thgkgeaces3350-61-86 05:50:00* Test Item Value Reference Range Interpretation Comments Lymphocytes (%) (Auto) (test code = 736-9) 40.7 18.0-39.1 [facility] HospitalAutomated blood monocyte count as percentage of total gphcnzmxhk7456-10-91 05:50:00* Test Item Value Reference Range Interpretation Comments Monocytes (%) (Auto) (test code = 5905-5) 10.8 4.4-11.3 [facility] HospitalAutomated blood eosinophil count as percentage of total mjiodkpvgw4805-51-54 05:50:00* Test Item Value Reference Range Interpretation Comments Eosinophils (%) (Auto) (test code = 713-8) 4.3 0.0-6.0 [facility] HospitalAutomated blood basophil count as percentage of total gcajhsplpn7015-00-36 05:50:00* Test Item Value Reference Range Interpretation Comments Basophils (%) (Auto) (test code = 706-2) 1.1 0.0-1.0 [facility] HospitalFluoroscopic procedure less than one hour dldantvq9907-44-29 05:50:00* Test Item Value Reference Range Interpretation Comments IM GRANULOCYTES % (test code = IM GRANULOCYTES %) 0.1 0.0- 1.0 [facility] HospitalAutomated blood neutrophil count 2020-04-17 05:50:00* Test Item Value Reference Range Interpretation Comments Neutrophils # (Auto) (test code = 751-8) 3.3 2.1-6.9 [facility] HospitalBlood lymphocytes count (number/volume) 2020-04-17 05:50:00* Test Item Value Reference Range Interpretation Comments Lymphocytes # (Auto) (test code = 48324-6) 3.1 1.0-3.2 [facility]Bl[facility] [place] monocytes automated count (number/volume)2020-04-17 05:50:00* Test Item Value Reference Range Interpretation Comments Monocytes # (Auto) (test code = 742-7) 0.8 0.2-0.8 [facility] HospitalAutomated blood eosinophil count 2020-04-17 05:50:00* Test Item Value Reference Range Interpretation Comments Eosinophils # (Auto) (test code = 711-2) 0.3 0.0-0.4 [facility] HospitalAutomated blood basophil count (count/volume)2020-04-17 05:50:00* Test Item Value Reference Range Interpretation Comments Basophils # (Auto) (test code = 704-7) 0.1 0.0-0.1 [facility]Fluor[facility] procedure less than one hour vhffdesu6161-92-24 05:50:00* Test Item Value Reference Range Interpretation Comments Absolute Immature Granulocyte (auto (louis t code = Absolute Immature Granulocyte (auto) 0.01 0-0.1 [facility] HospitalFluoroscopic procedure less than one hour ftscxmmw6500-88-29 05:50:00* Test Item Value Reference Range Interpretation Comments Differential Total Cells Counted (test code = Differen tial Total Cells Counted) 100 [facility] blood neutrophils/100 leukocytes 2020-04-17 05:50:00* Test Item Value Reference Range Interpretation Comments Neutrophils % (Manual) (test code = 00847-8) 56 40-74 [facility] blood lymphocytes/100 leukocytes 2020-04-17 05:50:00* Test Item Value Reference Range Interpretation Comments Lymphocytes % (Manual) (test code = 737-7) 32 19-48 [facility] blood monocytes/100 leukocytes 2020-04-17 05:50:00* Test Item Value Reference Range Interpretation Comments Monocytes % (Manual) (test code = 744-3) 5 3.4-9.0 [facility] blood eosinophil count as percentage of total pnpgfmeanr7725-35-98 05:50:00* Test Item Value Reference Range Interpretation Comments Eosinophils % (Manual) (test code = 714-6) 6 0-7 [facility] basophil gikaacjeqq5829-80-38 05:50:00* Test Item Value Reference Range Interpretation Comments Basophils % (Manual) (test code = 66687-1) 1 0-1.5 [facility] platelets count by estimate (number/volume)2020-04-17 05:50:00* Test Item Value Reference Range Interpretation Comments Platelet Estimate (test code = 17943-5) ADEQUATE [facility] HospitalPlatelet fwunhgtzvx2681-79-84 05:50:00* Test Item Value Reference Range Interpretation Comments Platelet Morphology Comment (test code = 10050-9) RARE EDTA CLUMPIN G [facility] hypochromia detection by light jqysfzbfyy9896-58-65 05:50:00* Test Item Value Reference Range Interpretation Comments Hypochromasia (test code = 728-6) SLIGHT [facility] anisocytosis detection by light znjcrraobd5893-62-08 05:50:00* Test Item Value Reference Range Interpretation Comments Anisocytosis (test code = 702-1) MODERATE [facility] macrocytes detection by light gmiszwzmff6004-25-57 05:50:00* Test Item Value Reference Range Interpretation Comments Macrocytosis (test code = 738-5) SLIGHT [facility] HospitalBlood dacrocytes detection by light phghajrfyb9744-67-34 05:50:00* Test Item Value Reference Range Interpretation Comments Tear Drop Cells (test code = 7791-7) FEW [facility] ovalocytes detection by light qcxzfyspjz5998-45-03 05:50:00* Test Item Value Reference Range Interpretation Comments Ovalocytes (test code = 774-0) FEW [facility] HospitalElliptocyte dwtrcdjfj1387-38-69 05:50:00 * Test Item Value Reference Range Interpretation Comments Elliptocytes (test code = 57266-1) SLIGHT [facility] schistocytes detection by light lgaiigedbj7938-63-08 05:50:00* Test Item Value Reference Range Interpretation Comments Schistocytes (test code = 800-3) FEW [facility] HospitalRBC orhbeqjpyp0384-48-16 05:50:00* Test Item Value Reference Range Interpretation Comments Red Cell Morphology Comment (test code = 6742-1) [facility]NORMAL [facility] sodium measurement (moles/volume)2020-04-17 05:50:00* Test Item Value Reference Range Interpretation Comments Sodium Level (test code = 2951-2) 137 136-145 [facility] potassium measurement (moles/volume)2020-04-17 05:50:00* Test Item Value Reference Range Interpretation Comments Potassium Level (test code = 2823-3) 4.6 3.5-5.1 [facility] chloride measurement (moles/volume)2020-04-17 05:50:00* Test Item Value Reference Range Interpretation Comments Chloride Level (test code = 2075-0) 99 98-107 [facility] carbon dioxide, total measurement (moles/volume)2020-04-17 05:50:00* Test Item Value Reference Range Interpretation Comments Carbon Dioxide Level (test code = 2028-9) 29 22-29 [facility] anion rvq3034-81-74 05:50:00* Test Item Value Reference Range Interpretation Comments Anion Gap (test code = 66419-5) 13.6 8-16 [facility] urea nitrogen measurement (mass/volume)2020-04-17 05:50:00* Test Item Value Reference Range Interpretation Comments Blood Urea Nitrogen (test code = 3094-0) 10 7-26 [facility] creatinine measurement (mass/volume)2020-04-17 05:50:00* Test Item Value Reference Range Interpretation Comments Creatinine (test code = 2160-0) 0.73 0.57-1.11 [facility] urea nitrogen/creatinine mass zsuff7224-13-26 05:50:00* Test Item Value Reference Range Interpretation Comments BUN/Creatinine Ratio (test code = 3097-3) 14 6-25 [facility] HospitalEstimated glomerular filtration rate (GFR) jayexpwjzynpa0403-46-81 05:50:00* Test Item Value Reference Range Interpretation Comments Estimat Glomerular Filtration Rate (test code = 508177109) > 60 >60 Ranges were taken from the National Kidney Disease Education Program and the [employer] literature.Reference ranges:60 or greater: Xewdrt57-77 ( for 3 consecutive months): Chronic kidney disease 15 or less: Kidney failureHuntsville Memorial HospitalGlucose mjccqnnzqpa8076-43-19 05:50:00* Test Item Value Reference Range Interpretation Comments Glucose Level (test code = UDD9997) 97 74-118 [facility] calcium measurement (mass/volume)2020-04-17 05:50:00* Test Item Value Reference Range Interpretation Comments Calcium Level (test code = 03637-6) 7.4 8.4-10.2 [facility] HospitalFluoroscopic procedure less than one hour uggqudkl7527-06-83 05:50:00* Test Item Value Reference Range Interpretation Comments Differential Total Cells Counted (test code = Differami tial Total Cells Counted) 100 [facility] HospitalManual blood neutrophils/100 leukocytes 2020-04-17 05:50:00* Test Item Value Reference Range Interpretation Comments Neutrophils % (Manual) (test code = 14915-3) 56 40-74 [facility] blood lymphocytes/100 leukocytes 2020-04-17 05:50:00* Test Item Value Reference Range Interpretation Comments Lymphocytes % (Manual) (test code = 737-7) 32 19-48 [facility] blood monocytes/100 leukocytes 2020-04-17 05:50:00* Test Item Value Reference Range Interpretation Comments Monocytes % (Manual) (test code = 744-3) 5 3.4-9.0 [facility] blood eosinophil count as percentage of total zrgtktbdgh5862-63-08 05:50:00* Test Item Value Reference Range Interpretation Comments Eosinophils % (Manual) (test code = 714-6) 6 0-7 [facility] basophil qyxayykonp9782-32-61 05:50:00* Test Item Value Reference Range Interpretation Comments Basophils % (Manual) (test code = 23443-3) 1 0-1.5 [facility] platelets count by estimate (number/volume)2020-04-17 05:50:00* Test Item Value Reference Range Interpretation Comments Platelet Estimate (test code = 30011-3) ADEQUATE [facility] HospitalPlatelet ovlrfthwpv6544-49-44 05:50:00* Test Item Value Reference Range Interpretation Comments Platelet Morphology Comment (test code = 10855-4) RARE EDTA CLUMPIN G [facility] hypochromia detection by light piuqrrnbkf6714-35-61 05:50:00* Test Item Value Reference Range Interpretation Comments Hypochromasia (test code = 728-6) SLIGHT [facility] anisocytosis detection by light ckgdkezjgx3419-52-65 05:50:00* Test Item Value Reference Range Interpretation Comments Anisocytosis (test code = 702-1) MODERATE [facility] macrocytes detection by light uoscbyghfe2208-13-03 05:50:00* Test Item Value Reference Range Interpretation Comments Macrocytosis (test code = 738-5) SLIGHT [facility] dacrocytes detection by light zrudbdengl8385-31-26 05:50:00* Test Item Value Reference Range Interpretation Comments Tear Drop Cells (test code = 7791-7) FEW [facility] HospitalBlood ovalocytes detection by light ldllezwury8445-72-79 05:50:00* Test Item Value Reference Range Interpretation Comments Ovalocytes (test code = 774-0) FEW [facility] HospitalElliptocyte futmwroys5806-86-15 05:50:00 * Test Item Value Reference Range Interpretation Comments Elliptocytes (test code = 94689-6) SLIGHT [facility] HospitalBlood schistocytes detection by light xxenveqeby6584-06-98 05:50:00* Test Item Value Reference Range Interpretation Comments Schistocytes (test code = 800-3) [facility] ylsmqramjs1284-44-91 05:50:00* Test Item Value Reference Range Interpretation Comments Red Cell Morphology Comment (test code = 6742-1) ABNORMAL [facility] iron measurement (mass/volume)2020-04-16 17:30:00* Test Item Value Reference Range Interpretation Comments Iron Level (test code = 2498-4) 142 50-170 [facility] iron binding capacity measurement (mass/volume)2020-04-16 17:30:00* Test Item Value Reference Range Interpretation Comments Total Iron Binding Capacity (test code = 2500-7) 164 261-4 78 [facility] iron saturation measurement (mass fraction)2020-04-16 17:30:00* Test Item Value Reference Range Interpretation Comments Percent Iron Saturation (test code = 2502-3) 87 15-50 [facility] transferrin measurement (mass/volume)2020-04-16 17:30:00* Test Item Value Reference Range Interpretation Comments Transferrin (test code = 3034-6) 117 180-382 [facility] ferritin measurement (mass/volume)2020-04-16 17:30:00* Test Item Value Reference Range Interpretation Comments Ferritin (test code = 2276-4) 352.29 4.63-204.00 [facility] thyrotropin measurement by detection limit <= 0.005 miu/l (units/volume)2020-04-16 17:30:00* Test Item Value Reference Range Interpretation Comments Thyroid Stimulating Hormone (TSH) (test code = 85508-0) 7.770 0.350-4.940 [facility] iron measurement (mass/volume)2020-04-16 17:30:00* Test Item Value Reference Range Interpretation Comments Iron Level (test code = 2498-4) 142 50-170 [facility] iron binding capacity measurement (mass/volume)2020-04-16 17:30:00* Test Item Value Reference Range Interpretation Comments Total Iron Binding Capacity (test code = 2500-7) 164 261-4 78 [facility] iron saturation measurement (mass fraction)2020-04-16 17:30:00* Test Item Value Reference Range Interpretation Comments Percent Iron Saturation (test code = 2502-3) 87 15-50 [facility] transferrin measurement (mass/volume)2020-04-16 17:30:00* Test Item Value Reference Range Interpretation Comments Transferrin (test code = 3034-6) 117 180-382 [facility] ferritin measurement (mass/volume)2020-04-16 17:30:00* Test Item Value Reference Range Interpretation Comments Ferritin (test code = 2276-4) 352.29 4.63-204.00 [facility] thyrotropin measurement by detection limit <= 0.005 miu/l (units/volume)2020-04-16 17:30:00* Test Item Value Reference Range Interpretation Comments Thyroid Stimulating Hormone (TSH) (test code = 86301-5) 7.770 0.350-4.940 [facility] HospitalTroponin I measurement by highly sensitive enzyme yfantftrrdz2909-46-64 05:30:00* Test Item Value Reference Range Interpretation Comments Troponin I (test code = 38027-4) 0.020 0-0.300 [facility] phenytoin measurement (mass/volume)2020-04-16 05:00:00* Test Item Value Reference Range Interpretation Comments Phenytoin (Dilantin) Level (test code = 3968-5) 14.05-24 [facility] phenytoin measurement (mass/volume)2020-04-16 05:00:00* Test Item Value Reference Range Interpretation Comments Phenytoin (Dilantin) Level (test code = 3968-5) 14.18 10-20 [facility] HospitalBNP Szj-qWaa4093-03-11 22:42:00* Test Item Value Reference Range Interpretation Comments B-Type Natriuretic Peptide (test code = 65656-7) 196.3 0-100 [facility] HospitalCHEST SINGLE (PORTABLE)2020-04-15 20:23:00 [facility] [address] [address] Patient Name: CORDELL GRIMM MR #: [id number] : 1945 Age/Sex: 74/F Req #: [id number] Adm Physician: Ordered by: Margaux Foreman MD Report #: [id number] Location: ER Room/Bed: Procedure: [id number] DX/CHEST S ANJALI (PORTABLE) Exam Date: 04/15/20 Exam Time: 185 REPORT STATUS: Signed EXAMINATI ON: CHEST SINGLE [...] COPY TO: MARGAUX FOREMAN MD Urine color moqtzaxzynbxc0942-07-83 19:50:00* Test Item Value Reference Range Interpretation Comments Urine Color (test code = 5778-6) YELLOW YELLOW [facility] HospitalUrine zopjifj4947-21-20 19:50:00* Test Item Value Reference Range Interpretation Comments Urine Clarity (test code = 92055-0) TURBID CLEAR [facility] gravity of Urine by Test strip 2020-04-15 19:50:00* Test Item Value Reference Range Interpretation Comments Urine Specific [place] (test code = 5811-5) 1.025 1.010-1.02 5 [facility] HospitalUrine pH measurement by automated test lnlca3075-78-62 19:50:00* Test Item Value Reference Range Interpretation Comments Urine pH (test code = 20635-7) 5.5 5-7 [facility] HospitalUrine leukocyte esterase detection by zsyoywwp0335-21-99 19:50:00* Test Item Value Reference Range Interpretation Comments Urine Leukocyte Esterase (test code = 5799-2) LARGE NEGATIVE [facility] HospitalUrine nitrite vleqgibng7820-49-58 19:50:00* Test Item Value Reference Range Interpretation Comments Urine Nitrite (test code = 82748-2) POSITIVE NEGATIVE [facility] HospitalUrine protein measurement by test strip (mass/volume)2020-04-15 19:50:00* Test Item Value Reference Range Interpretation Comments Urine Protein (test code = 5804-0) 2+ NEGATIVE [facility] HospitalUrine glucose ugvvqgksq6509-01-30 19:50:00* Test Item Value Reference Range Interpretation Comments Urine Glucose (UA) (test code = 2349-9) NEGATIVE NEGATIVE [facility] HospitalUrine ketones detection by automated test bympm3156-22-01 19:50:00* Test Item Value Reference Range Interpretation Comments Urine Ketones (test code = 42184-7) TRACE NEGATIVE [facility] HospitalUrine urobilinogen measurement by test strip (mass/volume)2020-04-15 19:50:00* Test Item Value Reference Range Interpretation Comments Urine Urobilinogen (test code = 77528-2) 1 0.2-1 [facility] HospitalU[facility] total bilirubin measurement (mass/volume)2020-04-15 19:50:00* Test Item Value Reference Range Interpretation Comments Urine Bilirubin (test code = 1978-6) SMALL NEGATIVE [facility] HospitalUrine erythrocytes mzqjwmgtu1677-36-73 19:50:00* Test Item Value Reference Range Interpretation Comments Urine Blood (test code = 28231-5) MODERATE NEGATIVE [facility] HospitalAutomated urine sediment leukocyte count by microscopy (number/high power field)2020-04-15 19:50:00* Test Item Value Reference Range Interpretation Comments Urine WBC (test code = 5821-4) 6-10 0-5 [facility] HospitalErythrocytes detection in urine sediment by light kueotmfpxs3015-22-79 19:50:00* Test Item Value Reference Range Interpretation Comments Urine RBC (test code = 66141-0) 11-20 0-5 [facility] HospitalBacteria detection in urine sediment by light yhiwpojjis2193-47-59 19:50:00* Test Item Value Reference Range Interpretation Comments Urine Bacteria (test code = 81392-1) MANY NONE [facility] HospitalEpithelial cells detection in urine sediment by light irmvdenrgj1964-99-57 19:50:00* Test Item Value Reference Range Interpretation Comments Urine Epithelial Cells (test code = 75706-1) FEW NONE [facility] HospitalBacterial urine qiycykv4875-45-43 19:50:00* Test Item Value Reference Range Interpretation Comments Urine Culture (test code = 630-4) KLEBSIELLA PNEUMONIAE [facility] HospitalUrine color gslrfpthpvnwx5223-35-63 19:50:00* Test Item Value Reference Range Interpretation Comments Urine Color (test code = 5778-6) YELLOW YELLOW [facility] HospitalUrine yrvaxpy5655-07-65 19:50:00* Test Item Value Reference Range Interpretation Comments Urine Clarity (test code = 20516-2) [facility]BID CLEAR [facility] gravity of Urine by Test strip 2020-04-15 19:50:00* Test Item Value Reference Range Interpretation Comments Urine Specific [place] (test code = 5811-5) 1.025 1.010-1.02 5 [facility] HospitalUrine pH measurement by automated test vkyjf2247-44-51 19:50:00* Test Item Value Reference Range Interpretation Comments Urine pH (test code = 95197-7) 5.5 5-7 [facility] HospitalUrine leukocyte esterase detection by mpgnfzfg8354-45-74 19:50:00* Test Item Value Reference Range Interpretation Comments Urine Leukocyte Esterase (test code = 5799-2) LARGE NEGATIVE [facility] HospitalUrine nitrite jqgzfhnyr7931-50-64 19:50:00* Test Item Value Reference Range Interpretation Comments Urine Nitrite (test code = 68611-9) POSITIVE NEGATIVE [facility] HospitalUrine protein measurement by test strip (mass/volume)2020-04-15 19:50:00* Test Item Value Reference Range Interpretation Comments Urine Protein (test code = 5804-0) 2+ NEGATIVE [facility] HospitalUrine glucose otjrialha4392-49-20 19:50:00* Test Item Value Reference Range Interpretation Comments Urine Glucose (UA) (test code = 2349-9) NEGATIVE NEGATIVE [facility] HospitalUrine ketones detection by automated test krdqz8896-52-21 19:50:00* Test Item Value Reference Range Interpretation Comments Urine Ketones (test code = 97945-4) TRACE NEGATIVE [facility] HospitalUrine urobilinogen measurement by test strip (mass/volume)2020-04-15 19:50:00* Test Item Value Reference Range Interpretation Comments Urine Urobilinogen (test code = 19440-4) 1 0.2-1 [facility] HospitalU[facility] total bilirubin measurement (mass/volume)2020-04-15 19:50:00* Test Item Value Reference Range Interpretation Comments Urine Bilirubin (test code = 1978-6) SMALL NEGATIVE [facility] HospitalUrine erythrocytes zzpvljizu0800-17-61 19:50:00* Test Item Value Reference Range Interpretation Comments Urine Blood (test code = 99552-6) MODERATE NEGATIVE [facility] HospitalAutomated urine sediment leukocyte count by microscopy (number/high power field)2020-04-15 19:50:00* Test Item Value Reference Range Interpretation Comments Urine WBC (test code = 5821-4) 6-10 0-5 [facility] HospitalErythrocytes detection in urine sediment by light mlkmejetzi7775-93-60 19:50:00* Test Item Value Reference Range Interpretation Comments Urine RBC (test code = 12550-7) 11-20 0-5 [facility] HospitalBacteria detection in urine sediment by light sxfktxbnpk8118-06-92 19:50:00* Test Item Value Reference Range Interpretation Comments Urine Bacteria (test code = 83811-4) MANY NONE [facility] HospitalEpithelial cells detection in urine sediment by light cdfvlyvckf4935-03-18 19:50:00* Test Item Value Reference Range Interpretation Comments Urine Epithelial Cells (test code = 85765-8) FEW NONE [facility] HospitalBacterial urine fmbfgsg9085-38-86 19:50:00* Test Item Value Reference Range Interpretation Comments Urine Culture (test code = 630-4) KLEBSIELLA PNEUMONIAE [facility] HospitalFluoroscopic procedure less than one hour xfuuorsv6576-64-87 19:45:00* Test Item Value Reference Range Interpretation [...] definite cause of the disease.TEST PERFORMED AT [facility] The limit of detection for this [...] is revoked under 564 (g) of the ACT.[facility] HospitalFluoroscopic procedure less than one hour qnoxyfwr9084-63-21 19:45:00* Test Item Value Reference Range Interpretation [...] definite cause of the disease.TEST PERFORMED AT [facility] The limit of detection for this [...] is revoked under 564 (g) of the ACT.[facility] HospitalBlood lymphocytes variant count (number/volume)2020-04-15 19:37:00* Test Item Value Reference Range Interpretation Comments Reactive Lymphocytes (test code = 23160-2) 13 [facility] HospitalFluoroscopic procedure less than one hour hblbxsxq4362-67-59 19:37:00* Test Item Value Reference Range Interpretation Comments Lactic Acid Level (test code = Lactic Acid Level) 1.3 0.5- 2.0 [facility] total bilirubin measurement (mass/volume)2020-04-15 19:37:00* Test Item Value Reference Range Interpretation Comments Total Bilirubin (test code = 1975-2) 0.6 0.2-1.2 [facility] HospitalFluoroscopic procedure less than one hour zaiyaftg1459-54-87 19:37:00* Test Item Value Reference Range Interpretation Comments Aspartate Amino Transf (AST/SGOT) (test code = Aspartate Amino Transf (AST/SGOT)) 36 5-34 [facility] alanine aminotransferase measurement (enzymatic activity/volume)2020-04-15 19:37:00* Test Item Value Reference Range Interpretation Comments Alanine Aminotransferase (ALT/SGPT) (test code = 1742-6) 16 0-55 [facility] protein measurement (mass/volume)2020-04-15 19:37:00* Test Item Value Reference Range Interpretation Comments Total Protein (test code = 2885-2) 6.6 6.5-8.1 [facility] albumin measurement (mass/volume)2020-04-15 19:37:00* Test Item Value Reference Range Interpretation Comments Albumin (test code = 1751-7) 2.5 3.5-5.0 [facility] HospitalPlasma globulin measurement (mass/volume) 2020-04-15 19:37:00* Test Item Value Reference Range Interpretation Comments Globulin (test code = 58638-0) 4.1 2.3-3.5 [facility] albumin/globulin mass lunkh2198-11-80 19:37:00* Test Item Value Reference Range Interpretation Comments Albumin/Globulin Ratio (test code = 1759-0) 0.6 0.8-2.0 [facility] alkaline phosphatase measurement (enzymatic activity/volume)2020-04-15 19:37:00* Test Item Value Reference Range Interpretation Comments Alkaline Phosphatase (test code = 6768-6) 115 40-150 [facility]Bl[facility] [place] lymphocytes variant count (number/volume)2020-04-15 19:37:00* Test Item Value Reference Range Interpretation Comments Reactive Lymphocytes (test code = 35346-8) 13 [facility] HospitalFluoroscopic procedure less than one hour jusolmrh1173-83-73 19:37:00* Test Item Value Reference Range Interpretation Comments Lactic Acid Level (test code = Lactic Acid Level) 1.3 0.5- 2.0 [facility] HospitalCapillary blood glucose measurement by glucometer (mass/volume)2020-03-10 11:45:00* Test Item Value Reference Range Interpretation Comments Bedside Glucose (test code = 86979-1) 116 70-120 Meter ID: [id number] [facility]Bl[facility] [place] leukocytes automated count (number/volume)2020-03-08 05:14:00* Test Item Value Reference Range Interpretation Comments White Blood Count (test code = 6690-2) 6.38 4.8-10.8 [facility]Blchildren[facility] [place] erythrocytes automated count (number/volume)2020-03-08 05:14:00* Test Item Value Reference Range Interpretation Comments Red Blood Count (test code = 789-8) 3.69 3.6-5.1 [facility] HospitalBlood hemoglobin measurement (moles/volume)2020-03-08 05:14:00* Test Item Value Reference Range Interpretation Comments Hemoglobin (test code = 88647-9) 9.5 12.0-16.0 [facility] HospitalAutomated blood hematocrit (volume fraction)2020-03-08 05:14:00* Test Item Value Reference Range Interpretation Comments Hematocrit (test code = 4544-3) 31.6 34.2-44.1 [facility] HospitalAutomated erythrocyte mean corpuscular ryftai2632-87-30 05:14:00* Test Item Value Reference Range Interpretation Comments Mean Corpuscular Volume (test code = 787-2) 85.6 81-99 [facility] HospitalAutomated erythrocyte mean corpuscular hemoglobin (mass per erythrocyte)2020-03-08 05:14:00* Test Item Value Reference Range Interpretation Comments Mean Corpuscular Hemoglobin (test code = 785-6) 25.7 28-32 [facility] HospitalAutomated erythrocyte mean corpuscular hemoglobin concentration measurement (mass/volume)2020-03-08 05:14:00* Test Item Value Reference Range Interpretation Comments Mean Corpuscular Hemoglobin Concent (test code = 786-4) 30.1 31-35 [facility] HospitalRDW PptKa-Qjk2386-07-04 05:14:00* Test Item Value Reference Range Interpretation Comments Red Cell Distribution Width (test code = 17487-2) 31.0 11.7 -14.4 [facility] HospitalAutomated blood platelet count (count/volume)2020-03-08 05:14:00* Test Item Value Reference Range Interpretation Comments Platelet Count (test code = 777-3) 159 140-360 [facility] HospitalAutat[facility] mercyed blood segmented neutrophil count as percentage of total cxzvrovrri1078-41-12 05:14:00* Test Item Value Reference Range Interpretation Comments Neutrophils (%) (Auto) (test code = 94092-0) 32.1 38.7-80.0 [facility] HospitalAutomated blood lymphocyte count as percentage ot total rinjimbzut9068-99-92 05:14:00* Test Item Value Reference Range Interpretation Comments Lymphocytes (%) (Auto) (test code = 736-9) 57.1 18.0-39.1 [facility] HospitalAutomated blood monocyte count as percentage of total dmzswuuzxf6020-39-28 05:14:00* Test Item Value Reference Range Interpretation Comments Monocytes (%) (Auto) (test code = 5905-5) 6.9 4.4-11.3 [facility] HospitalAutomated blood eosinophil count as percentage of total rvluotgkpc8927-52-05 05:14:00* Test Item Value Reference Range Interpretation Comments Eosinophils (%) (Auto) (test code = 713-8) 3.3 0.0-6.0 [facility] HospitalAutomated blood basophil count as percentage of total habunkvios4367-15-95 05:14:00* Test Item Value Reference Range Interpretation Comments Basophils (%) (Auto) (test code = 706-2) 0.6 0.0-1.0 [facility] HospitalFluoroscopic procedure less than one hour kifekeav1504-94-40 05:14:00* Test Item Value Reference Range Interpretation Comments IM GRANULOCYTES % (test code = IM GRANULOCYTES %) 0.0 0.0- 1.0 [facility] HospitalAutomated blood neutrophil count 2020-03-08 05:14:00* Test Item Value Reference Range Interpretation Comments Neutrophils # (Auto) (test code = 751-8) 2.1 2.1-6.9 [facility] HospitalBlood lymphocytes count (number/volume) 2020-03-08 05:14:00* Test Item Value Reference Range Interpretation Comments Lymphocytes # (Auto) (test code = 53388-3) 3.6 1.0-3.2 [facility] HospitalBlood monocytes automated count (number/volume)2020-03-08 05:14:00* Test Item Value Reference Range Interpretation Comments Monocytes # (Auto) (test code = 742-7) 0.4 0.2-0.8 [facility] HospitalAutomated blood eosinophil count 2020-03-08 05:14:00* Test Item Value Reference Range Interpretation Comments Eosinophils # (Auto) (test code = 711-2) 0.2 0.0-0.4 [facility] HospitalAutomated blood basophil count (count/volume)2020-03-08 05:14:00* Test Item Value Reference Range Interpretation Comments Basophils # (Auto) (test code = 704-7) 0.0 0.0-0.1 [facility] HospitalFluoroscopic procedure less than one hour bmmllpen6511-22-54 05:14:00* Test Item Value Reference Range Interpretation Comments Absolute Immature Granulocyte (auto (louis t code = Absolute Immature Granulocyte (auto) 0 0-0.1 [facility] HospitalFluoroscopic procedure less than one hour epaihpww9562-75-98 05:14:00* Test Item Value Reference Range Interpretation Comments Differential Total Cells Counted (test code = Differen tial Total Cells Counted) 100 [facility] blood neutrophils/100 leukocytes 2020-03-08 05:14:00* Test Item Value Reference Range Interpretation Comments Neutrophils % (Manual) (test code = 30344-5) 44 40-74 [facility] blood lymphocytes/100 leukocytes 2020-03-08 05:14:00* Test Item Value Reference Range Interpretation Comments Lymphocytes % (Manual) (test code = 737-7) 47 19-48 [facility] blood monocytes/100 leukocytes 2020-03-08 05:14:00* Test Item Value Reference Range Interpretation Comments Monocytes % (Manual) (test code = 744-3) 4 3.4-9.0 [facility] blood eosinophil count as percentage of total rpmdwxouzk9318-35-51 05:14:00* Test Item Value Reference Range Interpretation Comments Eosinophils % (Manual) (test code = 714-6) 5 0-7 [facility] HospitalBlood platelets count by estimate (number/volume)2020-03-08 05:14:00* Test Item Value Reference Range Interpretation Comments Platelet Estimate (test code = 48662-7) ADEQUATE [facility] HospitalPlatelet ztskcgjclo1292-26-26 05:14:00* Test Item Value Reference Range Interpretation Comments Platelet Morphology Comment (test code = 50740-7) NORMAL [facility] hypochromia detection by light jmcibpjwsc0449-15-97 05:14:00* Test Item Value Reference Range Interpretation Comments Hypochromasia (test code = 728-6) MODERATE [facility] anisocytosis detection by light kfiuaaajqo6623-11-83 05:14:00* Test Item Value Reference Range Interpretation Comments Anisocytosis (test code = 702-1) MODERATE [facility] HospitalBlood microcytes detection by light wtpjfmmnis4611-61-81 05:14:00* Test Item Value Reference Range Interpretation Comments Microcytosis (test code = 741-9) SLIGHT [facility]Bl[facility] [place] dacrocytes detection by light mowaxflxcs5685-87-52 05:14:00* Test Item Value Reference Range Interpretation Comments Tear Drop Cells (test code = 7791-7) FEW [facility]Bl[facility] [place] ovalocytes detection by light xaarzhlzda2287-51-00 05:14:00* Test Item Value Reference Range Interpretation Comments Ovalocytes (test code = 774-0) FEW [facility] HospitalElliptocyte hgdgqidwn1286-25-36 05:14:00 * Test Item Value Reference Range Interpretation Comments Elliptocytes (test code = 10415-3) SLIGHT [facility] HospitalRBC phqgcfrmhs4925-99-75 05:14:00* Test Item Value Reference Range Interpretation Comments Red Cell Morphology Comment (test code = 6742-1) ABNORMAL [facility] sodium measurement (moles/volume)2020-03-08 05:14:00* Test Item Value Reference Range Interpretation Comments Sodium Level (test code = 2951-2) 139 136-145 [facility] potassium measurement (moles/volume)2020-03-08 05:14:00* Test Item Value Reference Range Interpretation Comments Potassium Level (test code = 2823-3) 3.4 3.5-5.1 [facility] chloride measurement (moles/volume)2020-03-08 05:14:00* Test Item Value Reference Range Interpretation Comments Chloride Level (test code = 2075-0) 98 98-107 [facility] carbon dioxide, total measurement (moles/volume)2020-03-08 05:14:00* Test Item Value Reference Range Interpretation Comments Carbon Dioxide Level (test code = 2028-9) 35 22-29 [facility] anion gzc3906-33-38 05:14:00* Test Item Value Reference Range Interpretation Comments Anion Gap (test code = 32600-1) 9.4 8-16 [facility] urea nitrogen measurement (mass/volume)2020-03-08 05:14:00* Test Item Value Reference Range Interpretation Comments Blood Urea Nitrogen (test code = 3094-0) 9 7-26 [facility] creatinine measurement (mass/volume)2020-03-08 05:14:00* Test Item Value Reference Range Interpretation Comments Creatinine (test code = 2160-0) 0.67 0.57-1.11 [facility] urea nitrogen/creatinine mass tmvxe6926-11-13 05:14:00* Test Item Value Reference Range Interpretation Comments BUN/Creatinine Ratio (test code = 3097-3) 13 6-25 [facility] HospitalEstimated glomerular filtration rate (GFR) upjrmdturpjhk7308-92-18 05:14:00* Test Item Value Reference Range Interpretation Comments Estimat Glomerular Filtration Rate (test code = 733706310) > 60 >60 Ranges were taken from the National Kidney Disease Education Program and the [facility] [employer] literature.Reference ranges:60 or greater: Qtqolo87-39 ( for 3 consecutive months): Chronic kidney disease 15 or less: Kidney failureHuntsville Memorial HospitalGlucose cuzpymliibp1001-24-75 05:14:00* Test Item Value Reference Range Interpretation Comments Glucose Level (test code = EFN8022) 105 74-118 [facility] calcium measurement (mass/volume)2020-03-08 05:14:00* Test Item Value Reference Range Interpretation Comments Calcium Level (test code = 53068-7) 7.1 8.4-10.2 [facility] magnesium measurement (mass/volume)2020-03-08 05:14:00* Test Item Value Reference Range Interpretation Comments Magnesium Level (test code = 91870-2) 1.6 1.3-2.1 [facility] HospitalBlood microcytes detection by light blkulolbqi3688-71-40 05:14:00* Test Item Value Reference Range Interpretation Comments Microcytosis (test code = 741-9) SLIGHT [facility] magnesium measurement (mass/volume)2020-03-08 05:14:00* Test Item Value Reference Range Interpretation Comments Magnesium Level (test code = 26743-9) 1.6 1.3-2.1 [facility] HospitalBlood microcytes detection by light omdeyxxbow0876-84-43 05:14:00* Test Item Value Reference Range Interpretation Comments Microcytosis (test code = 741-9) SLIGHT [facility] magnesium measurement (mass/volume)2020-03-08 05:14:00* Test Item Value Reference Range Interpretation Comments Magnesium Level (test code = 33857-4) 1.6 1.3-2.1 [facility] HospitalProthrombin time (PT) in platelet poor plasma by coagulation zejdv5120-79-86 05:20:00* Test Item Value Reference Range Interpretation Comments Prothrombin Time (test code = 5902-2) 16.1 11.9-14.5 [facility] HospitalINR in Platelet poor plasma by Coagulation vdpis2731-49-52 05:20:00* Test Item Value Reference Range Interpretation Comments Prothromb Time International Ratio (test code = 6301-6) 1.22 Oral Anticoagulant Therapy INR Values:1. Low Intensity Therapy 1.5 - 2.02 . Moderate Intensity Therapy 2.0 - 3.03. High Intensity Therapy(1) 2.5 - 3. 54. High Intensity Therapy(2) 3.0 - 4.05. Panic Value INR > 5.0 [facility] HospitalActivated partial thromboplastin time (aPTT) in platelet poor plasma by coagulation nfnoi4701-83-06 05:20:00* Test Item Value Reference Range Interpretation Comments Activated Partial Thromboplast Time (test code = 87446-7) 37.7 23.8-35.5 [facility] HospitalProthrombin time (PT) in platelet poor plasma by coagulation zwrts6603-47-86 05:20:00* Test Item Value Reference Range Interpretation Comments Prothrombin Time (test code = 5902-2) 16.1 11.9-14.5 [facility] HospitalINR in Platelet poor plasma by Coagulation gifyr5021-38-04 05:20:00* Test Item Value Reference Range Interpretation Comments Prothromb Time International Ratio (test code = 6301-6) 1.22 Oral Anticoagulant Therapy INR Values:1. Low Intensity Therapy 1.5 - 2.02 . Moderate Intensity Therapy 2.0 - 3.03. High Intensity Therapy(1) 2.5 - 3. 54. High Intensity Therapy(2) 3.0 - 4.05. Panic Value INR > 5.0 [facility] HospitalActivated partial thromboplastin time (aPTT) in platelet poor plasma by coagulation kehbm6876-99-90 05:20:00* Test Item Value Reference Range Interpretation Comments Activated Partial Thromboplast Time (test code = 57397-8) 37.7 23.8-35.5 [facility] HospitalProthrombin time (PT) in platelet poor plasma by coagulation gqnqi4498-81-29 05:20:00* Test Item Value Reference Range Interpretation Comments Prothrombin Time (test code = 5902-2) 16.1 11.9-14.5 [facility] HospitalINR in Platelet poor plasma by Coagulation whylv6488-42-47 05:20:00* Test Item Value Reference Range Interpretation Comments Prothromb Time International Ratio (test code = 6301-6) 1.22 Oral Anticoagulant Therapy INR Values:1. Low Intensity Therapy 1.5 - 2.02 . Moderate Intensity Therapy 2.0 - 3.03. High Intensity Therapy(1) 2.5 - 3. 54. High Intensity Therapy(2) 3.0 - 4.05. Panic Value INR > 5.0 [facility] HospitalActivated partial thromboplastin time (aPTT) in platelet poor plasma by coagulation gfvyr7198-18-93 05:20:00* Test Item Value Reference Range Interpretation Comments Activated Partial Thromboplast Time (test code = 80258-3) 37.7 23.8-35.5 [facility] HospitalFluoroscopic procedure less than one hour zmlhnoug9844-33-45 05:40:00* Test Item Value Reference Range Interpretation Comments Hemoglobin A1c Percent (test code = Hemoglobin A1c Percent) 4.9 4.0-7.0 [facility] iron measurement (mass/volume)2020-03-06 05:40:00* Test Item Value Reference Range Interpretation Comments Iron Level (test code = 2498-4) 150 50-170 [facility] iron binding capacity measurement (mass/volume)2020-03-06 05:40:00* Test Item Value Reference Range Interpretation Comments Total Iron Binding Capacity (test code = 2500-7) 155 261-4 78 [facility] iron saturation measurement (mass fraction)2020-03-06 05:40:00* Test Item Value Reference Range Interpretation Comments Percent Iron Saturation (test code = 2502-3) 97 15-50 [facility] transferrin measurement (mass/volume)2020-03-06 05:40:00* Test Item Value Reference Range Interpretation Comments Transferrin (test code = 3034-6) 111 180-382 [facility] total bilirubin measurement (mass/volume)2020-03-06 05:40:00* Test Item Value Reference Range Interpretation Comments Total Bilirubin (test code = 1975-2) 0.9 0.2-1.2 [facility] HospitalFluoroscopic procedure less than one hour zejjkads9167-65-63 05:40:00* Test Item Value Reference Range Interpretation Comments Aspartate Amino Transf (AST/SGOT) (test code = Aspartate Amino Transf (AST/SGOT)) 43 5-34 [facility] alanine aminotransferase measurement (enzymatic activity/volume)2020-03-06 05:40:00* Test Item Value Reference Range Interpretation Comments Alanine Aminotransferase (ALT/SGPT) (test code = 1742-6) 21 0-55 [facility] protein measurement (mass/volume)2020-03-06 05:40:00* Test Item Value Reference Range Interpretation Comments Total Protein (test code = 2885-2) 5.6 6.5-8.1 [facility] albumin measurement (mass/volume)2020-03-06 05:40:00* Test Item Value Reference Range Interpretation Comments Albumin (test code = 1751-7) 1.8 3.5-5.0 [facility] HospitalPlasma globulin measurement (mass/volume) 2020-03-06 05:40:00* Test Item Value Reference Range Interpretation Comments Globulin (test code = 48755-0) 3.8 2.3-3.5 [facility] albumin/globulin mass iitvd9941-20-04 05:40:00* Test Item Value Reference Range Interpretation Comments Albumin/Globulin Ratio (test code = 1759-0) 0.5 0.8-2.0 [facility] alkaline phosphatase measurement (enzymatic activity/volume)2020-03-06 05:40:00* Test Item Value Reference Range Interpretation Comments Alkaline Phosphatase (test code = 6768-6) 91 40-150 [facility] triglyceride measurement (mass/volume)2020-03-06 05:40:00* Test Item Value Reference Range Interpretation Comments Triglycerides Level (test code = 2571-8) 66 0-149 [facility] cholesterol measurement (mass/volume)2020-03-06 05:40:00* Test Item Value Reference Range Interpretation Comments Cholesterol Level (test code = 2093-3) 67 0-199 Less than 200 mg/dL Low Bcau837 - 239 mg/dL Borderline Rseu717 m g/dl and greater High Risk [facility] cholesterol in LDL measurement (mass/volume) 2020-03-06 05:40:00* Test Item Value Reference Range Interpretation Comments LDL Cholesterol (test code = 2089-1) 30 60-130 [facility] cholesterol in HDL measurement (mass/volume)2020-03-06 05:40:00* Test Item Value Reference Range Interpretation Comments HDL Cholesterol (test code = 2085-9) 24 40-60 [facility] total cholesterol/cholesterol in HDL mass eornq9079-91-61 05:40:00* Test Item Value Reference Range Interpretation Comments Cholesterol/HDL Ratio (test code = 9830-1) 2.8 3.0-3.6 [facility] creatine kinase measurement (enzymatic activity/volume)2020-03-06 05:40:00* Test Item Value Reference Range Interpretation Comments Creatine Kinase (test code = 2157-6) 12 29-168 [facility] creatine kinase MB measurement (mass/volume)2020-03-06 05:40:00* Test Item Value Reference Range Interpretation Comments Creatine Kinase MB (test code = 62036-1) 0.40 0-5.0 [facility] HospitalTroponin I measurement by highly sensitive enzyme lqoqaydbubf3150-66-79 05:40:00* Test Item Value Reference Range Interpretation Comments Troponin I (test code = 40226-6) 0.014 0-0.300 [facility] thyrotropin measurement by detection limit <= 0.005 miu/l (units/volume)2020-03-06 05:40:00* Test Item Value Reference Range Interpretation Comments Thyroid Stimulating Hormone (TSH) (test code = 27737-9) 6.324 0.350-4.940 [facility] phenytoin measurement (mass/volume)2020-03-06 05:40:00* Test Item Value Reference Range Interpretation Comments Phenytoin (Dilantin) Level (test code = 3968-5) 3.18 10-20 [facility] HospitalFluoroscopic procedure less than one hour jtnnbmbx9031-50-84 05:40:00* Test Item Value Reference Range Interpretation Comments Hemoglobin A1c Percent (test code = Hemoglobin A1c Percent) 4.9 4.0-7.0 [facility] triglyceride measurement (mass/volume)2020-03-06 05:40:00* Test Item Value Reference Range Interpretation Comments Triglycerides Level (test code = 2571-8) 66 0-149 [facility] cholesterol measurement (mass/volume)2020-03-06 05:40:00* Test Item Value Reference Range Interpretation Comments Cholesterol Level (test code = 2093-3) 67 0-199 Less than 200 mg/dL Low Ryxn306 - 239 mg/dL Borderline Rjiu044 m g/dl and greater High Risk [facility] cholesterol in LDL measurement (mass/volume) 2020-03-06 05:40:00* Test Item Value Reference Range Interpretation Comments LDL Cholesterol (test code = 2089-1) 30 60-130 [facility] cholesterol in HDL measurement (mass/volume)2020-03-06 05:40:00* Test Item Value Reference Range Interpretation Comments HDL Cholesterol (test code = 2085-9) 24 40-60 [facility] total cholesterol/cholesterol in HDL mass mdbng5025-85-09 05:40:00* Test Item Value Reference Range Interpretation Comments Cholesterol/HDL Ratio (test code = 9830-1) 2.8 3.0-3.6 [facility] creatine kinase measurement (enzymatic activity/volume)2020-03-06 05:40:00* Test Item Value Reference Range Interpretation Comments Creatine Kinase (test code = 2157-6) 12 29-168 [facility] creatine kinase MB measurement (mass/volume)2020-03-06 05:40:00* Test Item Value Reference Range Interpretation Comments Creatine Kinase MB (test code = 39911-9) 0.40 0-5.0 [facility] HospitalFluoroscopic procedure less than one hour jngbapho2128-42-71 05:40:00* Test Item Value Reference Range Interpretation Comments Hemoglobin A1c Percent (test code = Hemoglobin A1c Percent) 4.9 4.0-7.0 [facility] triglyceride measurement (mass/volume)2020-03-06 05:40:00* Test Item Value Reference Range Interpretation Comments Triglycerides Level (test code = 2571-8) 66 0-149 [facility] cholesterol measurement (mass/volume)2020-03-06 05:40:00* Test Item Value Reference Range Interpretation Comments Cholesterol Level (test code = 2093-3) 67 0-199 Less than 200 mg/dL Low Pura086 - 239 mg/dL Borderline Wuhv577 m g/dl and greater High Risk [facility] cholesterol in LDL measurement (mass/volume) 2020-03-06 05:40:00* Test Item Value Reference Range Interpretation Comments LDL Cholesterol (test code = 2089-1) 30 60-130 [facility] cholesterol in HDL measurement (mass/volume)2020-03-06 05:40:00* Test Item Value Reference Range Interpretation Comments HDL Cholesterol (test code = 2085-9) 24 40-60 [facility] total cholesterol/cholesterol in HDL mass cqouj8504-73-40 05:40:00* Test Item Value Reference Range Interpretation Comments Cholesterol/HDL Ratio (test code = 9830-1) 2.8 3.0-3.6 [facility] HospitalCHEST SINGLE (PORTABLE)2020-03-05 14:59:00 [facility] [address] [address] Patient Name: CORDELL GRIMM MR #: [id number] : 1945 Age/Sex: 74/F Req #: [id number] Adm Physician: Ordered by: WENDY MAJOR MD Report #: [id number] Location: ER Room/Bed: Procedure: [id number] DX/CHEST SINGLE (PORTABLE) Exam Date: 03/05/20 Exam [...] on 03/05/201511 COPY TO: WENDY MAJOR MD Blood lymphocytes variant count (number/volume)2020-03-05 13:54:00* Test Item Value Reference Range Interpretation Comments Reactive Lymphocytes (test code = 47169-0) 2 [facility] HospitalUrine color apbkazxxopfmu1075-43-76 13:54:00* Test Item Value Reference Range Interpretation Comments Urine Color (test code = 5778-6) YELLOW YELLOW [facility] HospitalUrine wmfixni5126-30-24 13:54:00* Test Item Value Reference Range Interpretation Comments Urine Clarity (test code = 25105-2) SL CLOUDY CLEAR [facility] gravity of Urine by Test strip 2020-03-05 13:54:00* Test Item Value Reference Range Interpretation Comments Urine Specific [place] (test code = 5811-5) 1.025 1.010-1.02 5 [facility] HospitalUrine pH measurement by automated test dwxlq6349-27-09 13:54:00* Test Item Value Reference Range Interpretation Comments Urine pH (test code = 20244-3) 5.5 5-7 [facility] HospitalUrine leukocyte esterase detection by oeceyjrt7646-12-35 13:54:00* Test Item Value Reference Range Interpretation Comments Urine Leukocyte Esterase (test code = 5799-2) TRACE NEGATIVE [facility] HospitalUrine nitrite pvzkxjmue0721-87-06 13:54:00* Test Item Value Reference Range Interpretation Comments Urine Nitrite (test code = 97682-1) NEGATIVE NEGATIVE [facility] HospitalUrine protein measurement by test strip (mass/volume)2020-03-05 13:54:00* Test Item Value Reference Range Interpretation Comments Urine Protein (test code = 5804-0) TRACE NEGATIVE [facility] HospitalUrine glucose wyevzxxig2971-60-40 13:54:00* Test Item Value Reference Range Interpretation Comments Urine Glucose (UA) (test code = 2349-9) NEGATIVE NEGATIVE [facility] HospitalUrine ketones detection by automated test jdkba9830-09-66 13:54:00* Test Item Value Reference Range Interpretation Comments Urine Ketones (test code = 45954-8) TRACE NEGATIVE [facility] HospitalUrine urobilinogen measurement by test strip (mass/volume)2020-03-05 13:54:00* Test Item Value Reference Range Interpretation Comments Urine Urobilinogen (test code = 97158-5) 1 0.2-1 [facility] HospitalUrine total bilirubin measurement (mass/volume)2020-03-05 13:54:00* Test Item Value Reference Range Interpretation Comments Urine Bilirubin (test code = 1978-6) SMALL NEGATIVE [facility] HospitalUrine erythrocytes wagspervv2657-65-52 13:54:00* Test Item Value Reference Range Interpretation Comments Urine Blood (test code = 98938-5) TRACE NEGATIVE [facility] HospitalAutomated urine sediment leukocyte count by microscopy (number/high power field)2020-03-05 13:54:00* Test Item Value Reference Range Interpretation Comments Urine WBC (test code = 5821-4) 11-20 0-5 [facility] HospitalErythrocytes detection in urine sediment by light [id number] 13:54:00* Test Item Value Reference Range Interpretation Comments Urine RBC (test code = 08756-8) 0-5 0-5 [facility] HospitalBacteria detection in urine sediment by light nowhnbriqg2415-53-62 13:54:00* Test Item Value Reference Range Interpretation Comments Urine Bacteria (test code = 93657-2) FEW NONE [facility] HospitalEpithelial cells detection in urine sediment by light ywcsgbpazg4096-56-89 13:54:00* Test Item Value Reference Range Interpretation Comments Urine Epithelial Cells (test code = 05542-2) FEW NONE [facility] HospitalBNP Acr-yEkn9749-49-01 13:54:00* Test Item Value Reference Range Interpretation Comments B-Type Natriuretic Peptide (test code = 50404-2) 276.5 0-100 [facility] HospitalFluoroscopic procedure less than one hour utxfoszu2134-60-52 13:54:00* Test Item Value Reference Range Interpretation [...] under 564(g) of the ACT.Testing performed by [address] [address]SOVH[facility] HospitalBlood [id number] 13:54:00* Test Item Value Reference Range Interpretation Comments Blood Culture (test code = 28349108) NO GROWTH AFTER 5 DAYS, FINAL REPORT [facility] HospitalBacterial urine itbjauk7522-05-20 13:54:00* Test Item Value Reference Range Interpretation Comments Urine Culture (test code = 630-4) ENTEROCOCCUS FAECIUM [facility] HospitalBlood [id number] 13:54:00* Test Item Value Reference Range Interpretation Comments Blood Culture (test code = 62470396) NO GROWTH AFTER 5 DAYS, FINAL REPORT [facility]Blood [id number] 13:54:00* Test Item Value Reference Range Interpretation Comments Blood Culture (test code = 92960147) NO GROWTH AFTER 5 DAYS, FINAL REPORT [facility] HospitalECG 12 [id number] 16:54:43* Test Item Value Reference Range Interpretation Comments Ventricular rate (test code = 253) 78 Atrial rate (test code = 255) 78 AK interval (test code = 266) 164 QRSD [...] has lengthened- Neto MenonUs duplex venous upper wntuimvnb2093-04-79 16:48:07 There is no evidence of DVT in the right upper extremity and left internal jugular vein. [facility] Methodist[facility] with platelet and jvqcbrttdmwr0490-39-90 16:44:52* Test Item Value Reference Range Interpretation Comments WBC (test code = 23205-5) 5.53 4.50- 11.00 k/uL RBC (test code = 36775-8) 3.81 m/uL 4.2-5.5 L HGB (test code = 718-7) 10.1 g/dL 12-16 L HCT (test code = 4544-3) 35.0 % 37-47 L MCV (test code = 787-2) 91.9 fL 82-100 MCH (test code = 785-6) 26.5 pg 27-34 L MCHC (test code = 786-4) 28.9 g/dL 31-37 L RDW - SD (test code = 28472-4) 102.2 fL 37-55 H MPV (test code = 47157-7) SEE COMMENT 8.8-13.2 No report Platelet count (test code = 52195-7) 150 150- 400 k/uL Nucleated RBC (test code = 25531-9) 0.00 /100 WBC Neutrophils (test code = 65809-8) 41.0 % 39-69 Lymphocytes (test code = 60437-0) 52.0 % 25-45 H Monocytes (test code = 62109-5) 2.0 % 0-10 Eosinophils (test code = 38212-2) 5.0 % 0-5 Basophils (test code = 94384-8) 0.0 % 0-1 Lab Interpretation (test code = 65831-8) Abnormal [facility]ual ygpniktpdbeu5491-54-28 16:44:52* Test Item Value Reference Range Interpretation Comments Manual differential (test code = 00781-9) PERFORMED Neutrophils (test code = 53160-2) 41.0 % 39-69 Lymphocytes (test code = 39433-3) 52.0 % 25-45 H Monocytes (test code = 80208-2) 2.0 % 0-10 Eosinophils (test code = 49278-8) 5.0 % 0-5 Basophils (test code = 04401-1) 0.0 % 0-1 Metamyelocytes (test code = 740-1) 0 % Promyelocytes (test code = 783-1) 0 % Platelet slide review (test code = 33593-3) Abhijit adequate Anisocytosis (test code = 702-1) Moderate Tear drop cells (test code = 7791-7) Occasional Ovalocytes (test code = 774-0) occasional Elliptocytes (test code = 89671-3) Occasional Lab Interpretation (test code = 94263-2) Abnormal [facility] MethodistComprehensive metabolic ahefa8410-03-61 15:56:33* Test Item Value Reference Range Interpretation Comments Sodium (test code = 2951-2) 140 135- 148 mEq/L Potassium (test code = 2823-3) 3.1 3.5- 5.0 mEq/L L Chloride (test code = 2075-0) 100 98- 112 mEq/L CO2 (test code = 2027-9) 34 24- 31 mEq/L H Anion gap (test code = 83657-4) 6@ANIO 7- 15 mEq/L L BUN (test code = 3094-0) 9 mg/dL 8-23 Creatinine (test code = 2160-0) 0.70 mg/dL 0.5-0.9 Glucose (test code = 2345-7) 121 mg/dL 65-99 H Calcium (test code = 25064-7) 8.2 mg/dL 8.8-10.2 L Protein (test code = 2885-2) 6.4 g/dL 6.3-8.3 -[place] 4.6- 7.0 g/dL1 week 4.4-7.6 g/dL7 months-1year 5.1-7.3 g/dL1-2 years 5.6-7.5 g/dL>3 years 6.0-8.0 g/qP46-809 6.3-8.3 g/dL Albumin (test code = 1751-7) 2.3 g/dL 3.5-5 L A/G ratio (test code = 1759-0) 0.6 0.7-3.8 L Alkaline phosphatase (test code = 6768-6) 108 U/L 35-104 H AST (test code = 1920-8) 45 U/L 10-35 H ALT (test code = 1742-6) 23 U/L 5-50 Total bilirubin (test code = 1975-2) 0.9 mg/dL 0-1.2 Lab Interpretation (test code = 55289-3) Abnormal [facility] MethodistEstimated [id number] 15:56:33* Test Item Value Reference Range Interpretation Comments Estimated GFR (test code = 5488) 84 mL/min/1.73 m2 Catergory Units InterpretationG1 >=90 Normal or highG2 60-89 Mildly tgqacoxtfM6s 45-59 Mildly to moderately umeznqfvvU5y 30-44 Moderately to severely decreasedG4 15-29 Severely decreasedG5 <15 Kidney failureThe eGFR was calculated using the Chronic Kidney Disease Epidemiology Collaboration (CKD-EPI) equation. Interpretation is based on recommendations of the National Kidney Foundation-Kidney Disease Outcomes Quality Initiative (NKF-KDOQI) published in 2014. [facility] MethodistXR Chest 1 Vw Xvxzzils3268-75-66 15:37:15Hm Interface, Radiology Results 03/03/2020 3:40 PM [...] present. The regional osseous structures appear stable. [facility]- [id number] [facility] [place] [facility] Preliminary Interpretation - Not an Order 2020-03-03 15:01:44Moni Morgan MD 03/03/2020 6:03 [facility] ED Preliminary Interpretation - Not an OrderPerformed by: Moni Morgan MDAuthorized by: Moni Morgan MD ECG reviewed by ED Physician in the absence of a automatic teller machine servicer: yes (read at 1507) Interpretation: Interpretation: normal Rate: ECG rate: 78 ECG rate assessment: normal Rhythm: Rhythm: sinus rhythm Ectopy: Ectopy: none QRS: QRS axis: Normal QRS intervals: NormalConduction: Conduction: normal ST segments: ST segments: NormalT waves: T waves: normal Other findings: Other findings: prolonged qTc interval Neto Menon
--- NOTE | 2020-05-17 15:14 | Diagnostic Imaging Report ---
TECHNIQUE: Frontal view of the chest. INDICATION: ^ams ^[id number] ^1428 COMPARISON: 04/15/2020 DISCUSSION: Limited evaluation due to portable technique. Lines and hardware: Overlying EKG leads are noted. Midline sternotomy changes are stable. Heart and mediastinum: Stable cardiomegaly and central vascular congestion. Lungs and pleura: There are stable multifocal, right greater than left, patchy airspace opacities. Perihilar fullness is noted. Blunting of the bilateral costophrenic angles is noted. Negative for large pneumothorax. Soft tissues and bones: No acute abnormality. IMPRESSION: Basilar congestion and cardiomegaly along with interstitial opacities are concerning for fluid overload/edema with small effusions. Patchy airspace opacities at the lung bases, right greater than left, are also concerning for superimposed aspiration or pneumonia. Signed by: Omega Fraser MD on 05/17/2020 3:11 PM
[2020-05-17] MEDS ORDERED: LORAZEPAM INJ 2 MG/ML VIAL IV ONE (15:15)
[2020-05-17 15:18] LABS: BASOPHILS # (AUTO) 0.1 (0.0-0.1); BASOPHILS % 0.8 % (0.0-1.0); EOSINOPHILS # (AUTO) 0.1 (0.0-0.4); EOSINOPHILS % 2.2 % (0.0-6.0); HEMATOCRIT 27.1 % (34.2-44.1); HEMOGLOBIN 8.1 g/dL (12.0-16.0); LYMPHOCYTES # (AUTO) 2.9 (1.0-3.2); LYMPHOCYTES % 45.1 % (18.0-39.1); MEAN CORPUSCULAR HEMOGLOBIN 26.2 pg (28-32); MEAN CORPUSCULAR HGB CONC 29.9 g/dL (31-35); MEAN CORPUSCULAR VOLUME 87.7 fL (81-99); MONOCYTES # (AUTO) 0.5 (0.2-0.8); MONOCYTES % 7.7 % (4.4-11.3); NEUTROPHILS # (AUTO) 2.8 (2.1-6.9); PLATELET COUNT 184 x10e3/uL (140-360); RED BLOOD COUNT 3.09 x10e6/uL (3.6-5.1); RED CELL DISTRIBUTION WIDTH 33.5 % (11.7-14.4)
[2020-05-17 15:34] LABS: ALANINE AMINOTRANSFERASE 36 IU/L (0-55); ALBUMIN/GLOBULIN RATIO 0.4 (0.8-2.0); ALKALINE PHOSPHATASE 112 IU/L (40-150); ANION GAP 11.7 mmol/L (8-16); BLOOD UREA NITROGEN 11 mg/dL (7-26); BUN/CREATININE RATIO 15 (6-25); CALCIUM 7.2 mg/dL (8.4-10.2); CARBON DIOXIDE 34 mmol/L (22-29); CHLORIDE 99 mmol/L (98-107); CREATINE KINASE 74 IU/L (29-168); CREATININE, SERUM 0.74 mg/dL (0.57-1.11); EST GLOMERULAR FILTRATION RATE > 60 ML/MIN (60-); GLUCOSE 85 mg/dL (74-118); INR 1.76; POTASSIUM 3.7 mmol/L (3.5-5.1); PROTHROMBIN TIME 21.4 seconds (11.9-14.5); SODIUM 141 mmol/L (136-145)
[2020-05-17 15:42] LABS: B-TYPE NATRIURETIC PEPTIDE2 286.9 pg/mL (0-100)
[2020-05-17 16:20] LABS: BILIRUBIN,URINE SMALL (NEGATIVE); CLARITY,URINE CLOUDY (CLEAR); COLOR,URINE AMBER (YELLOW); KETONES,URINE TRACE (NEGATIVE); LEUKOCYTE ESTERASE ,URINE LARGE (NEGATIVE); NITRITE,URINE POSITIVE (NEGATIVE); PROTEIN,URINE DIPSTICK 2+ (NEGATIVE); URINE UROBILINOGEN 1 mg/dL (0.2 - 1)
[2020-05-17 16:31] LABS: BACTERIA,URINE MANY /HPF; WBC,URINE (MAN) >50 /HPF (0-5)
--- NOTE | 2020-05-17 16:43 | Emergency Department Note ---
History of Present Illnes History of Present Illness Chief Complaint: Genitourinary History of Present Illness This is a 74 year old female Patient in from home via EMS with reports of altered mental status and burning with urination for the last 3 days. Patient reports that she does not drink water and only drinks V8 and cranberry juice. Patient has had a lopez catheter for a long time and her symptoms started shortly after the catheter being replaced the last time. Patient's mouth is dry and her urine appears concentrated. 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 Any updates have been documented here. Past Medical History Recent Fever: No Clinical Suspicion of Infectio: No New/Unexplained Change in Ment: Yes Past Medical History: Hypertension, Diabetes, CHF, A-Fib, Hypothyroidism, Cancer, Seizure Disorder, UTI's, Hyperlipedemia Other Medical History: Afib, breast cancer, subdural hematoma, decubitus ulcers Past Surgical History: Hysterectomy, CABG Other Surgery: Bilateral shoulder surgery Social History Smoking Cessation: Unknown if ever smoked Counseling Performed: No Alcohol Use: None Any Illegal Drug Use: No TB Exposure/Symptoms: No Physically hurt or threatened: No Other Last Tetanus: UNKNOWN Any Pre-Existing Lines (PICC,: No Review of Systems ROS Narrative Unable to obtain ROS: Unable to obtain due to, altered mental status Physical Exam Related Data Allergies: Coded Allergies: Penicillins (Unverified Allergy, Severe, "SHORT OF BREATH, LIPS PURPLE AND SWELLING, RASH", 03/05/20) Sulfa (Sulfonamide Antibiotics) (Verified Allergy, Unknown, 03/05/20) Triage Vital Signs Vital Signs Date Time Temp Pulse Resp B/P (MAP) Pulse Ox O2 Delivery O2 Flow Rate FiO2 05/17/20 13:35 97.1 125 18 120/100 99 Nasal Cannula 4.0 Vital signs reviewed: Yes Physical Exam CONSTITUTIONAL Constitutional: Present morbidly obese, Present ill appearing HENT HENT: Present normocephalic, Present atraumatic, Present oropharynx clear/moist , Present nose normal HENT L/R: Present left ext ear normal, Present right ext ear normal EYES Eyes: Reports PERRL, Reports conjunctivae normal NECK Neck: Present ROM normal PULMONARY Pulmonary: Present effort normal, Present breath sounds normal CARDIOVASCULAR Cardiovascular: Present irregular rhythm, Present heart sounds normal, Present capillary refill normal, Present normal rate GASTROINTESTINAL Abdominal: Present soft, Present nontender, Present bowel sounds normal GENITOURINARY Genitourinary: Present exam deferred SKIN Skin: Present warm, Present dry MUSCULOSKELETAL Musculoskeletal: Present edema (3+ BILAT LE's) NEUROLOGICAL Neurological: Present alert, Present no gross motor or sensory deficits, Present other (ORIENTED TO NAME ONLY) PSYCHOLOGICAL Psychological: Present mood/affect normal, Present judgement normal Results Laboratory Result Diagram: 05/17/20 1450 05/17/20 1450 Laboratory Laboratory Tests Test 05/17/20 16:04 05/17/20 14:50 Urine Color Kimberly (YELLOW) Urine Clarity Cloudy (CLEAR) Urine pH 5.5 (5 - 7) Urine Specific [place] 1.030 (1.010-1.025) Urine Protein 2+ (NEGATIVE) Urine Glucose (UA) Negative (NEGATIVE) Urine Ketones Trace (NEGATIVE) Urine Blood Moderate (NEGATIVE) Urine Nitrite Positive (NEGATIVE) Urine Bilirubin Small (NEGATIVE) Urine Urobilinogen 1 mg/dL (0.2 - 1) Urine Leukocyte Esterase Large (NEGATIVE) Urine RBC 11-20 /HPF (0-5) Urine WBC >50 /HPF (0-5) Urine Epithelial Cells None /LPF (NONE) Urine Bacteria Many /HPF (NONE) White Blood Count 6.39 x10e3/uL (4.8-10.8) Red Blood Count 3.09 x10e6/uL (3.6-5.1) Hemoglobin 8.1 g/dL (12.0-16.0) Hematocrit 27.1 % (34.2-44.1) Mean Corpuscular Volume 87.7 fL (81-99) Mean Corpuscular Hemoglobin 26.2 pg (28-32) Mean Corpuscular Hemoglobin Concent 29.9 g/dL (31-35) Red Cell Distribution Width 33.5 % (11.7-14.4) Platelet Count 184 x10e3/uL (140-360) Neutrophils (%) (Auto) 44.0 % (38.7-80.0) Lymphocytes (%) (Auto) 45.1 % (18.0-39.1) Monocytes (%) (Auto) 7.7 % (4.4-11.3) Eosinophils (%) (Auto) 2.2 % (0.0-6.0) Basophils (%) (Auto) 0.8 % (0.0-1.0) Neutrophils # (Auto) 2.8 (2.1-6.9) Lymphocytes # (Auto) 2.9 (1.0-3.2) Monocytes # (Auto) 0.5 (0.2-0.8) Eosinophils # (Auto) 0.1 (0.0-0.4) Basophils # (Auto) 0.1 (0.0-0.1) Absolute Immature Granulocyte (auto 0.01 x10e3/uL (0-0.1) Prothrombin Time 21.4 seconds (11.9-14.5) Prothromb Time International Ratio 1.76 Activated Partial Thromboplast Time 45.0 seconds (23.8-35.5) Sodium Level 141 mmol/L (136-145) Potassium Level 3.7 mmol/L (3.5-5.1) Chloride Level 99 mmol/L (98-107) Carbon Dioxide Level 34 mmol/L (22-29) Anion Gap 11.7 mmol/L (8-16) Blood Urea Nitrogen 11 mg/dL (7-26) Creatinine 0.74 mg/dL (0.57-1.11) Estimat Glomerular Filtration Rate > 60 ML/MIN (60-) BUN/Creatinine Ratio 15 (6-25) Glucose Level 85 mg/dL (74-118) Lactic Acid Level 1.3 mmol/L (0.5-2.0) Calcium Level 7.2 mg/dL (8.4-10.2) Total Bilirubin 0.9 mg/dL (0.2-1.2) Aspartate Amino Transf (AST/SGOT) 86 IU/L (5-34) Alanine Aminotransferase (ALT/SGPT) 36 IU/L (0-55) Alkaline Phosphatase 112 IU/L (40-150) Creatine Kinase 74 IU/L (29-168) Creatine Kinase MB 1.20 ng/mL (0-5.0) Troponin I 0.024 ng/mL (0-0.300) B-Type Natriuretic Peptide 286.9 pg/mL (0-100) Total Protein 7.2 g/dL (6.5-8.1) Albumin 2.0 g/dL (3.5-5.0) Globulin 5.2 g/dL (2.3-3.5) Albumin/Globulin Ratio 0.4 (0.8-2.0) Lab results reviewed: Yes Imaging Imaging results reviewed: Yes Impressions Procedure: 9817-5618 DX/CHEST SINGLE (PORTABLE) Exam Date: 05/17/20 Exam Time: 1428 REPORT STATUS: Signed TECHNIQUE: Frontal view of the chest. INDICATION: ^ams ^[id number] ^1428 COMPARISON: 04/15/2020 DISCUSSION: Limited evaluation due to portable technique. Lines and hardware: Overlying EKG leads are noted. Midline sternotomy changes are stable. Heart and mediastinum: Stable cardiomegaly and central vascular congestion. Lungs and pleura: There are stable multifocal, right greater than left, patchy airspace opacities. Perihilar fullness is noted. Blunting of the bilateral costophrenic angles is noted. Negative for large pneumothorax. Soft tissues and bones: No acute abnormality. IMPRESSION: Basilar congestion and cardiomegaly along with interstitial opacities are concerning for fluid overload/edema with small effusions. Patchy airspace opacities at the lung bases, right greater than left, are also concerning for superimposed aspiration or pneumonia. Signed by: Omega Fraser MD on 05/17/2020 3:11 PM Imaging Comments PATIENT REFUSED CT BRAIN, I TRIED TO CALM HER WITH SMALL DOSE OF ATIVAN BUT SHE STILL REFUSED SAYING SHE DOESN'T WANT Procedures 12 Lead ECG Interpretation ECG Interpretation : ECG: ECG 1 Commercial Lease Administrator: Interpreted by ED physician Date: May 17, 2020 Time: 13:42 Prior ECG tracings: reviewed Rhythm: atrial fibrillation Rate: tachycardia BPM: 121 QRS axis: normal ST segments normal: Yes T wave inversion: II, III, aVF, V5, V6 Clinical Impression: abnormal ECG Critical Care Time Total Critical Care Time (min): 40 Critical care time exclusive o: separately billable procedures Critcal care necessary due to: cardiac failure Critcal care time spent by me: discussion w consultants, discussion w primary provider, examination of patient, obtaining hx from patient/surrogate, order/perform tx or interventions, order/review laboratory studies, order/review radiographic studies, pulse oximetry, re-evaluation of patient condition Assessment & Plan Medical Decision Making MDM AMS WITH AFIB ON ANTICOAGULANTS - CHECK CBC, CHEM, ECG, CARDIACS, BNP, UA/CX, BLOOD CX'S, CT BRAIN - EVAL FOR UTI, SEPSIS, STEMI/NSTEMI, CEREBRAL BLEED, CVA Reassessment Reassessment WHEN I EXAMINED PT, SHE WAS IN AFIB WITH NARROW COMPLEX & CONTROLLED RATE ON MONITOR. AFTER I TALKED TO ADMITTING MD's AUTOMATION MACHINE OPERATOR FOR ADMISSION, ER NURSE BRITTANY CALLED ME TO BEDSIDE FOR HR 180, WIDE-COMPLEX AND REGULAR C/W VT - PT AWAKE BUT SOB AND IN DISTRESS - NURSE GETTING AMIODARONE TO START BOLUS (NOT YET GIVEN) SHE SWITCHED TO INTERMITTENT WIDE WITH NARROW COMPLEX RHYTHM WHICH WAS IRREGULAR, APPEARED TO BE AFIB WITH ABERRANCY, RATE STILL ~150 - GIVEN METOPROLOL 2.5 IV AND AMIODARONE STARTED - PT IMPROVED, HR BECAME NARROW COMPLEX AFIB - SEE REPEAT ECG @ 1740. I SWITCHED PT TO ICU, SPOKE WITH DR ANGEL, DR COLE AND DR OROZCO Assessment & Plan Final Impression: (1) UTI (urinary tract infection) (2) AMS (altered mental status) (3) Atrial fibrillation, chronic (4) Wide-complex tachycardia (5) CHF (congestive heart failure) (6) Anemia Depart Disposition: ADMITTED Last Vital Signs Date Time Temp Pulse Resp B/P (MAP) Pulse Ox O2 Delivery O2 Flow Rate FiO2 05/17/20 13:35 97.1 125 18 120/100 99 Nasal Cannula 4.0 Home Meds Active Scripts Cephalexin Monohydrate (KEFLEX) 500 Mg Capsule, 500 MG PO Q8HR for 8 Days, #24 Prov:NIECY SANTANA AUTOMATION MACHINE OPERATOR 04/18/20 Reported Medications Levothyroxine Sodium (LEVOTHYROXINE SODIUM) 75 Mcg Tablet, 75 MCG PO DAILY, #30 TAB 04/16/20 Furosemide (FUROSEMIDE) 20 Mg Tablet, 20 MG PO BID 04/16/20 Phenytoin Sodium Extended (PHENYTOIN SODIUM EXTENDED) 200 Mg Capsule, 200 MG PO BID 03/05/20 Sitagliptin Phosphate (JANUVIA) 100 Mg Tablet, 100 MG PO DAILY, #30 TAB 03/05/20 Aspirin (ASPIR 81) 81 Mg Tablet., 81 MG PO DAILY 7/8/14 Metoprolol Tartrate (METOPROLOL TARTRATE) 25 Mg Tablet, 25 MG PO BID 02/09/14 Atorvastatin Calcium (LIPITOR) 80 Mg Tablet, 80 MG PO HS 02/09/14 Omeprazole (PRILOSEC) 20 Mg Capsule.dr, 20 MG PO DAILY 02/09/14 Medications in the ED Lorazepam 0.25 mg ONCE ONCE IV Last administered on 05/17/20at 15:25; Admin Dose 0.25 MG; Start 05/17/20 at 15:15; Stop 05/17/20 at 15:19; Status DC WENDY MAJOR MD May 17, 2020 16:43
[2020-05-17] MEDS: CEFTRIAXONE SOD 1 GM/NS 50 ML 50 ML IV SCH (17:24)
--- NOTE | 2020-05-17 17:35 | NUR ---
entered patient room, patient observed to be anxious and heart rate on the bedside monitor was 180's. notified Dr. Hoffman. and dr. in room to assess patient. o2 sats 90 and stating she can't breathe. placed patient on NRB and sats improved. admin 2.5 mg of metoprolol IVP pt hr 150 b/p 106/75. EKG repeated and shows a-fib with RVR. started patient on Amiodarone bolus per Dr. Hoffman V/O.
[2020-05-17] MEDS ORDERED: AMIODARONE HCL 150MG 100 ML ONE (17:39)
[2020-05-17] MEDS ORDERED: METOPROLOL TARTRATE INJ 1 MG/ML VIAL ONE (17:41)
[2020-05-17] MEDS ORDERED: METOPROLOL TARTRATE 25 MG TAB PO SCH (17:45)
[2020-05-17] MEDS ORDERED: MAGNESIUM SULF 1GRAM/DEXTROSE 100 ML IV ONE (18:15)
[2020-05-17] MEDS ORDERED: AMIODARONE HCL 360MG 200 ML IV STA (18:20)
[2020-05-17] MEDS ORDERED: METOPROLOL TARTRATE INJ 1 MG/ML VIAL IV ONE (18:30)
[2020-05-17] MEDS ORDERED: AMIODARONE HCL 150 MG in DEXTROSE 5% 100ML 100 ML IV SCH (18:30)
[2020-05-17] MEDS ORDERED: AMIODARONE HCL 150 MG/100 ML BAG IV ONE (18:30)
[2020-05-17] MEDS: AMIODARONE HCL 900 MG in DEXTROSE 5 % 500ML BOTTLE 500 ML IV SCH (18:46)
--- OUTSIDE RECORDS SUMMARY | 2020-05-17 18:54 | XMS REPORT | Clinical Summary ---
Author Author [facility] Address Unknown Phone Unavailable Care Team Providers Care Systems Testing Laboratory Technician Name Role Phone Cheyenne Hendrix MD PCP [...] Code P brittany Number [facility] [address] [place] [address], * Estimated GFR (03/03/2020 3:36 PM CDT) Pathologist [facility] Estimated GFR 84 mL/min/1.73 m2 SEMMES Comment: [facility] Interpretation G1 >=90 Normal or high G2 [...] Code [place] [address] [place] [address] PATHOLOGY AND GENOMIC MEDICINE [facility] [address] [place] [address] [facility] * Manual differential (03/03/2020 3:36 PM CDT) Manual PERFORMED SEMMES differential [facility] Neutrophils 41.0 39.0 - 69.0 % [facility] Lymphocytes 52.0 (H) 25.0 - 45.0 % [facility] Monocytes 2.0 0.0 - 10.0 % [facility] Eosinophils 5.0 0.0 - 5.0 % [facility] Basophils 0.0 0.0 - 1.0 % [facility] Metamyelocytes 0 % [facility] Promyelocytes 0 % [facility] Platelet slide Abhijit adequate SEMMES review [facility] Anisocytosis Moderate [facility] Tear drop cells Occasional [facility] Ovalocytes occasional [facility] Elliptocytes Occasional [facility] Specimen Performing Organization Address City/State/ZIP Code [place] [address] [place] [address] PATHOLOGY AND GENOMIC MEDICINE [facility] [address] [place] [address] [facility] * CBC with platelet and differential (03/03/2020 3:36 PM CDT) WBC 5.53 4.50 - 11.00 k/uL [facility] RBC 3.81 (L) 4.20 - 5.50 m/uL [facility] HGB 10.1 (L) 12.0 - 16.0 g/dL [facility] HCT 35.0 (L) 37.0 - 47.0 % [facility] MCV 91.9 82.0 - 100.0 fL [facility] MCH 26.5 (L) 27.0 - 34.0 pg [facility] MCHC 28.9 (L) 31.0 - 37.0 g/dL [facility] RDW - SD 102.2 (H) 37.0 - 55.0 fL [facility] MPV SEE COMMENTComment: No report 8.8 - 13.2 fL [facility] Platelet count 150 150 - 400 k/uL [facility] Nucleated RBC 0.00 /100 WBC [facility] Neutrophils 41.0 39.0 - 69.0 % [facility] Lymphocytes 52.0 (H) 25.0 - 45.0 % [facility] Monocytes 2.0 0.0 - 10.0 % [facility] Eosinophils 5.0 0.0 - 5.0 % [facility] Basophils 0.0 0.0 - 1.0 % [facility] Specimen Blood Performing Organization Address City/State/ZIP Code [place] [address] [place] [address] PATHOLOGY AND GENOMIC MEDICINE [facility] [address] [place] [address] [facility] * Comprehensive metabolic panel (03/03/2020 3:36 PM CDT) Sodium 140 135 - 148 mEq/L [facility] Potassium 3.1 (L) 3.5 - 5.0 mEq/L [facility] Chloride 100 98 - 112 mEq/L [facility] CO2 34 (H) 24 - 31 mEq/L [facility] Anion gap 6@ANIO (L) 7 - 15 mEq/L [facility] BUN 9 8 - 23 mg/dL [facility] Creatinine 0.70 0.50 - 0.90 mg/dL [facility] Glucose 121 (H) 65 - 99 mg/dL [facility] Calcium 8.2 (L) 8.8 - 10.2 mg/dL [facility] Protein 6.4 6.3 - 8.3 g/dL [facility] Comment: [facility] Gunlock 4.6-7.0 g/dL 1 week 4.4-7.6 g/dL 7 months-1year 5.1-7.3 g/dL 1-2 years 5.6-7.5 g/dL >3 years 6.0-8.0 g/dL 18-150 6.3-8.3 g/dL Albumin 2.3 (L) 3.5 - 5.0 g/dL [facility] A/G ratio 0.6 (L) 0.7 - 3.8 [facility] Alkaline 108 (H) 35 - 104 U/L [facility] phosphatase [facility] AST 45 (H) 10 - 35 U/L [facility] ALT 23 5 - 50 U/L [facility] Total bilirubin 0.9 0.0 - 1.2 mg/dL [facility] Specimen Blood Performing Organization Address City/State/ZIP Code [place] [address] [place] [address] PATHOLOGY AND GENOMIC MEDICINE [facility] [address] [place] [address] [facility] * XR Chest 1 Vw Portable [...] sent. The regional osseous structures appear stable. [id number] Procedure Note Hm Interface, Radiology Results Incoming [...] present. The regional osseous structures appear stable. [facility]-[id number] Performing Organization Address City/State/ZIP Code P brittany Number [facility] [address] [place] [address] * ECG 12 lead (03/03/2020 3:07 PM CDT) Ventricular 78 [facility] rate Atrial rate 78 [facility] MI interval 164 [facility] QRSD interval 90 [...] Organization Address City/State/ZIP Code P brittany Number [facility] MUSE [address] [place] [address] * ECG ED Preliminary Interpretation - Not an Order (03/03/2020 3:01 PM CDT) Narrative Performed At Juan Antonio Levi MD 03/03/2020 6:03 PM ECG ED Preliminary Interpretation - Not an Order Performed by: Juan Antonio Levi MD Authorized by: Juan Antonio Levi MD ECG reviewed by ED Physician in the abs ence of a telephone cleaner: yes (read at 1507) Interpretation: Interpretation: normal [...] Phone Address Plan / Dates Group [facility] [id number] 2008- P ADVANTAGE resent [facility] Advance Directives For more information, please contact: [phone] Patient Technology Program Manager Explanation Type Date Recorded Advance Directives, 12/07/2016 1:22 PM Living Will and Medical Power of Garment Sorter Date Inactivated Comments Code Status Date Activated 10/24/2017 9:31 PM Full Code 10/15/2017 2:30 AM Code Status decision reached by: Patient
--- OUTSIDE RECORDS SUMMARY | 2020-05-17 18:54 | XMS REPORT | Clinical Summary ---
Author Author [facility] Address Unknown Phone Unavailable Care Team Providers Care Treatment Specialist Name Role Phone Latanya Frias PCP Unavailable [...] ot Implanted Type Area Manufactur er 04/04/2015 [id number] / / [id number] Sealant,Floseal Hemostatic Matrix Cement/Glenn Left: Brain FRANCO 10ml - [id number] ler/Adhesi BIOSCIENCE Implanted: Qty: 2 on 02/11/2014 by Rosalie Coyne MD at [facility] [id number] / / Cover,Bur Hole Low Prof 14mm W/Tab Fracture/F Left: Crani um WERNER - [id number] ixation CRANIOMAXI Implanted: Qty: 1 on 02/11/2014 by Rosalie Alcazar MD at [facility] [id number] / / Screw,Self-Drill 1.5 Univ Cross-Pin Fracture/F Left: Cran ium WERNER 4mm - [id number] ixation CRANIOMAXI Implanted: Qty: 7 on 02/11/2014 by Rosalie Alcazar MD at [facility] [id number] / / Plate,Low Prof 2 Hole 16mm Bar - Fracture/F Left: Cranium WERNER [id number] ixation CRANIOMAXI Implanted: Qty: 2 on 02/11/2014 by Rosalie Alcazar MD at [facility] 10/02/2016 [id number] / / [id number] Graft,Duragen Dural Matrix 2x2" - Tissue Left: Brain INTEGRA [id number] Graft/Subs [employer]/ Implanted: Qty: 1 on 02/11/2014 by Rosalie Valiente MD at [facility] Results Not on fileafter 05/17/2019 Insurance Type Payer Benefit Subscriber ID Effective Phone Address Plan / Dates Group [employer] [id number] 2008-P MEDICARE resent ADV Advance Directives For more information, please contact: [phone] Date Inactivated Comments Code Status Date Activated 02/24/2014 6:30 PM Full Code 02/21/2014 1:45 PM This code status was determined by: Patient 02/16/2014 11:09 PM Full Code 02/10/2014 2:43 AM This code status was determined by: Patient
--- OUTSIDE RECORDS SUMMARY | 2020-05-17 18:55 | XMS REPORT | Continuity of Care Document ---
Author Author [facility] t Organization [facility] Address [address] [place] [address] Phone Unavailable Care Team Providers Care Activated Sludge Attendant Name Role Phone NONSTAFF PCP Unavailable Juan MAJOR Attphys Unavailable Desire MORATAYA Attphys Unavailable Misael Foreman Attphys Unavailable Amita PONCE, Ted Romano Attphys Payers Payer Name Policy Type Policy Number Effective Date Expiration Date Desire bee Kelsey Care Medicare Advantage [id number] 2008 00:0 0:00 [facility] Cdc Review Covid19 [id number] [facility] ADVANTAGE [id number] [id number] [id number] 2008 00:00:00 Neto Menon Problems Condition Name Condition Details Condition Category Status Onset Date Resolution Date Last Treatment Date Treating Clinician Comments Source Ventricular tachycardia Ventricular tachycardia Disease Active 2017-10-15 00:00:[address] Severe sepsis Severe sepsis Disease Active 2016-12-07 00:00:00 Neto Menon Generalized edema Problem Active [facility] Congestive heart failure Problem Active [facility] Hypoalbuminemia Problem Active [facility] Urinary tract infection Problem Active [facility] Pressure injury of skin Problem Active [facility] Supraventricular tachycardia Problem Active [facility] Allergies, Adverse Reactions, Alerts Allergy Name Allergy Type Status Severity Reaction(s) Onset Date Inacti ve Date Treating Clinician Comments Source Penicillin Allergy to substance Active Severe "SHORT OF BREATH, LIPS PURPLE AND SWELLING, RASH" 2020-03-05 00:00:00 [facility] Sulfa (Sulfonamide Antibiotics) Allergy to substance Active 2020-03-05 00:00:00 [facility] Penicillin G Propensity to adverse reactions to drug Active Hives 2016-12-07 00:00:00 Neto loving Sulfa (Sulfonamide Antibiotics) Propensity to adverse reactions to drug Active Hives, Swelling 2016-12-07 00:00:00 Neto Menon Penicillins Propensity to adverse reactions Active 2013 00:00:00 [facility] Sulfa (Sulfonamide Antibiotics) Propensity to adverse reactions Activ e 2014-02-10 00:00:00 [facility] Family History Family Member Diagnosis Comments Start Date Stop Date Source Natural father Stroke [facility] Natural mother Coronary artery disease [facility] Natural mother Diabetes type II [facility] Natural mother Hypertension [facility] Natural mother Pancreatic cancer [facility] Social History Social Habit Start Date Stop Date Quantity Comments Source Sex Assigned At [place] [facility] Tobacco use and exposure 2017-12-05 00:00:00 2017-12-05 00:00:00 Chente r used Neto Menon Alcohol intake 2017-12-05 00:00:00 [...] 14:46:00 Yes 500 Every 8 H ours [facility] omeprazole (PriLOSEC) 20 MG capsule 2017-12-05 20:37:51 Yes 20mg QD Take 20 mg by mouth daily. Neto Menon aspirin (ECOTRIN) 81 MG enteric coated tablet 2017-12-05 20:37:5 1 Yes 81mg QD Take 81 mg by mouth nightly. Neto Menon amIODarone (PACERONE) 100 MG tablet 2017-12-05 20:37:51 Yes 100mg QD Take 100 mg by mouth daily. Neto Beasley odnathaly rivaroxaban (XARELTO) 15 mg tablet 2017-12-05 20:37:51 [...] MG tablet 2017-09-18 00:00:00 Y es 1{tbl} Q.[id number] Take 1 tablet by mouth 3 (three) [...] mg by mouth 2 (two) times daily. [facility] atorvastatin (LIPITOR) 80 MG tablet 2014-02-24 00:00:00 Yes 80mg QD Take 1 tablet (80 mg total) by mouth daily. Maya [facility] levothyroxine (SYNTHROID, LEVOTHROID) 75 MCG tablet 02-24 00:00:00 Yes 75ug QD Take 1 tablet (75 mcg total) by mouth da becca. [facility] lisinopril (PRINIVIL,ZESTRIL) 5 MG tablet 2014-02-24 00:00:00 Yes 5mg QD Take 1 tablet (5 mg total) by mouth daily. [facility] metoprolol (LOPRESSOR) 25 MG tablet 2014-02-24 00:00:00 Yes 25mg Q.5D Take 1 tablet (25 mg total) by mouth 2 (two) times daily. [facility] omeprazole (PRILOSEC) 40 MG capsule 2014-02-24 00:00:00 Yes 40mg QD Take 1 capsule (40 mg total) by mouth daily. [facility] multivitamin (THERAGRAN) tablet 2013-12-10 00:00:00 Yes 1{tbl} QD Take 1 tablet by mouth daily. Neto Menon Aspirin (Aspir 81) 81 Mg TABLET. Aspirin (Aspir 81) 81 Mg TABLET. Yes 81 Daily [facility] Atorvastatin Calcium (Lipitor) 80 Mg TABLET Atorvastat in Calcium (Lipitor) 80 Mg TABLET Yes 80 Bedtime [facility] Furosemide Furosemide Yes 20 Daily I [facility] Levothyroxine Sodium Levothyroxine Sodium Yes 75 Daily [facility] Metoprolol Tartrate Metoprolol Tartrate Yes 25 Twice A Day [facility] Omeprazole (Prilosec) 20 Mg CAPSULE. Omeprazole (Prilosec) 20 Mg CAPSULE.DR Yes 20 Daily [facility] Phenytoin Sodium Extended Phenytoin Sodium Extended Yes 200 Twice A Day [facility] Sitagliptin Phosphate (Januvia) 100 Mg TABLET Sitaglip tin Phosphate (Januvia) 100 Mg TABLET Yes 100 Daily [facility] Cephalexin Cephalexin 2020-04-18 00:00:00 No [address] [facility] Losartan Potassium Losartan Potassium 2020-04-18 00:00:00 No 25 Daily [facility] Levothyroxine Sodium (Levoxyl) 75 Mcg TABLET Levothyro xine Sodium (Levoxyl) 75 Mcg TABLET 2020-04-16 00:00:00 No 75 Daily [facility] Citalopram Hydrobromide (Citalopram Hbr) 40 Mg TABLET Citalopram Hydrobromide (Citalopram Hbr) 40 Mg TABLET 2020-03-05 00:00:00 No 40 Rt Daily [facility] Lisinopril (Prinivil) 5 Mg TABLET Lisinopril (Prinivil) 5 Mg TAB LET 2020-03-05 00:00:00 No 5 Rt Daily [facility] Nitrofurantoin Macrocrystal (Nitrofurantoin) 100 Mg CA PSULE Nitrofurantoin Macrocrystal (Nitrofurantoin) 100 Mg CAPSULE 2020-03-05 00:00:00 No 100 Twice A Day [facility] Oxybutynin Chloride (Oxybutynin Chloride Er) 15 Mg TAB .ER.24 Oxybutynin Chloride (Oxybutynin Chloride Er) 15 Mg TAB.ER.24 2020-03-05 00:00:00 No 15 Twice A Day [facility] Sitagliptin Phosphate (Januvia) 100 Mg TABLET Sitaglip tin Phosphate (Januvia) 100 Mg TABLET 2020-03-05 00:00:00 No 100 Rt Daily [facility] Vital Signs Vital Name Observation Time Observation Value Comments Source Body Temperature 2020-04-21 15:53:00 98.4 [degF] [facility] Weight 2020-04-21 12:17:00 280 [lb_av] [facility] BMI (Body Mass Index) 2020-04-21 12:17:00 12.2 kg/m2 [facility] Body Temperature 2020-04-18 15:36:00 98.0 [degF] [facility] Weight 2020-04-16 01:14:00 280.60 [lb_av] [facility] BMI (Body Mass Index) 2020-04-16 01:14:00 43.9 kg/m2 [facility] Body Temperature 2020-03-10 16:19:00 98.1 [degF] [facility] Weight 2020-03-10 00:26:00 286.01 [lb_av] [facility] BMI (Body Mass Index) 2020-03-10 00:26:00 44.8 kg/m2 [facility] Heart rate 2020-03-03 17:30:00 83 [...] Procedure Date / Time Performed Performing Clinician [facility] e US DUPLEX VENOUS UPPER EXTREMITY RIGHT 2020-03-03 15:40:00 Moni Grover CBC WITH PLATELET AND DIFFERENTIAL 2020-03-03 15:36:00 Moni Morgan COMPREHENSIVE METABOLIC PANEL 2020-03-03 15:36:00 Moni Morgan ESTIMATED GFR 2020-03-03 15:36:00 Moni Morgan [facility] MANUAL DIFFERENTIAL 2020-03-03 15:36:00 Moni Morgan XR CHEST 1 VW PORTABLE 2020-03-03 15:34:13 Moni Morgan ECG 12-LEAD 2020-03-03 15:07:03 Moni Morgan [facility] ECG ED PRELIMINARY INTERPRETATION 2020-03-03 15:01:44 Juan Morgan Plan of Care Planned Activity Planned Date Details Comments Source Future Scheduled Test 2020-03-05 00:00:00 INFLUENZA VACCINE [code = INFLUENZA VACCINE] [facility] Future Scheduled Test 1993 00:00:00 COLONOSCOPY SCREEN ING [code = COLONOSCOPY SCREENING] [facility] Future Scheduled Test 1993 00:00:00 SHINGLES VACCINES (#1) [code = SHINGLES VACCINES (#1)] [facility] Future Scheduled Test 1953 00:00:00 DIABETIC FOOT EXAM [code = DIABETIC FOOT EXAM] [facility] Future Scheduled Test 1943 00:00:00 DIABETIC RETINAL E YE EXAM [code = DIABETIC RETINAL EYE EXAM] Neto Menon Instructions Chest Pain - Chest Wall [facility] Encounters Start Date/Time End Date/Time Encounter Type Admission Type Attendi [facility] Care Department Encounter ID Source 2020-04-21 12:50:00 2020-04-21 16:48:00 Departed Emergency Room ANDREW MORATAYA [facility] [id number] [facility] 2020-04-17 12:35:00 2020-04-18 19:01:00 Discharged Inpatient 1 Margaux Foreman [facility] [id number] [facility] 2020-03-05 15:18:00 2020-03-10 17:06:00 Discharged Inpatient 1 WENDY MAJOR [facility] [id number] [facility] 2020-03-03 00:00:00 2020-03-03 00:00:00 Emergency MONI MORGAN [facility] [id number] Neto Menon Results Test Description Test Time Test Comments Results Result Comments Source CHEST SINGLE (PORTABLE) 2020-05-17 15:10:00 [facility] [address] [id number] Patient Name: CORDELL GRIMM MR #: [id number] : 1945 Age/Sex: 74/F Req #: [id number] [facility] Physician: Ordered by: WENDY MAJOR MD Report #: [id number] Location: ER Room/Bed: Procedure: [id number] DX/CHEST SINGLE (PORTABLE) Exam Date: 05/17/20 Exam Time: 1428 REPORT STATUS: Signed TECHNIQUE: Frontal view of the chest. INDICATION: [facility] [id number] COMPARISON: 04/15/2020 DISCUSSION: Limited evaluation due to portable technique. Lines and hardware: Overlying EKG leads are noted. Midline sternotomy changes are s table. Heart and mediastinum: Stable cardiomegaly and central vascular congestion. Lungs and pleura: There are stable multifocal, right greater than left, patchy airspace opacities. Perihilar fullness is noted. Blunting of the bilateral costophrenic angles is noted. Negative for large pneumothorax. Soft tissues and bones: No acute abnormality. IMPRESSION: Basilar congestion and cardiomegaly along with interstitial opacities are concerning for fluid overload/edema with small effusions. Patchy airspace opacities at the lung bases, right greater than left, are also concerning for superimposed aspiration or pneumonia. Signed by: Bird Fraser MD on 05/17/2020 3:11 PM Dictated By: BIRD FRASER MD 10 Transcribed By: KEV on 05/17/201510 COPY TO: WENDY MAJOR MD CHEST SINGLE (PORTABLE) 2020-04-21 13:26:[address] [id number] Patient Name: CORDELL GRIMM MR #: [id number] : 1945 Age/Sex: 74/F Req #: [id number] Adm Physician: Ordered by: ANDREW MORATAYA DO Report #: [id number] Location: ER Room/Bed: Procedure: [id number] DX/CHEST SINGLE (PORTABLE) Exam Date: 04/21/20 Exam [...] Count (test code = 6690-2) 5.94 4.8-10.8 [facility] count (number/volume)2020-04-21 12:38:00* Test Item Value Reference Range Interpretation Comments Red Blood Count (test code = 789-8) 2.72 3.6-5.1 [facility] hemoglobin measurement (moles/volume)2020-04-21 12:38:00* Test Item Value Reference Range Interpretation Comments Hemoglobin (test code = 23894-2) 7.5 12.0-16.0 [facility] CenterAutomated blood hematocrit (volume fraction)2020-04-21 12:38:00* Test Item Value Reference Range Interpretation Comments Hematocrit (test code = 4544-3) 24.3 34.2-44.1 [facility] CenterAutomated erythrocyte mean corpuscular nyamzq4753-72-46 12:38:00* Test Item Value Reference Range Interpretation Comments Mean Corpuscular Volume (test code = 787-2) 89.3 81-99 [facility] CenterAutomated erythrocyte mean corpuscular hemoglobin (mass per erythrocyte)2020-04-21 12:38:00* Test Item Value Reference Range Interpretation Comments Mean Corpuscular Hemoglobin (test code = 785-6) 27.6 28-32 [facility] CenterAutomated erythrocyte mean corpuscular hemoglobin concentration measurement (mass/volume)2020-04-21 12:38:00* Test Item Value Reference Range Interpretation Comments Mean Corpuscular Hemoglobin Concent (test code = 786-4) 30.9 31-35 [facility] CenterRDW OxiOu-Uko7224-71-17 12:38:00* Test Item Value Reference Range Interpretation Comments Red Cell Distribution Width (test code = 63374-5) 31.9 11.7 -14.4 [facility] CenterAutomated blood platelet count (count/volume)2020-04-21 12:38:00* Test Item Value Reference Range Interpretation Comments Platelet Count (test code = 777-3) 250 140-360 [facility] count as percentage of total nfxsczxrya9840-96-79 12:38:00* Test Item Value Reference Range Interpretation Comments Neutrophils (%) (Auto) (test code = 68938-0) 56.1 38.7-80.0 [facility] CenterAutomated blood lymphocyte count as percentage ot total uoqhbolgav9350-06-09 12:38:00* Test Item Value Reference Range Interpretation Comments Lymphocytes (%) (Auto) (test code = 736-9) 32.2 18.0-39.1 [facility] CenterAutomated blood monocyte count as percentage of total uzovfzgact2142-99-38 12:38:00* Test Item Value Reference Range Interpretation Comments Monocytes (%) (Auto) (test code = 5905-5) 7.7 4.4-11.3 [facility] CenterAutomated blood eosinophil count as percentage of total akthmtmreu4617-56-57 12:38:00* Test Item Value Reference Range Interpretation Comments Eosinophils (%) (Auto) (test code = 713-8) 3.0 0.0-6.0 [facility] CenterAutomated blood basophil count as percentage of total sgtgogzeog1675-98-88 12:38:00* Test Item Value Reference Range Interpretation Comments Basophils (%) (Auto) (test code = 706-2) 0.8 0.0-1.0 [facility] CenterFluoroscopic procedure less than one hour slazuxsm6676-60-93 12:38:00* Test Item Value Reference Range Interpretation Comments IM GRANULOCYTES % (test code = IM GRANULOCYTES %) 0.2 0.0- 1.0 [facility] CenterAutomated blood neutrophil count 2020-04-21 12:38:00* Test Item Value Reference Range Interpretation Comments Neutrophils # (Auto) (test code = 751-8) 3.3 2.1-6.9 [facility] CenterBlood lymphocytes count (number/volume) 2020-04-21 12:38:00* Test Item Value Reference Range Interpretation Comments Lymphocytes # (Auto) (test code = 71629-8) 1.9 1.0-3.2 [facility] monocytes automated count (number/volume)2020-04-21 12:38:00* Test Item Value Reference Range Interpretation Comments Monocytes # (Auto) (test code = 742-7) 0.5 0.2-0.8 [facility] CenterAutomated blood eosinophil count 2020-04-21 12:38:00* Test Item Value Reference Range Interpretation Comments Eosinophils # (Auto) (test code = 711-2) 0.2 0.0-0.4 [facility] CenterAutomated blood basophil count (count/volume)2020-04-21 12:38:00* Test Item Value Reference Range Interpretation Comments Basophils # (Auto) (test code = 704-7) 0.1 0.0-0.1 [facility] CenterFluoroscopic procedure less than one hour esefnrhp1259-14-91 12:38:00* Test Item Value Reference Range Interpretation Comments Absolute Immature Granulocyte (auto (louis t code = Absolute Immature Granulocyte (auto) 0.01 0-0.1 [facility] sodium measurement (moles/volume)2020-04-21 12:38:00* Test Item Value Reference Range Interpretation Comments Sodium Level (test code = 2951-2) 138 136-145 [facility] plasma potassium measurement (moles/volume)2020-04-21 12:38:00* Test Item Value Reference Range Interpretation Comments Potassium Level (test code = 2823-3) 4.3 3.5-5.1 [facility] chloride measurement (moles/volume)2020-04-21 12:38:00* Test Item Value Reference Range Interpretation Comments Chloride Level (test code = 2075-0) 99 98-107 [facility] or plasma carbon dioxide, total measurement (moles/volume)2020-04-21 12:38:00* Test Item Value Reference Range Interpretation Comments Carbon Dioxide Level (test code = 2028-9) 30 22-29 [facility] or plasma anion vmt8188-09-37 12:38:00* Test Item Value Reference Range Interpretation Comments Anion Gap (test code = 54749-8) 13.3 8-16 [facility] plasma urea nitrogen measurement (mass/volume)2020-04-21 12:38:00* Test Item Value Reference Range Interpretation Comments Blood Urea Nitrogen (test code = 3094-0) 12 7- [facility] plasma creatinine measurement (mass/volume)2020-04-21 12:38:00* Test Item Value Reference Range Interpretation Comments Creatinine (test code = 2160-0) 0.67 0.57-1.11 [facility] plasma urea nitrogen/creatinine mass jwdxe9691-69-32 12:38:00* Test Item Value Reference Range Interpretation Comments BUN/Creatinine Ratio (test code = 3097-3) 18 6-25 [facility] CenterEstimated glomerular filtration rate (GFR) zawwcadbqsadc1709-84-20 12:38:00* Test Item Value Reference Range Interpretation Comments Estimat Glomerular Filtration Rate (test code = 199780043) > 60 >60 Ranges were taken from the National Kidney Disease Education Program and the [facility] literature.Reference ranges:60 or greater: Vmposg34-61 ( for 3 consecutive months): Chronic kidney disease 15 or less: Kidney failureShannon Medical CenterGlucose sfbzytpynsn5633-32-33 12:38:00* Test Item Value Reference Range Interpretation Comments Glucose Level (test code = OLB0373) 91 74-118 [facility] plasma calcium measurement (mass/volume)2020-04-21 12:38:00* Test Item Value Reference Range Interpretation Comments Calcium Level (test code = 58928-4) 7.7 8.4-10.2 [facility] total bilirubin measurement (mass/volume)2020-04-21 12:38:00* Test Item Value Reference Range Interpretation Comments Total Bilirubin (test code = 1975-2) 0.6 0.2-1.2 [facility] CenterFluoroscopic procedure less than one hour krpwjjmw9494-69-22 12:38:00* Test Item Value Reference Range Interpretation Comments Aspartate Amino Transf (AST/SGOT) (test code = Aspartate Amino Transf (AST/SGOT)) 45 5-34 [facility] or plasma alanine aminotransferase measurement (enzymatic activity/volume)2020-04-21 12:38:00* Test Item Value Reference Range Interpretation Comments Alanine Aminotransferase (ALT/SGPT) (test code = 1742-6) 18 0-55 [facility] plasma protein measurement (mass/volume)2020-04-21 12:38:00* Test Item Value Reference Range Interpretation Comments Total Protein (test code = 2885-2) 6.4 6.5-8.1 [facility] plasma albumin measurement (mass/volume)2020-04-21 12:38:00* Test Item Value Reference Range Interpretation Comments Albumin (test code = 1751-7) 2.5 3.5-5.0 [facility] CenterPlasma globulin measurement (mass/volume) 2020-04-21 12:38:00* Test Item Value Reference Range Interpretation Comments Globulin (test code = 92750-9) 3.9 2.3-3.5 [facility] plasma albumin/globulin mass lyvvn7216-40-02 12:38:00* Test Item Value Reference Range Interpretation Comments Albumin/Globulin Ratio (test code = 1759-0) 0.6 0.8-2.0 [facility] alkaline phosphatase measurement (enzymatic activity/volume)2020-04-21 12:38:00* Test Item Value Reference Range Interpretation Comments Alkaline Phosphatase (test code = 6768-6) 121 40-150 [facility] CenterBNP Swj-sKnn9933-29-17 12:38:00* Test Item Value Reference Range Interpretation Comments B-Type Natriuretic Peptide (test code = 97406-9) 355.8 0-100 [facility] or plasma creatine kinase measurement (enzymatic activity/volume)2020-04-21 12:38:00* Test Item Value Reference Range Interpretation Comments Creatine Kinase (test code = 2157-6) 61 29-168 [facility]eville[facility] or plasma creatine kinase MB measurement (mass/volume)2020-04-21 12:38:00* Test Item Value Reference Range Interpretation Comments Creatine Kinase MB (test code = 93348-5) 1.10 0-5.0 [facility] CenterTroponin I measurement by highly sensitive enzyme ltnyxjxrplu6211-41-03 12:38:00* Test Item Value Reference Range Interpretation Comments Troponin I (test code = 03943-6) 0.017 0-0.300 [facility] CenterCapillary blood glucose measurement by glucometer (mass/volume)2020-04-18 15:19:00* Test Item Value Reference Range Interpretation Comments Bedside Glucose (test code = 05346-6) 406 70-120 Meter ID: [id number] Medical CenterCapillary blood glucose measurement by glucometer (mass/volume)2020-04-18 15:19:00* Test Item Value Reference Range Interpretation Comments Bedside Glucose (test code = 71728-5) 406 70-120 Meter ID: [id number] Medical CenterBlood leukocytes automated count (number/volume)2020-04-17 05:50:00* Test Item Value Reference Range Interpretation Comments White Blood Count (test code = 6690-2) 7.59 4.8-10.8 [facility] erythrocytes automated count (number/volume)2020-04-17 05:50:00* Test Item Value Reference Range Interpretation Comments Red Blood Count (test code = 789-8) 2.71 3.6-5.1 [facility] (moles/volume)2020-04-17 05:50:00* Test Item Value Reference Range Interpretation Comments Hemoglobin (test code = 98195-5) 7.4 12.0-16.0 [facility] CenterAutomated blood hematocrit (volume fraction)2020-04-17 05:50:00* Test Item Value Reference Range Interpretation Comments Hematocrit (test code = 4544-3) 23.9 34.2-44.1 [facility] CenterAutomated erythrocyte mean corpuscular iqjntl9147-17-48 05:50:00* Test Item Value Reference Range Interpretation Comments Mean Corpuscular Volume (test code = 787-2) 88.2 81-99 [facility] CenterAutomated erythrocyte mean corpuscular hemoglobin (mass per erythrocyte)2020-04-17 05:50:00* Test Item Value Reference Range Interpretation Comments Mean Corpuscular Hemoglobin (test code = 785-6) 27.3 28-32 [facility] CenterAutomated erythrocyte mean corpuscular hemoglobin concentration measurement (mass/volume)2020-04-17 05:50:00* Test Item Value Reference Range Interpretation Comments Mean Corpuscular Hemoglobin Concent (test code = 786-4) 31.0 31-35 [facility] CenterRDW YhuNp-Dtm6256-95-13 05:50:00* Test Item Value Reference Range Interpretation Comments Red Cell Distribution Width (test code = 61639-8) 33.0 11.7 -14.4 [facility] CenterAutomated blood platelet count (count/volume)2020-04-17 05:50:00* Test Item Value Reference Range Interpretation Comments Platelet Count (test code = 777-3) 216 140-360 [facility] CenterAutomated blood segmented neutrophil count as percentage of total wuhkjsiyph5847-86-18 05:50:00* Test Item Value Reference Range Interpretation Comments Neutrophils (%) (Auto) (test code = 64889-9) 43.0 38.7-80.0 [facility] CenterAutomated blood lymphocyte count as percentage ot total wqzpnoqftf8503-35-29 05:50:00* Test Item Value Reference Range Interpretation Comments Lymphocytes (%) (Auto) (test code = 736-9) 40.7 18.0-39.1 [facility] CenterAutomated blood monocyte count as percentage of total xhalqoeefn0146-88-78 05:50:00* Test Item Value Reference Range Interpretation Comments Monocytes (%) (Auto) (test code = 5905-5) 10.8 4.4-11.3 [facility] CenterAutomated blood eosinophil count as percentage of total pjjtwxbyjl8807-57-52 05:50:00* Test Item Value Reference Range Interpretation Comments Eosinophils (%) (Auto) (test code = 713-8) 4.3 0.0-6.0 [facility] CenterAutomated blood basophil count as percentage of total jwiwyckpxi8871-37-47 05:50:00* Test Item Value Reference Range Interpretation Comments Basophils (%) (Auto) (test code = 706-2) 1.1 0.0-1.0 [facility] CenterFluoroscopic procedure less than one hour adpaoxly7148-96-97 05:50:00* Test Item Value Reference Range Interpretation Comments IM GRANULOCYTES % (test code = IM GRANULOCYTES %) 0.1 0.0- 1.0 [facility] CenterAutomated blood neutrophil count 2020-04-17 05:50:00* Test Item Value Reference Range Interpretation Comments Neutrophils # (Auto) (test code = 751-8) 3.3 2.1-6.9 [facility] CenterBlood lymphocytes count (number/volume) 2020-04-17 05:50:00* Test Item Value Reference Range Interpretation Comments Lymphocytes # (Auto) (test code = 27348-6) 3.1 1.0-3.2 [facility] monocytes automated count (number/volume)2020-04-17 05:50:00* Test Item Value Reference Range Interpretation Comments Monocytes # (Auto) (test code = 742-7) 0.8 0.2-0.8 [facility] CenterAutomated blood eosinophil count 2020-04-17 05:50:00* Test Item Value Reference Range Interpretation Comments Eosinophils # (Auto) (test code = 711-2) 0.3 0.0-0.4 [facility] CenterAutomated blood basophil count (count/volume)2020-04-17 05:50:00* Test Item Value Reference Range Interpretation Comments Basophils # (Auto) (test code = 704-7) 0.1 0.0-0.1 [facility] CenterFluoroscopic procedure less than one hour iigffvtj0073-91-95 05:50:00* Test Item Value Reference Range Interpretation Comments Absolute Immature Granulocyte (auto (louis t code = Absolute Immature Granulocyte (auto) 0.01 0-0.1 [facility] CenterFluoroscopic procedure less than one hour rqzjrjaq4738-74-62 05:50:00* Test Item Value Reference Range Interpretation Comments Differential Total Cells Counted (test code = Differen tial Total Cells Counted) 100 [facility] CenterManual blood neutrophils/100 leukocytes 2020-04-17 05:50:00* Test Item Value Reference Range Interpretation Comments Neutrophils % (Manual) (test code = 76116-6) 56 40-74 [facility] blood lymphocytes/100 leukocytes 2020-04-17 05:50:00* Test Item Value Reference Range Interpretation Comments Lymphocytes % (Manual) (test code = 737-7) 32 19-48 [facility] blood monocytes/100 leukocytes 2020-04-17 05:50:00* Test Item Value Reference Range Interpretation Comments Monocytes % (Manual) (test code = 744-3) 5 3.4-9.0 [facility] blood eosinophil count as percentage of total cpewhdvjdq0404-53-45 05:50:00* Test Item Value Reference Range Interpretation Comments Eosinophils % (Manual) (test code = 714-6) 6 0-7 [facility] tjrdnumfwx5628-05-04 05:50:00* Test Item Value Reference Range Interpretation Comments Basophils % (Manual) (test code = 43336-6) 1 0-1.5 [facility] CenterBlood platelets count by estimate (number/volume)2020-04-17 05:50:00* Test Item Value Reference Range Interpretation Comments Platelet Estimate (test code = 35009-2) ADEQUATE [facility] CenterPlatelet pyerlndhsw5420-36-36 05:50:00* Test Item Value Reference Range Interpretation Comments Platelet Morphology Comment (test code = 62753-1) RARE EDTA CLUMPIN G [facility] CenterB[facility] health hypochromia detection by light fdpugorolr9070-18-46 05:50:00* Test Item Value Reference Range Interpretation Comments Hypochromasia (test code = 728-6) SLIGHT [facility] anisocytosis detection by light xvfqzipscz7377-94-92 05:50:00* Test Item Value Reference Range Interpretation Comments Anisocytosis (test code = 702-1) MODERATE [facility] macrocytes detection by light tohxxsqwxa4297-50-30 05:50:00* Test Item Value Reference Range Interpretation Comments Macrocytosis (test code = 738-5) SLIGHT [facility] CenterBlood dacrocytes detection by light inhnsjzsjb0924-01-15 05:50:00* Test Item Value Reference Range Interpretation Comments Tear Drop Cells (test code = 7791-7) FEW [facility] CenterBlood ovalocytes detection by light xyakcjcgna2124-32-84 05:50:00* Test Item Value Reference Range Interpretation Comments Ovalocytes (test code = 774-0) FEW [facility] CenterElliptocyte dwtayjzjv4035-14-60 05:50:00 * Test Item Value Reference Range Interpretation Comments Elliptocytes (test code = 17568-8) SLIGHT [facility] schistocytes detection by light pslkwjonsu1688-95-69 05:50:00* Test Item Value Reference Range Interpretation Comments Schistocytes (test code = 800-3) FEW [facility] CenterRBC vdyijwdoxj7023-48-02 05:50:00* Test Item Value Reference Range Interpretation Comments Red Cell Morphology Comment (test code = 6742-1) ABNORMAL [facility] sodium measurement (moles/volume)2020-04-17 05:50:00* Test Item Value Reference Range Interpretation Comments Sodium Level (test code = 2951-2) 137 136-145 [facility] plasma potassium measurement (moles/volume)2020-04-17 05:50:00* Test Item Value Reference Range Interpretation Comments Potassium Level (test code = 2823-3) 4.6 3.5-5.1 [facility] chloride measurement (moles/volume)2020-04-17 05:50:00* Test Item Value Reference Range Interpretation Comments Chloride Level (test code = 2075-0) 99 98-107 [facility] plasma carbon dioxide, total measurement (moles/volume)2020-04-17 05:50:00* Test Item Value Reference Range Interpretation Comments Carbon Dioxide Level (test code = 2028-9) 29 22-29 [facility] plasma anion wyh3270-24-22 05:50:00* Test Item Value Reference Range Interpretation Comments Anion Gap (test code = 21823-5) 13.6 8-16 [facility] urea nitrogen measurement (mass/volume)2020-04-17 05:50:00* Test Item Value Reference Range Interpretation Comments Blood Urea Nitrogen (test code = 3094-0) 10 7-26 [facility] plasma creatinine measurement (mass/volume)2020-04-17 05:50:00* Test Item Value Reference Range Interpretation Comments Creatinine (test code = 2160-0) 0.73 0.57-1.11 [facility] urea nitrogen/creatinine mass gygke3994-56-59 05:50:00* Test Item Value Reference Range Interpretation Comments BUN/Creatinine Ratio (test code = 3097-3) 14 6-25 [facility] CenterEstimated glomerular filtration rate (GFR) uqyjbcnwjjczp6176-41-17 05:50:00* Test Item Value Reference Range Interpretation Comments Estimat Glomerular Filtration Rate (test code = 149433499) > 60 >60 Ranges were taken from the National Kidney Disease Education Program and the [facility] literature.Reference ranges:60 or greater: Hmhdbc86-23 ( for 3 consecutive months): Chronic kidney disease 15 or less: Kidney failureShannon Medical CenterGlucose ifmpakwguab0290-82-33 05:50:00* Test Item Value Reference Range Interpretation Comments Glucose Level (test code = HQR6627) 97 74-118 [facility] calcium measurement (mass/volume)2020-04-17 05:50:00* Test Item Value Reference Range Interpretation Comments Calcium Level (test code = 20091-6) 7.4 8.4-10.2 [facility] CenterFluoroscopic procedure less than one hour gvmkuffj5275-20-73 05:50:00* Test Item Value Reference Range Interpretation Comments Differential Total Cells Counted (test code = Differami tial Total Cells Counted) 100 [facility] CenterManual blood neutrophils/100 leukocytes 2020-04-17 05:50:00* Test Item Value Reference Range Interpretation Comments Neutrophils % (Manual) (test code = 84609-9) 56 40-74 [facility] CenterManual blood lymphocytes/100 leukocytes 2020-04-17 05:50:00* Test Item Value Reference Range Interpretation Comments Lymphocytes % (Manual) (test code = 737-7) 32 19-48 [facility] blood monocytes/100 leukocytes 2020-04-17 05:50:00* Test Item Value Reference Range Interpretation Comments Monocytes % (Manual) (test code = 744-3) 5 3.4-9.0 [facility] blood eosinophil count as percentage of total lnzugnkewu3291-02-60 05:50:00* Test Item Value Reference Range Interpretation Comments Eosinophils % (Manual) (test code = 714-6) 6 0-7 [facility] basophil aryxrdydyh4489-67-25 05:50:00* Test Item Value Reference Range Interpretation Comments Basophils % (Manual) (test code = 05327-2) 1 0-1.5 [facility] platelets count by estimate (number/volume)2020-04-17 05:50:00* Test Item Value Reference Range Interpretation Comments Platelet Estimate (test code = 48611-4) ADEQUATE [facility] CenterPlatelet ktqwvhlrah3811-59-40 05:50:00* Test Item Value Reference Range Interpretation Comments Platelet Morphology Comment (test code = 48767-4) RARE EDTA CLUMPIN G [facility] CenterB[facility]ent[facility] health hypochromia detection by light kxicbvriqp2763-15-21 05:50:00* Test Item Value Reference Range Interpretation Comments Hypochromasia (test code = 728-6) SLIGHT [facility] anisocytosis detection by light ruxfxmpkxi7223-56-17 05:50:00* Test Item Value Reference Range Interpretation Comments Anisocytosis (test code = 702-1) MODERATE [facility] macrocytes detection by light jrhexhvfri7941-85-20 05:50:00* Test Item Value Reference Range Interpretation Comments Macrocytosis (test code = 738-5) SLIGHT [facility] dacrocytes detection by light gzhiwtcalr5287-34-46 05:50:00* Test Item Value Reference Range Interpretation Comments Tear Drop Cells (test code = 7791-7) FEW [facility] CenterBlood ovalocytes detection by light qlcuiewmrh3497-47-46 05:50:00* Test Item Value Reference Range Interpretation Comments Ovalocytes (test code = 774-0) FEW [facility] CenterElliptocyte abhnlkusr1782-70-53 05:50:00 * Test Item Value Reference Range Interpretation Comments Elliptocytes (test code = 31134-4) SLIGHT [facility] CenterBlood schistocytes detection by light ukfxlxddtx0919-74-39 05:50:00* Test Item Value Reference Range Interpretation Comments Schistocytes (test code = 800-3) FEW [facility] CenterRBC usgbajenxy4291-91-37 05:50:00* Test Item Value Reference Range Interpretation Comments Red Cell Morphology Comment (test code = 6742-1) ABNORMAL [facility] iron measurement (mass/volume)2020-04-16 17:30:00* Test Item Value Reference Range Interpretation Comments Iron Level (test code = 2498-4) 142 50-170 [facility] plasma iron binding capacity measurement (mass/volume)2020-04-16 17:30:00* Test Item Value Reference Range Interpretation Comments Total Iron Binding Capacity (test code = 2500-7) 164 261-4 78 [facility] plasma iron saturation measurement (mass fraction)2020-04-16 17:30:00* Test Item Value Reference Range Interpretation Comments Percent Iron Saturation (test code = 2502-3) 87 15-50 [facility] plasma transferrin measurement (mass/volume)2020-04-16 17:30:00* Test Item Value Reference Range Interpretation Comments Transferrin (test code = 3034-6) 117 180-382 [facility] plasma ferritin measurement (mass/volume)2020-04-16 17:30:00* Test Item Value Reference Range Interpretation Comments Ferritin (test code = 2276-4) 352.29 4.63-204.00 [facility] plasma thyrotropin measurement by detection limit <= 0.005 miu/l (units/volume)2020-04-16 17:30:00* Test Item Value Reference Range Interpretation Comments Thyroid Stimulating Hormone (TSH) (test code = 15010-7) 7.770 0.350-4.940 [facility] iron measurement (mass/volume)2020-04-16 17:30:00* Test Item Value Reference Range Interpretation Comments Iron Level (test code = 2498-4) 142 50-170 [facility] iron binding capacity measurement (mass/volume)2020-04-16 17:30:00* Test Item Value Reference Range Interpretation Comments Total Iron Binding Capacity (test code = 2500-7) 164 261-4 78 [facility] iron saturation measurement (mass fraction)2020-04-16 17:30:00* Test Item Value Reference Range Interpretation Comments Percent Iron Saturation (test code = 2502-3) 87 15-50 [facility] plasma transferrin measurement (mass/volume)2020-04-16 17:30:00* Test Item Value Reference Range Interpretation Comments Transferrin (test code = 3034-6) 117 180-382 [facility] plasma ferritin measurement (mass/volume)2020-04-16 17:30:00* Test Item Value Reference Range Interpretation Comments Ferritin (test code = 2276-4) 352.29 4.63-204.00 [facility] plasma thyrotropin measurement by detection limit <= 0.005 miu/l (units/volume)2020-04-16 17:30:00* Test Item Value Reference Range Interpretation Comments Thyroid Stimulating Hormone (TSH) (test code = 66668-0) 7.770 0.350-4.940 [facility] CenterTroponin I measurement by highly sensitive enzyme rnxrjzddetn8855-82-43 05:30:00* Test Item Value Reference Range Interpretation Comments Troponin I (test code = 15448-3) 0.020 0-0.300 [facility] plasma phenytoin measurement (mass/volume)2020-04-16 05:00:00* Test Item Value Reference Range Interpretation Comments Phenytoin (Dilantin) Level (test code = 3968-5) 14.18 10-20 [facility] phenytoin measurement (mass/volume)2020-04-16 05:00:00* Test Item Value Reference Range Interpretation Comments Phenytoin (Dilantin) Level (test code = 3968-5) 14.18 10-20 [facility] CenterBNP Qsa-cMom1919-39-11 22:42:00* Test Item Value Reference Range Interpretation Comments B-Type Natriuretic Peptide (test code = 99725-5) 196.3 0-100 [facility] CenterCHEST SINGLE (PORTABLE)2020-04-15 20:23:00 [facility] [address] [address] Patient Name: CORDELL GRIMM MR #: [id number] : 1945 Age/Sex: 74/F Req #: [id number] Adm Physician: Ordered by: Margaux Foreman MD Report #: [id number] Location: ER Room/Bed: Procedure: [id number] DX/CHEST S ANJALI (PORTABLE) Exam Date: 04/15/20 [...] COPY TO: MARGAUX FOREMAN MD Urine color ktnjvzluswyah4384-50-56 19:50:00* Test Item Value Reference Range Interpretation Comments Urine Color (test code = 5778-6) YELLOW YELLOW [facility] CenterUrine ykyexqn4773-39-58 19:50:00* Test Item Value Reference Range Interpretation Comments Urine Clarity (test code = 29897-3) TURBID CLEAR [facility]evillepecific gravity of Urine by Test strip 2020-04-15 19:50:00* Test Item Value Reference Range Interpretation Comments Urine Specific [place] (test code = 5811-5) 1.025 1.010-1.02 5 [facility] CenterUrine pH measurement by automated test ysrxb3695-25-72 19:50:00* Test Item Value Reference Range Interpretation Comments Urine pH (test code = 55442-4) 5.5 5-7 [facility] CenterUrine leukocyte esterase detection by upftebrk9466-45-27 19:50:00* Test Item Value Reference Range Interpretation Comments Urine Leukocyte Esterase (test code = 5799-2) LARGE NEGATIVE [facility] CenterUrine nitrite fhhlnjmfb0905-60-30 19:50:00* Test Item Value Reference Range Interpretation Comments Urine Nitrite (test code = 67631-4) POSITIVE NEGATIVE [facility] CenterUrine protein measurement by test strip (mass/volume)2020-04-15 19:50:00* Test Item Value Reference Range Interpretation Comments Urine Protein (test code = 5804-0) 2+ NEGATIVE [facility] CenterUrine glucose xlwcspusr8170-13-05 19:50:00* Test Item Value Reference Range Interpretation Comments Urine Glucose (UA) (test code = 2349-9) NEGATIVE NEGATIVE [facility] CenterUrine ketones detection by automated test iauxy1306-67-16 19:50:00* Test Item Value Reference Range Interpretation Comments Urine Ketones (test code = 75694-1) TRACE NEGATIVE [facility] CenterUrine urobilinogen measurement by test strip (mass/volume)2020-04-15 19:50:00* Test Item Value Reference Range Interpretation Comments Urine Urobilinogen (test code = 69506-8) 1 0.2-1 [facility] CenterUrine total bilirubin measurement (mass/volume)2020-04-15 19:50:00* Test Item Value Reference Range Interpretation Comments Urine Bilirubin (test code = 1978-6) SMALL NEGATIVE [facility] CenterUrine erythrocytes ixctsyhrd9712-20-37 19:50:00* Test Item Value Reference Range Interpretation Comments Urine Blood (test code = 69191-8) MODERATE NEGATIVE [facility] CenterAutomated urine sediment leukocyte count by microscopy (number/high power field)2020-04-15 19:50:00* Test Item Value Reference Range Interpretation Comments Urine WBC (test code = 5821-4) 6-10 0-5 [facility] CenterErythrocytes detection in urine sediment by light dtidmfpugp3880-78-29 19:50:00* Test Item Value Reference Range Interpretation Comments Urine RBC (test code = 84799-2) 11-20 0-5 [facility] CenterBacteria detection in urine sediment by light owvkvhssfb1937-15-29 19:50:00* Test Item Value Reference Range Interpretation Comments Urine Bacteria (test code = 79638-6) MANY NONE [facility] CenterEpithelial cells detection in urine sediment by light mayzgvorow3699-87-74 19:50:00* Test Item Value Reference Range Interpretation Comments Urine Epithelial Cells (test code = 84421-8) FEW NONE [facility] CenterBacterial urine gebjmdb1986-52-20 19:50:00* Test Item Value Reference Range Interpretation Comments Urine Culture (test code = 630-4) KLEBSIELLA PNEUMONIAE [facility] CenterUrine color dwgahtkchuoky6446-25-06 19:50:00* Test Item Value Reference Range Interpretation Comments Urine Color (test code = 5778-6) YELLOW YELLOW [facility] CenterUrine rdwkfeo3210-40-95 19:50:00* Test Item Value Reference Range Interpretation Comments Urine Clarity (test code = 25073-7) TURBID CLEAR [facility] gravity of Urine by Test strip 2020-04-15 19:50:00* Test Item Value Reference Range Interpretation Comments Urine Specific [place] (test code = 5811-5) 1.025 1.010-1.02 5 [facility] CenterUrine pH measurement by automated test zqbxr6358-74-93 19:50:00* Test Item Value Reference Range Interpretation Comments Urine pH (test code = 84041-6) 5.5 5-7 [facility] CenterUrine leukocyte esterase detection by oiavlewj5940-17-23 19:50:00* Test Item Value Reference Range Interpretation Comments Urine Leukocyte Esterase (test code = 5799-2) LARGE NEGATIVE [facility] CenterUrine nitrite tixcnnhkd2075-81-46 19:50:00* Test Item Value Reference Range Interpretation Comments Urine Nitrite (test code = 63286-8) POSITIVE NEGATIVE [facility] CenterUrine protein measurement by test strip (mass/volume)2020-04-15 19:50:00* Test Item Value Reference Range Interpretation Comments Urine Protein (test code = 5804-0) 2+ NEGATIVE [facility] CenterUrine glucose sgmxihuaj7366-36-24 19:50:00* Test Item Value Reference Range Interpretation Comments Urine Glucose (UA) (test code = 2349-9) NEGATIVE NEGATIVE [facility] CenterUrine ketones detection by automated test yqhpi8774-97-46 19:50:00* Test Item Value Reference Range Interpretation Comments Urine Ketones (test code = 04438-4) TRACE NEGATIVE [facility] CenterUrine urobilinogen measurement by test strip (mass/volume)2020-04-15 19:50:00* Test Item Value Reference Range Interpretation Comments Urine Urobilinogen (test code = 99550-9) 1 0.2-1 [facility] CenterUrine total bilirubin measurement (mass/volume)2020-04-15 19:50:00* Test Item Value Reference Range Interpretation Comments Urine Bilirubin (test code = 1978-6) SMALL NEGATIVE [facility] CenterUrine erythrocytes atilcmxeb4169-71-58 19:50:00* Test Item Value Reference Range Interpretation Comments Urine Blood (test code = 50247-3) MODERATE NEGATIVE [facility] CenterAutomated urine sediment leukocyte count by microscopy (number/high power field)2020-04-15 19:50:00* Test Item Value Reference Range Interpretation Comments Urine WBC (test code = 5821-4) 6-10 0-5 [facility] CenterErythrocytes detection in urine sediment by light vxccznexyz9879-00-47 19:50:00* Test Item Value Reference Range Interpretation Comments Urine RBC (test code = 98828-3) 11-20 0-5 [facility] CenterBacteria detection in urine sediment by light wgvqejymhb7049-26-87 19:50:00* Test Item Value Reference Range Interpretation Comments Urine Bacteria (test code = 21478-8) MANY NONE [facility] CenterEpithelial cells detection in urine sediment by light emvgwajiol2325-98-71 19:50:00* Test Item Value Reference Range Interpretation Comments Urine Epithelial Cells (test code = 99001-2) FEW NONE [facility] CenterBacterial urine lkfvvkr7159-10-42 19:50:00* Test Item Value Reference Range Interpretation Comments Urine Culture (test code = 630-4) KLEBSIELLA PNEUMONIAE [facility] CenterFluoroscopic procedure less than one hour bzekvxlr4226-64-58 19:45:00* Test Item Value Reference Range Interpretation [...] definite cause of the disease.TEST PERFORMED AT [facility] The limit of detection for this [...] is revoked under 564 (g) of the ACT.[facility] CenterFluoroscopic procedure less than one hour zqvnidfm9399-12-00 19:45:00* Test Item Value Reference Range Interpretation [...] definite cause of the disease.TEST PERFORMED AT [facility] The limit of detection for this [...] is revoked under 564 (g) of the ACT.[facility] CenterBlood lymphocytes variant count (number/volume)2020-04-15 19:37:00* Test Item Value Reference Range Interpretation Comments Reactive Lymphocytes (test code = 54755-8) 13 [facility] CenterFluoroscopic procedure less than one hour jtmpizik6642-74-08 19:37:00* Test Item Value Reference Range Interpretation Comments Lactic Acid Level (test code = Lactic Acid Level) 1.3 0.5- 2.0 [facility] total bilirubin measurement (mass/volume)2020-04-15 19:37:00* Test Item Value Reference Range Interpretation Comments Total Bilirubin (test code = 1975-2) 0.6 0.2-1.2 [facility] CenterFluoroscopic procedure less than one hour squlljnk9203-70-75 19:37:00* Test Item Value Reference Range Interpretation Comments Aspartate Amino Transf (AST/SGOT) (test code = Aspartate Amino Transf (AST/SGOT)) 36 5-34 [facility] plasma alanine aminotransferase measurement (enzymatic activity/volume)2020-04-15 19:37:00* Test Item Value Reference Range Interpretation Comments Alanine Aminotransferase (ALT/SGPT) (test code = 1742-6) 16 0-55 [facility] plasma protein measurement (mass/volume)2020-04-15 19:37:00* Test Item Value Reference Range Interpretation Comments Total Protein (test code = 2885-2) 6.6 6.5-8.1 [facility] albumin measurement (mass/volume)2020-04-15 19:37:00* Test Item Value Reference Range Interpretation Comments Albumin (test code = 1751-7) 2.5 3.5-5.0 [facility] CenterPlasma globulin measurement (mass/volume) 2020-04-15 19:37:00* Test Item Value Reference Range Interpretation Comments Globulin (test code = 19556-7) 4.1 2.3-3.5 [facility] albumin/globulin mass aborr2134-90-82 19:37:00* Test Item Value Reference Range Interpretation Comments Albumin/Globulin Ratio (test code = 1759-0) 0.6 0.8-2.0 [facility] alkaline phosphatase measurement (enzymatic activity/volume)2020-04-15 19:37:00* Test Item Value Reference Range Interpretation Comments Alkaline Phosphatase (test code = 6768-6) 115 40-150 [facility] CenterBlood lymphocytes variant count (number/volume)2020-04-15 19:37:00* Test Item Value Reference Range Interpretation Comments Reactive Lymphocytes (test code = 85763-9) 13 [facility] CenterFluoroscopic procedure less than one hour fntxgfin0815-52-39 19:37:00* Test Item Value Reference Range Interpretation Comments Lactic Acid Level (test code = Lactic Acid Level) 1.3 0.5- 2.0 [facility] CenterCapillary blood glucose measurement by glucometer (mass/volume)2020-03-10 11:45:00* Test Item Value Reference Range Interpretation Comments Bedside Glucose (test code = 43806-7) 116 70-120 Meter ID: [id number]entia health leukocytes automated count (number/volume)2020-03-08 05:14:00* Test Item Value Reference Range Interpretation Comments White Blood Count (test code = 6690-2) 6.38 4.8-10.8 [facility] CenterBlood erythrocytes automated count (number/volume)2020-03-08 05:14:00* Test Item Value Reference Range Interpretation Comments Red Blood Count (test code = 789-8) 3.69 3.6-5.1 [facility] CenterBlood hemoglobin measurement (moles/volume)2020-03-08 05:14:00* Test Item Value Reference Range Interpretation Comments Hemoglobin (test code = 67135-5) 9.5 12.0-16.0 [facility] CenterAutomated blood hematocrit (volume fraction)2020-03-08 05:14:00* Test Item Value Reference Range Interpretation Comments Hematocrit (test code = 4544-3) 31.6 34.2-44.1 [facility] CenterAutomated erythrocyte mean corpuscular ciphao8383-08-71 05:14:00* Test Item Value Reference Range Interpretation Comments Mean Corpuscular Volume (test code = 787-2) 85.6 81-99 [facility] CenterAutomated erythrocyte mean corpuscular hemoglobin (mass per erythrocyte)2020-03-08 05:14:00* Test Item Value Reference Range Interpretation Comments Mean Corpuscular Hemoglobin (test code = 785-6) 25.7 28-32 [facility] CenterAutomated erythrocyte mean corpuscular hemoglobin concentration measurement (mass/volume)2020-03-08 05:14:00* Test Item Value Reference Range Interpretation Comments Mean Corpuscular Hemoglobin Concent (test code = 786-4) 30.1 31-35 [facility] CenterRDW CssJn-Pse7847-13-04 05:14:00* Test Item Value Reference Range Interpretation Comments Red Cell Distribution Width (test code = 77327-6) 31.0 11.7 -14.4 [facility] CenterAutomated blood platelet count (count/volume)2020-03-08 05:14:00* Test Item Value Reference Range Interpretation Comments Platelet Count (test code = 777-3) 159 140-360 [facility] CenterAutcritical access hospitaled blood segmented neutrophil count as percentage of total nfowyvzktp6013-38-17 05:14:00* Test Item Value Reference Range Interpretation Comments Neutrophils (%) (Auto) (test code = 16850-5) 32.1 38.7-80.0 [facility] CenterAutomated blood lymphocyte count as percentage ot total wsrgtclbwj8707-87-64 05:14:00* Test Item Value Reference Range Interpretation Comments Lymphocytes (%) (Auto) (test code = 736-9) 57.1 18.0-39.1 [facility] CenterAutomated blood monocyte count as percentage of total zbbdptzrat9575-64-03 05:14:00* Test Item Value Reference Range Interpretation Comments Monocytes (%) (Auto) (test code = 5905-5) 6.9 4.4-11.3 [facility] CenterAutomated blood eosinophil count as percentage of total cmdeftgvzl5075-88-09 05:14:00* Test Item Value Reference Range Interpretation Comments Eosinophils (%) (Auto) (test code = 713-8) 3.3 0.0-6.0 [facility] CenterAutomated blood basophil count as percentage of total xilnraitot6483-58-27 05:14:00* Test Item Value Reference Range Interpretation Comments Basophils (%) (Auto) (test code = 706-2) 0.6 0.0-1.0 [facility] CenterFluoroscopic procedure less than one hour svrnlyrh2576-15-47 05:14:00* Test Item Value Reference Range Interpretation Comments IM GRANULOCYTES % (test code = IM GRANULOCYTES %) 0.0 0.0- 1.0 [facility] CenterAutomated blood neutrophil count 2020-03-08 05:14:00* Test Item Value Reference Range Interpretation Comments Neutrophils # (Auto) (test code = 751-8) 2.1 2.1-6.9 [facility] CenterBlood lymphocytes count (number/volume) 2020-03-08 05:14:00* Test Item Value Reference Range Interpretation Comments Lymphocytes # (Auto) (test code = 78180-9) 3.6 1.0-3.2 [facility] CenterBlood monocytes automated count (number/volume)2020-03-08 05:14:00* Test Item Value Reference Range Interpretation Comments Monocytes # (Auto) (test code = 742-7) 0.4 0.2-0.8 [facility] CenterAutomated blood eosinophil count 2020-03-08 05:14:00* Test Item Value Reference Range Interpretation Comments Eosinophils # (Auto) (test code = 711-2) 0.2 0.0-0.4 [facility] CenterAutomated blood basophil count (count/volume)2020-03-08 05:14:00* Test Item Value Reference Range Interpretation Comments Basophils # (Auto) (test code = 704-7) 0.0 0.0-0.1 [facility] CenterFluoroscopic procedure less than one hour teceayfo5586-15-73 05:14:00* Test Item Value Reference Range Interpretation Comments Absolute Immature Granulocyte (auto (louis t code = Absolute Immature Granulocyte (auto) 0 0-0.1 [facility] CenterFluoroscopic procedure less than one hour uhqnhooo2834-36-63 05:14:00* Test Item Value Reference Range Interpretation Comments Differential Total Cells Counted (test code = Sherrie tial Total Cells Counted) 100 [facility] blood neutrophils/100 leukocytes 2020-03-08 05:14:00* Test Item Value Reference Range Interpretation Comments Neutrophils % (Manual) (test code = 09204-2) 44 40-74 [facility] blood lymphocytes/100 leukocytes 2020-03-08 05:14:00* Test Item Value Reference Range Interpretation Comments Lymphocytes % (Manual) (test code = 737-7) 47 19-48 [facility] blood monocytes/100 leukocytes 2020-03-08 05:14:00* Test Item Value Reference Range Interpretation Comments Monocytes % (Manual) (test code = 744-3) 4 3.4-9.0 [facility] blood eosinophil count as percentage of total npuffgagpd5880-29-28 05:14:00* Test Item Value Reference Range Interpretation Comments Eosinophils % (Manual) (test code = 714-6) 5 0-7 [facility] CenterBlood platelets count by estimate (number/volume)2020-03-08 05:14:00* Test Item Value Reference Range Interpretation Comments Platelet Estimate (test code = 05498-3) ADEQUATE [facility] CenterPlatelet oznhvhseqj8674-23-20 05:14:00* Test Item Value Reference Range Interpretation Comments Platelet Morphology Comment (test code = 37272-0) NORMAL [facility] hypochromia detection by light kdkhehjgrz7629-03-81 05:14:00* Test Item Value Reference Range Interpretation Comments Hypochromasia (test code = 728-6) MODERATE [facility] anisocytosis detection by light nhogzgyarp6441-00-92 05:14:00* Test Item Value Reference Range Interpretation Comments Anisocytosis (test code = 702-1) MODERATE [facility] microcytes detection by light zaprhxttjb9738-21-16 05:14:00* Test Item Value Reference Range Interpretation Comments Microcytosis (test code = 741-9) SLIGHT [facility] dacrocytes detection by light clpwmirngt3186-59-83 05:14:00* Test Item Value Reference Range Interpretation Comments Tear Drop Cells (test code = 7791-7) FEW [facility] CenterBlood ovalocytes detection by light iaeuoccoeq5740-74-23 05:14:00* Test Item Value Reference Range Interpretation Comments Ovalocytes (test code = 774-0) FEW [facility] CenterElliptocyte vkijdrmmi2052-12-43 05:14:00 * Test Item Value Reference Range Interpretation Comments Elliptocytes (test code = 77383-0) SLIGHT [facility] CenterRBC pmflezkrgu3866-54-35 05:14:00* Test Item Value Reference Range Interpretation Comments Red Cell Morphology Comment (test code = 6742-1) ABNORMAL [facility] sodium measurement (moles/volume)2020-03-08 05:14:00* Test Item Value Reference Range Interpretation Comments Sodium Level (test code = 2951-2) 139 136-145 [facility]eville[facility] plasma potassium measurement (moles/volume)2020-03-08 05:14:00* Test Item Value Reference Range Interpretation Comments Potassium Level (test code = 2823-3) 3.4 3.5-5.1 [facility] plasma chloride measurement (moles/volume)2020-03-08 05:14:00* Test Item Value Reference Range Interpretation Comments Chloride Level (test code = 2075-0) 98 98-107 [facility]evilleer[facility] or plasma carbon dioxide, total measurement (moles/volume)2020-03-08 05:14:00* Test Item Value Reference Range Interpretation Comments Carbon Dioxide Level (test code = 2028-9) 35 22-29 [facility]eville[facility] or plasma anion azz3812-87-04 05:14:00* Test Item Value Reference Range Interpretation Comments Anion Gap (test code = 54745-5) 9.4 8-16 [facility] plasma urea nitrogen measurement (mass/volume)2020-03-08 05:14:00* Test Item Value Reference Range Interpretation Comments Blood Urea Nitrogen (test code = 3094-0) 9 7-26 [facility] plasma creatinine measurement (mass/volume)2020-03-08 05:14:00* Test Item Value Reference Range Interpretation Comments Creatinine (test code = 2160-0) 0.67 0.57-1.11 [facility] plasma urea nitrogen/creatinine mass ssxfo8104-51-07 05:14:00* Test Item Value Reference Range Interpretation Comments BUN/Creatinine Ratio (test code = 3097-3) 13 6-25 [facility] CenterEstimated glomerular filtration rate (GFR) ycpmqafmgudwk4503-79-09 05:14:00* Test Item Value Reference Range Interpretation Comments Estimat Glomerular Filtration Rate (test code = 096552996) > 60 >60 Ranges were taken from the National Kidney Disease Education Program and the [facility] Kidney Foundation literature.Reference ranges:60 or greater: Tfdabk71-36 ( for 3 consecutive months): Chronic kidney disease 15 or less: Kidney failureShannon Medical CenterGlucose ffdfoimerdc5907-34-70 05:14:00* Test Item Value Reference Range Interpretation Comments Glucose Level (test code = MWU6197) 105 74-118 [facility] plasma calcium measurement (mass/volume)2020-03-08 05:14:00* Test Item Value Reference Range Interpretation Comments Calcium Level (test code = 97802-9) 7.1 8.4-10.2 [facility] plasma magnesium measurement (mass/volume)2020-03-08 05:14:00* Test Item Value Reference Range Interpretation Comments Magnesium Level (test code = 24017-6) 1.6 1.3-2.1 [facility] CenterBlood microcytes detection by light dsgxzysmjl5830-46-96 05:14:00* Test Item Value Reference Range Interpretation Comments Microcytosis (test code = 741-9) SLIGHT [facility] magnesium measurement (mass/volume)2020-03-08 05:14:00* Test Item Value Reference Range Interpretation Comments Magnesium Level (test code = 21969-3) 1.6 1.3-2.1 [facility] CenterBlood microcytes detection by light tlycgbejkr9685-54-96 05:14:00* Test Item Value Reference Range Interpretation Comments Microcytosis (test code = 741-9) SLIGHT [facility] plasma magnesium measurement (mass/volume)2020-03-08 05:14:00* Test Item Value Reference Range Interpretation Comments Magnesium Level (test code = 32736-7) 1.6 1.3-2.1 [facility] CenterProthrombin time (PT) in platelet poor plasma by coagulation ynays9574-25-95 05:20:00* Test Item Value Reference Range Interpretation Comments Prothrombin Time (test code = 5902-2) 16.1 11.9-14.5 [facility] CenterINR in Platelet poor plasma by Coagulation llpuc3742-94-81 05:20:00* Test Item Value Reference Range Interpretation Comments Prothromb Time International Ratio (test code = 6301-6) 1.22 Oral Anticoagulant Therapy INR Values:1. Low Intensity Therapy 1.5 - 2.02 . Moderate Intensity Therapy 2.0 - 3.03. High Intensity Therapy(1) 2.5 - 3. 54. High Intensity Therapy(2) 3.0 - 4.05. Panic Value INR > 5.0 [facility] CenterActivated partial thromboplastin time (aPTT) in platelet poor plasma by coagulation yohlh3085-97-67 05:20:00* Test Item Value Reference Range Interpretation Comments Activated Partial Thromboplast Time (test code = 46671-4) 37.7 23.8-35.5 [facility] CenterProthrombin time (PT) in platelet poor plasma by coagulation mxdrn6537-46-69 05:20:00* Test Item Value Reference Range Interpretation Comments Prothrombin Time (test code = 5902-2) 16.1 11.9-14.5 [facility] CenterINR in Platelet poor plasma by Coagulation splue7452-14-72 05:20:00* Test Item Value Reference Range Interpretation Comments Prothromb Time International Ratio (test code = 6301-6) 1.22 Oral Anticoagulant Therapy INR Values:1. Low Intensity Therapy 1.5 - 2.02 . Moderate Intensity Therapy 2.0 - 3.03. High Intensity Therapy(1) 2.5 - 3. 54. High Intensity Therapy(2) 3.0 - 4.05. Panic Value INR > 5.0 [facility] CenterActivated partial thromboplastin time (aPTT) in platelet poor plasma by coagulation eovav0485-05-15 05:20:00* Test Item Value Reference Range Interpretation Comments Activated Partial Thromboplast Time (test code = 09716-3) 37.7 23.8-35.5 [facility] CenterProthrombin time (PT) in platelet poor plasma by coagulation akfwb4248-41-63 05:20:00* Test Item Value Reference Range Interpretation Comments Prothrombin Time (test code = 5902-2) 16.1 11.9-14.5 [facility] CenterINR in Platelet poor plasma by Coagulation rjkzv9771-49-99 05:20:00* Test Item Value Reference Range Interpretation Comments Prothromb Time International Ratio (test code = 6301-6) 1.22 Oral Anticoagulant Therapy INR Values:1. Low Intensity Therapy 1.5 - 2.02 . Moderate Intensity Therapy 2.0 - 3.03. High Intensity Therapy(1) 2.5 - 3. 54. High Intensity Therapy(2) 3.0 - 4.05. Panic Value INR > 5.0 [facility] CenterActivated partial thromboplastin time (aPTT) in platelet poor plasma by coagulation vdmll4245-80-36 05:20:00* Test Item Value Reference Range Interpretation Comments Activated Partial Thromboplast Time (test code = 93014-8) 37.7 23.8-35.5 [facility] CenterFluoroscopic procedure less than one hour bhtwdsug6615-73-44 05:40:00* Test Item Value Reference Range Interpretation Comments Hemoglobin A1c Percent (test code = Hemoglobin A1c Percent) 4.9 4.0-7.0 [facility] iron measurement (mass/volume)2020-03-06 05:40:00* Test Item Value Reference Range Interpretation Comments Iron Level (test code = 2498-4) 150 50-170 [facility] plasma iron binding capacity measurement (mass/volume)2020-03-06 05:40:00* Test Item Value Reference Range Interpretation Comments Total Iron Binding Capacity (test code = 2500-7) 155 261-4 78 [facility] or plasma iron saturation measurement (mass fraction)2020-03-06 05:40:00* Test Item Value Reference Range Interpretation Comments Percent Iron Saturation (test code = 2502-3) 97 15-50 [facility] or plasma transferrin measurement (mass/volume)2020-03-06 05:40:00* Test Item Value Reference Range Interpretation Comments Transferrin (test code = 3034-6) 111 180-382 [facility] plasma total bilirubin measurement (mass/volume)2020-03-06 05:40:00* Test Item Value Reference Range Interpretation Comments Total Bilirubin (test code = 1975-2) 0.9 0.2-1.2 [facility] CenterFluoroscopic procedure less than one hour ymypjimn3698-32-71 05:40:00* Test Item Value Reference Range Interpretation Comments Aspartate Amino Transf (AST/SGOT) (test code = Aspartate Amino Transf (AST/SGOT)) 43 5-34 [facility] or plasma alanine aminotransferase measurement (enzymatic activity/volume)2020-03-06 05:40:00* Test Item Value Reference Range Interpretation Comments Alanine Aminotransferase (ALT/SGPT) (test code = 1742-6) 21 0-55 [facility] or plasma protein measurement (mass/volume)2020-03-06 05:40:00* Test Item Value Reference Range Interpretation Comments Total Protein (test code = 2885-2) 5.6 6.5-8.1 [facility] albumin measurement (mass/volume)2020-03-06 05:40:00* Test Item Value Reference Range Interpretation Comments Albumin (test code = 1751-7) 1.8 3.5-5.0 [facility] CenterPlasma globulin measurement (mass/volume) 2020-03-06 05:40:00* Test Item Value Reference Range Interpretation Comments Globulin (test code = 33091-3) 3.8 2.3-3.5 [facility] plasma albumin/globulin mass qwrzd7058-18-71 05:40:00* Test Item Value Reference Range Interpretation Comments Albumin/Globulin Ratio (test code = 1759-0) 0.5 0.8-2.0 [facility] plasma alkaline phosphatase measurement (enzymatic activity/volume)2020-03-06 05:40:00* Test Item Value Reference Range Interpretation Comments Alkaline Phosphatase (test code = 6768-6) 91 40-150 [facility] or plasma triglyceride measurement (mass/volume)2020-03-06 05:40:00* Test Item Value Reference Range Interpretation Comments Triglycerides Level (test code = 2571-8) 66 0-149 [facility] plasma cholesterol measurement (mass/volume)2020-03-06 05:40:00* Test Item Value Reference Range Interpretation Comments Cholesterol Level (test code = 2093-3) 67 0-199 Less than 200 mg/dL Low Opzw567 - 239 mg/dL Borderline Ggal469 m g/dl and greater High Risk [facility] cholesterol in LDL measurement (mass/volume) 2020-03-06 05:40:00* Test Item Value Reference Range Interpretation Comments LDL Cholesterol (test code = 2089-1) 30 60-130 [facility] cholesterol in HDL measurement (mass/volume)2020-03-06 05:40:00* Test Item Value Reference Range Interpretation Comments HDL Cholesterol (test code = 2085-9) 24 40-60 [facility] plasma total cholesterol/cholesterol in HDL mass sbtsm2863-26-33 05:40:00* Test Item Value Reference Range Interpretation Comments Cholesterol/HDL Ratio (test code = 9830-1) 2.8 3.0-3.6 [facility] or plasma creatine kinase measurement (enzymatic activity/volume)2020-03-06 05:40:00* Test Item Value Reference Range Interpretation Comments Creatine Kinase (test code = 2157-6) 12 29-168 [facility] or plasma creatine kinase MB measurement (mass/volume)2020-03-06 05:40:00* Test Item Value Reference Range Interpretation Comments Creatine Kinase MB (test code = 69102-3) 0.40 0-5.0 [facility] CenterTroponin I measurement by highly sensitive enzyme vhskqozbrle5828-64-04 05:40:00* Test Item Value Reference Range Interpretation Comments Troponin I (test code = 56994-2) 0.014 0-0.300 [facility] plasma thyrotropin measurement by detection limit <= 0.005 miu/l (units/volume)2020-03-06 05:40:00* Test Item Value Reference Range Interpretation Comments Thyroid Stimulating Hormone (TSH) (test code = 91409-3) 6.324 0.350-4.940 [facility] plasma phenytoin measurement (mass/volume)2020-03-06 05:40:00* Test Item Value Reference Range Interpretation Comments Phenytoin (Dilantin) Level (test code = 3968-5) 3.18 10-20 [facility] CenterFluoroscopic procedure less than one hour dorijypx8367-04-80 05:40:00* Test Item Value Reference Range Interpretation Comments Hemoglobin A1c Percent (test code = Hemoglobin A1c Percent) 4.9 4.0-7.0 [facility] plasma triglyceride measurement (mass/volume)2020-03-06 05:40:00* Test Item Value Reference Range Interpretation Comments Triglycerides Level (test code = 2571-8) 66 0-149 [facility] or plasma cholesterol measurement (mass/volume)2020-03-06 05:40:00* Test Item Value Reference Range Interpretation Comments Cholesterol Level (test code = 2093-3) 67 0-199 Less than 200 mg/dL Low Kcoe482 - 239 mg/dL Borderline Ioxd379 m g/dl and greater High Risk [facility] plasma cholesterol in LDL measurement (mass/volume) 2020-03-06 05:40:00* Test Item Value Reference Range Interpretation Comments LDL Cholesterol (test code = 2089-1) 30 60-130 [facility] cholesterol in HDL measurement (mass/volume)2020-03-06 05:40:00* Test Item Value Reference Range Interpretation Comments HDL Cholesterol (test code = 2085-9) 24 40-60 [facility] plasma total cholesterol/cholesterol in HDL mass vvldk0804-37-95 05:40:00* Test Item Value Reference Range Interpretation Comments Cholesterol/HDL Ratio (test code = 9830-1) 2.8 3.0-3.6 [facility] plasma creatine kinase measurement (enzymatic activity/volume)2020-03-06 05:40:00* Test Item Value Reference Range Interpretation Comments Creatine Kinase (test code = 2157-6) 12 29-168 [facility] or plasma creatine kinase MB measurement (mass/volume)2020-03-06 05:40:00* Test Item Value Reference Range Interpretation Comments Creatine Kinase MB (test code = 30821-9) 0.40 0-5.0 [facility] CenterFluoroscopic procedure less than one hour gqdpmrmq7150-19-69 05:40:00* Test Item Value Reference Range Interpretation Comments Hemoglobin A1c Percent (test code = Hemoglobin A1c Percent) 4.9 4.0-7.0 [facility] triglyceride measurement (mass/volume)2020-03-06 05:40:00* Test Item Value Reference Range Interpretation Comments Triglycerides Level (test code = 2571-8) 66 0-149 [facility] plasma cholesterol measurement (mass/volume)2020-03-06 05:40:00* Test Item Value Reference Range Interpretation Comments Cholesterol Level (test code = 2093-3) 67 0-199 Less than 200 mg/dL Low Deqz766 - 239 mg/dL Borderline Pkza629 m g/dl and greater High Risk [facility] plasma cholesterol in LDL measurement (mass/volume) 2020-03-06 05:40:00* Test Item Value Reference Range Interpretation Comments LDL Cholesterol (test code = 2089-1) 30 60-130 [facility] cholesterol in HDL measurement (mass/volume)2020-03-06 05:40:00* Test Item Value Reference Range Interpretation Comments HDL Cholesterol (test code = 2085-9) 24 40-60 [facility] plasma total cholesterol/cholesterol in HDL mass cdrta8568-61-39 05:40:00* Test Item Value Reference Range Interpretation Comments Cholesterol/HDL Ratio (test code = 9830-1) 2.8 3.0-3.6 [facility] CenterCHEST SINGLE (PORTABLE)2020-03-05 14:59:00 [facility] [address] [address] Patient Name: CORDELL GRIMM MR #: [id number] : 1945 Age/Sex: 74/F Req #: [id number] Adm Physician: Ordered by: WENDY MAJOR MD Report #: [id number] Location: ER Room/Bed: Procedure: [id number] DX/CHEST SINGLE (PORTABLE) Exam Date: 03/05/20 Exam [...] Interpretation Comments Reactive Lymphocytes (test code = 28918-5) 2 [facility] CenterUrine color mlopgeyopujym7511-72-33 13:54:00* Test Item Value Reference Range Interpretation Comments Urine Color (test code = 5778-6) YELLOW YELLOW [facility] CenterUrine bxxbita5521-42-22 13:54:00* Test Item Value Reference Range Interpretation Comments Urine Clarity (test code = 94550-8) SL CLOUDY CLEAR [facility] Beevillepecific gravity of Urine by Test strip 2020-03-05 13:54:00* Test Item Value Reference Range Interpretation Comments Urine Specific [place] (test code = 5811-5) 1.025 1.010-1.02 5 [facility] CenterUrine pH measurement by automated test kwsal7473-86-42 13:54:00* Test Item Value Reference Range Interpretation Comments Urine pH (test code = 74447-2) 5.5 5-7 [facility] CenterUrine leukocyte esterase detection by lpsaboqc5316-76-85 13:54:00* Test Item Value Reference Range Interpretation Comments Urine Leukocyte Esterase (test code = 5799-2) TRACE NEGATIVE [facility] CenterUrine nitrite ywayfvtbl3165-86-79 13:54:00* Test Item Value Reference Range Interpretation Comments Urine Nitrite (test code = 80798-7) NEGATIVE NEGATIVE [facility] CenterUrine protein measurement by test strip (mass/volume)2020-03-05 13:54:00* Test Item Value Reference Range Interpretation Comments Urine Protein (test code = 5804-0) TRACE NEGATIVE [facility] CenterUrine glucose eeevwfxua0728-01-29 13:54:00* Test Item Value Reference Range Interpretation Comments Urine Glucose (UA) (test code = 2349-9) NEGATIVE NEGATIVE [facility] CenterUrine ketones detection by automated test tamut1438-03-46 13:54:00* Test Item Value Reference Range Interpretation Comments Urine Ketones (test code = 74440-7) TRACE NEGATIVE [facility] CenterUrine urobilinogen measurement by test strip (mass/volume)2020-03-05 13:54:00* Test Item Value Reference Range Interpretation Comments Urine Urobilinogen (test code = 82540-3) 1 0.2-1 [facility] CenterUrine total bilirubin measurement (mass/volume)2020-03-05 13:54:00* Test Item Value Reference Range Interpretation Comments Urine Bilirubin (test code = 1978-6) SMALL NEGATIVE [facility] CenterUrine erythrocytes egyooqwky0991-60-30 13:54:00* Test Item Value Reference Range Interpretation Comments Urine Blood (test code = 10806-4) TRACE NEGATIVE [facility] CenterAutomated urine sediment leukocyte count by microscopy (number/high power field)2020-03-05 13:54:00* Test Item Value Reference Range Interpretation Comments Urine WBC (test code = 5821-4) 11-20 0-5 [facility] CenterErythrocytes detection in urine sediment by light nekompvngh0027-47-65 13:54:00* Test Item Value Reference Range Interpretation Comments Urine RBC (test code = 09083-5) 0-5 0-5 [facility] CenterBacteria detection in urine sediment by light [id number] 13:54:00* Test Item Value Reference Range Interpretation Comments Urine Bacteria (test code = 86935-8) FEW NONE [facility] CenterEpithelial cells detection in urine sediment by light weynxrawtl1540-49-99 13:54:00* Test Item Value Reference Range Interpretation Comments Urine Epithelial Cells (test code = 55095-2) FEW NONE [facility] CenterBNP Jku-fOau7013-07-01 13:54:00* Test Item Value Reference Range Interpretation Comments B-Type Natriuretic Peptide (test code = 76176-7) 276.5 0-100 [facility] CenterFluoroscopic procedure less than one hour hyyaudfz5811-03-71 13:54:00* Test Item Value Reference Range Interpretation [...] under 564(g) of the ACT.Testing performed by [facility] [place] [id number] Medical CenterBlood etpvnpy7319-78-52 13:54:00* Test Item Value Reference Range Interpretation Comments Blood Culture (test code = 38477150) NO GROWTH AFTER 5 DAYS, FINAL REPORT [facility] CenterBacterial urine voiwbyp9510-45-65 13:54:00* Test Item Value Reference Range Interpretation Comments Urine Culture (test code = 630-4) ENTEROCOCCUS FAECIUM [facility] [id number] 13:54:00* Test Item Value Reference Range Interpretation Comments Blood Culture (test code = 86244027) NO GROWTH AFTER 5 DAYS, FINAL REPORT [facility] CenterBlood ducymos4197-97-22 13:54:00* Test Item Value Reference Range Interpretation Comments Blood Culture (test code = 88446143) NO GROWTH AFTER 5 DAYS, FINAL REPORT [facility] 12 xbgi7583-95-41 16:54:43* Test Item Value Reference Range Interpretation Comments Ventricular rate (test code = 253) 78 Atrial rate (test code = 255) 78 OH interval (test code = 266) 164 QRSD [...] has lengthened- Neto MenonUs duplex venous upper ootxbjdka6318-60-06 16:48:07 There is no evidence of DVT in the right upper extremity and left internal jugular vein. [facility] MethodistCBC with platelet and xfgwzuoqhlge9199-78-72 16:44:52* Test Item Value Reference Range Interpretation Comments WBC (test code = 22495-7) 5.53 4.50- 11.00 k/uL RBC (test code = 99691-6) 3.81 m/uL 4.2-5.5 L HGB (test code = 718-7) 10.1 g/dL 12-16 L HCT (test code = 4544-3) 35.0 % 37-47 L MCV (test code = 787-2) 91.9 fL 82-100 MCH (test code = 785-6) 26.5 pg 27-34 L MCHC (test code = 786-4) 28.9 g/dL 31-37 L RDW - SD (test code = 92177-8) 102.2 fL 37-55 H MPV (test code = 58954-7) SEE COMMENT 8.8-13.2 No report Platelet count (test code = 10652-2) 150 150- 400 k/uL Nucleated RBC (test code = 10033-8) 0.00 /100 WBC Neutrophils (test code = 32585-9) 41.0 % 39-69 Lymphocytes (test code = 17610-2) 52.0 % 25-45 H Monocytes (test code = 28937-0) 2.0 % 0-10 Eosinophils (test code = 46063-4) 5.0 % 0-5 Basophils (test code = 73591-1) 0.0 % 0-1 Lab Interpretation (test code = 00974-9) Abnormal [place] MethodistManual zsjtxlefcvfz2509-98-03 16:44:52* Test Item Value Reference Range Interpretation Comments Manual differential (test code = 84190-0) PERFORMED Neutrophils (test code = 13469-5) 41.0 % 39-69 Lymphocytes (test code = 00151-2) 52.0 % 25-45 H Monocytes (test code = 59110-8) 2.0 % 0-10 Eosinophils (test code = 62383-2) 5.0 % 0-5 Basophils (test code = 01310-2) 0.0 % 0-1 Metamyelocytes (test code = 740-1) 0 % Promyelocytes (test code = 783-1) 0 % Platelet slide review (test code = 94177-4) Abhijit adequate Anisocytosis (test code = 702-1) Moderate Tear drop cells (test code = 7791-7) Occasional Ovalocytes (test code = 774-0) occasional Elliptocytes (test code = 08773-6) Occasional Lab Interpretation (test code = 70780-1) Abnormal [place] MethodistComprehensive metabolic jiurc4585-86-75 15:56:33* Test Item Value Reference Range Interpretation Comments Sodium (test code = 2951-2) 140 135- 148 mEq/L Potassium (test code = 2823-3) 3.1 3.5- 5.0 mEq/L L Chloride (test code = 2075-0) 100 98- 112 mEq/L CO2 (test code = 2027-9) 34 24- 31 mEq/L H Anion gap (test code = 24772-7) 6@ANIO 7- 15 mEq/L L BUN (test code = 3094-0) 9 mg/dL 8-23 Creatinine (test code = 2160-0) 0.70 mg/dL 0.5-0.9 Glucose (test code = 2345-7) 121 mg/dL 65-99 H Calcium (test code = 66260-7) 8.2 mg/dL 8.8-10.2 L Protein (test code = 2885-2) 6.4 g/dL 6.3-8.3 - 4.6- 7.0 g/dL1 week 4.4-7.6 g/dL7 months-1year 5.1-7.3 g/dL1-2 years 5.6-7.5 g/dL>3 years 6.0-8.0 g/fF27-092 6.3-8.3 g/dL Albumin (test code = 1751-7) 2.3 g/dL 3.5-5 L A/G ratio (test code = 1759-0) 0.6 0.7-3.8 L Alkaline phosphatase (test code = 6768-6) 108 U/L 35-104 H AST (test code = 1920-8) 45 U/L 10-35 H ALT (test code = 1742-6) 23 U/L 5-50 Total bilirubin (test code = 1975-2) 0.9 mg/dL 0-1.2 Lab Interpretation (test code = 86911-4) Abnormal [place] MethodistEstimated [id number] 15:56:33* Test Item Value Reference Range Interpretation Comments Estimated GFR (test code = 5488) 84 mL/min/1.73 m2 Catergory Units InterpretationG1 >=90 Normal or highG2 60-89 Mildly aqsxqcldvH0d 45-59 Mildly to moderately ylpzqrfzrO7i 30-44 Moderately to severely decreasedG4 15-29 Severely decreasedG5 <15 Kidney failureThe eGFR was calculated using the Chronic Kidney Disease Epidemiology Collaboration (CKD-EPI) equation. Interpretation is based on recommendations of the National Kidney Foundation-Kidney Disease Outcomes Quality Initiative (NKF-KDOQI) published in 2014. [place] MethodistXR Chest 1 Vw Wyhcyptz7563-10-21 15:37:15Hm Interface, Radiology Results 03/03/2020 3:40 PM [...] present. The regional osseous structures appear stable. [facility] [place]- [id number] MethodistECG ED Preliminary Interpretation - Not an Order 2020-03-03 15:01:44Moni Morgan MD 03/03/2020 6:03 PME ED Preliminary Interpretation - Not an OrderPerformed by: Moni Morgan MDAuthorized by: Moni Morgan MD ECG reviewed by ED Physician in the absence of a melt superintendant: yes (read at 1507) Interpretation: Interpretation: normal Rate: ECG rate: 78 ECG rate assessment: normal Rhythm: Rhythm: sinus rhythm Ectopy: Ectopy: none QRS: QRS axis: Normal QRS intervals: NormalConduction: Conduction: normal ST segments: ST segments: NormalT waves: T waves: normal Other findings: Other findings: prolonged qTc interval Neto Menon
[2020-05-17] MEDS: ASPIRIN 81 MG CHEW TAB PO SCH (20:24)
--- NOTE | 2020-05-17 21:55 | Consultation ---
DATE OF CONSULTATION: 05/17/2020 Cardiology Consultation CONSULTING PHYSICIAN: Kapil Archer MD, Interventional Cardiology. REASON FOR CONSULTATION: Arrhythmia. HISTORY OF PRESENT ILLNESS: A 74-year-old woman with history of aortocoronary bypass, coronary artery disease (bypass in 2010), hypertension, hypothyroidism, [facility] resident, morbid obesity, recurrent episodes of urinary tract infection, atrial fibrillation, presents with complaint of burning on urination. She is undergoing treatment for urinary tract infection. She was noted to have episodes of atrial fibrillation with rapid ventricular response, and a run of wide-complex tachycardia for which she was initiated on amiodarone and beta-silva started. Pratima notes palpitations and shortness of breath when this episodes of fast arrhythmia occur. She had a similar admission with similar findings of both arrhythmia mccurdy and a urinary tract infection mccurdy earlier last month. She currently denies any chest discomfort. She is in atrial fibrillation with controlled ventricular response, at this time, on amiodarone drip. REVIEW OF SYSTEMS: A 12-system review negative except for as noted above. PAST MEDICAL HISTORY: Significant for CAD with history of bypass in 2010, hypertension, dyslipidemia, hypothyroidism, and prior UTI. SOCIAL HISTORY: No smoking, alcohol, or drugs. The patient is a [facility] resident. FAMILY HISTORY: Noncontributory. PHYSICAL EXAMINATION: VITAL SIGNS: Temperature 97.9, heart rate 88, respiratory rate 19, blood pressure 118/56, and O2 saturation 95% on 4 L/min nasal cannula. GENERAL: In no acute distress. Alert. Chronically ill-appearing. NECK: No JVD. CHEST: Clear to auscultation bilaterally. CARDIOVASCULAR: Irregularly irregular rate and rhythm. Normal S1, S2. No S3. No S4. Systolic murmur 1/6. ABDOMEN: Soft. Bowel sounds positive. EXTREMITIES: Trace edema to both lower extremities. CARDIOVASCULAR MEDICATIONS: Reviewed. Amiodarone IV drip, receiving atorvastatin 80 mg at bedtime, furosemide 20 mg b.i.d., metoprolol tartrate 25 mg p.o. q.12 hours, ceftriaxone, and phenytoin. LABORATORY DATA: White blood cells 6.3, hemoglobin 8.2, and platelets 184. INR 1.7, PT 21, PTT 45. Sodium 141, potassium 3.7, chloride 99, bicarbonate 34, BUN 11, creatinine 0.7, glucose 85, calcium 7.2, magnesium 1.3. AST 86, ALT 36, alkaline phosphatase 112. Troponin I 0.024. CK 74. BNP 287. Albumin 2. UA, specific gravity 1.030, pH 5.5, white blood cells more than 50, rbc's 11 to 20. Coronavirus PCR pending. EKG with atrial fibrillation with rapid ventricular response. Telemetry review, atrial fibrillation, episode of wide-complex tachycardia, degenerating into atrial fibrillation. Differential atrial fibrillation with aberrancy versus VT. Chest x-ray, vessel congestion, cardiomegaly, interstitial opacities concerning for fluid overload, small effusions, patchy airspace opacities at lung bases right greater than left, concerning for superimposed aspiration or pneumonia. ASSESSMENT AND PLAN: A 74-year-old woman presents with wide-complex tachycardia and atrial fibrillation, coronary artery disease with history of aortocoronary bypass in 2010. Urinary tract infection in [facility] resident. History of breast cancer, history of seizure disorder, diabetes type 2, hypertension, dyslipidemia, anemia. Echocardiogram from 04/17/2020, remarkable for LVEF 50% to 55% pseudo-normalized left ventricular filling of left atrium, left atrial dilatation, rlzd-qk-csavnlnc tricuspid regurgitation, RVSP 36, moderate LVH. RECOMMEND: 1. Continue IV amiodarone drip. 2. Initiate Lovenox for subtherapeutic INR. 3. Beta-silva up titrate dose as tolerated by blood pressure. 4. Continue aspirin and statin. 5. Continue with diuretics. 6. Replete electrolytes, particularly magnesium. 7. Monitor on telemetry inhouse. 8. Monitor H and H. Please call me with any questions at [phone]. Kapil Archer MD AFV/MODL /[id number]
[2020-05-17] MEDS: METOPROLOL TARTRATE 25 MG TAB PO SCH (22:00)
[2020-05-17 23:00] VITALS: BP 96/51
[2020-05-17 23:23] LABS: CREATINE KINASE MB 1.2 ng/mL (0-5.0)
[2020-05-17 23:30] VITALS: BP 117/59
[2020-05-18] VITALS (7 sets, daily range): BP systolic 77–109; BP diastolic 47–59
[2020-05-18] MEDS: ATORVASTATIN 40 MG TAB PO SCH ×2 (01:19→21:05)
[2020-05-18] MEDS: MAGNESIUM SULFATE 2GM/50ML IV SCH ×2 (01:19→11:13)
[2020-05-18] MEDS: ENOXAPARIN SODIUM INJ 100 MG/ML SYR SC SCH ×3 (01:19→21:05)
--- NOTE | 2020-05-18 03:22 | NUR ---
05/17/20 @ 5194 Received patient from ED via stretcher on med surg rn and O2. Patient arrived to hospital with lopez. Approximately 200cc of of cloudy dark afua urine noted to BSB. Perineal care performed and lopez maintained.
--- NOTE | 2020-05-18 03:42 | Consultation ---
DATE OF CONSULTATION: 05/17/2020 PULMONARY CRITICAL CARE CONSULTATION: REASON FOR CONSULT: ICU management. CHIEF COMPLAINT: Shortness of breath. HISTORY OF PRESENT ILLNESS: Ms. Anderson is a 74-year-old female who came in with altered mental status and burning urination for three days. She was in the emergency room on 04/21 as well with the epigastric and abdominal pain. She lives at home by herself. She sees Dr. Hendrix at [facility]. She has a history of diabetes, hypothyroidism, seizure disorder, breast cancer, subdural hematoma, atrial fibrillation. She lives at [facility]. She was found to be in SVT and the patient was started on amiodarone. Now, the heart rate is 87. She denies any complaints of chest pain. No nausea, vomiting. The patient possibly had narrow complex tachycardia. Amiodarone was given and she converted back. REVIEW OF SYSTEMS: GENERAL: Denies any fever or chills. HEAD: Denies any head trauma. ENT: Denies any earache. CVS: Chest pain. RESPIRATORY: Shortness of breath. Rest of the review of systems are negative except as in HPI. PAST MEDICAL HISTORY: Hypertension, hyperlipidemia, diabetes, seizure disorder, breast cancer. PAST SURGICAL HISTORY: Bypass, hysterectomy. FAMILY AND SOCIAL HISTORY: She does not smoke. Does not drink. PHYSICAL EXAMINATION: VITAL SIGNS: Temperature 97.9, pulse of 88, blood pressure 118/56. CHEST: Clear to auscultation bilaterally. No wheezing. HEART: S1, S2 audible. CHEST: Decreased air entry bilaterally. ABDOMEN: Soft. EXTREMITIES: Pedal edema. NEUROLOGIC: Awake and alert. LABORATORY DATA: White count of 6.3, hemoglobin 8.9. Chemistry reviewed, 286 BNP. ASSESSMENT/PLAN: Ms. Anderson is a 74-year-old female, she came in with supraventricular tachycardia, atrial fibrillation. The patient is on amiodarone infusion. Currently stable. Heart rate is stable. The patient is on IV Rocephin for UTI. Anticoagulation has been started by Cardiology. Continue the patient on Lasix p.o. Oxygen as needed to keep the O2 saturation more than or equal to 92%. Home medication resumed. Critical care time spent 40 minutes. Thank you for this consult. The patient will get a PICC line. Critical care time spent 45 minutes. MD ARON Shook/RANULFO /[id number]
[2020-05-18 04:44] LABS: BASOPHILS % 0.3 % (0.0-1.0); EOSINOPHILS # (AUTO) 0.1 (0.0-0.4); EOSINOPHILS % 1.4 % (0.0-6.0); HEMATOCRIT 26.1 % (34.2-44.1); HEMOGLOBIN 7.9 g/dL (12.0-16.0); LYMPHOCYTES # (AUTO) 1.8 (1.0-3.2); LYMPHOCYTES % 25.7 % (18.0-39.1); MEAN CORPUSCULAR HEMOGLOBIN 26.8 pg (28-32); MEAN CORPUSCULAR HGB CONC 30.3 g/dL (31-35); MEAN CORPUSCULAR VOLUME 88.5 fL (81-99); MONOCYTES # (AUTO) 0.6 (0.2-0.8); MONOCYTES % 9.2 % (4.4-11.3); NEUTROPHILS # (AUTO) 4.4 (2.1-6.9); NEUTROPHILS % 63.1 % (38.7-80.0); PLATELET COUNT 173 x10e3/uL (140-360); RED BLOOD COUNT 2.95 x10e6/uL (3.6-5.1); RED CELL DISTRIBUTION WIDTH 33.2 % (11.7-14.4)
[2020-05-18 05:10] LABS: ALANINE AMINOTRANSFERASE 34 IU/L (0-55); ALBUMIN 1.9 g/dL (3.5-5.0); ALBUMIN/GLOBULIN RATIO 0.4 (0.8-2.0); ALKALINE PHOSPHATASE 100 IU/L (40-150); BLOOD UREA NITROGEN 12 mg/dL (7-26); BUN/CREATININE RATIO 15 (6-25); CALCIUM 7.1 mg/dL (8.4-10.2); CARBON DIOXIDE 29 mmol/L (22-29); CHLORIDE 101 mmol/L (98-107); CHOL/HDL RATIO 2.9 (3.0-3.6); CHOLESTEROL 60 MD/DL (0-199); CREATININE, SERUM 0.81 mg/dL (0.57-1.11); EST GLOMERULAR FILTRATION RATE > 60 ML/MIN (60-); GLUCOSE 136 mg/dL (74-118); HDL CHOLESTEROL 21 MG/DL (40-60); LDL CHOLESTEROL 27 MG/DL (60-130); SODIUM 140 mmol/L (136-145); TRIGLYCERIDES 62 MG/DL (0-149)
[2020-05-18] MEDS: METOPROLOL TARTRATE 25 MG TAB PO SCH ×3 (05:29→21:13)
[2020-05-18] MEDS: CEFTRIAXONE SOD 1 GM/NS 50 ML 50 ML IV SCH ×2 (05:29→18:07)
[2020-05-18] MEDS: LEVOTHYROXINE SODIUM 75 MCG TAB PO SCH (05:30)
[2020-05-18 05:33] LABS: CREATINE KINASE MB 1.5 ng/mL (0-5.0)
--- NOTE | 2020-05-18 07:11 | Diagnostic Imaging Report ---
EXAMINATION: CHEST SINGLE (PORTABLE) INDICATION: ^PICC Placement COMPARISON: 05/17/2020 FINDINGS: AP view TUBES and LINES: Right PICC in place with tip projecting over mid SVC. LUNGS: Lungs are well inflated. Bilateral airspace opacities, unchanged. PLEURA: No pneumothorax. Suspected small bilateral pleural effusions. HEART AND MEDIASTINUM: The cardiomediastinal silhouette is enlarged. Median sternotomy wires and mediastinal surgical clips. BONES AND SOFT TISSUES: No acute osseous lesion. Soft tissues are unremarkable. UPPER ABDOMEN: No free air under the diaphragm. IMPRESSION: Right PICC in place with tip projecting over mid SVC. No visible pneumothorax. Pulmonary status is unchanged when compared to prior x-ray. Signed by: Dr. Naveen Pritchett MD on 05/18/2020 7:07 AM
[2020-05-18] MEDS: PANTOPRAZOLE SOD 40 MG TABEC PO SCH (08:42)
[2020-05-18] MEDS: ASPIRIN 81 MG CHEW TAB PO SCH (08:42)
[2020-05-18] MEDS: PHENYTOIN SODIUM EXT REL 100 MG CAP PO SCH ×2 (08:42→18:07)
[2020-05-18] MEDS ORDERED: FUROSEMIDE 20 MG TAB PO SCH (09:00)
[2020-05-18] MEDS ORDERED: METOPROLOL TARTRATE 25 MG TAB PO SCH (09:00)
[2020-05-18] MEDS ORDERED: MAGNESIUM SULFATE 2GM/50ML 50 ML IV ONE (11:00)
[2020-05-18] MEDS: AMIODARONE HCL 900 MG in DEXTROSE 5 % 500ML BOTTLE 500 ML IV SCH (11:13)
[2020-05-18 11:18] LABS: FREE THYROXINE INDEX 1.1378 (1.4-3.8); THYROID STIMULATING HORMONE 12.993 uIU/mL (0.350-4.940)
[2020-05-18] MEDS: FUROSEMIDE INJ 10 MG/ML 4 ML VIAL IV SCH (11:26)
--- NOTE | 2020-05-18 11:59 | Progress Note ---
DATE: 05/18/2020 Cardiology Progress Note SUBJECTIVE: Ms. Anderson has had no recurrent chest discomfort or palpitations. This morning on telemetry in sinus rhythm. OBJECTIVE: VITAL SIGNS: Temperature 98, heart rate 89, blood pressure 103/48, respiratory rate 18, and O2 saturation 100%. GENERAL: In no acute distress. Alert. NECK: No JVD. CHEST: Clear to auscultation. CARDIOVASCULAR: Regular rate and rhythm. Normal S1 and S2. ABDOMEN: Soft. EXTREMITIES: Trace edema. CARDIOVASCULAR MEDICATIONS: Reviewed. Aspirin 81 mg daily, Lovenox 100 q.12 hours, metoprolol tartrate 25 mg every 8 hours, furosemide 20 mg b.i.d. p.o. transition to 40 IV daily starting today. STUDIES: Reviewed. Chest x-ray with pulmonary infiltrates. Creatinine is 0.8, potassium is 4, and her glucose 136. Her white cells 6.9. Her hemoglobin 7.9 and platelets 173. INR 1.7. ASSESSMENT AND PLAN: A 74-year-old woman with paroxysmal atrial fibrillation with episodes of wide-complex tachycardia, suspected atrial fibrillation with aberrancy. Differential includes nonsustained ventricular tachycardia, coronary artery disease with history of aortocoronary bypass 2010, hypothyroidism, hypertension, dyslipidemia, urinary tract infection, deconditioning, residential resident, and LVEF low normal 50-55 on recent echo. RECOMMEND: Continue current cardiovascular medications. Anemia workup. If any issues with bleeding, can hold anticoagulation. Continue rest of cardiovascular medications, status post magnesium supplementation. Potassium at goal today. Kapil Archer MD AFAleksandr/RANULFO /[id number]
[2020-05-18] MEDS ORDERED: DEXTROSE 50% SYRINGE 50 ML IV PRN (12:00)
--- NOTE | 2020-05-18 15:05 | Diagnostic Imaging Report ---
Chest ultrasound. History: Altered mental status. Comparison: Chest x-ray from earlier today. Discussion: Transverse and longitudinal sonographic imaging of the bilateral posterior chest was performed. Small bilateral pleural effusions are identified. IMPRESSION: Small bilateral pleural effusions. Signed by: Joshua Alfaro on 05/18/2020 3:02 PM
--- NOTE | 2020-05-18 15:57 | Diagnostic Imaging Report ---
Renal ultrasound. Clinical History: UTI Comparison Study: None available Findings: The right kidney measures 9.7cm and left kidney measures 8.5 cm. There is no evidence of hydronephrosis, nephrolithiasis or renal mass on either side. The echogenicity is normal bilaterally. The cortical thickness on the right side is 1.5 cm and on the left side is 1.1 cm. Both arterial and venous flow is documented to both kidneys. The bladder contains a Gonzales catheter. Impression: Normal renal ultrasound. Signed by: Joshua Alfaro on 05/18/2020 3:53 PM
[2020-05-18] MEDS: SPIRONOLACTONE 25 MG TAB PO SCH (18:07)
[2020-05-18] MEDS: INSULIN REGULAR, HUMAN 100 UNIT/1 ML 3ML VIAL SQ SCH ×2 (18:23→21:11)
--- NOTE | 2020-05-18 19:06 | History and Physical ---
PCP: Dr. Hendrix at [facility]. CHIEF COMPLAINT: Urinary tract infection and arrhythmia . HISTORY OF PRESENT ILLNESS: This is a 74-year-old female with past medical history of hypertension, CAD, diabetes type 2, seizures, hypothyroidism, atrial fibrillation, and morbid obesity, presented to the ER with complaints of recurrent UTI. While she was in the ER, she is noticed to have arrhythmias with a heart rate of 180. She was started on amiodarone drip and transferred to ICU for further care. She reports feeling burning sensation and she has indwelling chronic Gonzales catheter and recurrent UTI. She was recently admitted and discharged on Keflex per the patient's request. PAST MEDICAL HISTORY: 1. Hypertension. 2. CAD, status post bypass. 3. High cholesterol. 4. Diabetes. 5. Seizure disorder. 6. Hypothyroidism. 7. Paroxysmal atrial fibrillation. 8. Morbid obesity. PAST SURGICAL HISTORY: Reports hysterectomy, bypass in 2010, and shoulder surgery. FAMILY MEDICAL HISTORY: Unknown. SOCIAL HISTORY: She denies any tobacco, alcohol, or illicit drug use. She is currently living at home with her daughter. ALLERGIES: TO PENICILLIN AND SULFA DRUGS. REVIEW OF SYSTEMS: Twelve systems reviewed and negative, except as reported in the HPI. PHYSICAL EXAMINATION: VITAL SIGNS: Temperature 98.0, pulse is 89, respirations 18, blood pressure 103/48, and pulse ox is 100% on 2 L of nasal cannula. GENERAL: Fatigue. HEENT: Normocephalic and atraumatic. NECK: Supple. LUNGS: Clear to auscultation. CARDIOVASCULAR: Regular rate and rhythm. ABDOMEN: Soft and obese. . MUSCULOSKELETAL: Moves all extremities. Trace edema in the lower extremities. NEURO: Alert, awake, and oriented x3. SKIN: Bilateral ulcers. LABORATORY DATA: WBC 6.97, hemoglobin 7.9, hematocrit , and platelets 173. Sodium 140, potassium 4.0, BUN is 12, creatinine 0.81, and estimated GFR is greater than 65. . TIBC 151. AST 80 and ALT 34. Troponin x3 negative, . Albumin 1.9. Triglycerides 52, LDL 27, and HDL 21. TSH 12.993. UA; cloudy with positive nitrite, large leukocyte esterase, wbc greater than 50. Urine culture was positive for gram-negative bacillus. Blood culture is pending. Chest x-ray, vessel congestion and cardiomegaly along with interstitial opacities were concerning for fluid overload/edema with small pleural effusion. Patchy airspace opacity at the lung bases, right greater than the left also concerning for superimposed aspiration or pneumonia. IMPRESSION: 1. Supraventricular tachycardia with history of atrial fibrillation. Heart rate in the 180s. We will continue on amiodarone drip per Cardiology. 2. Urinary tract infection, recurrent. Urine culture is growing gram-negative bacillus. Continue on Rocephin. 3. History of coronary artery disease, status post bypass. Resume beta blockers and statin. Cardiology on the case. 4. Hypothyroidism. TSH is 12.99. Resume levothyroxine 75 mcg. 5. Diabetes type 2. Start sliding scale insulin coverage. 6. Seizure disorder. Resume Dilantin. 7. Morbid obesity with debility. BMI 42. We will consult Case Management for SNF placement upon discharge. 8. Questionable pneumonia on chest x-ray. Continue Rocephin and Lasix for possible fluid edema. 9. Deep venous thrombosis prophylaxis. Continue Lovenox subcutaneous b.i.d. Dictated by REBECCA Salomon Max Newell MD MY/MODL /[id number] Seen and examined. Agree with the findings and plan as documented by REBECCA Mcfarland. DARÍOD
[2020-05-19] VITALS (9 sets, daily range): BP systolic 88–111; BP diastolic 36–59
[2020-05-19] MEDS ORDERED: SODIUM CHLORIDE 0.9% 250ML 250 ML ONE (01:45)
[2020-05-19] MEDS: CEFTRIAXONE SOD 1 GM/NS 50 ML 50 ML IV SCH (04:40)
[2020-05-19 05:25] LABS: BASOPHILS % 0.5 % (0.0-1.0); EOSINOPHILS # (AUTO) 0.2 (0.0-0.4); EOSINOPHILS % 3.7 % (0.0-6.0); HEMATOCRIT 23.8 % (34.2-44.1); HEMOGLOBIN 7.4 g/dL (12.0-16.0); LYMPHOCYTES # (AUTO) 2.4 (1.0-3.2); LYMPHOCYTES % 36.4 % (18.0-39.1); MEAN CORPUSCULAR HEMOGLOBIN 27.2 pg (28-32); MEAN CORPUSCULAR HGB CONC 31.1 g/dL (31-35); MEAN CORPUSCULAR VOLUME 87.5 fL (81-99); MONOCYTES # (AUTO) 0.6 (0.2-0.8); MONOCYTES % 9.7 % (4.4-11.3); NEUTROPHILS # (AUTO) 3.2 (2.1-6.9); NEUTROPHILS % 49.4 % (38.7-80.0); PLATELET COUNT 170 x10e3/uL (140-360); RED BLOOD COUNT 2.72 x10e6/uL (3.6-5.1); RED CELL DISTRIBUTION WIDTH 33.6 % (11.7-14.4)
[2020-05-19 05:49] LABS: ANION GAP 11.7 mmol/L (8-16); BLOOD UREA NITROGEN 12 mg/dL (7-26); BUN/CREATININE RATIO 14 (6-25); CARBON DIOXIDE 31 mmol/L (22-29); CHLORIDE 100 mmol/L (98-107); CREATININE, SERUM 0.86 mg/dL (0.57-1.11); EST GLOMERULAR FILTRATION RATE > 60 ML/MIN (60-); GLUCOSE 104 mg/dL (74-118); POTASSIUM 3.7 mmol/L (3.5-5.1); SODIUM 139 mmol/L (136-145)
[2020-05-19 05:54] LABS: CALCIUM 6.9 mg/dL (8.4-10.2)
[2020-05-19] MEDS: METOPROLOL TARTRATE 25 MG TAB PO SCH ×3 (06:00→21:50)
[2020-05-19] MEDS: LEVOTHYROXINE SODIUM 75 MCG TAB PO SCH (06:15)
[2020-05-19 07:18] LABS: ANISOCYTOSIS MARKED; EOSINOPHILS % (MANUAL) 3 % (0-7); LYMPHOCYTES % (MANUAL) 21 % (19-48); MONOCYTES % (MANUAL) 4 % (3.4-9.0); NEUTROPHILS % (MANUAL) 72 % (40-74); PLATELET ESTIMATE ADEQUATE; PLATELET MORPHOLOGY COMMENT NORMAL; RBC MORPHOLOGY COMMENT ABNORMAL
[2020-05-19 07:19] LABS: HYPOCHROMASIA SLIGHT; MICROCYTOSIS SLIGHT; OVALOCYTES FEW; TEAR DROP CELLS FEW
[2020-05-19 07:20] LABS: ELLIPTOCYTE, RBC SLIGHT
[2020-05-19 07:21] LABS: SCHISTOCYTES RARE; TARGET CELLS FEW
[2020-05-19] MEDS: INSULIN REGULAR, HUMAN 100 UNIT/1 ML 3ML VIAL SQ SCH ×4 (07:30→21:03)
[2020-05-19] MEDS: SPIRONOLACTONE 25 MG TAB PO SCH ×2 (08:02→18:07)
--- NOTE | 2020-05-19 08:15 | Diagnostic Imaging Report ---
TECHNIQUE: Frontal view of the chest. INDICATION: ^chf ^[id number] ^[id number] COMPARISON: Prior day. DISCUSSION: Limited evaluation due to portable technique. Lines and hardware: Stable. Heart and mediastinum: Stable. Lungs and pleura: Stable bilateral interstitial airspace opacities, right greater left. Stable blunting of the costophrenic angles. Soft tissues and bones: No acute abnormality. IMPRESSION: Stable support structures. Stable cardio megaly, bilateral interstitial airspace opacities and small bilateral pleural effusions. Signed by: Omega Fraser MD on 05/19/2020 8:12 AM
[2020-05-19] MEDS ORDERED: CALCIUM CHLORIDE 13.6 MEQ in SODIUM CHLORIDE 0.9% 100 ML 100 ML IV ONE (08:30)
[2020-05-19] MEDS: ASPIRIN 81 MG CHEW TAB PO SCH (08:46)
[2020-05-19] MEDS: PHENYTOIN SODIUM EXT REL 100 MG CAP PO SCH ×2 (08:46→18:07)
[2020-05-19] MEDS: PANTOPRAZOLE SOD 40 MG TABEC PO SCH (08:46)
[2020-05-19] MEDS: FUROSEMIDE INJ 10 MG/ML 4 ML VIAL IV SCH (09:00)
[2020-05-19] MEDS: ENOXAPARIN SODIUM INJ 100 MG/ML SYR SC SCH (09:00)
[2020-05-19] MEDS ORDERED: SODIUM CHLORIDE 0.9% 250ML 250 ML IV ONE (09:30)
[2020-05-19] MEDS: AMIODARONE HCL 900 MG in DEXTROSE 5 % 500ML BOTTLE 500 ML IV SCH (10:12)
[2020-05-19] MEDS ORDERED: MAGNESIUM SULF 1GRAM/DEXTROSE 100 ML IV ONE (10:30)
--- NOTE | 2020-05-19 11:50 | Progress Note ---
DATE: 05/19/2020 Cardiology Progress Note SUBJECTIVE: No new events. On telemetry, sinus rhythm. OBJECTIVE: VITAL SIGNS: Temperature 97.7, heart rate 87, respiratory rate 19, blood pressure 97/45, and O2 saturation 100% on nasal cannula. GENERAL: In no acute distress. Alert. NECK: No JVD. CHEST: Clear to auscultation. CARDIOVASCULAR: Regular rate and rhythm. Normal S1 and S2. ABDOMEN: Soft. EXTREMITIES: 1+ edema to four extremities. CARDIOVASCULAR MEDICATIONS: Reviewed. Aspirin 81 mg daily, atorvastatin 80 mg at bedtime, amiodarone drip will transition to p.o., metoprolol 25 q.8 hours, held this a.m. due to low blood pressure reads, will transition to 25 q.12 hours, spironolactone 25 b.i.d., and furosemide 40 IV daily, held. STUDIES: Reviewed. White blood cells 6.4, hemoglobin 7.4, and platelets 170. Magnesium 1.5, calcium 6.9, sodium 139, potassium 3.7, and creatinine 0.8. ASSESSMENT AND PLAN: 1. Atrial fibrillation and nonsustained ventricular tachycardia versus atrial fibrillation with aberrancy. 2. Coronary artery disease with history of bypass. 3. Hypothyroidism. 4. Diabetes type 2. 5. Seizure disorder. 6. Morbid obesity. RECOMMEND: 1. Replete magnesium. 2. Continue telemetry. 3. Decrease metoprolol to 25 q.12 hours with holding parameters. 4. Transition IV amiodarone to p.o. amiodarone. 5. Pending anemia evaluation. Consider options for long-term anticoagulation. MD SPENCER Kohli/RANULFO /[id number] SANIYA
[2020-05-19] MEDS: CEFEPIME 1GM/NS 0.9% 50 ML 50 ML IV SCH ×2 (11:54→21:03)
[2020-05-19] MEDS: MAGNESIUM OXIDE 400 MG TAB PO SCH ×3 (13:10→21:02)
--- NOTE | 2020-05-19 14:41 | NUR ---
SPOKE WITH PT ABOUT SNF, SHE IS DEFERRING TO DAUGHTER ADRIEL [phone], SHE STATES YES TO [facility], FAXED CLINICALS COVID FORM, PASRR AND PENDING AUTH.
--- NOTE | 2020-05-19 15:52 | NUR ---
WOUND CARE INITIAL CONSULT FOR 74 YO FEMALE ADMITTED TO [facility] WITH A PRESENT HX OF AMS, ANEMIA, ATRIAL, UTI, WIDE COMPLEX TACHYCARDIA. JOHN 10 ON STRICT PUP STATUS AND INTERVENTIONS SURFACE: LOW AIR LOSS MATTRESS. LABS: WBC- 6.43 HGB- 7.4 ALBUMIN: 2.3 GLUCOSE-104 MICRO: BLOOD CULTURE- NO GROWTH URINE CULTURE- PSEUDOMONAS AERUGINOSA MEDS: CEFEPIME SEE E MAR FOR DOSAGE. IMAGING: SKIN ASSESSMENT COMPLETE, PATIENT PRESENTS WITH 1)STAGE II PRESSURE ULCER TO SACRUM WITH BLANCHABLE ERYTHEMA PRESENT TO PERIWOUND; MEASURING 10 CM X 4 CM X 0.1 CM. 95 % PINK GRANULATION AND 5% YELLOW SLOUGH. MINIMAL SEROSANGUINEOUS DRAINAGE. 2)BLANCHABLE ERYTHEMA PRESENT TO PERIWOUND. 3)DRY SKIN PRESENT TO BILATERAL LOWER LEGS. RECOMMENDATIONS: NURSING TO CLEAN STAGE II PRESSURE ULCER WITH NORMAL SALINE, PAT DRY WITH 4X4 GAUZE, APPLY VENELEX, COVER WITH MAXORB AG AND SECURE WITH ALLEVYN FOAM DAILY. NURSING TO CLEAN PERIAREA WITH SOAP AND WATER, THEN WITH SALINE, PAT DRY WITH 4X4 GAUZE, APPLY REMEDY CALMING CREAM DAILY AND PRN. NURSING TO CLEAN BILATERAL LOWER LEGS WITH WARM SOAP AND WATER, PAT DRY WITH 4X4 GAUZE, APPLY REMEDY ANTIFUNGAL CREAM DAILY AND PRN . NURSING TO MONITOR BILATERAL BUTTOCK AND SACRAL AREA DAILY. NURSING TO CONTINUE MONITORING BILATERAL LOWER LEG EXTREMITIES FOR ANY CHANGES IN SKIN, NOTIFY MD AND WOUND CARE NURSE. NURSING TO CONTINUE TO MONITOR PATIENT AND KEEP SKIN CLEAN AND FREE FROM STOOL OR IRRITATING MOISTURE AND CONTINUE TO FOLLOW STRICT PUP INTERVENTIONS DAILY. NURSING TO CONTINUE REPOSITION PT SIDE TO SIDE EVERY TWO HOURS AND NEEDED. NURSING TO APPLY ALTERNATING PRESSURE MATTRESS. NURSING TO CONTINUE TO OFFLOAD FEET AND HEELS AT ALL TIMES WITH PILLOW SUSPENSION WHEN IN BED. NURSING TO APPLY BILATERAL HEEL PROTECTORS AND ALLEVYN FOAM DAILY. NURSING TO CONTINUE TO ASSIST WITH PT NUTRITIONAL SUPPLEMENTS TO ENSURE PROPER REQUIREMENTS FOR HEALING. NURSING TO RE- CONSULT WOUND CARE NEEDED. Addendum: 05/19/20 at 1556 by Morena Araujo RN Amended: Links added.
--- NOTE | 2020-05-19 15:55 | Progress Note ---
DATE: 05/19/2020 CONSULTANTS: 1. Dr. Garcia, Cardiology. 2. Dr. Reed, statistical analyst. SUBJECTIVE: The patient reports feeling weak and fatigued, reports had hypotension this morning in the 80s. She denies any chest pain, shortness of breath, nausea, or vomiting. PHYSICAL EXAMINATION: VITAL SIGNS: Temperature 97.9, pulse is 88, respirations 19, blood pressure 100/53, and pulse ox is 100% on 4 L of nasal cannula. GENERAL: Fatigue. HEENT: Normocephalic and atraumatic. NECK: Supple. LUNGS: Clear to auscultation. CARDIOVASCULAR: Regular rate and rhythm. ABDOMEN: Soft and nontender, obese. MUSCULOSKELETAL: Moves all extremities. Trace edema in the lower extremities. NEUROLOGIC: Alert, awake, and oriented x3. SKIN: Bilateral lower extremity ulcers. PSYCH: Calm. LABORATORY DATA: WBC 6.49, hemoglobin 7.4, hematocrit 23.8, and platelet is 170. Sodium 139, potassium 3.7, CO2 31, creatinine 0.86, estimated GFR is greater than 60, calcium 6.9, and magnesium 1.5. Urine culture shows Pseudomonas aeruginosa. Blood cultures negative. Chest x-ray, stable support structures, stable cardiomegaly, bilateral interstitial airspace opacities, and small bilateral effusion. IMPRESSION: 1. Supraventricular tachycardia with history of atrial fibrillation, heart rate stable, off amiodarone drip, currently on p.o. per Cardiology. 2. Urinary tract infection. Urine culture is positive for Pseudomonas aeruginosa. Continue cefepime b.i.d. 3. History of coronary artery disease, status post bypass. Continue beta blockers and statin. 4. Hypothyroidism. Resume levothyroxine at 75. 5. Diabetes type 2. Sliding scale insulin before meals and at bedtime. 6. Seizure disorder. Continue Dilantin. 7. Morbid obesity with BMI of 42. 8. Questionable pneumonia on chest x-ray. Likely due to pulmonary edema, continue Lasix. Chest x-ray this morning is stable. 9. Deep vein thrombosis prophylaxis. Continue Lovenox subcutaneous b.i.d. Dictated by REBECCA Salomon Max Newell MD MY/MODL /[id number] Seen and examined. Agree with the findings and plan as documented by REBECCA Mcfarland. SANIYA
[2020-05-19] MEDS: AMIODARONE HCL 200 MG TAB PO SCH ×2 (16:04→17:00)
[2020-05-19] MEDS: BALSAM PERU/CASTOR OIL 60 GM OINT...G. TP SCH (16:04)
[2020-05-19] MEDS: ATORVASTATIN 40 MG TAB PO SCH (21:02)
[2020-05-20 00:09] VITALS: BP 96/58
[2020-05-20 04:00] VITALS: BP 100/49
[2020-05-20] MEDS: LEVOTHYROXINE SODIUM 75 MCG TAB PO SCH (05:55)
[2020-05-20 05:57] LABS: BASOPHILS % 0.7 % (0.0-1.0); EOSINOPHILS # (AUTO) 0.2 (0.0-0.4); EOSINOPHILS % 2.6 % (0.0-6.0); HEMATOCRIT 23.3 % (34.2-44.1); HEMOGLOBIN 7.2 g/dL (12.0-16.0); LYMPHOCYTES # (AUTO) 2.7 (1.0-3.2); MEAN CORPUSCULAR HGB CONC 30.9 g/dL (31-35); MEAN CORPUSCULAR VOLUME 87.3 fL (81-99); MONOCYTES # (AUTO) 0.6 (0.2-0.8); NEUTROPHILS # (AUTO) 2.6 (2.1-6.9); NEUTROPHILS % 42.4 % (38.7-80.0); PLATELET COUNT 151 x10e3/uL (140-360); RED BLOOD COUNT 2.67 x10e6/uL (3.6-5.1); RED CELL DISTRIBUTION WIDTH 33.5 % (11.7-14.4)
[2020-05-20 06:08] LABS: INR 1.77; PROTHROMBIN TIME 21.5 seconds (11.9-14.5)
--- NOTE | 2020-05-20 06:08 | NUR ---
this nurse and nurse Santos came to room, trying to change patient and pull her up in the bed , patient refused to be turned and changed at this time, stated she does not feel good to be turned around.
[2020-05-20 06:09] LABS: PARTIAL THROMBOPLASTIN TIME 58.9 seconds (23.8-35.5)
[2020-05-20 06:15] LABS: ALANINE AMINOTRANSFERASE 32 IU/L (0-55); ALBUMIN 1.9 g/dL (3.5-5.0); ALBUMIN/GLOBULIN RATIO 0.4 (0.8-2.0); ALKALINE PHOSPHATASE 93 IU/L (40-150); ANION GAP 10.8 mmol/L (8-16); BLOOD UREA NITROGEN 12 mg/dL (7-26); BUN/CREATININE RATIO 14 (6-25); CALCIUM 7.1 mg/dL (8.4-10.2); CARBON DIOXIDE 30 mmol/L (22-29); CHLORIDE 99 mmol/L (98-107); CREATININE, SERUM 0.86 mg/dL (0.57-1.11); EST GLOMERULAR FILTRATION RATE > 60 ML/MIN (60-); GLUCOSE 74 mg/dL (74-118); POTASSIUM 3.8 mmol/L (3.5-5.1); SODIUM 136 mmol/L (136-145)
[2020-05-20] MEDS: INSULIN REGULAR, HUMAN 100 UNIT/1 ML 3ML VIAL SQ SCH ×3 (07:30→16:30)
[2020-05-20] MEDS: MAGNESIUM OXIDE 400 MG TAB PO SCH ×2 (07:57→15:00)
[2020-05-20 08:00] VITALS: BP 95/56
[2020-05-20 08:02] LABS: LYMPHOCYTES % (MANUAL) 40 % (19-48); MONOCYTES % (MANUAL) 11 % (3.4-9.0); NEUTROPHILS % (MANUAL) 48 % (40-74); NUCLEATED RED BLOOD CELLS 1; PLATELET ESTIMATE ADEQUATE; PLATELET MORPHOLOGY COMMENT NORMAL
[2020-05-20 08:03] LABS: ANISOCYTOSIS MARKED; HYPOCHROMASIA MODERATE
[2020-05-20 08:04] LABS: ELLIPTOCYTE, RBC SLIGHT; OVALOCYTES FEW; TARGET CELLS FEW
[2020-05-20 08:07] LABS: RBC MORPHOLOGY COMMENT ABNORMAL
[2020-05-20] MEDS: SPIRONOLACTONE 25 MG TAB PO SCH ×2 (08:37→17:00)
[2020-05-20] MEDS: PANTOPRAZOLE SOD 40 MG TABEC PO SCH (08:43)
[2020-05-20] MEDS: ENOXAPARIN SODIUM INJ 100 MG/ML SYR SC SCH (08:44)
[2020-05-20] MEDS: ASPIRIN 81 MG CHEW TAB PO SCH (08:44)
[2020-05-20] MEDS: AMIODARONE HCL 200 MG TAB PO SCH ×2 (08:44→18:04)
[2020-05-20] MEDS: FUROSEMIDE INJ 10 MG/ML 4 ML VIAL IV SCH (08:44)
[2020-05-20] MEDS: PHENYTOIN SODIUM EXT REL 100 MG CAP PO SCH ×2 (08:44→18:04)
[2020-05-20] MEDS: CEFEPIME 1GM/NS 0.9% 50 ML 50 ML IV SCH (08:45)
--- NOTE | 2020-05-20 08:58 | NUR ---
CONFIRMED WITH FACILITY CLINICALS RECEIVED AND PENDING AUTH.
[2020-05-20 09:12] VITALS: BP 95/56
[2020-05-20] MEDS: BALSAM PERU/CASTOR OIL 60 GM OINT...G. TP SCH (09:30)
[2020-05-20] MEDS: METOPROLOL TARTRATE 25 MG TAB PO SCH (09:30)
[2020-05-20] MEDS ORDERED: SODIUM CHLORIDE 0.9% 250ML 250 ML IV ONE (10:00)
--- NOTE | 2020-05-20 11:29 | Progress Note ---
DATE: 05/20/2020 CONSULTANTS: 1. Dr. Garcia, Cardiology. 2. Dr. Reed, gold charmer. SUBJECTIVE: The patient denies any chest pain, shortness of breath, nausea, or vomiting. She, however, complains of feeling fatigued and generalized weakness. PHYSICAL EXAMINATION: VITAL SIGNS: Temperature 97.9, pulse is 115, respirations 18, blood pressure 95/56, and pulse ox is 96% on 4 L of oxygen. GENERAL: Fatigue. HEENT: Normocephalic and atraumatic. NECK: Supple. LUNGS: Clear to auscultation. CARDIOVASCULAR: Regular rate and rhythm. ABDOMEN: Soft and nontender. Obese. MUSCULOSKELETAL: Moves all extremities. Trace edema in the lower extremities. NEUROLOGIC: Alert, awake, and oriented x3. SKIN: Dry with bilateral lower extremity pressure ulcers. PSYCH: Calm. : Gonzales in place. LABORATORY DATA: WBC 6.07, hemoglobin 7.2, hematocrit 23.3, and platelet 151. Sodium 136, potassium 3.8, BUN is 12, creatinine 0.86, estimated GFR is greater than 60, and calcium 7.1. AST 68 and ALT 32. Albumin 1.9 and globulin 4.7. IMPRESSION: 1. Atrial fibrillation with nonsustained ventricular tachycardia. Heart rate is stable. Currently on amiodarone p.o. per Cardiology. 2. Urinary tract infection. Urine culture is positive for Pseudomonas aeruginosa. Continue on cefepime per sensitivity. 3. History of coronary artery disease, status post bypass. Continue beta blockers and statin. 4. Hypothyroidism. Resume levothyroxine at 75 mcg. 5. Diabetes type 2. SSI before meals and at bedtime. 6. Seizure disorder. Continue Dilantin. 7. Morbid obesity with BMI of 42. 8. Deep venous thrombosis prophylaxis. Lovenox subcutaneous. 9. Chronic anemia. Hemoglobin is 7.2. We will continue to monitor. PLAN: To continue current treatment, cerebrovascular accident prophylaxis is being considered, and URSZULA is working on placement. Dictated by REBECCA Salomon Nayaching Jaemy Newell MD MY/MODL /[id number] Seen and examined. Agree with the findings and plan as documented by REBECCA Mcfarland. SANIYA
[2020-05-20 12:00] VITALS: BP 88/55
--- NOTE | 2020-05-20 15:04 | NUR ---
Nutrition Intervention Note RD Recommendation(s) for Physician: -Continue cardiac diet and recommended adding mechanical soft diet to diet order since pt has missing teeth per RN - Av BID to promote wound healing -Ensure Compact BID for added nutrition Plan of Care: RD following, monitoring for tolerance and adequacy, oral supplement recommendation Nutrition reason for involvement: pressure ulcer RD Assessment (05/20/20) Pt is a 74 year old female admitted with AMS, anemia, atrial fibrillation, UTI, and wide-complex tachycardia. It is noted that pt complains of feeling fatigued and having generalized weakness per MD note. Attempted to speak to pt, but pt did not respond to greeting. Spoke to RN who reported pt is eating about 50% of her meals. RN also mentioned that pt has missing teeth and would benefit from a mechanical soft diet. will add to diet order. Per weight history in chart, pt weighed 280 lbs in Apr 2020 and 284-286 lbs in Mar 2020. Pt currently has a weight of 272 lbs in chart. This would be insignificant weight loss. No N/V/D/C reported by RN. Recommend Ensure Compact BID for added nutrition and Av BID to promote wound healing. Will continue to monitor. Principal Problems/Diagnoses: AMS, anemia, atrial fibrillation, UTI, and wide-complex tachycardia PMH: Hypertension, CAD, status post bypass, High cholesterol, Diabetes, Seizure disorder, Hypothyroidism, Paroxysmal atrial fibrillation, Morbid obesity. GI: non-tender/soft abdomen, no BM recorded Skin: stage 2 sacrum pressure ulcer (per wound care note 05/19) Labs: (05/20) Na 136, K 3.8, BUN 12, Cr 0.86, Glu 74, Ca 7.1 Meds: metoprolol, antibiotic, dilantin, protonix, Lipitor, magnesium oxide, insulin, lasix, levothyroxine Ht: 67 in Wt: 272 lbs BMI: 42.6 kg/m2 IBW: 135 lbs Malnutrition Evaluation (05/20/20) The patient does not meet criteria for a specified degree of malnutrition at this time. Will re-evaluate at follow-up as appropriate. Energy intake: 50% intake the past 3 days, unable to obtain nutrition history from pt prior to admission Weight loss: 3% weight loss in the past month, 4-5% weight loss in the past 2 months per weight history not significant weight loss Fat loss: unable to evaluate Muscle loss: unable to evaluate Supporting Evidence: Fluid accumulation: trace edema in lower extremities per MD note Functional Status: not assessed Nutrition Prescription (Diet Order): cardiac Estimated Nutritional Needs: 0601-4572 calories/day (11-14 kcal/kg CBW) 92-123 g protein/day (1.5-2 g pro/kg IBW) Diet Adequacy: Not meeting calorie needs, Not meeting protein needs Tolerance: pt is missing teeth, RN mentioned that pt has missing teeth and would benefit from a mechanical soft diet. Diet Education Needs Assessment: RD is available for diet education as needed Nutrition Care Level: low Nutrition Diagnosis: Increased nutrient needs related to increased demand for protein and kcal as evidenced by sacral pressure ulcer. Goal: Patient will meet 75-100% of estimated needs by follow up Progress: N/A Interventions: -fat/cholesterol/sodium, texture- modified diet, Commercial beverage, Recommended Modifications Monitoring/Evaluation: -Total energy intake, Total protein intake, Modified diet, Liquid supplement, Weight change Signed: Kenzie Cruz RD, LD
[2020-05-20 16:00] VITALS: BP 91/56
--- NOTE | 2020-05-20 16:02 | NUR ---
PUT PACKET WITH RTF AT NURSES STATION ON CHART, IF OBTAIN MOT PLEASE RECORD IN NOTE.
[2020-05-20] MEDS ORDERED: CEFEPIME 11 GM/50 ML IV (16:48)
[2020-05-20] MEDS ORDERED: SYNTHROID125 MCG PO (16:48)
[2020-05-20] MEDS ORDERED: AMIODARONE HCL200 MG PO (16:48)
--- NOTE | 2020-05-20 19:19 | NUR ---
Patient picked up by EMS and taken to SNF. Patient is stable upon discharge
[2020-05-21] MEDS ORDERED: LEVOTHYROXINE SODIUM 125 MCG TAB PO SCH (06:00)
--- NOTE | 2020-05-25 20:21 | Discharge Summary ---
PRIMARY CARE PHYSICIAN: Dr. Hendrix at [facility]. FINAL DISCHARGE DIAGNOSES: 1. Atrial fibrillation with nonsustained ventricular tachycardia. 2. Urinary tract infection. 3. Pseudomonas aeruginosa. 4. History of coronary artery disease. 5. Hypothyroidism. 6. Diabetes type 2. 7. Seizure disorder. 8. Chronic anemia. 9. Morbid obesity. CONSULTANTS: 1. Dr. Garcia of Cardiology. 2. Dr. Reed with customer care agent. PROCEDURES: None. HISTORY: Per HPI. HOSPITAL COURSE: This is a 74-year-old female, who presented to the ER with complaints of dysuria and urinary tract infection symptoms with chronic indwelling catheter. While she was in the ER, she was noted to have SVT and nonsustained. She was started on amiodarone drip and admitted for further evaluation. Cardiology and Gear Machine Operator were consulted. Her heart rate was down under 100, normal sinus rhythm. She was monitored on amiodarone drip for over 24 hours and switch to p.o. amiodarone 200 mg. She remained stable. Urine culture was positive for Pseudomonas aeruginosa. She was initially started on Rocephin, but changed to cefepime for sensitivity. She was continued on her home medications, TSH was elevated at 12.99. Levothyroxine was increased to 125 mcg daily and advised to have blood work in 4 weeks and adjust dose at this time. She also to follow up with Cardiology in 1 week for start of anticoagulation. At this time, hemoglobin is 7.2. We will refer her to Cardiology for anticoagulation for stroke prophylaxis. Today, case management was consulted for care home facility placement, for IV antibiotics, and physical therapy. She will be going to [facility] for further management. PHYSICAL EXAMINATION: VITAL SIGNS: Temperature 97.2, pulse is 80, respirations 16, blood pressure 91/56, and pulse ox is 98% on 4 L of oxygen. GENERAL: No acute distress. HEENT: Normocephalic, atraumatic. NECK: Supple. LUNGS: With decreased breath sounds. ABDOMEN: Soft. CARDIOVASCULAR: Regular rate and rhythm. MUSCULOSKELETAL: Moves all extremities. Trace edema in the lower extremities. NEUROLOGIC: Alert, awake, and oriented x3. SKIN: Dry and intact. PSYCH: Calm. : Gonzales in place. CONDITION AT DISCHARGE: Stable and improved. DISCHARGE MEDICATIONS: Please see medication reconciliation list. FOLLOWUP: Follow up with PCP and Cardiology in 1 week. TIME SPENT: Total discharge time is 31 minutes. Dictated by REBECCA Salomon MD KATE Bob/RANULFO /[id number] cc: [facility]
== END 2020-05-20 19:20 | disposition home or self-care (01) | DRG 698 ==
LOC: ER 14:14 → ERHOLD 18:50 → IMCU 23:07
PROVIDERS: ADMIT Internal Medicine; ATTEND Internal Medicine
PROC: 02HV33Z Insertion of Infusion Device into Superior Vena Cava, Percutaneous Approach (ICD-10-PCS; principal; 2020-05-19)
DX: T83.518A Infection and inflammatory reaction due to other urinary catheter, initial encounter (principal); G93.41 Metabolic encephalopathy; N39.0 Urinary tract infection, site not specified; Z68.41 Body mass index [BMI] 40.0-44.9, adult; I47.1 Supraventricular tachycardia; I48.0 Paroxysmal atrial fibrillation; I25.10 Atherosclerotic heart disease of native coronary artery without angina pectoris; Z95.1 Presence of aortocoronary bypass graft; E03.9 Hypothyroidism, unspecified; G40.909 Epilepsy, unspecified, not intractable, without status epilepticus; Z85.3 Personal history of malignant neoplasm of breast; E11.9 Type 2 diabetes mellitus without complications; D64.9 Anemia, unspecified; B96.5 Pseudomonas (aeruginosa) (mallei) (pseudomallei) as the cause of diseases classified elsewhere; E66.01 Morbid (severe) obesity due to excess calories; Z20.828 Contact with and (suspected) exposure to other viral communicable diseases
CPT/HCPCS: 36415; 36569; 71045; 76604; 76770; 76857; 80048; 80053; 80061; 81001; 82550; 82553; 82948; 83540; 83605; 83735; 83880; 84436; 84443; 84466; 84479; 84484; 85025; 85610; 85730; 87040; 87086; 87186; 93005; 96366; 96372; 97139; 99251; 99285; J0692; J0696; J1650; J1940; J2060; J3475; J7050; U0002